=== PATIENT | male | born 1960 | race Caucasian/White ===

== ENCOUNTER 2023-01-12 09:15 | Outpatient (OUT) | payer OTHER, SELFPAY ==
[2023-01-12 10:15] LABS: Alanine Aminotransferase 48 U/L (16-63); Albumin Globulin Ratio 1.1; Albumin Level 3.9 g/dL (3.4-5.0); Alkaline Phosphatase 67 U/L (46-116); Anion Gap 11.9; Aspartate Amino Transferase 25 U/L (15-37); Bilirubin Total 0.3 mg/dL (0.2-1.0); Calcium 9.1 mg/dL (8.5-10.1); Carbon Dioxide 26.7 mmol/L (21.0-32.0); Chloride 106 mmol/L (98-107); Chol HDL Ratio 2.3; Cholesterol 138 mg/dL (<=200); Estimated GFR (African America >60 (>=60); Estimated GFR (Non-African Ame >60 (>=60); Globulin 3.4 g/dL; Glucose 110 mg/dL (74-106); HDL Cholesterol 61 mg/dL (40-60); Potassium 4.6 mmol/L (3.5-5.1); Sodium 140 mmol/L (136-145); Total Protein 7.3 g/dL (6.4-8.2); Triglycerides 45 mg/dL (<=150)
== END 2023-01-12 09:16 | disposition home or self-care (01) ==
LOC: LAB 09:15
PROVIDERS: PCP Family Medicine; Visit Provider Internal Medicine Cardiovascular Disease
DX: E78.01 Familial hypercholesterolemia (principal)
CPT/HCPCS: 36415; 80053; 80061

== ENCOUNTER 2023-06-21 10:37 | Outpatient (OUT) | payer OTHER, SELFPAY ==
[2023-06-21 11:07] LABS: Basophils Absolute Auto 0.1 10^3/uL (0.0-0.1); Basophils Percent Auto 0.7 % (0.2-2.0); Eosinophils Absolute Auto 0.2 10^3/uL (0.0-0.7); Eosinophils Percent Auto 2.5 % (0.9-7.0); Hematocrit 47.6 % (42.0-54.0); Hemoglobin 15.3 g/dL (14.0-18.0); Immature Granulocytes Abs Auto 0.02 10^3/uL (0.00-0.03); Immature Granulocytes Pct Auto 0.3 % (0.0-0.5); Lymphocytes Absolute Auto 1.3 10^3/uL (1.2-3.8); Lymphocytes Percent Auto 17.4 % (20.5-60.0); Mean Corpuscular HGB Conc 32.1 g/dL (29.9-35.2); Mean Corpuscular Hemoglobin 28.9 pg (25.9-34.0); Mean Corpuscular Volume 89.8 fL (80.0-94.0); Mean Platelet Volume 9.9 fL (9.5-13.5); Monocytes Absolute Auto 0.6 10^3/uL (0.3-0.8); Monocytes Percent Auto 7.9 % (1.7-12.0); Neutrophils Absolute Auto 5.4 10^3/uL (1.4-6.5); Neutrophils Percent Auto 71.2 % (43.0-75.0); Platelet Count 323 10^3/uL (150-450); Red Cell Distribution Width 13.6 % (11.0-15.0); White Blood Count 7.6 10^3/uL (4.0-11.0)
[2023-06-21 11:19] LABS: Estimated Average Glucose 120 mg/dL; Glycohemoglobin A1C 5.8 % (4.5-6.2)
[2023-06-21 11:43] LABS: Alanine Aminotransferase 65 U/L (16-63); Albumin Globulin Ratio 1.1; Alkaline Phosphatase 71 U/L (46-116); Anion Gap 15.2; Aspartate Amino Transferase 33 U/L (15-37); BUN Creatinine Ratio 14.6; Bilirubin Total 0.4 mg/dL (0.2-1.0); Calcium 9.1 mg/dL (8.5-10.1); Carbon Dioxide 26.1 mmol/L (21.0-32.0); Chloride 103 mmol/L (98-107); Chol HDL Ratio 2.4; Cholesterol 159 mg/dL (<=200); Estimated GFR (African America >60 (>=60); Estimated GFR (Non-African Ame >60 (>=60); Globulin 3.6 g/dL; Glucose 110 mg/dL (74-106); HDL Cholesterol 66 mg/dL (40-60); Potassium 4.3 mmol/L (3.5-5.1); Sodium 140 mmol/L (136-145); Total Protein 7.6 g/dL (6.4-8.2); Triglycerides 43 mg/dL (<=150); VLDL CHOLESTEROL 8.6 mg/dL
[2023-06-21 11:50] LABS: Prostate Specific Antigen Scrn 1.19 ng/mL (<=4.00)
== END 2023-06-21 10:38 | disposition home or self-care (01) ==
LOC: LAB 10:38
PROVIDERS: PCP Family Medicine; Visit Provider Family Medicine
DX: Z00.00 Encounter for general adult medical examination without abnormal findings (principal); E78.5 Hyperlipidemia, unspecified; R73.9 Hyperglycemia, unspecified; Z12.5 Encounter for screening for malignant neoplasm of prostate
CPT/HCPCS: 36415; 80053; 80061; 83036; 84436; 84443; 84481; 85025; G0103

== ENCOUNTER 2023-09-08 11:28 | Outpatient (OUT) | payer OTHER, SELFPAY | END 2023-09-08 11:29 | disposition home or self-care (01) | LOC: PST 11:28 | PROVIDERS: PCP Family Medicine; Visit Provider Surgery | DX: Z01.818 Encounter for other preprocedural examination (principal); Z12.11 Encounter for screening for malignant neoplasm of colon ==

== ENCOUNTER 2023-09-20 07:36 | Day surgery (SDC) | payer OTHER, SELFPAY ==
--- NOTE | 2023-09-20 | OP_ITS ---
OPERATION DATE: 09/20/2023 PREOPERATIVE DIAGNOSIS: Colorectal screening. POSTOPERATIVE DIAGNOSIS: Normal colonoscopy to cecum. PROCEDURE: Colonoscopy to cecum. SURGEON: Adonay Danielson M.D. ANESTHESIA: Monitored anesthesia care. ESTIMATED BLOOD LOSS: Zero. INDICATIONS AND CONSENT: Patient is a 63-year-old male who presents for colorectal screening. Indications, risks, benefits, alternatives of proceeding with colonoscopy were explained extensively to the patient, including the risks of bleeding, colon perforation or anesthetic complications. All of his questions were answered. Informed consent was obtained. PROCEDURE: Patient brought to the operating room, placed in the left lateral decubitus position. Monitored anesthesia care was provided. Rectal exam was performed which showed no masses or blood. The scope was inserted into the anal canal. Under direct visualization was advanced. It was advanced to the cecum where cecal markings were clearly identified. Upon withdrawal of the scope, mucosal surfaces were carefully examined. There were no mass lesions or polyps. No inflammatory changes or ulcerations. No significant diverticulosis. The scope was retroflexed in the anal canal. There was no significant hemorrhoidal disease. The scope was then withdrawn. Patient tolerated procedure well, was sent to recovery room in good condition. Follow up screening colonoscopy should be in 10 years. CC: Landen Zabala M.D. [email or web address]
--- OUTSIDE RECORDS SUMMARY | 2023-09-20 07:38 | XMS_ITS | CCD ---
Author Organization [facility] Care Team Providers Care Trans Router Name Role Phone ROXI, DR BALLESTEROS Primary Care Unavailable YOY, DR BALLESTEROS Admitting Unavailable HOY, DR BALLESTEROS Attending Unavailable HOY, DR BALLESTEROS Consulting Unavailable HOY, DR BALLESTEROS Consulting Unavailable HOY, DR BALLESTEROS Primary Care Unavailable HOY, DR BALLESTEROS Admitting Unavailable HOY, DR BALLESTEROS Attending Unavailable HOY, DR BALLESTEROS Primary Care Unavailable MISC, DR HUBBARD Admitting Unavailable MISC, DR HUBBARD Attending Unavailable YOY, DR BALLESTEROS Primary Care Unavailable MISC, DR HUBBARD Attending Unavailable MISC, DR HUBBARD Consulting Unavailable MISC, DR HUBBARD Admitting Unavailable ZIEBER, DR BENNIE Ovalle Consulting Unavailable HOY, DR BALLESTEROS Consulting Unavailable HOY, DR BALLESTEROS Primary Care Unavailable HOY, DR BALLESTEROS Admitting Unavailable HOY, DR BALLESTEROS Attending Unavailable HAFSA MCCOY Attending Unavailable JEANMARIE EVANS Attending Unavailable Favian Zabala Primary Care Physician Adonay VALDERRAMA Attending Unavailable Favian Zabala Referring Unavailable Allergies Allergy Classification Reported Allergen(s) Allergy Type Date of Onset Reaction(s) Facility (4 sources) gabapentin; Translations: [GABAPENTIN] Drug Allergy 2 [facility] Repository (1 source) gabapentin; Translations: [gabapentin] Drug Allergy Undifferentiated illness: Vague ill health (finding) [facility] [place] (2 sources) Simvastatin; Translations: [simvastatin] Drug Allergy Muscle pain (finding) [facility] [place] Medications Current Medications Medication Drug Class(es) Dates Sig (Normalized) Sig (Original) acetaminophen 325 mg / HYDROcodone bitartrate 5 mg oral tablet (1 source) Opioid Agonist Start: 06-29-2023 take 1 tablet by mouth every six hours as needed for pain acetaminophen-hydr ocodone 325 mg-5 mg oral tablet 1 tab(s), Oral, q6hr as needed for pain, Refill(s) 0 Start Date: 06/29/23 Status: Ordered aspirin 325 mg delayed release oral tablet (1 source) Platelet Aggregation Inhibitor, Nonsteroidal Anti-inflammatory Drug Start: 01-24-2020 take 1 tablet by mouth once daily aspirin 325 mg Oral EC Tab 325 mg = 1 tab(s), Oral, Daily, Refills(s) 0 Start Date: 01/24/20 Status: Ordered 1 ml evolocumab 140 mg/ml prefilled syringe (1 source) PCSK9 Inhibitor Start: 08-02-2023 inject 140 mg by subcutaneous injection every other week Repatha 140 mg/mL subcutaneous solution 140 mg, SubCutaneous, q2wk, Refills(s) 0 Start Date: 08/02/23 Status: Ordered ibuprofen 800 mg oral tablet (1 source) Nonsteroidal Anti-inflammatory Drug Start: 08-02-2023 take 1 tablet by mouth once daily ibuprofen 800 mg Tab 800 mg = 1 tab(s), Oral, Daily, Refills(s) 0 Start Date: 08/02/23 Status: Ordered Multi Vitamins oral tablet (1 source) Start: 06-29-2023 take 1 tablet by mouth once daily Multi Vitamins oral tablet 1 tab(s), Oral, Daily, Refill(s) 0 Start Date: 06/29/23 Status: Ordered pantoprazole 40 mg delayed release oral tablet (1 source) Proton Pump Inhibitor Start: 01-22-2020 take 1 tablet by mouth once daily Pantoprazole [address] Tab 40 mg = 1 tab(s), Oral, Daily, Refills(s) 0 Start Date: 01/22/20 Status: Ordered Completed/Discontinued Medications Medication Drug Class(es) Dates Sig (Normalized) Sig (Original) docusate sodium 50 mg / sennosides, mcc 8.6 mg oral tablet (1 source) Start: 06-29-2023 take 1 tablet by mouth once daily at bedtime docusate-senna 50 mg-8.6 mg Tab 1-2 tabs, Oral, Once a day (at bedtime), Refill(s) 0 Start Date: 06/29/23 Status: Ordered Problems Active Problems Problem Classification Problem Date Documented Da te Episodic/Chronic Asthma (1 source) Asthma 06-29-2023 Chronic Diabetes mellitus without complication (2 sources) Diabetes mellitus 01-22-2020 Chronic Disorders of lipid metabolism (6 sources) Familial hypercholesterolemia; Translations: [Hyperlipidemia] Onset: 2 Chronic Diverticulosis and diverticulitis (1 source) Diverticular disease 06-29-2023 Chronic Esophageal disorders (1 source) Gastroesophageal reflux disease 01-22-2020 Chronic Essential hypertension (1 source) Benign essential hypertension 01-22-2020 Chronic Hemorrhoids (1 source) Internal hemorrhoids 01-22-2020 Episodic Hyperplasia of prostate (1 source) Benign prostatic hyperplasia 01-22-2020 Chronic Other and unspecified benign neoplasm (1 source) Polyp of sigmoid colon 01-22-2020 Episodic Other gastrointestinal disorders (1 source) History of diverticulitis 01-22-2020 Episodic Other hereditary and degenerative nervous system conditions (1 source) Hereditary essential tremor 01-22-2020 Chronic Other nervous system disorders (1 source) Chronic pain syndrome 01-22-2020 Chronic Other nutritional; endocrine; and metabolic disorders (1 source) Body mass index 30+ - obesity 08-02-2023 Chronic Other nutritional; endocrine; and metabolic disorders (1 source) Obesity 08-02-2023 Chronic Other screening for suspected conditions (not mental disorders or infectious disease) (2 sources) Encounter for screening for malignant neoplasm of prostate; Translations: [Screening for malignant neoplasm of colon done] Onset: 2 Episodic Other upper respiratory disease (1 source) Seasonal allergic rhinitis 06-29-2023 Chronic Residual codes; unclassified (1 source) Family history of cancer of colon 01-24-2020 Episodic Spondylosis; intervertebral disc disorders; other back problems (1 source) 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 Spondylosis; intervertebral disc disorders; other back problems (6 sources) Radiculopathy, cervical region; Translations: [Radiculopathy, lumbar region] Onset: 2 Episodic Unclassified (2 sources) CONTACT W/AND (SUSP) EXPOS COVID-19; Translations: [CONTACT W/AND (SUSP) EXPOS COVID-19] Onset: 2 Unclassified (1 source) Patient encounter status 08-02-2023 Viral infection (1 source) COVID-19; Translations: [COVID-19] Onset: 2 Past or Other Problems Problem Classification Problem Date Documented Da te Episodic/Chronic Nonspecific chest pain (2 sources) Chest pain; Translations: [Chest Pain] Onset: 02-28-2022 Episodic Unclassified (1 source) CONTACT W/AND (SUSP) EXPOS COVID-19; Translations: [CONTACT W/AND (SUSP) EXPOS COVID-19] Onset: 01-05-2022 Results Test Name Value Interpretation Reference Range Facility Insurance Correspondenceon 0 08-31-2023 Insurance Correspondence [id number] 0TIFF [facility] Consent for Procedure/Surger yon 08-03-2023 Consent for Procedure/Surgery [id number] 0TIFF [facility] Facesheeton 08-03-2023 Facesheet [id number]#1. 00TIFF [facility] Ambulatory Visit Summaryon 0 08-02-2023 Ambulatory Visit Summary VERN RAVI :1960 Visit Date:08/02/2023 Ambulatory Visit Instructions Your Diagnosis Screening for malignant neoplasm of colon Your Care Team Attending Physician - JANNIE PASCAL, Adonay Ovalle Primary Care Physician - Favian Zabala MD Referring Physician - Favian Zabala MD This Is Your Medications List Contact prescribing physician if questions or concerns acetaminophen-hydrocod one (acetaminophen-hydroco done 325 mg-5 mg oral tablet) aspirin (aspirin 325 mg Oral EC Tab) docusate-senna (docusate-senna 50 mg-8.6 mg Tab) evolocumab (Repatha 140 mg/mL subcutaneous solution) ibuprofen (ibuprofen 800 mg Tab) multivitamin (Multi Vitamins oral tablet) pantoprazole (Pantoprazole [address] Tab) Procedures Performed Colonoscopy (01/03/2014), Arthropathy of right shoulder, Colonoscopy, Colonoscopy, Left arm, Pectoral muscle, Tonsillectomy. Discharge Vitals Heart Rate (Peripheral) 76 Respiratory Rate 16 Blood Pressure 152/86 Height 177.8 cm Height 70 in Weight 103.4 kg Weight 227.48 lb BMI 32.71 Medications What How Much When Instructions Unchanged acetaminophen-hydrocod one (acetaminophen-hydroco done 325 mg-5 mg oral tablet) 1 Tablets By Mouth Every 6 hours as needed for as needed for pain Contact prescribing physician if questions or concerns Unchanged aspirin (aspirin 325 mg Oral EC Tab) 1 Tablets By Mouth Every day Contact prescribing physician if questions or concerns Unchanged docusate-senna (docusate-senna 50 mg-8.6 mg Tab) 1-2 tabs By Mouth Once a day (at bedtime) Contact prescribing physician if questions or concerns Unchanged evolocumab (Repatha 140 mg/ mL subcutaneous solution) 140 Milligram Subcutaneous Every other week Contact prescribing physician if questions or concerns Unchanged ibuprofen (ibuprofen 800 mg Tab) 1 Tablets By Mouth Every day Contact prescribing physician if questions or concerns Unchanged multivitamin (Multi Vitamins oral tablet) 1 Tablets By Mouth Every day Contact prescribing physician if questions or concerns Unchanged pantoprazole (Pantoprazole [address] Tab) 1 Tablets By Mouth Every day Contact prescribing physician if questions or concerns Allergies gabapentin (Feeling ill) simvastatin (Muscle pain) Problems Ongoing - Any problem that you are currently receiving treatment for. Asthma Benign essential HTN BMI 32.0-32.9,adult BPH (benign prostatic hyperplasia) Cervical radiculopathy Controlled diabetes mellitus Diabetes Diverticulosis Familial hypercholesteremia Familial tremor Family history of colon cancer in father GERD (gastroesophageal reflux disease) History of diverticulitis Hyperlipidemia Internal hemorrhoids Lumbar disc disease Obesity Pain syndrome, chronic Screening for malignant neoplasm of colon Seasonal allergic rhinitis Sigmoid polyp Patient Survey You may receive a survey via text or e-mail asking about your office visit. Please share your experience with us by completing your survey. We appreciate your feedback and thank you for choosing us for your care. Normal [facility] Physician Referralon 024 Physician Referral [id number] 0TIFF [facility] Office Visiton 01-11-2023 Follow-up visit [id number] Vern Ravi 1960 M Date Provider Department Center 01/11/2023 3848-JEANMARIE EVANS [facility] Family History Problem Relation Age of Onset Coronary artery disease Mother Asthma Mother Heart attack Father Colon cancer Father Bone cancer Brother Family Status - Relation Status Age at Mother Father Brother Level of Service:75642 IN OFFICE/OUTPATIENT ESTABLISHED LOW MDM 20-29 MIN Normal [facility] Follow-Upon 02-28-2022 Follow-Up [id number] Vern Ravi 1960 M Date Provider Department Center 02/28/2022 HAFSA WEINSTEIN [facility] Family History Problem Relation Age of Onset Coronary artery disease Mother Asthma Mother Heart attack Father Colon cancer Father Bone cancer Brother Family Status - Relation Status Age at Mother Father Brother Level of Service:13888 IN OFFICE/OUTPATIENT ESTABLISHED LOW MDM 20-29 MIN Reason for Visit and Comments: Hyperlipidemia [182] Chest Pain [535492] Normal [facility] STU - LIPID PROFILEon 2021 CHOL-HDL RATIO NORM SEE BELOW Normal [facility] Comment on above: Result Comment: 3.3 - 4.4 LOW RISK 4.4 - 7.1 AVERAGE RISK 7.1 - 11.0 MODERATE RISK >11.0 HIGH RISK Performed By: #### D ATLIPI #### [facility] [address] [address] [address] Odilon Santos Cholesterol [Mass/Vol] 170 mg/dL Normal <=200 [facility] Comment on above: Performed By: #### D ATLIPI #### [facility] [address] [address] [address] Odilon Santos Cholesterol in HDL [Mass/Vol] 60 mg/dL Normal 40-60 [facility] Comment on above: Performed By: #### D ATLIPI #### [facility] [address] [address] [address] Odilon Santos Cholesterol in LDL [Mass/Vol] 89.2 mg/dL Normal [facility] Comment on above: Performed By: #### D ATLIPI #### [facility] [address] [address] [address] Odilon Santos Cholesterol.total/Ch olesterol in HDL [Mass ratio] 2.8 {ratio} Normal [facility] Comment on above: Performed By: #### D ATLIPI #### [facility] [address] [address] [address] Odilon Santos HDL NORMAL > or = 60 mg/dl - LO W CARDIOVASCULAR RISK <40 mg/dl - HIGH CARDIOVASCULAR RISK Normal [facility] Comment on above: Performed By: #### D ATLIPI #### [facility] [address] [address] [address] Odilon Santos LDL CALC NORMAL SEE BELOW Normal [facility] Comment on above: Result Comment: <100 mg/dl OPTIMAL 100 - 129 mg/dl NEAR OR ABOVE OPTIMAL 130 - 159 mg/dl BORDERLINE HIGH 160 - 189 mg/dl HIGH >190 mg/dl VERY HIGH Performed By: #### D ATLIPI #### [facility] [address] [address] [address] Odilon Santos Triglyceride [Mass/Vol] 104 mg/dL Normal <=150 [facility] Comment on above: Performed By: #### D ATLIPI #### [facility] [address] [place] [address] Dr. Odilon Santos VLDL CALC 20.8 mg/dL Normal [facility] Comment on above: Performed By: #### D ATLIPI #### [facility] [address] [place] [address] Dr. Odilon Santos Covid-19 PCR (CVDTB)on SARS-CoV-2 (COVID-19) RNA DEON+probe Ql (Unsp spec) Detected Critically abnormal NOT DETECTED [facility] Comment on above: Result Comment: This test is not yet approved or cleared by the [place] FDA. When there are no FDA-approved or cleared tests available, and other criteria are met, FDA can make tests available under an emergency access mechanism called an Emergency Use Authorization (EUA). The EUA for this test is supported by the [place] of Health and Human Service's (HHS's) declaration that circumstances exist to justify the emergency use of in vitro diagnostics for the detection and/or diagnosis of the virus that causes COVID-19. This EUA will remain in effect (meaning this test can be used) for the duration of the COVID-19 declaration justifying emergency of IVDs, unless it is terminated or revoked by FDA (after which the test may no longer be used). Performed By: #### C VDTBH #### [facility] [address] [place], [place] [address] Dr. Odilon Santos XR CSPINE OBL FLEX_EXTon XR CSPINE OBL FLEX_EXT EXAMINATION: XR CSPINE OBL FLEX_EXT HISTORY: Cervical radiculopathy radiating into both arms COMPARISON: No relevant comparison available. FINDINGS: BONES: Minimal grade 1 anterior listhesis of C2 on 3 which persists during neutral, flexion, extension. No fracture or bone lesion. Mild degenerative facet arthropathy at C3-4, left greater than right causing moderate bone encroachment on the left neural foramen. Moderate bone encroachment on the right C5-6 and C6-7 neural foramen. DISC SPACES: Slight disc space narrowing C3-4 through C6-7. PARASPINOUS: No paraspinous abnormality is seen. OTHER: Negative. IMPRESSION: Mild-moderate degenerative changes with bone encroachment causing narrowing of the neural foramen bilaterally. Consider MRI for further evaluation. Electronically authenticated by: BENNIE PAYNE Date: 2021-12-30 09:27 Normal [facility] XR LSPINE W_OBLS AND FLEX_EX Ton 12-30-2021 XR LSPINE W_OBLS AND FLEX_EXT EXAMINATION: XR LSPINE W_OBLS AND FLEX_EXT HISTORY: Cervical radiculopathy ; chronic lumbar pain radiating into left leg COMPARISON: XR lumbar spine 08/20/2018 FINDINGS: BONES: Minimal grade 1 retrolisthesis of L2 on 3, L3 on 4 which persists during flexion, neutral, and extension. No fracture or bone lesion. Mild degenerative facet arthropathy L4-5, L5-S1. DISC SPACES: Mild narrowing L3-4. Moderate narrowing L4-5. Marked narrowing L5-S1. PARASPINOUS: No paraspinous abnormality is seen. OTHER: Negative. IMPRESSION: 1. Multilevel degenerative changes with moderate-marked degenerative disc disease of lower lumbar spine; slightly progressed. Electronically authenticated by: BENNIE PAYNE Date: 2021-12-30 09:32 Normal [facility] INSULINon 10-14-2021 Insulin 23.3 uIU/mL Normal 2.6-24.9 [facility] Comment on above: Performed By: #### I NSULIN ####[facility] [address] [address]Dr. Odilon Santos CBC AUTO DIFFon 10-13-2021 BASO # 0.0 103/ul Normal 0.0-0.1 [facility] Comment on above: Performed By: #### C BC #### [facility] [address] [place] [address] Dr. Odilon Santos Basophils/100 WBC (Bld) 0.6 % Normal 0.2-2.0 [facility] Comment on above: Performed By: #### C BC #### [facility] [address] [place] [address] Dr. Odilon Santos EO # 0.3 103/ul Normal 0.0-0.7 [facility] Comment on above: Performed By: #### C BC #### [facility] [address] [place] [address] Dr. Odilon Snatos Eosinophils/100 WBC (Bld) 4.1 % Normal 0.9-7.0 [facility] Comment on above: Performed By: #### C BC #### [facility] [address] [place] [address] Dr. Odilon Santos Erythrocyte distribution width (RBC) [Ratio] 14.1 % Normal 11.0-15.0 [facility] Comment on above: Performed By: #### C BC #### [facility] [address] [place] [address] Dr. Odilon Santos Hematocrit (Bld) [Volume fraction] 44.4 % Normal 42.0-54.0 [facility] Comment on above: Performed By: #### C BC #### [facility] [address] [place] [address] Dr. Odilon Santos Hemoglobin (Bld) [Mass/Vol] 14.5 g/dL Normal 14.0-18.0 [facility] Comment on above: Performed By: #### C BC #### [facility] [address] [place] [address] Dr. Odilon Santos IG # 0.03 10e3/ul Normal 0.00-0.03 [facility] Comment on above: Performed By: #### C BC #### [facility] [address] [place] [address] Dr. Odilon Santos IG % 0.5 % Normal 0.0-0.5 [facility] Comment on above: Performed By: #### C BC #### [facility] [address] [place] [address] Dr. Odilon Santos LYMPH # 1.5 103/ul Normal 1.2-3.8 [facility] Comment on above: Performed By: #### C BC #### [facility] [address] [place] [address] Dr. Odilon Santos Lymphocytes/100 WBC (Bld) 23.5 % Normal 20.5-60.0 [facility] Comment on above: Performed By: #### C BC #### [facility] [address] [place] [address] Dr. Odilon Santos MANUAL DIFF REQ NO Normal [facility] Comment on above: Performed By: #### C BC #### [facility] [address] [place] [address] Dr. Odilon Santos MCH (RBC) [Entitic mass] 29.1 pg Normal 25.9-34.0 [facility] Comment on above: Performed By: #### C BC #### [facility] [address] [place] [address] Dr. Odilon Santos MCHC (RBC) [Mass/Vol] 32.7 g/dL Normal 29.9-35.2 [facility] Comment on above: Performed By: #### C BC #### [facility] [address] [place] [address] Dr. Odilon Santos MCV (RBC) [Entitic vol] 89.0 fL Normal 80.0-94.0 [facility] Comment on above: Performed By: #### C BC #### [facility] [address] [place] [address] Dr. Odilon Santos MONO # 0.6 103/ul Normal 0.3-0.8 [facility] Comment on above: Performed By: #### C BC #### [facility] [address] [place] [address] Dr. Odilon Santos Monocytes/100 WBC (Bld) 9.1 % Normal 1.7-12.0 [facility] Comment on above: Performed By: #### C BC #### [facility] [address] [place] [address] Dr. Odilon Santos NEUT # 4.1 103/ul Normal 1.4-6.5 [facility] Comment on above: Performed By: #### C BC #### [facility] [address] [place] [address] Dr. Odilon Santos Neutrophils/100 WBC (Bld) 62.2 % Normal 43.0-75.0 [facility] Comment on above: Performed By: #### C BC #### [facility] [address] [place] [address] Dr. Odilon Santos Platelet mean volume (Bld) [Entitic vol] 9.8 fL Normal 9.5-13.5 [facility] Comment on above: Performed By: #### C BC #### [facility] [address] [place] [address] Dr. Odilon Santos PLT 288 103/ul Normal 150-450 [facility] Comment on above: Performed By: #### C BC #### [facility] [address] [place] [address] Dr. Odilon Santos RBC 4.99 106/ul Normal 4.70-6.10 [facility] Comment on above: Performed By: #### C BC #### [facility] [address] [place] [address] Dr. Odilon Santos WBC 6.6 103/ul Normal 4.0-11.0 [facility] Comment on above: Performed By: #### C BC #### [facility] [address] [place] [address] Dr. Odilon Santos GLYCOHEMOGLOBIN A1Con 2021 ADA RECOMMENDATION SEE BELOW Normal [facility] Comment on above: Result Comment: ADA RECOMMENDED LIMIT 4.0 - 6.0 ADA THERAPEUTIC TARGET < 7.0 ACTION SUGGESTED > 7.0 Performed By: #### A 1C #### [facility] [address] [place] [address] Dr. Odilon Santos Glucose [Mass/Vol] 123 mg/dL Normal [facility] Comment on above: Performed By: #### A 1C #### [facility] [address] [address] [address] Odilon Santos HbA1c (Bld) [Mass fraction] 5.9 % Normal 4.5-6.2 [facility] Comment on above: Performed By: #### A 1C #### [facility] [address] [address] [address] Odilon Santos LIPID PROFILEon 10-13-2021 CHOL-HDL RATIO NORM SEE BELOW Normal [facility] Comment on above: Result Comment: 3.3 - 4.4 LOW RISK 4.4 - 7.1 AVERAGE RISK 7.1 - 11.0 MODERATE RISK >11.0 HIGH RISK Performed By: #### U LAUREN, LIPID, CMP #### [facility] [address] [address] [address] Odilon Santos Cholesterol [Mass/Vol] 119 mg/dL Normal <=200 [facility] Comment on above: Performed By: #### U LAUREN, LIPID, CMP #### [facility] [address] [address] [address] Odilon Santos Cholesterol in HDL [Mass/Vol] 58 mg/dL Normal 40-60 [facility] Comment on above: Performed By: #### U LAUREN, LIPID, CMP #### [facility] [address] [address] [address] Odilon Santos Cholesterol in LDL [Mass/Vol] 51.8 mg/dL Normal [facility] Comment on above: Performed By: #### U LAUREN, LIPID, CMP #### [facility] [address] [address] [address] Odilon Santos Cholesterol.total/Ch olesterol in HDL [Mass ratio] 2.1 {ratio} Normal [facility] Comment on above: Performed By: #### U LAUREN, LIPID, CMP #### [facility] [address] [address] [address] Odilon Santos HDL NORMAL > or = 60 mg/dl - LO W CARDIOVASCULAR RISK <40 mg/dl - HIGH CARDIOVASCULAR RISK Normal [facility] Comment on above: Performed By: #### U LAUREN, LIPID, CMP #### [facility] [address] [address] [address] Odilon Santos LDL CALC NORMAL SEE BELOW Normal [facility] Comment on above: Result Comment: <100 mg/dl OPTIMAL 100 - 129 mg/dl NEAR OR ABOVE OPTIMAL 130 - 159 mg/dl BORDERLINE HIGH 160 - 189 mg/dl HIGH >190 mg/dl VERY HIGH Performed By: #### U LAUREN, LIPID, CMP #### [facility] [address] [address] [address] Odilon Santos Triglyceride [Mass/Vol] 46 mg/dL Normal <=150 [facility] Comment on above: Performed By: #### U LAUREN, LIPID, CMP #### [facility] [address] [address] [address] Odilon Santos VLDL CALC 9.2 mg/dL Normal [facility] Comment on above: Performed By: #### U LAUREN, LIPID, CMP #### [facility] [address] [address] [address] Odilon Santos PROF 14(COMP METB)on 022 Albumin [Mass/Vol] 3.8 g/dL Normal 3.4-5.0 [facility] Comment on above: Performed By: #### U LAUREN, LIPID, CMP #### [facility] [address] [place] [address] Dr[address] Odilon Santos Albumin/Globulin [Mass ratio] 1.1 {ratio} Normal [facility] Comment on above: Performed By: #### U LAUREN, LIPID, CMP #### [facility] [address] [address] [address] Odilon Santos ALP [Catalytic activity/Vol] 82 U/L Normal 46-116 [facility] Comment on above: Performed By: #### U LAUREN, LIPID, CMP #### [facility] [address] [place] [address] [address] Odilon Santos ALT [Catalytic activity/Vol] 75 U/L Critically high 16-63 [facility] Comment on above: Performed By: #### U LAUREN, LIPID, CMP #### [facility] [address] [place] [address] [address] Odilon Santos Anion gap [Moles/Vol] 12.4 mmol/L Normal [facility] Comment on above: Performed By: #### U LAUREN, LIPID, CMP #### [facility] [address] [place] [address] [address] Odilon Santos AST [Catalytic activity/Vol] 25 U/L Normal 15-37 [facility] Comment on above: Performed By: #### U LAUREN, LIPID, CMP #### [facility] [address] [place] [address] [address] Odilon Santos Bilirubin [Mass/Vol] 0.4 mg/dL Normal 0.2-1.0 [facility] Comment on above: Performed By: #### U LAUREN, LIPID, CMP #### [facility] [address] [place] [address] [address] Odilon Santos Calcium [Mass/Vol] 9.1 mg/dL Normal 8.5-10.1 [facility] Comment on above: Performed By: #### U LAUREN, LIPID, CMP #### [facility] [address] [address] [address] Odilon Santos Chloride [Moles/Vol] 105 mmol/L Normal 98-107 [facility] Comment on above: Performed By: #### U LAUREN, LIPID, CMP #### [facility] [address] [address] [address] Odilon Santos CO2 [Moles/Vol] 26.4 mmol/L Normal 21.0-32.0 [facility] Comment on above: Performed By: #### U LAUREN, LIPID, CMP #### [facility] [address] [address] [address] Odilon Santos Creatinine [Mass/Vol] 1.07 mg/dL Normal 0.70-1.30 [facility] Comment on above: Performed By: #### U LAUREN, LIPID, CMP #### [facility] [address] [address] [address] Odilon Santos EGFR-AF SAO TOMEAN >60 Normal >=60 [facility] Comment on above: Performed By: #### U LAUREN, LIPID, CMP #### [facility] [address] [address] [address] Odilon Santos EGFR-NON AF SAO TOMEAN >60 Normal >=60 [facility] Comment on above: Performed By: #### U LAUREN, LIPID, CMP #### [facility] [address] [place] [address] [address] Odilon Santos Globulin (S) [Mass/Vol] 3.4 g/dL Normal [facility] Comment on above: Performed By: #### U LAUREN, LIPID, CMP #### [facility]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
[2023-09-20 07:40] VITALS: BP 148/86; PULSE 94; TEMP 36.4; O2SAT 97; BMI 30.3
[2023-09-20] MEDS: LACTATED RINGER'S SOLUTION 1,000 ML 50 ML IV (07:57)
[2023-09-20 09:47] VITALS: BP 115/74; PULSE 86; O2SAT 96
[2023-09-20 10:02] VITALS: BP 123/84; PULSE 80; O2SAT 95
== END 2023-09-20 10:19 | disposition home or self-care (01) ==
PROVIDERS: PCP Family Medicine; Visit Provider Surgery
PROC: (CPT 00812; principal; 2023-09-20 08:55)
DX: Z12.11 Encounter for screening for malignant neoplasm of colon (principal)
CPT/HCPCS: 00812; 45378; J2704

== ENCOUNTER 2023-11-13 10:29 | Outpatient (REF) | payer OTHER, SELFPAY ==
[2023-11-13 11:03] LABS: Internal Control Within Normal Limits; SARS-CoV-2 Ag POSITIVE (NEGATIVE)
== END 2023-11-13 10:30 | disposition home or self-care (01) ==
LOC: LAB 10:29
PROVIDERS: PCP Family Medicine; Visit Provider Family Medicine
DX: R50.9 Fever, unspecified (principal)
CPT/HCPCS: 87811

== ENCOUNTER 2024-01-30 09:16 | Outpatient (OUT) | payer OTHER, SELFPAY ==
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
[2024-01-30 09:55] LABS: Chol HDL Ratio 2.4; Cholesterol 150 mg/dL (<=200); HDL Cholesterol 62 mg/dL (40-60); Triglycerides 62 mg/dL (<=150); VLDL CHOLESTEROL 12.4 mg/dL
== END 2024-01-30 09:17 | disposition home or self-care (01) ==
LOC: LAB 09:18
PROVIDERS: PCP Family Medicine; Visit Provider Internal Medicine Cardiovascular Disease
DX: E78.5 Hyperlipidemia, unspecified (principal)
CPT/HCPCS: 36415; 80061

== ENCOUNTER 2024-05-06 14:47 | Outpatient (OUT) | payer OTHER, SELFPAY ==
--- NOTE | 2024-05-06 14:53 | XR_ITS ---
The [address] [address] Patient Name: LUZMARIA MCCLELLAND MRN: [id number] date: 1960 Sex: M Assigned Patient Location: RAD Current Patient Location: RAD Accession/Order Number: [id number] Exam Date: 05/06/2024 15:05 Report Date: 05/06/2024 15:39 At the request of: DENAE AGUILAR Procedure: XR foot LT min 3V EXAM: XR foot LT min 3V HISTORY: Left Foot Pain COMPARISON: None. TECHNIQUE: 3 views of left foot were obtained. FINDINGS: There is no apparent acute fracture or dislocation. There is mild narrowing of the first metatarsophalangeal joint. Remainder the joint spaces are relatively intact. An osteophyte arises from the base of the distal phalanx of the great toe. No other focal osseous abnormality is identified. An osteophyte arises from the insertion site of the Achilles tendon. Soft tissues are intact throughout. XR/XR foot LT min 3V IMPRESSION: No acute fracture or dislocation. Mild degenerative changes are seen at the first metatarsophalangeal joint. Electronically authenticated by: DENAE HENSON Date: 05/06/2024 15:39
== END 2024-05-06 14:48 | disposition home or self-care (01) ==
PROVIDERS: PCP Family Medicine; Visit Provider Podiatrist Foot & Ankle Surgery
DX: M79.672 Pain in left foot (principal)
CPT/HCPCS: 73630

== ENCOUNTER 2024-05-13 16:15 | Outpatient (RCR) | payer OTHER, SELFPAY | END 2024-06-13 14:59 | disposition home or self-care (01) | LOC: PT 16:15 | PROVIDERS: PCP Family Medicine; Visit Provider Podiatrist Foot & Ankle Surgery | DX: M79.672 Pain in left foot (principal) | CPT/HCPCS: 97033; 97162 ==

== ENCOUNTER 2024-06-04 07:34 | Outpatient (OUT) | payer OTHER, SELFPAY ==
--- OUTSIDE RECORDS SUMMARY | 2024-06-04 07:37 | XMS_ITS | CCD ---
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 Name Role Phone SAGRARIO, DR BALLESTEROS Primary Care Unavailable HOY, DR [...] Attending Unavailable Favian Zabala Primary Care Physician [phone] Favian Zabala Referring Unavailable NILL, Adonay Ovalle Attending Unavailable NILL, Adonay Ovalle Attending Unavailable COLEMAN HERRERA Attending Unavailable JEANMARIE ZAYAS Attending Unavailable COLEMAN HERRERA Referring Unavailable Allergies Allergy Classification Reported Allergen(s) Allergy Type Date of Onset Reaction(s) Facility (4 sources) gabapentin; Translations: [gabapentin] Drug Allergy 2 [facility] Repository (1 source) gabapentin; Translations: [gabapentin] Drug Allergy Undifferentiated illness: Vague ill health (finding) [facility] [place] (3 sources) Simvastatin; Translations: [simvastatin] Drug Allergy 4 Muscle pain (finding) [facility] [place] Medications Current Medications Medication Drug Class(es) Dates [...] (Original) docusate sodium 50 mg / sennosides, senior living 8.6 mg oral tablet (1 source) Start: [...] mellitus 01-22-2020 Chronic Disorders of lipid metabolism (2 sources) Familial hypercholesterolemia; Translations: [Hyperlipidemia] 06-29-2023 Chronic Diverticulosis and diverticulitis (1 source) [...] Value Interpretation Reference Range Facility Office Visiton 02-09-2024 Follow-up visit [id number] Vern Ravi 1960 M Date Provider Department Center 02/09/2024 Dyan-JEANMARIE ZAYAS SOBEIDA Carcamo [facility] Family History Problem Relation Age of Onset Coronary artery disease Mother Asthma Mother Liver cancer Mother Heart attack Father Colon cancer Father Bone cancer Brother Family Status - Relation Status Age at Mother Father Brother Level of Service:13831 [place] OFFICE/OUTPATIENT ESTABLISHED LOW MDM 20 MIN Normal [facility] Office Visiton 12-07-2023 Follow-up visit [id number] Vern Ravi 1960 M Date Provider Department Center 12/07/2023 COLEMAN GRIMALDO DCC ONC DCC Family History Problem Relation Age of Onset Coronary artery disease Mother Asthma Mother Liver cancer Mother Heart attack Father Colon cancer Father Bone cancer Brother Family Status - Relation Status Age at Mother Father Brother Level of Service:71585 [place] OFFICE/OUTPATIENT NEW MODERATE MDM 45 MINUTES Normal [facility] Outside Colonoscopyon 2023 Outside Colonoscopy [id number] 0TIFF [facility] Reminderson 09-21-2023 Reminders - From: Shavon Aguilar LPN To: N - Clinical; Sent: 09/21/2023 11:27:17 EDT Show up: 08/20/2033 07:00:00 EDT Subject: colonoscopy recall Due Date/Time: 09/19/2033 07:00:00 EDT Reminder/Recall Patient due for screening colonoscopy 09/19/2033. Normal [facility] Insurance Correspondenceon 0 08-31-2023 Insurance Correspondence [id number] 0TIFF [facility] Consent for Procedure/Surger yon 08-03-2023 Consent for Procedure/Surgery [id number] 0TIFF Normal [facility] Facesheeton 08-03-2023 Facesheet [id number] 00TIFF Normal [facility] Ambulatory Visit Summaryon 0 08-02-2023 Ambulatory Visit Summary VERN RAVI :1960 Visit Date:08/02/2023 Ambulatory Visit Instructions Your Diagnosis Screening for malignant neoplasm of colon Your Care Team Attending Physician - JANNIE PASCAL, Adonay Ovalle Primary Care Physician - Sagrario PASCAL, Favian Referring Physician - Favian Zabala MD This [...] for choosing us for your care. Normal [facility] Physician Referralon 024 Physician Referral [id number] 0TIFF Normal [facility] STU - LIPID PROFILEon 2021 CHOL-HDL RATIO NORM SEE BELOW Normal [facility] Comment on above: Result Comment: 3.3 - 4.4 LOW RISK 4.4 - 7.1 AVERAGE RISK 7.1 - 11.0 MODERATE RISK >11.0 HIGH RISK Performed By: #### D ATLIPI #### [facility] [address] [address] [address] Odilon Santos Cholesterol [Mass/Vol] 170 mg/dL Normal <=200 [facility] Comment on above: Performed By: #### D ATLIPI #### [facility] [address] [address] [address] Odilon Santos Cholesterol in HDL [Mass/Vol] 60 mg/dL Normal 40-60 [facility] Comment on above: Performed By: #### D ATLIPI #### [facility] [address] [address] [address] Odilon Santos Cholesterol in LDL [Mass/Vol] 89.2 mg/dL Normal [facility] Comment on above: Performed By: #### D ATLIPI #### [facility] [address] [address] [address] Odilon Santos Cholesterol.total/Ch olesterol in HDL [Mass ratio] 2.8 {ratio} Normal [facility] Comment on above: Performed By: #### D ATLIPI #### [facility] [address] [address] [address] Odilon Santos HDL NORMAL > or = 60 mg/dl - LO W CARDIOVASCULAR RISK <40 mg/dl - HIGH CARDIOVASCULAR RISK Normal [facility] Comment on above: Performed By: #### D ATLIPI #### [facility] [address] [address] [address] Odilon Santos LDL CALC NORMAL SEE BELOW Normal [facility] Comment on above: Result Comment: <100 mg/dl OPTIMAL 100 - 129 mg/dl NEAR OR ABOVE OPTIMAL 130 - 159 mg/dl BORDERLINE HIGH 160 - 189 mg/dl HIGH >190 mg/dl VERY HIGH Performed By: #### D ATLIPI #### [facility] [address] [address] [address] Oidlon Santos Triglyceride [Mass/Vol] 104 mg/dL Normal <=150 [facility] Comment on above: Performed By: #### D ATLIPI #### [facility] [address] [address] [address] Odilon Santos VLDL CALC 20.8 mg/dL Normal [facility] Comment on above: Performed By: #### D ATLIPI #### [facility] [address] [address] [address] Odilon Santos Covid-19 PCR (CVDTBH)on SARS-CoV-2 (COVID-19) RNA DEON+probe Ql (Unsp spec) Detected Critically abnormal NOT DETECTED [facility] Comment on above: Result Comment: This test is not yet approved or cleared by the [place] FDA. When there are no FDA-approved or cleared tests available, and other criteria are met, FDA can make tests available under an emergency access mechanism called an Emergency Use Authorization (EUA). The EUA for this test is supported by the Take Down Sorter of Health and Human Service's (HHS's) declaration [...] used). Performed By: #### C [facility] #### [facility] [address] [place] [address] Dr. Odilon Santos XR CSPINE OBL FLEX_EXTon [...] BENNIE PAYNE Date: 2021-12-30 09:27 Normal [facility] XR LSPINE W_OBLS AND FLEX_EX Ton 12-30-2021 [...] BENNIE PAYNE Date: 2021-12-30 09:32 Normal [facility] INSULINon 10-14-2021 Insulin 23.3 uIU/mL Normal 2.6-24.9 [facility] Comment on above: Performed By: #### I NSULIN ####[facility] [id number] [id number] Odilon Santos CBC AUTO DIFFon 10-13-2021 BASO # 0.0 103/ul Normal 0.0-0.1 [facility] Comment on above: Performed By: #### C BC #### [facility] [address] [address] [address] Odilon Santos Basophils/100 WBC (Bld) 0.6 % Normal 0.2-2.0 [facility] Comment on above: Performed By: #### C BC #### [facility] [address] [address] [address] Odilon Santos EO # 0.3 103/ul Normal 0.0-0.7 [facility] Comment on above: Performed By: #### C BC #### [facility] [address] [address] [address] Odilon Santos Eosinophils/100 WBC (Bld) 4.1 % Normal 0.9-7.0 [facility] Comment on above: Performed By: #### C BC #### [facility] [address] [address] [address] Odilon Santos Erythrocyte distribution width (RBC) [Ratio] 14.1 % Normal 11.0-15.0 [facility] Comment on above: Performed By: #### C BC #### [facility] [address] [address] [address] Odilon Santos Hematocrit (Bld) [Volume fraction] 44.4 % Normal 42.0-54.0 [facility] Comment on above: Performed By: #### C BC #### [facility] [address] [place] [address] Dr. Odilon Santos Hemoglobin (Bld) [Mass/Vol] 14.5 g/dL Normal 14.0-18.0 [facility] Comment on above: Performed By: #### C BC #### [facility] [address] [place] [address] Dr. Odilon Santos IG # 0.03 10e3/ul Normal 0.00-0.03 [facility] Comment on above: Performed By: #### C BC #### [facility] [address] [place] [address] Dr. Odilon Santos IG % 0.5 % Normal 0.0-0.5 [facility] Comment on above: Performed By: #### C BC #### [facility] [address] [place] [address] Dr. Odilon Santos LYMPH # 1.5 103/ul Normal 1.2-3.8 [facility] Comment on above: Performed By: #### C BC #### [facility] [address] [place] [address] Dr. Odilon Santos Lymphocytes/100 WBC (Bld) 23.5 % Normal 20.5-60.0 [facility] Comment on above: Performed By: #### C BC #### [facility] [address] [place] [address] Dr. Odilon Santos MANUAL DIFF REQ NO Normal [facility] Comment on above: Performed By: #### C BC #### [facility] [address] [place] [address] Dr. Odilon Santos MCH (RBC) [Entitic mass] 29.1 pg Normal 25.9-34.0 [facility] Comment on above: Performed By: #### C BC #### [facility] [address] [place] [address] Dr. Odilon Santos MCHC (RBC) [Mass/Vol] 32.7 g/dL Normal 29.9-35.2 [facility] Comment on above: Performed By: #### C BC #### [facility] [address] [place] [address] Dr. Odilon Santos MCV (RBC) [Entitic vol] 89.0 fL Normal 80.0-94.0 [facility] Comment on above: Performed By: #### C BC #### [facility] [address] [place] [address] Dr. Odilon Santos MONO # 0.6 103/ul Normal 0.3-0.8 [facility] Comment on above: Performed By: #### C BC #### [facility] [address] [address] [address] Odilon Santos Monocytes/100 WBC (Bld) 9.1 % Normal 1.7-12.0 [facility] Comment on above: Performed By: #### C BC #### [facility] [address] [place] [address] Dr. Odilon Santos NEUT # 4.1 103/ul Normal 1.4-6.5 [facility] Comment on above: Performed By: #### C BC #### [facility] [address] [place] [address] Dr. Odilon Santos Neutrophils/100 WBC (Bld) 62.2 % Normal 43.0-75.0 [facility] Comment on above: Performed By: #### C BC #### [facility] [address] [place] [address] Dr. Odilon Santos Platelet mean volume (Bld) [Entitic vol] 9.8 fL Normal 9.5-13.5 [facility] Comment on above: Performed By: #### C BC #### [facility] [address] [place] [address] Dr. Odilon Santos PLT 288 103/ul Normal 150-450 [facility] Comment on above: Performed By: #### C BC #### [facility] [address] [place] [address] Dr. Odilon Santos RBC 4.99 106/ul Normal 4.70-6.10 [facility] Comment on above: Performed By: #### C BC #### [facility] [address] [place] [address] Dr. Odilon Santos WBC 6.6 103/ul Normal 4.0-11.0 [facility] Comment on above: Performed By: #### C BC #### [facility] [address] [address] [address] Odilon Santos GLYCOHEMOGLOBIN A1Con 2021 ADA RECOMMENDATION SEE BELOW Normal [facility] Comment on above: Result Comment: ADA RECOMMENDED LIMIT 4.0 - 6.0 ADA THERAPEUTIC TARGET < 7.0 ACTION SUGGESTED > 7.0 Performed By: #### A 1C #### [facility] [address] [address] [address] Odilon Santos Glucose [Mass/Vol] 123 mg/dL Normal [facility] Comment on above: Performed By: #### A 1C #### [facility] [address] [place] [address] Dr. Odilon Santos HbA1c (Bld) [Mass fraction] 5.9 % Normal 4.5-6.2 [facility] Comment on above: Performed By: #### A 1C #### [facility] [address] [place] [address] Dr. Odilon Santos LIPID PROFILEon 10-13-2021 CHOL-HDL RATIO NORM SEE BELOW Normal [facility] Comment on above: Result Comment: 3.3 - 4.4 LOW RISK 4.4 - 7.1 AVERAGE RISK 7.1 - 11.0 MODERATE RISK >11.0 HIGH RISK Performed By: #### U LAUREN, LIPID, CMP #### [facility] [address] [place] [address] Dr. Odilon Santos Cholesterol [Mass/Vol] 119 mg/dL Normal <=200 [facility] Comment on above: Performed By: #### U LAUREN, LIPID, CMP #### [facility] [address] [address] [address] Odilon Santos Cholesterol in HDL [Mass/Vol] 58 mg/dL Normal 40-60 [facility] Comment on above: Performed By: #### U ALUREN, LIPID, CMP #### [facility] [address] [address] [address] Odilon Santos Cholesterol in LDL [Mass/Vol] 51.8 mg/dL Normal [facility] Comment on above: Performed By: #### U LAUREN, LIPID, CMP #### [facility] [address] [address] [address] Odilon Santos Cholesterol.total/Ch olesterol in HDL [Mass ratio] 2.1 {ratio} Normal [facility] Comment on above: Performed By: #### U LAUREN, LIPID, CMP #### [facility] [address] [address] [address] Odilon Santos HDL NORMAL > or = 60 mg/dl - LO W CARDIOVASCULAR RISK <40 mg/dl - HIGH CARDIOVASCULAR RISK Normal [facility] Comment on above: Performed By: #### U LAUREN, LIPID, CMP #### [facility] [address] [address] [address] Odilon Santos LDL CALC NORMAL SEE BELOW Normal [facility] Comment on above: Result Comment: <100 mg/dl OPTIMAL 100 - 129 mg/dl NEAR OR ABOVE OPTIMAL 130 - 159 mg/dl BORDERLINE HIGH 160 - 189 mg/dl HIGH >190 mg/dl VERY HIGH Performed By: #### U LAUREN, LIPID, CMP #### [facility] [address] [address] [address] Odilon Santos Triglyceride [Mass/Vol] 46 mg/dL Normal <=150 [facility] Comment on above: Performed By: #### U LAUREN, LIPID, CMP #### [facility] [address] [address] [address] Odilon Santos VLDL CALC 9.2 mg/dL Normal [facility] Comment on above: Performed By: #### U LAUREN, LIPID, CMP #### [facility] [address] [address] [address] Odilon Santos PROF 14(COMP METB)on 022 Albumin [Mass/Vol] 3.8 g/dL Normal 3.4-5.0 [facility] Comment on above: Performed By: #### U LAUREN, LIPID, CMP #### [facility] [address] [address] [address] Odilon Santos Albumin/Globulin [Mass ratio] 1.1 {ratio} Normal [facility] Comment on above: Performed By: #### U LAUREN, LIPID, CMP #### [facility] [address] [address] [address] Odilon Santos ALP [Catalytic activity/Vol] 82 U/L Normal 46-116 [facility] Comment on above: Performed By: #### U LAUREN, LIPID, CMP #### [facility] [address] [address] [address] Odilon Santos ALT [Catalytic activity/Vol] 75 U/L Critically high 16-63 [facility] Comment on above: Performed By: #### U LAUREN, LIPID, CMP #### [facility] [address] [address] [address] Odilon Santos Anion gap [Moles/Vol] 12.4 mmol/L Normal [facility] Comment on above: Performed By: #### U LAUREN, LIPID, CMP #### [facility] [address] [address] [address] Odilon Santos AST [Catalytic activity/Vol] 25 U/L Normal 15-37 [facility] Comment on above: Performed By: #### U LAUREN, LIPID, CMP #### [facility] [address] [address] [address] Odilon Santos Bilirubin [Mass/Vol] 0.4 mg/dL Normal 0.2-1.0 [facility] Comment on above: Performed By: #### U LAUREN, LIPID, CMP #### [facility] [address] [address] [address] Odilon Santos Calcium [Mass/Vol] 9.1 mg/dL Normal 8.5-10.1 [facility] Comment on above: Performed By: #### U LAUREN, LIPID, CMP #### [facility] [address] [address] [address] Odilon Santos Chloride [Moles/Vol] 105 mmol/L Normal 98-107 [facility] Comment on above: Performed By: #### U LAUREN, LIPID, CMP #### [facility] [address] [address] [address] Odilon Santos CO2 [Moles/Vol] 26.4 mmol/L Normal 21.0-32.0 [facility] Comment on above: Performed By: #### U LAUREN, LIPID, CMP #### [facility] [address] [address] [address] Odilon Santos Creatinine [Mass/Vol] 1.07 mg/dL Normal 0.70-1.30 [facility] Comment on above: Performed By: #### U LAUREN, LIPID, CMP #### [facility] [address] [address] [address] Odilon Santos EGFR-AF PERUVIAN >60 Normal >=60 [facility] Comment on above: Performed By: #### U LAUREN, LIPID, CMP #### [facility] [address] [place] [address] Dr. Odilon Santos EGFR-NON AF PERUVIAN >60 Normal >=60 [facility] Comment on above: Performed By: #### U LAUREN, LIPID, CMP #### [facility] [address] [place] [address] Dr. Odilon Santos Globulin (S) [Mass/Vol] 3.4 g/dL Normal [facility] Comment on above: Performed By: #### U LAUREN, LIPID, CMP #### [facility] [address] [place] [address] Dr. Odilon Santos Glucose [Mass/Vol] 108 mg/dL Critically high 74-106 [facility] Comment on above: Performed By: #### U LAUREN, LIPID, CMP #### [facility] [address] [address] [address] Odilon Santos Potassium [Moles/Vol] 3.8 mmol/L Normal 3.5-5.1 [facility] Comment on above: Performed By: #### U LAUREN, LIPID, CMP #### [facility] [address] [place] [address] Dr. Odilon Santos Protein [Mass/Vol] 7.2 g/dL Normal 6.4-8.2 [facility] Comment on above: Performed By: #### U LAUREN, LIPID, CMP #### [facility] [address] [place] [address] Dr. Odilon Santos Sodium [Moles/Vol] 140 mmol/L Normal 136-145 [facility] Comment on above: Performed By: #### U LAUREN, LIPID, CMP #### [facility] [address] [address] [address] Odilon Santos Urea nitrogen [Mass/Vol] 21.0 mg/dL Critically high 7.0-18.0 [facility] Comment on above: Performed By: #### U LAUREN, LIPID, CMP #### [facility] [address] [address] [address] Odilon Santos Urea nitrogen/Creatinine [Mass ratio] 19.6 mg/mg Normal [facility] Comment on above: Performed By: #### U LAUREN, LIPID, CMP #### [facility] [address] [address] [address] Odilon Santos URIC ACID SERUMon 10-13-2021 Urate [Mass/Vol] 6.0 mg/dL Normal 3.5-7.2 [facility] Comment on above: Performed By: #### U LAUREN, LIPID, CMP #### [facility] [address] [address] [address] Odilon Santos Vital Signs Date Time Vital Sign Value Performing Clinician Jonathan madrigal 08-02-2023 15:54-0400 Blood Pressure Location Adonay VALDERRAMA [facility] 08-02-2023 15:54-0400 Diastolic blood pressure 86 mm[Hg] Adonay VALDERRAMA [facility] [place] 08-02-2023 15:54-0400 Heart rate 76 /min Adonay VALDERRAMA [facility] 08-02-2023 15:54-0400 Respiratory rate 16 /min Adonay VALDERRAMA [facility] [place] 08-02-2023 15:54-0400 Systolic blood pressure 152 mm[Hg] Adonay VALDERRAMA [facility] Encounters Encounter Date Encounter Type Care Provider Facility Start: 02-09-2024 End: 02-09-2024 [facility] Start: 12-19-2023 End: 12-19-2023 ambulatory COLEMAN HERRERA [facility] Start: 12-07-2023 ambulatory COLEMAN HERRERA [facility] Start: 09-20-2023 End: 09-20-2023 ambulatory Adonay VALDERRAMA Facility:[id number] Start: 08-02-2023 End: 08-02-2023 ambulatory Favian Zabala Facility: [facility] Start: 08-02-2023 End: 08-02-2023 Patient encounter procedure Adonay VALDERRAMA [facility] Start: 02-01-2022 End: 02-02-[address] FAVIAN ZABALA Facility:[facility] Start: 01-20-[address] FAVIAN ZABALA Facility : Start: 01-05-2022 End: 01-05-[address] FAVIAN ZABALA Facility:[facility] Start: 12-30-2021 End: 12-31-[address] FAVIAN ZABALA Facility:[facility] Start: 10-14-2021 Encounter for genera l adult medical examination without abnormal findings DR FAVIAN ZABALA [facility] Start: 10-13-2021 End: 10-14-[address] FAVIAN ZABALA Facility:[facility] Start: 10-13-2021 End: 10-14-2021 Encounter for general adult medical examination without abnormal findings DR FAVIAN ZABALA Facility:[facility] Procedures Date Procedure Procedure Detail Performing Clinician Start: 10-13-[address] JUDD ZABALA Comment on above: Performed By: #### P [facility] #### [facility] [address] [place] [address] Dr. Odilon Santos Start: 01-03-2014 Colonoscopy Adonay RAMOS LL Arthropathy of right shoulder (disorder) Adonay NILL Colonoscopy Adonay NILL Left upper arm struc ture (body structure) Adonay NILL Comment on above: reconstruction of le ft forearm due to injury Pectoral muscle stru cture (body structure) Adonay BURKETTL Tonsillectomy Adonay BURKETTL Immunizations Immunization Date Immunization Notes Care Provider Dana shaikh 04-11-2023 influenza virus vaccine, unspecified formulation Adonay VALDERRAMA [facility] 08-13-2020 SARS-CoV-2 (COVID-19 ) mRNA BNT-162b2 vax Adonay VALDERRAMA [facility] Comment on above: Result Comment: 2023: TPV50 07-23-2020 SARS-CoV-2 (COVID-19 ) mRNA BNT-162b2 vax Adonay BURKETTInfoReach [facility] Comment on above: Result Comment: 2023: TPV50 Payers Date Payer Category Payer Unknown [id number] 2021 Unknown [id number] 1960 Unknown [id number] 2.16.84 [id number] 1960 Unknown [id number] 2.16.84 [id number] 1960 Unknown [id number] 2.16.84 [id number] 1960 Unknown [id number] 2.16.84 [id number] 1960 Unknown [id number] 2.16.8 [id number] 1960 Unknown [id number] 2.16.8 [id number] 1957 Self-pay 1957 Self-pay [id number] Unknown [id number] 2.16.84 [id number] Unknown [id number] Social History Date Type Detail Facility Start: 08-02-2023 Tobacco smoking status Never s moked tobacco (finding) [facility] [place] Tobacco smoking status Never [facility] [place] Sex Assigned At Male [facility] Functional Status Date Assessment Result Facility 08-02-2023 Functional Status N/A [facility]gyas[facility] Progress note 02-09-2024 Note Date & Type Note Facility 02-09-2024 Note [facility] - [facility] SUBJECTIVE Routine Follow up Vern Ravi is a 63 y.o. male here for follow-up. HPI HPI: Mr. Ravi is a 59 y/o M. PMHx of hyperlipidemia and asthma. He was referred to Cardiology for HLD management given his hx of statin intolerance. Patient is here for follow up. No complaints. Patient denies any chest pain or shortness of breath. Patient denies any lower extremity edema, orthopnea, or proximal nocturnal dyspnea. No near-syncope or syncope. No dizziness or lightheadedness. He is taking his Repatha. Lipid panel is reviewed and is satisfactory. Patient Active Problem List Diagnosis Familial hypercholesterolemia [...] Use Smoking status: Never Smokeless tobacco: Never Vaping Use Vaping Use: Never used Substance Use Topics Alcohol use: Never Drug use: Never Allergies Allergen Reactions Gabapentin Other Simvastatin Other ROS OBJECTIVE Visit Vitals BP 133/83 Pulse 89 Ht 1.778 m (5' 10 ) Wt 94.8 kg (209 lb) SpO2 95% BMI 29.99 kg/m??? Smoking Status Never BSA 2.16 m??? Medications: Current Outpatient Medications: aspirin 325 mg tablet, Take 1 tablet every day by oral route., Disp: , Rfl: evolocumab (Repatha SureClick) 140 mg/mL pen injector, Inject 140 mg under the skin every 14 (fourteen) days., Disp: 6 mL, Rfl: 3 HYDROcodone-acetaminophen (Coalgood) 5-325 mg tablet, TAKE 1 TABLET BY MOUTH NEEDED FOR PAIN TWICE DAILY*MUST LAST 30 DAYS*, Disp: , Rfl: ibuprofen 800 mg tablet, Take 150 mg by mouth twice a day., Disp: , Rfl: pantoprazole (ProtoNix) 40 mg [...] zetia -Repatha is controlling his cholesterol levels well. He is currently taking every 3 weeks. He wishes to space out to 4 weeks and is going to do that. -Continue current medication regimen -Will order lipid panel for 3 months from now, CMP 2. Atypical chest pain -Resolved, prior ischemic evaluations unremarkable. Has not had any recurrence -Continue to monitor 3. Family history of [...] in 1 year, or sooner as needed Jeanmarie Zayas MD [facility] Progress note 12-07-2023 Note Date & Type Note Facility 12-07-2023 Note In person visit Chief complaint: Neck pain ROSEBUD: Vern Ravi is a 63 y.o. M [...] 14 (fourteen) days. 6 mL 3 HYDROcodone-acetaminophen (Coalgood) 5-325 mg tablet TAKE 1 TABLET BY [...] know. FU with me TAN Herrera MD [facility] Progress note 12-07-2023 Note Date & Type Note Facility 12-07-2023 Note In person visit Chief complaint: Neck pain ROSEBUD: Vern Ravi is a 63 y.o. M [...] 14 (fourteen) days. 6 mL 3 HYDROcodone-acetaminophen (Coalgood) 5-325 mg tablet TAKE 1 TABLET BY [...] See my additional documentation Coleman Herrera MD [facility] Clinical Note 08-02-2023 Note Date & [...] Use:., 08/02/2023 Family (more content not included)... [facility] Comment on above: Result Comment: Elec tronically Signed By: JANNIE PASCAL, Adonay Horn\Date and Time Signed: 08/02/23 16:15 EDT Evaluation + Plan note Note Date & Type Note Facility Evaluation + Plan note No data available for this section [facility] Discharge instructions Note Date & Type Note Facility Hospital Discharge instructions No data available for this section [facility] [place] Progress note Note Date & Type Note Facility Progress note No data available for this section [facility] [place] Summary Purpose Family History No Family History [...] content) DATE CREATED AUTHOR 02/02/2022 [facility] DATE CREATED AUTHOR AUTHOR'S ORGANIZ ATION 12/05/2023 [facility] DATE CREATED AUTHOR AUTHOR'S ORGANIZ ATION 02/11/2024 [facility] Patient Care team informatio n (unrecognized section and content) Personnel Name: Favian Zabala MD Address: Address: [address] [place] [address] FOR RECORDS PERTAINING TO PATIENTS WHO ARE [...] BE BASED ON THE PRIMARY CLINICAL RECORDS. [employer] provides no warranty or guarantee of the accuracy or completeness of information in this document.
[2024-06-04 08:14] LABS: Chol HDL Ratio 2.5; Cholesterol 170 mg/dL (<=200); HDL Cholesterol 68 mg/dL (40-60); Triglycerides 59 mg/dL (<=150); VLDL CHOLESTEROL 11.8 mg/dL
== END 2024-06-04 07:35 | disposition home or self-care (01) ==
LOC: LAB 07:35
PROVIDERS: PCP Family Medicine; Visit Provider Internal Medicine Cardiovascular Disease
DX: E78.5 Hyperlipidemia, unspecified (principal)
CPT/HCPCS: 36415; 80061

== ENCOUNTER 2024-07-08 12:57 | Outpatient (OUT) | payer OTHER, SELFPAY ==
--- NOTE | 2024-07-08 13:03 | XR_ITS ---
[facility] [place] [id number] Patient Name: LUZMARIA MCCLELLAND MRN: [id number] date: 1960 Sex: M Assigned Patient Location: LAB Current Patient Location: LAB Accession/Order Number: [id number] Exam Date: 07/08/2024 17:24 Report Date: 07/08/2024 17:25 At the request of: FAVIAN DIANE MD Procedure: XR shoulder LT min 2V 3 views left shoulder plain film HISTORY: Chronic left shoulder pain COMPARISON: None ACUTE FINDINGS: None DEGENERATIVE CHANGE: Unremarkable SOFT TISSUE FINDINGS: Unremarkable JOINT EFFUSION: None POSTOP CHANGES: [place] screws for a biceps tenodesis BONY MINERALIZATION: Adequate XR/XR shoulder LT min 2V IMPRESSION: No acute findings. Impression dictated by: Dragan Crowder M.D.07/08/2024 5:25 PM Dictation Location: [place] [address] Electronically authenticated by: [id number] Y Date: 07/08/2024 17:25
--- OUTSIDE RECORDS SUMMARY | 2024-07-08 13:09 | XMS_ITS | CCD ---
Author Organization [facility] Inform ion Partnership [facility] Care Team Providers Care Manager Of Broadcast Content Name Role Phone SAGRARIO, DR BALLESTEROS Primary [...] gabapentin; Translations: [gabapentin] Drug Allergy 2 [facility] Rep[facility] (1 source) gabapentin; Translations: [gabapentin] Drug Allergy Undifferentiated illness: Vague ill health (finding) [facility] [place] (3 sources) Simvastatin; Translations: [simvastatin] Drug Allergy 4 Muscle pain (finding) General [facility] [place] Medications Current Medications Medication Drug Class(es) Dates [...] (Original) docusate sodium 50 mg / sennosides, skilled nursing 8.6 mg oral tablet (1 source) Start: [...] Range Facility Office Visiton 02-09-2024 Follow-up visit [id number] Vern Ravi 1960 M Date Provider Department Center 02/09/2024 Dyan-JEANMARIE ZAYAS SOBEIDA [facility] Family History Problem Relation Age of Onset Coronary artery disease Mother Asthma Mother Liver cancer Mother Heart attack Father Colon cancer Father Bone cancer Brother Family Status - Relation Status Age at Mother Father Brother Level of Service:40584 [place] OFFICE/OUTPATIENT ESTABLISHED LOW MDM 20 MIN Normal [facility] Office Visiton 12-07-2023 Follow-up visit [id number] Vern Ravi 1960 M Date Provider Department Center 12/07/2023 COLEMAN GRIMALDO DCC ONC DCC Family History Problem Relation Age of Onset Coronary artery disease Mother Asthma Mother Liver cancer Mother Heart attack Father Colon cancer Father Bone cancer Brother Family Status - Relation Status Age at Mother Father Brother Level of Service:78297 [place] OFFICE/OUTPATIENT NEW MODERATE MDM 45 MINUTES Normal [facility] Outside Colonoscopyon 2023 Outside Colonoscopy [id number]#[id number] [facility] Reminderson 09-21-2023 Reminders - From: Shavon Aguilar LPN To: N - Clinical; Sent: 09/21/2023 11:27:17 EDT Show up: 08/20/2033 07:00:00 EDT Subject: colonoscopy recall Due Date/Time: 09/19/2033 07:00:00 EDT Reminder/Recall Patient due for screening colonoscopy 09/19/2033. Normal [facility] Insurance Correspondenceon 0 08-31-2023 Insurance Correspondence [id number]#[id number] [facility] Consent for Procedure/Surger yon 08-03-2023 Consent for Procedure/Surgery [id number]#[id number] 0TIFF Normal [facility] Facesheeton 08-03-2023 Facesheet [id number]#1. 00TIFF Normal [facility] Ambulatory Visit Summaryon 0 08-02-2023 Ambulatory [...] for choosing us for your care. Normal [facility] Physician Referralon 024 Physician Referral [id number] 0TIFF Normal [facility] STU - LIPID PROFILEon 2021 CHOL-HDL RATIO NORM SEE BELOW Normal [facility] Comment on above: Result Comment: 3.3 - 4.4 LOW RISK 4.4 - 7.1 AVERAGE RISK 7.1 - 11.0 MODERATE RISK >11.0 HIGH RISK Performed By: #### D ATLIPI #### [facility] [address] [address] [address] Odilon Santos Cholesterol [Mass/Vol] 170 mg/dL Normal <=200 [facility] Comment on above: Performed By: #### D ATLIPI #### [facility] [address] [address] [address] Odilon Santos Cholesterol in HDL [Mass/Vol] 60 mg/dL Normal 40-60 [facility] Comment on above: Performed By: #### D ATLIPI #### [facility] [address] [address] [address] Odilon Santos Cholesterol in LDL [Mass/Vol] 89.2 mg/dL Normal [facility] Comment on above: Performed By: #### D ATLIPI #### [facility] [address] [address] [address] Odilon Santos Cholesterol.total/Ch olesterol in HDL [Mass ratio] 2.8 {ratio} Normal [facility] Comment on above: Performed By: #### D ATLIPI #### [facility] [address] [address] [address] Odilon Santos HDL NORMAL > or = 60 mg/dl - LO W CARDIOVASCULAR RISK <40 mg/dl - HIGH CARDIOVASCULAR RISK Normal [facility] Comment on above: Performed By: #### D ATLIPI #### [facility] [address] [address] [address] Odilon Santos LDL CALC NORMAL SEE BELOW Normal [facility] Comment on above: Result Comment: <100 mg/dl OPTIMAL 100 - 129 mg/dl NEAR OR ABOVE OPTIMAL 130 - 159 mg/dl BORDERLINE HIGH 160 - 189 mg/dl HIGH >190 mg/dl VERY HIGH Performed By: #### D ATLIPI #### [facility] [address] [address] [address] Odilon Santos Triglyceride [Mass/Vol] 104 mg/dL Normal <=150 [facility] Comment on above: Performed By: #### D ATLIPI #### [facility] [address] [address] [address] Odilon Santos VLDL CALC 20.8 mg/dL Normal [facility] Comment on above: Performed By: #### D ATLIPI #### [facility] [address] [address] [address] Odilon Santos Covid-19 PCR (CVDTBH)on SARS-CoV-2 (COVID-19) RNA DEON+probe Ql (Unsp spec) Detected Critically abnormal NOT DETECTED [facility] Comment on above: Result Comment: This test is not yet approved or cleared by the [place] FDA. When there are no FDA-approved or cleared tests available, and other criteria are met, FDA can make tests available under an emergency access mechanism called an Emergency Use Authorization (EUA). The EUA for this test is supported by the [place] Test Checker of Health and Human Service's (HHS's) declaration [...] longer be used). Performed By: #### C [facility] #### [facility] [address] [place] [address] Dr. Odilon Santos XR CSPINE OBL FLEX_EXTon [...] BENNIE PAYNE Date: 2021-12-30 09:27 Normal [facility] XR LSPINE W_OBLS AND FLEX_EX Ton 12-30-2021 [...] BENNIE PAYNE Date: 2021-12-30 09:32 Normal [facility] INSULINon 10-14-2021 Insulin 23.3 uIU/mL Normal 2.6-24.9 [facility] Comment on above: Performed By: #### I NSULIN ####[facility] [address] [address]Dr. Odilon Santos CBC AUTO DIFFon 10-13-2021 BASO # 0.0 103/ul Normal 0.0-0.1 [facility] Comment on above: Performed By: #### C BC #### [facility] [address] [address] [address] Odilon Santos Basophils/100 WBC (Bld) 0.6 % Normal 0.2-2.0 [facility] Comment on above: Performed By: #### C BC #### [facility] [address] [address] [address] Odilon Santos EO # 0.3 103/ul Normal 0.0-0.7 [facility] Comment on above: Performed By: #### C BC #### [facility] [address] [address] [address] Odilon Santos Eosinophils/100 WBC (Bld) 4.1 % Normal 0.9-7.0 [facility] Comment on above: Performed By: #### C BC #### [facility] [address] [address] [address] Odilon Santos Erythrocyte distribution width (RBC) [Ratio] 14.1 % Normal 11.0-15.0 [facility] Comment on above: Performed By: #### C BC #### [facility] [address] [address] [address] Odilon Santos Hematocrit (Bld) [Volume fraction] 44.4 % Normal 42.0-54.0 [facility] Comment on above: Performed By: #### C BC #### [facility] [address] [place] [address] Dr. Odilon Santos Hemoglobin (Bld) [Mass/Vol] 14.5 g/dL Normal 14.0-18.0 [facility] Comment on above: Performed By: #### C BC #### [facility] [address] [place] [address] Dr. Odilon Santos IG # 0.03 10e3/ul Normal 0.00-0.03 [facility] Comment on above: Performed By: #### C BC #### [facility] [address] [place] [address] Dr. Odilon Santos IG % 0.5 % Normal 0.0-0.5 [facility] Comment on above: Performed By: #### C BC #### [facility] [address] [place] [address] Dr. Odilon Santos LYMPH # 1.5 103/ul Normal 1.2-3.8 [facility] Comment on above: Performed By: #### C BC #### [facility] [address] [place] [address] Dr. Odilon Santos Lymphocytes/100 WBC (Bld) 23.5 % Normal 20.5-60.0 [facility] Comment on above: Performed By: #### C BC #### [facility] [address] [place] [address] Dr. Odilon Santos MANUAL DIFF REQ NO Normal [facility] Comment on above: Performed By: #### C BC #### [facility] [address] [place] [address] Dr. Odilon Santos MCH (RBC) [Entitic mass] 29.1 pg Normal 25.9-34.0 [facility] Comment on above: Performed By: #### C BC #### [facility] [address] [place] [address] Dr. Odilon Santos MCHC (RBC) [Mass/Vol] 32.7 g/dL Normal 29.9-35.2 [facility] Comment on above: Performed By: #### C BC #### [facility] [address] [place] [address] Dr. Odilon Santos MCV (RBC) [Entitic vol] 89.0 fL Normal 80.0-94.0 [facility] Comment on above: Performed By: #### C BC #### [facility] [address] [place] [address] Dr. Odilon Santos MONO # 0.6 103/ul Normal 0.3-0.8 [facility] Comment on above: Performed By: #### C BC #### [facility] [address] [address] [address] Odilon Santos Monocytes/100 WBC (Bld) 9.1 % Normal 1.7-12.0 [facility] Comment on above: Performed By: #### C BC #### [facility] [address] [place] [address] Dr. Odilon Santos NEUT # 4.1 103/ul Normal 1.4-6.5 [facility] Comment on above: Performed By: #### C BC #### [facility] [address] [place] [address] Dr. Odilon Santos Neutrophils/100 WBC (Bld) 62.2 % Normal 43.0-75.0 [facility] Comment on above: Performed By: #### C BC #### [facility] [address] [place] [address] Dr. Odilon Santos Platelet mean volume (Bld) [Entitic vol] 9.8 fL Normal 9.5-13.5 [facility] Comment on above: Performed By: #### C BC #### [facility] [address] [place] [address] Dr. Odilon Santos PLT 288 103/ul Normal 150-450 [facility] Comment on above: Performed By: #### C BC #### [facility] [address] [place] [address] Dr. Odilon Santos RBC 4.99 106/ul Normal 4.70-6.10 [facility] Comment on above: Performed By: #### C BC #### [facility] [address] [place] [address] Dr. Odilon Santos WBC 6.6 103/ul Normal 4.0-11.0 [facility] Comment on above: Performed By: #### C BC #### [facility] [address] [address] [address] Odilon Santos GLYCOHEMOGLOBIN A1Con 2021 ADA RECOMMENDATION SEE BELOW Normal [facility] Comment on above: Result Comment: ADA RECOMMENDED LIMIT 4.0 - 6.0 ADA THERAPEUTIC TARGET < 7.0 ACTION SUGGESTED > 7.0 Performed By: #### A 1C #### [facility] [address] [address] [address] Odilon Santos Glucose [Mass/Vol] 123 mg/dL Normal [facility] Comment on above: Performed By: #### A 1C #### [facility] [address] [place] [address] Dr. Odilon Santos HbA1c (Bld) [Mass fraction] 5.9 % Normal 4.5-6.2 [facility] Comment on above: Performed By: #### A 1C #### [facility] [address] [place] [address] Dr. Odilon Santos LIPID PROFILEon 10-13-2021 CHOL-HDL RATIO NORM SEE BELOW Normal [facility] Comment on above: Result Comment: 3.3 - 4.4 LOW RISK 4.4 - 7.1 AVERAGE RISK 7.1 - 11.0 MODERATE RISK >11.0 HIGH RISK Performed By: #### U LAUREN, LIPID, CMP #### [facility] [address] [place] [address] Dr. Odilon Santos Cholesterol [Mass/Vol] 119 mg/dL Normal <=200 [facility] Comment on above: Performed By: #### U LAUREN, LIPID, CMP #### [facility] [address] [address] [address] Odilon Santos Cholesterol in HDL [Mass/Vol] 58 mg/dL Normal 40-60 [facility] Comment on above: Performed By: #### U LAUREN, LIPID, CMP #### [facility] [address] [address] [address] Odilon Santos Cholesterol in LDL [Mass/Vol] 51.8 mg/dL Normal [facility] Comment on above: Performed By: #### U LAUREN, LIPID, CMP #### [facility] [address] [address] [address] Odilon Santos Cholesterol.total/Ch olesterol in HDL [Mass ratio] 2.1 {ratio} Normal [facility] Comment on above: Performed By: #### U LAUREN, LIPID, CMP #### [facility] [address] [address] [address] Odilon Santos HDL NORMAL > or = 60 mg/dl - LO W CARDIOVASCULAR RISK <40 mg/dl - HIGH CARDIOVASCULAR RISK Normal [facility] Comment on above: Performed By: #### U LAUREN, LIPID, CMP #### [facility] [address] [address] [address] Odilon Santos LDL CALC NORMAL SEE BELOW Normal [facility] Comment on above: Result Comment: <100 mg/dl OPTIMAL 100 - 129 mg/dl NEAR OR ABOVE OPTIMAL 130 - 159 mg/dl BORDERLINE HIGH 160 - 189 mg/dl HIGH >190 mg/dl VERY HIGH Performed By: #### U LAUREN, LIPID, CMP #### [facility] [address] [address] [address] Odilon Santos Triglyceride [Mass/Vol] 46 mg/dL Normal <=150 [facility] Comment on above: Performed By: #### U LAUREN, LIPID, CMP #### [facility] [address] [address] [address] Odilon Santos VLDL CALC 9.2 mg/dL Normal [facility] Comment on above: Performed By: #### U LAUREN, LIPID, CMP #### [facility] [address] [address] [address] Odilon Santos PROF 14(COMP METB)on 022 Albumin [Mass/Vol] 3.8 g/dL Normal 3.4-5.0 [facility] Comment on above: Performed By: #### U LAUREN, LIPID, CMP #### [facility] [address] [address] [address] Odilon Santos Albumin/Globulin [Mass ratio] 1.1 {ratio} Normal [facility] Comment on above: Performed By: #### U LAUREN, LIPID, CMP #### [facility] [address] [address] [address] Odilon Santos ALP [Catalytic activity/Vol] 82 U/L Normal 46-116 [facility] Comment on above: Performed By: #### U LAUREN, LIPID, CMP #### [facility] [address] [address] [address] Odilon Santos ALT [Catalytic activity/Vol] 75 U/L Critically high 16-63 [facility] Comment on above: Performed By: #### U LAUREN, LIPID, CMP #### [facility] [address] [address] [address] Odilon Santos Anion gap [Moles/Vol] 12.4 mmol/L Normal [facility] Comment on above: Performed By: #### U LAUREN, LIPID, CMP #### [facility] [address] [address] [address] Odilon Santos AST [Catalytic activity/Vol] 25 U/L Normal 15-37 [facility] Comment on above: Performed By: #### U LAUREN, LIPID, CMP #### [facility] [address] [address] [address] Odilon Santos Bilirubin [Mass/Vol] 0.4 mg/dL Normal 0.2-1.0 [facility] Comment on above: Performed By: #### U LAUREN, LIPID, CMP #### [facility] [address] [address] [address] Odilon Santos Calcium [Mass/Vol] 9.1 mg/dL Normal 8.5-10.1 [facility] Comment on above: Performed By: #### U LAUREN, LIPID, CMP #### [facility] [address] [address] [address] Odilon Santos Chloride [Moles/Vol] 105 mmol/L Normal 98-107 [facility] Comment on above: Performed By: #### U LAUREN, LIPID, CMP #### [facility] [address] [address] [address] Odilon Santos CO2 [Moles/Vol] 26.4 mmol/L Normal 21.0-32.0 [facility] Comment on above: Performed By: #### U LAUREN, LIPID, CMP #### [facility] [address] [address] [address] Odilon Santos Creatinine [Mass/Vol] 1.07 mg/dL Normal 0.70-1.30 [facility] Comment on above: Performed By: #### U LAUREN, LIPID, CMP #### [facility] [address] [address] [address] Odilon Santos EGFR-AF DOMINICAN >60 Normal >=60 [facility] Comment on above: Performed By: #### U LAUREN, LIPID, CMP #### [facility] [address] [place] [address] Dr. Odilon Santos EGFR-NON AF DOMINICAN >60 Normal >=60 [facility] Comment on above: Performed By: #### U LAUREN, LIPID, CMP #### [facility] [address] [place] [address] Dr. Odilon Santos Globulin (S) [Mass/Vol] 3.4 g/dL Normal [facility] Comment on above: Performed By: #### U LAUREN, LIPID, CMP #### [facility] [address] [place] [address] Dr. Odilon Santos Glucose [Mass/Vol] 108 mg/dL Critically high 74-106 [facility] Comment on above: Performed By: #### U LAUREN, LIPID, CMP #### [facility] [address] [address] [address] Odilon Santos Potassium [Moles/Vol] 3.8 mmol/L Normal 3.5-5.1 [facility] Comment on above: Performed By: #### U LAUREN, LIPID, CMP #### [facility] [address] [place] [address] Dr. Odilon Santos Protein [Mass/Vol] 7.2 g/dL Normal 6.4-8.2 [facility] Comment on above: Performed By: #### U LAUREN, LIPID, CMP #### [facility] [address] [place] [address] Dr. Odilon Santos Sodium [Moles/Vol] 140 mmol/L Normal 136-145 [facility] Comment on above: Performed By: #### U LAUREN, LIPID, CMP #### [facility] [address] [address] [address] Odilon Santos Urea nitrogen [Mass/Vol] 21.0 mg/dL Critically high 7.0-18.0 [facility] Comment on above: Performed By: #### U LAUREN, LIPID, CMP #### [facility] [address] [address] [address] Odilon Santos Urea nitrogen/Creatinine [Mass ratio] 19.6 mg/mg Normal [facility] Comment on above: Performed By: #### U LAUREN, LIPID, CMP #### [facility] [address] [address] [address] Odilon Santos URIC ACID SERUMon 10-13-2021 Urate [Mass/Vol] 6.0 mg/dL Normal 3.5-7.2 [facility] Comment on above: Performed By: #### U LAUREN, LIPID, CMP #### [facility] [address] [address] [address] Odilon Santos Vital Signs Date Time Vital Sign Value Performing Clinician Jonathan madrigal 08-02-2023 15:54-0400 Blood Pressure Location Adonay VALDERRAMA [facility] 08-02-2023 15:54-0400 Diastolic blood pressure 86 mm[Hg] Adonay VALDERRAMA [facility] [place] 08-02-2023 15:54-0400 Heart rate 76 /min Adonay VALDERRAMA [facility] 08-02-2023 15:54-0400 Respiratory rate 16 /min Adonay VALDERRAMA [facility] [place] 08-02-2023 15:54-0400 Systolic blood pressure 152 mm[Hg] Adonay VALDERRAMA [facility] Encounters Encounter Date Encounter Type Care Provider Facility Start: 02-09-2024 End: 02-09-2024 [facility] Start: 12-19-2023 End: 12-19-2023 ambulatory COLEMAN HERRERA [facility] Start: 12-07-2023 ambulatory COLEMAN HERRERA [facility] Start: 09-20-2023 End: 09-20-2023 ambulatory Adonay VALDERRAMA Facility:CD:[id number] Start: 08-02-2023 End: 08-02-2023 ambulatory Favian [...] without abnormal findings DR FAVIAN ZABALA [facility] Start: 10-13-2021 End: 10-14-[address] FAVIAN ZABALA Facility:[facility]1 Start: 10-13-2021 End: 10-14-2021 Encounter for general adult medical examination without abnormal findings DR FAVIAN ZABALA Facility:[facility] Procedures Date Procedure Procedure Detail Performing Clinician Start: 10-13-[address] JUDD ZABALA Comment on above: Performed By: #### P [facility] #### [facility] [address] [place] [address] Dr. Odilon Santos Start: 01-03-2014 Colonoscopy Adonay [...] influenza virus vaccine, unspecified formulation Adonay VALDERRAMA [facility] 08-13-2020 SARS-CoV-2 (COVID-19 ) mRNA BNT-162b2 vax Adonay VALDERRAMA [facility] Comment on above: Result Comment: 2023: [id number] 07-23-2020 SARS-CoV-2 (COVID-19 ) mRNA BNT-162b2 vax Adonay [employer] [facility] Comment on above: Result Comment: 2023: [id number] Payers Date Payer Category Payer Unknown [id number] 2021 Unknown [id number] 1960 Unknown [id number] 2.16.84 [id number] 1960 Unknown [id number] 2.16.84 [id number] 1960 Unknown [id number] 2.16.84 [id number] 1960 Unknown [id number] 2.16.84 [id number] 1960 Unknown [id number] 2.16.8 [id number] 1960 Unknown [id number] 2.16.8 [id number] 1957 Self-pay 1957 Self-pay [id number] Unknown [id number] 2.16.84 [id number] Unknown [id number] Social History Date Type Detail Facility Start: 08-02-2023 Tobacco smoking status Never s moked tobacco (finding) [facility] Tobacco smoking status Never Gener al [facility] [place] Sex Assigned At Male [facility] Functional Status Date Assessment Result Facility 08-02-2023 Functional Status N/A General Almendarez rgyasmin [facility]cam[facility] Progress note 02-09-2024 Note Date & Type Note Facility 02-09-2024 Note [facility] - [facility] SUBJECTIVE Routine [...] days., Disp: 6 mL, Rfl: 3 HYDROcodone-acetaminophen ([place]) 5-325 mg tablet, TAKE 1 TABLET BY [...] or sooner as needed Jeanmarie Zayas MD [facility] Progress note 12-07-2023 Note Date & Type Note Facility 12-07-2023 Note In person visit Chief complaint: Neck pain [place]: Vern Ravi is a 63 y.o. M [...] 14 (fourteen) days. 6 mL 3 HYDROcodone-acetaminophen ([place]) 5-325 mg tablet TAKE 1 TABLET BY [...] know. FU with me TAN Herrera MD [facility] Progress note 12-07-2023 Note Date & Type Note Facility 12-07-2023 Note In person visit Chief complaint: Neck pain [place]: Vern Ravi is a 63 y.o. M [...] 14 (fourteen) days. 6 mL 3 HYDROcodone-acetaminophen ([place]) 5-325 mg tablet TAKE 1 TABLET BY [...] See my additional documentation Coleman Herrera MD [facility] Clinical Note 08-02-2023 Note Date & Type [...] Use:., 08/02/2023 Family (more content not included)... [facility] Comment on above: Result Comment: Elec tronically Signed By: JANNIE PASCAL, Adonay Horn\Date and Time Signed: 08/02/23 16:15 EDT Evaluation + Plan note Note Date & Type Note Facility Evaluation + Plan note No data available for this section [facility] [place] [facility] Discharge instructions Note Date & Type Note Facility Hospital Discharge instructions No data available for this section General Surgery [place] Progress note Note Date & Type Note Facility Progress note No data available for this section General Surgery [place] Summary Purpose Family History No Family History [...] content) DATE CREATED AUTHOR 02/02/2022 [facility] DATE CREATED AUTHOR AUTHOR'S ORGANIZ ATION 12/05/2023 [facility] DATE CREATED AUTHOR AUTHOR'S ORGANIZ ATION 02/11/2024 [facility] Patient Care team informatio n (unrecognized section and content) Personnel Name: Favian Zabala MD Address: Address: [address] [place] [address] FOR RECORDS PERTAINING TO PATIENTS WHO ARE [...] BE BASED ON THE PRIMARY CLINICAL RECORDS. [employer] provides no warranty or guarantee of the accuracy or completeness of information in this document.
== END 2024-07-08 12:58 | disposition home or self-care (01) ==
LOC: LAB 12:58
PROVIDERS: PCP Family Medicine; Visit Provider Family Medicine
DX: M75.40 Impingement syndrome of unspecified shoulder (principal); Z98.890 Other specified postprocedural states
CPT/HCPCS: 73030

== ENCOUNTER 2024-08-23 11:47 | Emergency (ER) | payer OTHER, SELFPAY ==
[2024-08-23 11:53] VITALS: BP 175/97; PULSE 116; TEMP 36.9; O2SAT 97; BMI 30.8
--- NOTE | 2024-08-23 12:03 | PC.NURSE ---
assisted Dr Matson with rectal exam, spec obtained
[2024-08-23 12:04] VITALS: O2SAT 97
--- NOTE | 2024-08-23 12:06 | ED_ITS ---
HPI HPI - General Adult General Chief complaint: GI Bleed Stated complaint: BLOOD IN STOOL Time Seen by Provider: 08/23/24 11:50 Source: patient Mode of arrival: walk-in Limitations: no limitations History of Present Illness HPI narrative: 64-year-old male presents to the emergency department for blood in his stool. He states that his stool has been black and he was going to see his doctor today at 2:00 but he seems to be passing more blood so he came in here. No abdominal pain or dizziness. He has been on meloxicam for a month because of the shoulder issue. He does not take any blood thinners other than aspirin and he had a colonoscopy 11 months ago that he states was normal Related Data Home Medications ?Medication ?Instructions ?Recorded ?Confirmed aspirin 325 mg tablet 325 mg PO DAILY 09/07/23 08/23/24 evolocumab 140 mg/mL subcutaneous 140 mg subcut .q2wk 09/07/23 08/23/24 syringe (Repatha Syringe) hydrocodone 5 mg-acetaminophen 325 1 tab PO Q6H PRN pain 09/07/23 08/23/24 mg tablet ibuprofen 800 mg tablet 800 mg PO DAILY 09/07/23 08/23/24 multivitamin (Daily Multi-Vitamin 1 tab PO DAILY 09/07/23 08/23/24 tablet) pantoprazole 40 mg tablet,delayed 40 mg PO DAILY 09/07/23 08/23/24 release sennosides 8.6 mg-docusate sodium 1 tab-cap PO DAILY 09/07/23 08/23/24 50 mg tablet (Senna with Docusate Sodium) meloxicam 15 mg tablet 15 mg PO DAILY 08/23/24 08/23/24 Allergies Allergy/AdvReac Type Severity Reaction Status Date / Time gabapentin Allergy Unknown feeling Verified 08/23/24 11:55 ill simvastatin Allergy Unknown Muscle Pain Verified 08/23/24 11:55 Opioid HPI Opioid Management Most Recent Opioid Data: Last Pain Scale 0 08/23/24 12:04 08/23/24 Last ED Pain Assessment 08/23/24 12:04 Review of Systems ROS Narrative A ten point review of systems is negative except as noted above. PFSH PFS Medical History (Updated 08/23/24 @ 14:53 by David Matson MD) History of lipoma ?Z86.018 - Personal history of other benign neoplasm (ICD-10) Arthropathy of right shoulder ?M19.011 - Primary osteoarthritis, right shoulder (ICD-10) Sigmoid polyp ?K63.5 - Polyp of colon (ICD-10) Seasonal allergic rhinitis ?J30.2 - Other seasonal allergic rhinitis (ICD-10) Pain syndrome, chronic ?G89.4 - Chronic pain syndrome (ICD-10) Obesity ?E66.9 - Obesity, unspecified (ICD-10) Lumbar disc disease ?M51.9 - Unspecified thoracic, thoracolumbar and lumbosacral intervertebral disc disorder (ICD-10) Internal hemorrhoid ?K64.8 - Other hemorrhoids (ICD-10) Hyperlipidemia ?E78.5 - Hyperlipidemia, unspecified (ICD-10) Diverticulitis ?K57.92 - Diverticulitis of intestine, part unspecified, without perforation or abscess without bleeding (ICD-10) GERD (gastroesophageal reflux disease) ?K21.9 - Gastro-esophageal reflux disease without esophagitis (ICD-10) Diverticulosis ?K57.90 - Diverticulosis of intestine, part unspecified, without perforation or abscess without bleeding (ICD-10) Cervical radiculopathy ?M54.12 - Radiculopathy, cervical region (ICD-10) Asthma ?J45.909 - Unspecified asthma, uncomplicated (ICD-10) Surgical History (Updated 09/08/23 @ 11:20 by Esther Alan) History of esophagogastroduodenoscopy ?Z98.890 - Other specified postprocedural states (ICD-10) History of surgery on arm ?Z98.890 - Other specified postprocedural states (ICD-10) History of arthroscopy of right shoulder ?Z98.890 - Other specified postprocedural states (ICD-10) Hx of tonsillectomy ?Z90.89 - Acquired absence of other organs (ICD-10) H/O colonoscopy ?Z98.890 - Other specified postprocedural states (ICD-10) Family History (Updated 09/07/23 @ 14:26 by Danielle Mcmillan) Mother Heart disease Family history of hypertension Family history of cancer Father Heart disease Social History (Updated 09/08/23 @ 11:15 by Esther Alan) Within the past year, how often did you have a drink containing alcohol: never Score interpretation: A score less than 4 is consistent with normal alcohol consumption. 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 General: The patient appears well and in no apparent distress. Patient is resting comfortably on cart. Skin: Warm, dry, no pallor noted. There is no rash noted. Head: Normocephalic, atraumatic Eye: Normal conjunctiva, no drainage Ears, Nose, Mouth, and Throat: oral mucosa is moist. Nares patent. Cardiovascular: Regular Rate and Rhythm Respiratory: Patient is in no distress, no accessory muscle use, lungs are clear to auscultation, no wheezing, rales or rhonchi Back: non-tender GI: no tenderness to palpation, no masses appreciated. No rebound, guarding, or rigidity noted. Rectal exam shows no masses, black stool present as well as maroon blood. Musculoskeletal: The patient has no evidence of calf tenderness, no pitting edema, symmetrical pulses noted bilaterally Neurological: A&O, normal speech Psychiatric: Cooperative Constitutional Vital Signs, click to edit/add: Last Vital Signs Temp 98.4 F 08/23/24 11:53 Pulse 96 H 08/23/24 12:32 Resp 16 08/23/24 12:32 BP 121/80 08/23/24 12:32 Pulse Ox 97 08/23/24 12:32 O2 Del Method Room Air 08/23/24 12:32 Course Vital Signs Vital signs: Vital Signs Temperature 98.4 F 08/23/24 11:53 Pulse Rate 116 H 08/23/24 11:53 Respiratory Rate 20 08/23/24 11:53 Blood Pressure 175/97 H 08/23/24 11:53 Pulse Oximetry 97 08/23/24 11:53 Oxygen Delivery Method Room Air 08/23/24 11:53 Temperature 98.4 F 08/23/24 11:53 Pulse Rate 96 H 08/23/24 12:32 Respiratory Rate 16 08/23/24 12:32 Blood Pressure 121/80 08/23/24 12:32 Pulse Oximetry 97 08/23/24 12:32 Oxygen Delivery Method Room Air 08/23/24 12:32 Medical Decision Making MDM Narrative Medical decision making narrative: His vital signs are normal and his hemoglobin is 13.3. CT is negative. Case discussed with Dr. Zabala and the patient does not require admission to the [facility] at this point. He will discontinue the meloxicam and will not take any ibuprofen or aspirin. He will double his Protonix and will see Dr. Zabala in 3 days, on Monday, August 26. Treatment diagnosis and follow-up were discussed with the patient. Differential Diagnosis Differential Diagnosis: Upper GI bleed, lower GI bleed Lab Data Lab results reviewed: Yes I reviewed the patient's lab results Labs: Lab Results 08/23/24 Range/Units 12:00 WBC 10.1 (4.0-11.0) 10^3/uL RBC 4.56 L (4.70-6.10) 10^6/uL Hgb 13.3 L (14.0-18.0) g/dL Hct 40.0 L (42.0-54.0) % MCV 87.7 (80.0-94.0) fL MCH 29.2 (25.9-34.0) pg MCHC 33.3 (29.9-35.2) g/dL RDW 13.3 (11.0-15.0) % Plt Count 274 (150-450) 10^3/uL MPV 10.0 (9.5-13.5) fL Neut % (Auto) 78.6 H (43.0-75.0) % Lymph % (Auto) 12.8 L (20.5-60.0) % [place] % (Auto) 7.1 (1.7-12.0) % Eos % (Auto) 0.5 L (0.9-7.0) % Baso % (Auto) 0.4 (0.2-2.0) % Neut # (Auto) 7.9 H (1.4-6.5) 10^3/uL Lymph # (Auto) 1.3 (1.2-3.8) 10^3/uL [place] # (Auto) 0.7 (0.3-0.8) 10^3/uL Eos # (Auto) 0.1 (0.0-0.7) 10^3/uL Baso # (Auto) 0.0 (0.0-0.1) 10^3/uL Abs Immat Gran (auto) 0.06 H (0.00-0.03) 10^3/uL Imm/Tot Granulo (auto) 0.6 H (0.0-0.5) % Sodium 137 (136-145) mmol/L Potassium 3.9 (3.5-5.1) mmol/L Chloride 103 (98-107) mmol/L Carbon Dioxide 23.8 (21.0-32.0) mmol/L Anion Gap 14.1 BUN 16.0 (7.0-18.0) mg/dL Creatinine 1.01 (0.70-1.30) mg/dL Est GFR ( Amer) >60 (>=60 mL/min/1.73m^2) Est GFR (Non-Af Amer) >60 (>=60 mL/min/1.73m^2) BUN/Creatinine Ratio 15.8 Glucose 102 (74-106) mg/dL Calcium 8.9 (8.5-10.1) mg/dL Total Bilirubin 0.5 (0.2-1.0) mg/dL Direct Bilirubin 0.1 (0.0-0.2) mg/dL AST 28 (15-37) U/L ALT 51 (16-63) U/L Alkaline Phosphatase 64 (46-116) U/L Total Protein 6.7 (6.4-8.2) g/dL Albumin 3.9 (3.4-5.0) g/dL Globulin 2.8 g/dL Albumin/Globulin Ratio 1.4 Stool Occult Blood Positive A Imaging Data CT scan - abdomen: Radiologist's impression: No features to suggest active GI bleed, no features of colitis or enteritis Discharge Plan Discharge Chief Complaint: GI Bleed Clinical Impression: Upper gastrointestinal hemorrhage Patient Disposition: Home, Self-Care Time of Disposition Decision: 14:52 Condition: Good Mode of Transportation: Private Vehicle Prescriptions / Home Meds: No Action hydrocodone-acetaminophen 5-325 mg tablet 1 tab PO Q6H PRN (Reason: pain) aspirin 325 mg tablet 325 mg PO DAILY sennosides-docusate sodium [Senna with Docusate Sodium] 8.6-50 mg tablet 1 tab-cap PO DAILY ibuprofen 800 mg tablet 800 mg PO DAILY multivitamin [Daily Multi-Vitamin] Tablet 1 tab PO DAILY pantoprazole 40 mg tablet,delayed release (DR/EC) 40 mg PO DAILY Repatha Syringe 140 mg/mL syringe 140 mg subcut .q2wk meloxicam 15 mg tablet 15 mg PO DAILY Print Language: Australian Instructions: Gastrointestinal Bleeding (ED) Additional Instructions: Discontinue the meloxicam Do not take ibuprofen Do not take aspirin Take 2 of your Protonix daily See Dr. Zabala on Monday Return to emergency department if symptoms worsen or you develop abdominal pain or you get lightheaded or increased bleeding Referrals: Landen Zabala MD [Primary Care Provider] - 1 week
[2024-08-23 12:12] LABS: Basophils Percent Auto 0.4 % (0.2-2.0); Eosinophils Absolute Auto 0.1 10^3/uL (0.0-0.7); Eosinophils Percent Auto 0.5 % (0.9-7.0); Hemoglobin 13.3 g/dL (14.0-18.0); Immature Granulocytes Abs Auto 0.06 10^3/uL (0.00-0.03); Immature Granulocytes Pct Auto 0.6 % (0.0-0.5); Internal Control Within Normal Limits; Lymphocytes Absolute Auto 1.3 10^3/uL (1.2-3.8); Lymphocytes Percent Auto 12.8 % (20.5-60.0); Mean Corpuscular HGB Conc 33.3 g/dL (29.9-35.2); Mean Corpuscular Hemoglobin 29.2 pg (25.9-34.0); Mean Corpuscular Volume 87.7 fL (80.0-94.0); Monocytes Absolute Auto 0.7 10^3/uL (0.3-0.8); Monocytes Percent Auto 7.1 % (1.7-12.0); Neutrophils Absolute Auto 7.9 10^3/uL (1.4-6.5); Neutrophils Percent Auto 78.6 % (43.0-75.0); Occult Blood Positive; Platelet Count 274 10^3/uL (150-450); Red Blood Count 4.56 10^6/uL (4.70-6.10); Red Cell Distribution Width 13.3 % (11.0-15.0); White Blood Count 10.1 10^3/uL (4.0-11.0)
[2024-08-23 12:28] LABS: Bilirubin Direct 0.1 mg/dL (0.0-0.2)
[2024-08-23 12:29] LABS: Alanine Aminotransferase 51 U/L (16-63); Albumin Globulin Ratio 1.4; Albumin Level 3.9 g/dL (3.4-5.0); Alkaline Phosphatase 64 U/L (46-116); Anion Gap 14.1; Aspartate Amino Transferase 28 U/L (15-37); BUN Creatinine Ratio 15.8; Bilirubin Total 0.5 mg/dL (0.2-1.0); Calcium 8.9 mg/dL (8.5-10.1); Carbon Dioxide 23.8 mmol/L (21.0-32.0); Chloride 103 mmol/L (98-107); Estimated GFR (African America >60 (>=60 mL/min/1.73m^2); Estimated GFR (Non-African Ame >60 (>=60 mL/min/1.73m^2); Globulin 2.8 g/dL; Glucose 102 mg/dL (74-106); Potassium 3.9 mmol/L (3.5-5.1); Sodium 137 mmol/L (136-145); Total Protein 6.7 g/dL (6.4-8.2)
[2024-08-23] MEDS: PANTOPRAZOLE SODIUM 40 MG VIAL IV (12:30)
[2024-08-23 12:32] VITALS: BP 121/80; PULSE 96; O2SAT 97
== END 2024-08-23 15:09 | disposition home or self-care (01) ==
PROVIDERS: Emergency Provider Emergency Medicine; PCP Family Medicine
DX: K92.2 Gastrointestinal hemorrhage, unspecified (principal)
CPT/HCPCS: 36415; 74177; 80048; 80076; 85025; 96374; 99285; G0328; Q9967

== ENCOUNTER 2024-08-24 00:10 | Emergency (ER) | payer OTHER, SELFPAY ==
[2024-08-24] VITALS (31 sets, daily range): BP systolic 118–149; BP diastolic 64–90; PULSE 73–107; TEMP 36.5; O2SAT 99; BMI 30.8
--- NOTE | 2024-08-24 00:24 | PC.NURSE ---
PT STATES WAS SEEN IN ER EARLIER TODAY AND DIAGNOSED WITH BLEEDING ULCER. PT STATES HAD MULTIPLE BLOODY STOOLS AT HOME AND STATES LAST BM BEFORE COMING BACK TO ER PT PASSED OUT AFTER STANDING FROM TOILET. PT STATES FEELS FINE NOW .
--- NOTE | 2024-08-24 00:25 | ECG_ITS ---
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 Measurements Intervals [place] Rate: 76 P: 55 ME: 152 QRS: 34 QRSD: 102 T: 57 QT: 388 QTc: 418 Interpretive Statements 1100 Sinus rhythm 2420 RSR (QR) in lead V1/V2, consistent with right ventricular conduction delay 9130 borderline ECG No previous ECG available for comparison Electronically Signed On 08-24-2024 6:22:42 EDT by AIMEE BARTH M.D.
[2024-08-24 00:42] LABS: Basophils Absolute Auto 0.1 10^3/uL (0.0-0.1); Basophils Percent Auto 0.5 % (0.2-2.0); Eosinophils Absolute Auto 0.3 10^3/uL (0.0-0.7); Eosinophils Percent Auto 2.4 % (0.9-7.0); Hematocrit 36.3 % (42.0-54.0); Hemoglobin 11.8 g/dL (14.0-18.0); Immature Granulocytes Abs Auto 0.05 10^3/uL (0.00-0.03); Immature Granulocytes Pct Auto 0.5 % (0.0-0.5); Lymphocytes Absolute Auto 3.1 10^3/uL (1.2-3.8); Mean Corpuscular HGB Conc 32.5 g/dL (29.9-35.2); Mean Corpuscular Hemoglobin 29.2 pg (25.9-34.0); Mean Corpuscular Volume 89.9 fL (80.0-94.0); Mean Platelet Volume 10.5 fL (9.5-13.5); Monocytes Absolute Auto 1.1 10^3/uL (0.3-0.8); Monocytes Percent Auto 10.8 % (1.7-12.0); Neutrophils Absolute Auto 5.7 10^3/uL (1.4-6.5); Neutrophils Percent Auto 55.8 % (43.0-75.0); Platelet Count 309 10^3/uL (150-450); Red Blood Count 4.04 10^6/uL (4.70-6.10); Red Cell Distribution Width 13.5 % (11.0-15.0); White Blood Count 10.2 10^3/uL (4.0-11.0)
--- NOTE | 2024-08-24 00:43 | ED_ITS ---
HPI - Syncope General Chief Complaint: Syncope Stated Complaint: bleeding Time Seen by Provider: 08/24/24 00:22 Source: patient Mode of arrival: Wheelchair Limitations: no limitations History of Present Illness HPI narrative: cc - gi bleeding; passed out Pt was developed a mix of black tarry stool and stool with brighter red blood and was evaluated earlier today in the ED by Dr Matson. His workup, which included blood testing and CT abd/pelvis, was negative. Case was discussed with the patient's PCP, Dr Zabala, and it was decided that the pt likely had a GI ulcer secondary to meloxicam and other NSAID use - he was instructed to stop all NSAID use, double his PPI, be discharged home and see Dr Zabala in the office in 3 days. Pt reported to me that he continued to pass bloody stool throughout the evening with increasing dizziness each time he got up to use the bathroom. The last time he used the bathroom - about 20 minutes [employer] - he passed out just after using the toilet. Family was apparently present and the patient did not injure himself. He does not complain of any pain in the head, neck, chest, back, hips or extremities. He denied any abdominal pain or flank pain associated with the passage of bloody stool. He has no complaints at this time. Related Data Home Medications ?Medication ?Instructions ?Recorded ?Confirmed aspirin 325 mg tablet 325 mg PO DAILY 09/07/23 08/24/24 evolocumab 140 mg/mL subcutaneous 140 mg subcut .q2wk 09/07/23 08/24/24 syringe (Repatha Syringe) hydrocodone 5 mg-acetaminophen 325 1 tab PO Q6H PRN pain 09/07/23 08/24/24 mg tablet multivitamin (Daily Multi-Vitamin 1 tab PO DAILY 09/07/23 08/24/24 tablet) pantoprazole 40 mg tablet,delayed 40 mg PO DAILY 09/07/23 08/24/24 release sennosides 8.6 mg-docusate sodium 1 tab-cap PO DAILY 09/07/23 08/24/24 50 mg tablet (Senna with Docusate Sodium) Allergies Allergy/AdvReac Type Severity Reaction Status Date / Time gabapentin Allergy Unknown feeling Verified 08/23/24 11:55 ill simvastatin Allergy Unknown Muscle Pain Verified 08/23/24 11:55 PFSH PFS Medical History (Updated 08/24/24 @ 01:33 by Ry Gaitan) History of lipoma ?Z86.018 - Personal history of other benign neoplasm (ICD-10) Arthropathy of right shoulder ?M19.011 - Primary osteoarthritis, right shoulder (ICD-10) Sigmoid polyp ?K63.5 - Polyp of colon (ICD-10) Seasonal allergic rhinitis ?J30.2 - Other seasonal allergic rhinitis (ICD-10) Pain syndrome, chronic ?G89.4 - Chronic pain syndrome (ICD-10) Obesity ?E66.9 - Obesity, unspecified (ICD-10) Lumbar disc disease ?M51.9 - Unspecified thoracic, thoracolumbar and lumbosacral intervertebral disc disorder (ICD-10) Internal hemorrhoid ?K64.8 - Other hemorrhoids (ICD-10) Hyperlipidemia ?E78.5 - Hyperlipidemia, unspecified (ICD-10) Diverticulitis ?K57.92 - Diverticulitis of intestine, part unspecified, without perforation or abscess without bleeding (ICD-10) GERD (gastroesophageal reflux disease) ?K21.9 - Gastro-esophageal reflux disease without esophagitis (ICD-10) Diverticulosis ?K57.90 - Diverticulosis of intestine, part unspecified, without perforation or abscess without bleeding (ICD-10) Cervical radiculopathy ?M54.12 - Radiculopathy, cervical region (ICD-10) Asthma ?J45.909 - Unspecified asthma, uncomplicated (ICD-10) Surgical History (Updated 09/08/23 @ 11:20 by Esther Alan) History of esophagogastroduodenoscopy ?Z98.890 - Other specified postprocedural states (ICD-10) History of surgery on arm ?Z98.890 - Other specified postprocedural states (ICD-10) History of arthroscopy of right shoulder ?Z98.890 - Other specified postprocedural states (ICD-10) Hx of tonsillectomy ?Z90.89 - Acquired absence of other organs (ICD-10) H/O colonoscopy ?Z98.890 - Other specified postprocedural states (ICD-10) Family History (Updated 09/07/23 @ 14:26 by Danielle Mcmillan) Mother Heart disease Family history of hypertension Family history of cancer Father Heart disease Social History (Updated 09/08/23 @ 11:15 by Esther Alan) Within the past year, how often did you have a drink containing alcohol: never Score interpretation: A score less than 4 is consistent with normal alcohol consumption. 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 afebrile General: Well-appearing and in no apparent distress. Skin: Warm, dry, no pallor noted. No rash. Head: Normocephalic, atraumatic. Eye: Pupils are equal, round and EOMI. No scleral icterus. Ears, Nose, Mouth, and Throat: Oral mucosa is moist Cardiovascular: Regular Rate and Rhythm without murmur, gallop or rub. Respiratory: No accessory muscle use or respiratory distress. Lungs are clear to auscultation, no wheezing, rales or rhonchi Back: No midline thoracic or lumbar vertebral tenderness. No CVA tenderness Musculoskeletal: normal ROM, no sign of long bone fracture, no lower extremity edema/swelling GI: Abdomen is soft, non-distended. Normal bowel sounds. No masses appreciated. No tenderness to palpation. No rebound, guarding, or rigidity noted. Neurological: A&O x4. No cranial nerve dysfunction observed. No truncal ataxia. Moves all extremities. Sensation intact. Psychiatric: Cooperative and interactive. Normal mood and affect. Constitutional Vital Signs, click to edit/add: Last Vital Signs Temp 97.7 F 08/24/24 05:28 Pulse 89 08/24/24 05:28 Resp 17 08/24/24 05:28 BP 132/90 08/24/24 05:28 Pulse Ox 99 08/24/24 05:28 O2 Del Method Room Air 08/24/24 05:28 Course Vital Signs Vital signs: Vital Signs Blood Pressure 128/69 08/24/24 00:09 Temperature 97.7 F 08/24/24 05:28 Pulse Rate 89 08/24/24 05:28 Respiratory Rate 17 08/24/24 05:28 Blood Pressure 132/90 08/24/24 05:28 Pulse Oximetry 99 08/24/24 05:28 Oxygen Delivery Method Room Air 08/24/24 05:28 MDM - Syncope MDM Narrative Medical decision making narrative: Patient was placed on compliance monitor and EKG obtained. Blood drawn and sent for evaluation. EKG without ST elevation or ischemic changes. Hb decreased from 13.3 to 11.8. Remainder of the workup was unremarkable - coags normal, LFTs normal, BUN slightly elevated at 20. Call placed to the tele-hospitalist director of corporate communications to discuss Observation admission for serial monitoring of Hb. Tele-hospitalist would not admit the pt to [facility] due to lack of GI and lack of surgical coverage. Call to [facility] at pt request - spoke to Dr Giraldo (GI) and he recommended transfer to tertiary center Pt agreed to transfer to [facility] - I called and spoke with Dr Rodríguez - hospitalist - who accepted the patient's transfer to their facility - admitted to step down unit, obs, for GI bleed and syncope. Medical Records Attestation: I reviewed the patient's medical records. Medical records narrative: I reviewed the patient's blood testing and CT report from his earlier ED visit Lab Data Attestation: I reviewed the patient's lab results. Labs: Lab Results 08/24/24 Range/Units 00:18 WBC 10.2 (4.0-11.0) 10^3/uL RBC 4.04 L (4.70-6.10) 10^6/uL Hgb 11.8 L (14.0-18.0) g/dL Hct 36.3 L (42.0-54.0) % MCV 89.9 (80.0-94.0) fL MCH 29.2 (25.9-34.0) pg MCHC 32.5 (29.9-35.2) g/dL RDW 13.5 (11.0-15.0) % Plt Count 309 (150-450) 10^3/uL MPV 10.5 (9.5-13.5) fL Neut % (Auto) 55.8 (43.0-75.0) % Lymph % (Auto) 30.0 (20.5-60.0) % [place] % (Auto) 10.8 (1.7-12.0) % Eos % (Auto) 2.4 (0.9-7.0) % Baso % (Auto) 0.5 (0.2-2.0) % Neut # (Auto) 5.7 (1.4-6.5) 10^3/uL Lymph # (Auto) 3.1 (1.2-3.8) 10^3/uL [place] # (Auto) 1.1 H (0.3-0.8) 10^3/uL Eos # (Auto) 0.3 (0.0-0.7) 10^3/uL Baso # (Auto) 0.1 (0.0-0.1) 10^3/uL Abs Immat Gran (auto) 0.05 H (0.00-0.03) 10^3/uL Imm/Tot Granulo (auto) 0.5 (0.0-0.5) % PT 10.9 (9.0-11.6) sec INR 1.03 APTT 23.3 (22.3-36.2) sec Sodium 143 (136-145) mmol/L Potassium 3.6 (3.5-5.1) mmol/L Chloride 104 (98-107) mmol/L Carbon Dioxide 27.4 (21.0-32.0) mmol/L Anion Gap 15.2 BUN 20.0 H (7.0-18.0) mg/dL Creatinine 1.27 (0.70-1.30) mg/dL Est GFR ( Amer) >60 (>=60 mL/min/1.73m^2) Est GFR (Non-Af Amer) 57 L (>=60 mL/min/1.73m^2) BUN/Creatinine Ratio 15.7 Glucose 119 H (74-106) mg/dL Calcium 8.3 L (8.5-10.1) mg/dL Total Bilirubin 0.4 (0.2-1.0) mg/dL AST 21 (15-37) U/L ALT 45 (16-63) U/L Alkaline Phosphatase 55 (46-116) U/L Total Protein 5.8 L (6.4-8.2) g/dL Albumin 3.1 L (3.4-5.0) g/dL Globulin 2.7 g/dL Albumin/Globulin Ratio 1.1 ECG Data Attestation: I personally reviewed and interpreted this ECG as follows: Interpretation: EKG interpretation: Emergency Department physician interpretation. Normal sinus rhythm at 76bpm. Normal axis, normal intervals and no ST segment elevation or depression. Subtle change consistent with right ventricular conduction delay -RSR pattern in V1 Discharge Plan Discharge Chief Complaint: Syncope Clinical Impression: Syncope, GI (gastrointestinal bleed) Patient Disposition: [facility] Time of Disposition Decision: 01:33 Discharge Location: [facility] Mode of Transportation: EMS Discharge Date/Time: 08/24/24 05:28
[2024-08-24 00:53] LABS: Alanine Aminotransferase 45 U/L (16-63); Albumin Globulin Ratio 1.1; Albumin Level 3.1 g/dL (3.4-5.0); Alkaline Phosphatase 55 U/L (46-116); Anion Gap 15.2; Aspartate Amino Transferase 21 U/L (15-37); BUN Creatinine Ratio 15.7; Bilirubin Total 0.4 mg/dL (0.2-1.0); Calcium 8.3 mg/dL (8.5-10.1); Carbon Dioxide 27.4 mmol/L (21.0-32.0); Chloride 104 mmol/L (98-107); Estimated GFR (African America >60 (>=60 mL/min/1.73m^2); Estimated GFR (Non-African Ame 57 (>=60 mL/min/1.73m^2); Globulin 2.7 g/dL; Glucose 119 mg/dL (74-106); INR 1.03; Potassium 3.6 mmol/L (3.5-5.1); Prothrombin Time 10.9 sec (9.0-11.6); Sodium 143 mmol/L (136-145); Total Protein 5.8 g/dL (6.4-8.2)
[2024-08-24 00:55] LABS: Partial Thromboplastin Time 23.3 sec (22.3-36.2)
== END 2024-08-24 05:28 | disposition short-term general hospital (02) ==
PROVIDERS: Emergency Provider Emergency Medicine; PCP Family Medicine
DX: K92.2 Gastrointestinal hemorrhage, unspecified (principal); R55 Syncope and collapse; R42 Dizziness and giddiness
CPT/HCPCS: 36415; 80053; 85025; 85610; 85730; 93005; 99285

== ENCOUNTER 2024-09-02 08:02 | Outpatient (OUT) | payer OTHER, SELFPAY ==
[2024-09-02 08:16] LABS: Basophils Percent Auto 0.4 % (0.2-2.0); Eosinophils Absolute Auto 0.3 10^3/uL (0.0-0.7); Eosinophils Percent Auto 3.7 % (0.9-7.0); Hemoglobin 12.2 g/dL (14.0-18.0); Immature Granulocytes Abs Auto 0.03 10^3/uL (0.00-0.03); Immature Granulocytes Pct Auto 0.4 % (0.0-0.5); Lymphocytes Absolute Auto 1.8 10^3/uL (1.2-3.8); Lymphocytes Percent Auto 22.2 % (20.5-60.0); Mean Corpuscular Hemoglobin 29.7 pg (25.9-34.0); Mean Platelet Volume 9.9 fL (9.5-13.5); Monocytes Absolute Auto 0.6 10^3/uL (0.3-0.8); Monocytes Percent Auto 7.9 % (1.7-12.0); Neutrophils Absolute Auto 5.3 10^3/uL (1.4-6.5); Neutrophils Percent Auto 65.4 % (43.0-75.0); Platelet Count 367 10^3/uL (150-450); Red Blood Count 4.11 10^6/uL (4.70-6.10); Red Cell Distribution Width 14.1 % (11.0-15.0); White Blood Count 8.2 10^3/uL (4.0-11.0)
== END 2024-09-02 08:03 | disposition home or self-care (01) ==
LOC: LAB 08:04
PROVIDERS: PCP Family Medicine
DX: K92.2 Gastrointestinal hemorrhage, unspecified (principal)
CPT/HCPCS: 36415; 85025

== ENCOUNTER 2025-01-16 08:00 | Outpatient (OUT) | payer OTHER, SELFPAY ==
--- OUTSIDE RECORDS SUMMARY | 2025-01-16 08:07 | XMS_ITS | CCD ---
Author Organization [facility] Care Team Providers Care Circular Tank Cooper Name Role Phone DR FAVIAN ZABALA Primary Care Unavailable YOY, DR BALLESTEROS Admitting [...] Attending Unavailable Favian Zabala Primary Care Physician [phone] Favian Zabala Referring Unavailable NILLSea Attending Unavailable MADELAINELSea Attending Unavailable HOY, FAVIAN Referring Unavailable SHERRY PRIEST Attending Unavailable ENIX CAMI Referring Unavailable DILAN ROSALES Attending Unavailable GERMANIA BARRON Referring Unavailable EDDI, ABDUL Attending Unavailable HAYRADHA Referring Unavailable SALAHALDEEN, AYA Admitting Unavailable KEN GOLDBERG Attending Unavailable COLEMAN HERRERA Attending Unavailable FAVIAN ZABALA Referring Unavailable ITZEL ZAYAS Attending Unavailable HOY FAVIAN Referring Unavailable HOY FAVIAN Referring Unavailable Allergies Allergy Classification Reported Allergen(s) Allergy Type Date of Onset Reaction(s) Facility (4 sources) gabapentin; Translations: [gabapentin] Drug Allergy 2 [facility] Repository (1 source) gabapentin; Translations: [gabapentin] Drug Allergy Undifferentiated illness: Vague ill health (finding) General Surgery Cammal (3 sources) Simvastatin; Translations: [simvastatin] Drug Allergy Muscle pain (finding) General Surgery Cammal Medications Current Medications Medication Drug Class(es) Dates [...] source) Diverticular disease 06-29-2023 Chronic Esophageal disorders (3 sources) Gastroesophageal reflux disease; Translations: [Gastro-esophageal reflux disease without esophagitis] Onset: 5 01-22-2020 Chronic Essential hypertension (1 source) Benign [...] history of cancer of colon 01-24-2020 Episodic Residual codes; unclassified (2 sources) Pain; Translations: [Pain] Onset: 5 Episodic Spondylosis; intervertebral disc disorders; other back problems (1 source) 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 Unclassified (2 sources) CONTACT W/AND (SUSP) EXPOS COVID-19; Translations: [CONTACT W/AND (SUSP) EXPOS COVID-19] Onset: 2 Unclassified (1 source) Patient encounter status 08-02-2023 Viral infection (1 source) COVID-19; Translations: [COVID-19] Onset: 2 Past or Other Problems Problem Classification Problem Date Documented Da te Episodic/Chronic Gastrointestinal hemorrhage (4 sources) Gastrointestinal hemorrhage, unspecified; Translations: [Melena] Onset: 5 Episodic Other non-traumatic joint disorders (2 sources) Pain in left shoulder; Translations: [Pain in left shoulder] Onset: 5 Episodic Spondylosis; intervertebral disc disorders; other back problems (8 sources) Radiculopathy, cervical region; Translations: [Radiculopathy, lumbar region] Onset: 2 Episodic Unclassified (1 source) CONTACT W/AND (SUSP) EXPOS COVID-19; Translations: [CONTACT W/AND (SUSP) EXPOS COVID-19] Onset: 2 Results Test Name Value Interpretation Reference Range Facility Follow-Upon 12-18-2024 Follow-Up [id number] Vern Ravi 1960 Date Provider Department Center 12/18/2024 COLEMAN GRIMALDO DCC ONC DCC Family History Problem Relation Age of Onset Coronary artery disease Mother Asthma Mother Liver cancer Mother Heart attack Father Colon cancer Father Bone cancer Brother Family Status - Relation Status Age at Mother Father Brother Level of Service:61294 [place] OFFICE/OUTPATIENT ESTABLISHED MOD MDM 30 MIN Normal [facility] Prep for Procedureon 025 Prep for Procedure [id number] Vern Ravi 1960 M Date Provider Department Center 12/18/2024 COLEMAN GRIMALDO NEURO SURG None Family History Problem Relation Age of Onset Coronary artery disease Mother Asthma Mother Liver cancer Mother Heart attack Father Colon cancer Father Bone cancer Brother Family Status - Relation Status Age at Mother Father Brother [facility] Orders Onlyon 12-17-2024 Orders Only [id number] Vern Ravi 1960 M Date Provider Department Center 12/17/2024 895-MELISA GLEZ CARD [facility] Family History Problem Relation Age of Onset Coronary artery disease Mother Asthma Mother Liver cancer Mother Heart attack Father Colon cancer Father Bone cancer Brother Family Status - Relation Status Age at Mother Father Brother Normal [facility] Office Visiton 11-21-2024 Follow-up visit [id number] Vern Ravi 1960 M Date Provider Department Center 11/21/2024 373-NINO [place] ORTHO MPORTHO Family History Problem Relation Age of Onset Coronary artery disease Mother Asthma Mother Liver cancer Mother Heart attack Father Colon cancer Father Bone cancer Brother Family Status - Relation Status Age at Mother Father Brother Level of Service:78188 [place] OFFICE/OUTPATIENT [facility] 30 MINUTES Reason for Visit and Comments: Pain [136] Normal [facility] Letter (Out)on 08-30-2024 Letter (Out) [id number] Vern Ravi 1960 M Date Provider Department Center 08/30/2024 JUAREZ QUI[place]Z [facility] [place] History Problem Relation Age of Onset Coronary artery disease Mother Asthma Mother Liver cancer Mother Heart attack Father Colon cancer Father Bone cancer Brother Family Status - Relation Status Age at Mother Father Brother Normal [facility] HEMOGLOBINon 08-28-2024 Hemoglobin (Bld) [Mass/Vol] 11.4 g/dL Low 13.0-17.0 [facility] Comment on above: Performed By: #### L [id number] #### [facility] ([facility]) [address] [place] [address] HISTOLOGY - TISSUE EXAMon LAB AP CASE REPORT Normal [facility] Comment on above: Result Comment: Surg ical Pathology Case: [id number] Authorizing Provider: Juarez Cummings MD Collected: 08/28/2024 0855 Ordering Location: [facility] Main Operating Room Received: 08/28/2024 1147 Pathologist: Bobbi Nava MD Specimen: Large Intestine, Right/Ascending Colon, ASCENDING POLYP R/O ADENOMA Performed By: #### L [id number] ####[facility] ([facility])[address] [place] [address] LAB AP CLINICAL INFORMATION Order Diagnoses [facility] Comment on above: Result Comment: K92. 2 - GI bleeding [ICD-10-CM] K92.1 - Gastrointestinal hemorrhage with melena [ICD-10-CM] K21.9 - Gastroesophageal reflux disease, unspecified whether esophagitis present [ICD-10-CM] Performed By: #### L [id number] ####[facility] ([facility])[address] [place] [address] LAB AP GROSS DESCRIPTION [facility] Comment on above: Result Comment: Silvina. L arge Intestine, Right/Ascending Colon. The specimen is received in formalin labeled Vern [place] and ascending polyp r/o adenoma. It consists of 7 bits and strips of wylie-pink, focally erythematous mucosal tissue ranging from 0.3 cm to 0.7 cm in greatest dimension. The specimen is submitted in toto in 1 cassette. Samanta Mckeon, [employer] student Jeimy Martin, [employer] Performed By: #### L [id number] ####[facility] ([facility])[address] [place] [address] LAB AP MICROSCOPIC DESCRIPTION Microscopic examination performed. [facility] Comment on above: Performed By: #### L [id number] ####[facility] ([facility])[address] [place] [address] LAB AP REPORT FINAL DIAGNOSIS NARRATIVE [facility] Comment on above: Result Comment: Canelo Lewis olon, ascending colon polyp, polypectomy: - Fragments of tubular adenoma(s). - No high grade dysplasia. Performed By: #### L [id number] ####[facility] ([facility])[address] [place] [address] HPon 08-28-2024 HP H&P reviewed. The patient was examined and there are no changes to the H&P. EGD normal, passing more stool which is more consistent with hematochezia. Colonoscopy today Normal [facility] POCT GLUCOSE METER UNSOLICIT ED RESULTSon 08-28-2024 Glucose [Mass/Vol] 100 mg/dL Normal 70-105 [facility] Comment on above: Order Comment: Waive d Testing in the ED is performed under the ED CLIA certificate #[id number]. Result Comment: ltol les Performed By: #### L [id number] ####[facility] ([facility])[address] [place] [address] ANESon 08-27-2024 ANES -- Attestation signed by Dilan Rosales MD at 08/28/2024 5:47 PM I reviewed and agree with the above note. I spoke to and evaluated the patient myself and they are willing to proceed as planned. Dilan Rosales MD Patient: Vern Ravi Procedure Information Date/Time: 08/28/24 1330 Scheduled providers: Dilan Rosales MD; Camila Blake CRNA; Juarez Cummings MD Procedure: DIAGNOSTIC COLONOSCOPY Location: [facility] Relevant Problems Anesthesia (within normal limits) Cardio METS >4 without CP or SOB (+) White coat syndrome without diagnosis of hypertension GI (+) GERD (gastroesophageal reflux disease) (PPI) Pulmonary (+) Asthma Hematologic (+) Acute blood loss anemia (EGD 08/26/24 without source of bleeding) Other (+) Degenerative joint disease of hand Results from last 7 days Lab Units 08/27/24 0726 08/25/24200108/25/24 0456 WBC AUTO 10*3/uL -- -- 6.82 HEMOGLOBIN g/dL 11.4* < > 10.8* HEMATOCRIT % -- -- 33.3* PLATELETS AUTO 10*3/uL -- -- 241 < > = values in this interval not displayed. Results from last 7 days Lab Units 08/25/24 0456 SODIUM mmol/L 140 POTASSIUM mmol/L 3.8 CHLORIDE mmol/L 108* CO2 mmol/L 26 BUN mg/dL 15 CREATININE mg/dL 0.91 CALCIUM mg/dL 8.2* GLUCOSE mg/dL 100 No EKG or echocardiogram to review. Clinical information reviewed: Physical Exam Airway Mallampati: II TM distance: >3 FB Neck ROM: full Cardiovascular Rhythm: regular Rate: normal Dental - normal exam Pulmonary Breath sounds clear to auscultation Abdominal - normal exam Anesthesia Plan ASA 2 MAC The patient is not a current smoker. Patient was previously instructed to abstain from smoking on day of procedure. Patient did not smoke on day of procedure. Education provided regarding risk of obstructive sleep apnea. intravenous induction Postoperative administration of opioids is intended. Anesthetic plan and risks discussed with patient. Use of blood products discussed with patient who consented to blood products. Additional Equipment Requests Normal [facility] CONSULTon 08-27-2024 CONSULT Daily Case Managemen t Update Multidisciplinary rounds have been completed. Barriers to Discharge: Pending clinical course and improvement in clinical condition. EGD completed yesterday which was normal without identified source of bleeding. Hgb 11.4. GI is tentatively plan for colonoscopy tomorrow, 08/28/2024 for further evaluation of bloody stools Discharge plan is to return home when medically ready Diet: Dietary Orders (From admission, onward) Start Ordered 08/28/24 0001 Diet NPO Diet effective midnight Comments: Sips with medications Question: Reason for NPO: Answer: Operation/Procedure 08/27/24 1027 08/26/24 1710 Clear Liquid Diet Diet effective now Question: Room Service? Answer: No 08/26/24 1709 Physician Expected Discharge Date: 08/29/2024 Discharge Delays: PT Six Click Score: 23 OT Six Click Score: PT Recommendations: OT Recommendations: New Consults: Normal [facility] HEMOGLOBINon 08-27-2024 Hemoglobin (Bld) [Mass/Vol] 11.5 g/dL Low 13.0-17.0 [facility] Comment on above: Performed By: #### L [id number] #### [facility] ([facility]) [address] [place] [address] Hemoglobin (Bld) [Mass/Vol] 11.4 g/dL Low 13.0-17.0 [facility] Comment on above: Performed By: #### L [id number] #### [facility] ([facility]) [address] [place] [address] 30on 08-26-2024 30 Daily Case Managemen t Update Multidisciplinary rounds have been completed. Barriers to Discharge: Pending clinical course and improvement in clinical condition. Transfer from [facility] w/ GI bleed. GI consult: Pt states has been taking meloxicam for shoulder pain for 1 month. EGD today was normal w/o identifiable source of GIB. Req'd CLN report for [facility] from 08/2023. From home. Diet: Dietary Orders (From admission, onward) Start Ordered 08/26/24 1710 Clear Liquid Diet Diet effective now Question: Room Service? Answer: No 08/26/24 1709 Physician Expected Discharge Date: 08/26/2024 Discharge Delays: PT Six Click Score: 23 OT Six Click Score: PT Recommendations: OT Recommendations: Does patient understand post acute plan of care? Yes Is expected discharge disposition appropriate for patient?: Yes New Consults: Normal [facility] 30 The patient is Moderately Stable - Low risk of patient condition declining or worsening The patient's goals for the shift include comfort The clinical goals for the shift include comfort,vss Over the shift, the patient did not make progress toward the following goals. Barriers to progression include assess falls and pain. Recommendations to address these barriers include assess falls and pain status Normal [facility] HEMOGLOBINon 08-26-2024 Hemoglobin (Bld) [Mass/Vol] 11.7 g/dL Low 13.0-17.0 [facility] Comment on above: Performed By: #### L [id number] #### [facility] ([facility]) [address] [place] [address] Hemoglobin (Bld) [Mass/Vol] 11.1 g/dL Low 13.0-17.0 [facility] Comment on above: Performed By: #### L [id number] #### [facility] ([facility]) [address] [place] [address] HPon 08-26-2024 HP H&P reviewed. The patient was examined and there are no changes to the H&P. [facility] NURSNOTEon 08-26-2024 NURSNOTE Signed off to Eva keller RN [facility] NURSNOTE Pt sits up a side of bed, family cont. At bedside Request for colonoscopy, from [facility], given to Charge Nurse, Yuli SANDOVAL, she will be faxing the request soon, pt. Did sign the request. IV INT d, intact, no redness noted Telemetry cont. On pt Pt. Has no c/o of a SOB or pain at this time Call light within reach [facility] NURSNOTE Pt able to swallow water, without any difficulty, and eat pop sicles, Pt. Up walking in hallway with family , no c/o of pain, or SOB at this time [facility] NURSNOTE Pt returns from OR, Pt. Is alert and O x4 No c/o of pain or SOB at this time Pt's family visits at bedside Telemetry cont., room air pulse ox is --97% [facility] NURSNOTE Pt has no complaints at this time, HOB up @ 40 degrees Telemetry cont. On pt Pt. Cont. To be NPO at this time, for EGD later today [facility] POCT GLUCOSE METER UNSOLICIT ED RESULTSon 08-26-2024 Glucose [Mass/Vol] 91 mg/dL Normal 70-105 [facility] Comment on above: Order Comment: Waive d Testing in the ED is performed under the ED CLIA certificate #[id number]. Result Comment: acas til5 Performed By: #### L [id number] #### [facility] ([facility]) [address] [place] [address] 30on 08-25-2024 30 The patient is Moderately Stable - Low risk of patient condition declining or worsening The patient's goals for the shift include comfort The clinical goals for the shift include comfort, safety Over the shift, the patient did not make progress toward the following goals. Barriers to progression include assess falls and pain. Recommendations to address these barriers include assess falls and pain status Normal [facility] BASIC METABOLIC PANELon 04-2 Anion gap [Moles/Vol] 10 mmol/L Normal - [facility] Comment on above: Performed By: #### L [id number] #### [facility] ([facility]) [address] [place] [address] Calcium [Mass/Vol] 8.2 mg/dL Low 8.6-10.3 [facility] Comment on above: Performed By: #### L [id number] #### [facility] ([facility]) [address] [place] [address] Chloride [Moles/Vol] 108 mmol/L High 98-107 [facility] Comment on above: Performed By: #### L [id number] #### [facility] ([facility]) [address] [place] [address] CO2 [Moles/Vol] 26 mmol/L Normal - [facility] Comment on above: Performed By: #### L [id number] #### [facility] ([facility]) [address] [place] [address] Creatinine [Mass/Vol] 0.91 mg/dL Normal 0.70-1.30 [facility] Comment on above: Performed By: #### L [id number] #### [facility] ([facility]) [address] [place] [address] GLOMERULAR FILTRATION RATE ML/MIN/1.73 SQ M.PREDICTED 95.3 mL/min/1.73m*2 Normal >60.0 [facility] Comment on above: Result Comment: The [facility]???s estimated glomerular filtration rate (eGFR) will no longer include consideration of race in its calculation. The National Kidney Foundation???s eGFR Task Force developed new recommendations for the estimation of the glomerular filtration rate in the [place] They recommend immediate implementation of the new equation refit without the race variable in all laboratories because the calculation does not include race. In addition to not including race in the calculation and reporting, it included diversity in its development, and has acceptable performance characteristics and potential consequences that do not disproportionately affect any one group of individuals. Performed By: #### L [id number] #### [facility] ([facility]) [address] [place] [address] Glucose [Mass/Vol] 100 mg/dL Normal 70-100 [facility] Comment on above: Performed By: #### L [id number] #### [facility] ([facility]) [address] [place] [address] Potassium [Moles/Vol] 3.8 mmol/L Normal 3.5-5.1 [facility] Comment on above: Performed By: #### L [id number] #### [facility] ([facility]) [address] [place] [address] Sodium [Moles/Vol] 140 mmol/L Normal 136-145 [facility] Comment on above: Performed By: #### L [id number] #### [facility] ([facility]) [address] [place] [address] Urea nitrogen [Mass/Vol] 15 mg/dL Normal 7-25 [facility] Comment on above: Performed By: #### L [id number] #### [facility] ([facility]) [address] [place] [address] UREA NITROGEN/CREATININE (MASS RATIO) IN SER/PLAS 16.5 Normal [facility] Comment on above: Performed By: #### L [id number] #### [facility] ([facility]) [address] [place] [address] CBCon 08-25-2024 Erythrocyte distribution width (RBC) [Ratio] 13.8 % Normal 11.5-15.0 [facility] Comment on above: Performed By: #### L [id number] #### [facility] ([facility]) [address] [place] [address] ERYTHROCYTE MEAN CORPUSCULAR HEMOGLOBIN CONCENTRATION (G/DL) BY AUTOMATED 32.4 g/dL Normal 32.0-35.0 [facility] Comment on above: Performed By: #### L [id number] #### [facility] ([facility]) [address] [place] [address] Hematocrit (Bld) [Volume fraction] 33.3 % Low 39.0-50.0 [facility] Comment on above: Performed By: #### L [id number] #### [facility] ([facility]) [address] [place] [address] Hemoglobin (Bld) [Mass/Vol] 10.8 g/dL Low 13.0-17.0 [facility] Comment on above: Performed By: #### L [id number] #### [facility] ([facility]) [address] [place] [address] MCH (RBC) [Entitic mass] 29.0 pg Normal 27.0-33.0 [facility] Comment on above: Performed By: #### L [id number] #### [facility] ([facility]) [address] [place] [address] MCV (RBC) [Entitic vol] 89.3 fL Normal 82.0-98.0 [facility] Comment on above: Performed By: #### L [id number] #### [facility] ([facility]) [address] [place] [address] PLATELETS (10*3/UL) IN BLOOD AUTOMATED COUNT 241 10*3/uL Normal 150-400 [facility] Comment on above: Performed By: #### L [id number] #### [facility] ([facility]) [address] [place] [address] RBC (Bld) [#/Vol] 3.73 10*6/uL Low 4.20-5.70 [facility] Comment on above: Performed By: #### L [id number] #### [facility] ([facility]) [address] [place] [address] WBC (Bld) [#/Vol] 6.82 10*3/uL Normal 4.00-10.60 [facility] Comment on above: Performed By: #### L [id number] #### [facility] ([facility]) [address] [place] [address] HEMOGLOBINon 08-25-2024 Hemoglobin (Bld) [Mass/Vol] 10.7 g/dL Low 13.0-17.0 [facility] Comment on above: Performed By: #### L [id number] #### [facility] ([facility]) [address] [place] [address] NURSNOTEon 08-25-2024 NURSNOTE Report sheet given t o Charge nurse, Eula RN Call light within reach Normal [facility] NURSNOTE Family visits at bedside, no c/o of pain, or SOB at this time IV INT d, no redness noted Telemetry cont. On pt Room air pulse ox--98% Call light within reach Normal [facility] NURSNOTE Pt sits up at side o f bed, resp. Easy @ 18/min No c/o of pain, or SOB at this time Normal [facility] BASIC METABOLIC PANELon 07-31 Anion gap [Moles/Vol] 10 mmol/L Normal 7-20 [facility] Comment on above: Performed By: #### L [id number] #### [facility] ([facility]) [address] [place] [address] Calcium [Mass/Vol] 8.5 mg/dL Low 8.6-10.3 [facility] Comment on above: Performed By: #### L [id number] #### [facility] ([facility]) [address] [place] [address] Chloride [Moles/Vol] 107 mmol/L Normal 98-107 [facility] Comment on above: Performed By: #### L [id number] #### [facility] ([facility]) [address] [place] [address] CO2 [Moles/Vol] 23 mmol/L Normal 21-31 [facility] Comment on above: Performed By: #### L [id number] #### [facility] ([facility]) [address] [place] [address] Creatinine [Mass/Vol] 0.86 mg/dL Normal 0.70-1.30 [facility] Comment on above: Performed By: #### L [id number] #### [facility] ([facility]) [address] [place] [address] GLOMERULAR FILTRATION RATE ML/MIN/1.73 SQ M.PREDICTED 97.9 mL/min/1.73m*2 Normal >60.0 [facility] Comment on above: Result Comment: The [facility]???s estimated glomerular filtration rate (eGFR) will no longer include consideration of race in its calculation. The National Kidney Foundation???s eGFR Task Force developed new recommendations for the estimation of the glomerular filtration rate in the [place] They recommend immediate implementation of the new equation refit without the race variable in all laboratories because the calculation does not include race. In addition to not including race in the calculation and reporting, it included diversity in its development, and has acceptable performance characteristics and potential consequences that do not disproportionately affect any one group of individuals. Performed By: #### L [id number] #### [facility] ([facility]) [address] [place] [address] Glucose [Mass/Vol] 118 mg/dL High 70-100 [facility] Comment on above: Performed By: #### L [id number] #### [facility] ([facility]) [address] [place] [address] Potassium [Moles/Vol] 4.0 mmol/L Normal 3.5-5.1 [facility] Comment on above: Performed By: #### L [id number] #### [facility] ([facility]) [address] [place] [address] Sodium [Moles/Vol] 136 mmol/L Normal 136-145 [facility] Comment on above: Performed By: #### L AB15 #### [facility] ([facility]) [address] [place] [address] Urea nitrogen [Mass/Vol] 16 mg/dL Normal 7-25 [facility] Comment on above: Performed By: #### L AB15 #### [facility] ([facility]) [address] [place] [address] UREA NITROGEN/CREATININE (MASS RATIO) IN SER/PLAS 18.6 Normal [facility] Comment on above: Performed By: #### L AB15 #### [facility] ([facility]) [address] [place] [address] CBCon 08-24-2024 Erythrocyte distribution width (RBC) [Ratio] 13.6 % Normal 11.5-15.0 [facility] Comment on above: Performed By: #### L AB15 #### [facility] ([facility]) [address] [place] [address] ERYTHROCYTE MEAN CORPUSCULAR HEMOGLOBIN CONCENTRATION (G/DL) BY AUTOMATED 32.8 g/dL Normal 32.0-35.0 [facility] Comment on above: Performed By: #### L AB15 #### [facility] ([facility]) [address] [place] [address] Hematocrit (Bld) [Volume fraction] 35.1 % Low 39.0-50.0 [facility] Comment on above: Performed By: #### L AB15 #### [facility] ([facility]) [address] [place] [address] Hemoglobin (Bld) [Mass/Vol] 11.5 g/dL Low 13.0-17.0 [facility] Comment on above: Performed By: #### L AB15 #### [facility] ([facility]) [address] [place] [address] MCH (RBC) [Entitic mass] 29.0 pg Normal 27.0-33.0 [facility] Comment on above: Performed By: #### L AB15 #### [facility] ([facility]) [address] [place] [address] MCV (RBC) [Entitic vol] 88.6 fL Normal 82.0-98.0 [facility] Comment on above: Performed By: #### L AB15 #### [facility] ([facility]) [address] [place] [address] PLATELETS (10*3/UL) IN BLOOD AUTOMATED COUNT 268 10*3/uL Normal 150-400 [facility] Comment on above: Performed By: #### L AB15 #### [facility] ([facility]) [address] [place] [address] RBC (Bld) [#/Vol] 3.96 10*6/uL Low 4.20-5.70 [facility] Comment on above: Performed By: #### L AB15 #### [facility] ([facility]) [address] [place] [address] WBC (Bld) [#/Vol] 9.30 10*3/uL Normal 4.00-10.60 [facility] Comment on above: Performed By: #### L AB15 #### [facility] ([facility]) [address] [place] [address] HEMOGLOBINon 08-24-2024 Hemoglobin (Bld) [Mass/Vol] 10.4 g/dL Low 13.0-17.0 [facility] Comment on above: Performed By: #### L AB291 #### [facility] ([facility]) [address] [place] [address] Hemoglobin (Bld) [Mass/Vol] 11.3 g/dL Low 13.0-17.0 [facility] Comment on above: Performed By: #### L AB15 #### [facility] ([facility]) [address] [place] [address] TYPE AND SCREENon 08-24-2024 AB SCREEN Negative Normal [facility] Comment on above: Performed By: #### L AB15 #### [facility] ([facility]) [address] [place] [address] ABO group Nom (Bld) A Normal [facility] Comment on above: Performed By: #### L AB15 #### [facility] ([facility]) [address] [place] [address] RH TYPE IN BLOOD Positive Normal [facility] Comment on above: Performed By: #### L AB15 #### [facility] ([facility]) [address] [place] [address] FL ARTHROGRAM INJECTIONon FL ARTHROGRAM INJECTION INDICATION: Left shoulder pain COMPARISON: None TECHNIQUE: The procedure was explained to the patient including the risks, benefits, and alternatives. The risks explained to the patient included the risk of infection and the risk of bleeding. The patient understood these risks and agreed to proceed with the procedure. Time out procedure performed. The patient was placed on the fluoroscopy table in the supine position. The left shoulder was prepped and draped in the usual sterile fashion. Using fluoroscopic guidance and lidocaine as a local anesthetic agent, access was gained into the left shoulder. Interarticular location was confirmed by injection of contrast material. Subsequently, a solution containing dilute gadolinium was injected into the joint space. Dose area product: 6.4 mGy Number of images: 3 Findings: Fluoroscopic images demonstrate expected spread of intra-articular contrast within the joint space. IMPRESSION: Successful left shoulder pre-MRI arthrogram. Electronically signed: SEA NEWMAN. Normal [facility] Comment on above: Order Comment: Order in [facility] MR SHOULDER ARTHROGRAM LEFTo n 08-19-2024 MR SHOULDER ARTHROGRAM LEFT History: Pain. MRI Left Shoulder post arthrogram Technique: Multiplanar/multiseque nce imaging of the shoulder was obtained following prior injection of contrast material into the joint space, arthrogram. Findings: Contrast is appreciated in the glenohumeral joint as well as subacromial bursa. Slitlike but full-thickness tear of the supraspinatus is appreciated. Larger in size articular sided partial-thickness tear of the supraspinatus is noted. Underlying tendinopathy is observed. There is an no tendon retraction at this time. Much smaller in size articular sided partial-thickness tear of the infraspinatus tendon is appreciated. Contrast tracks along the tendon and into the myotendinous unit. The teres minor and subscapularis tendons are intact Superior labrum is torn but not detached. Postsurgical change to the AC joint and distal clavicle is noted. Marrow signal of the humeral head is normal. No evidence of AVN, healing fracture or bone contusion. No advanced glenohumeral joint osteoarthropathy or chondromalacia is noted. The biceps tendon is intact. Bicipital anchor is intact. IMPRESSION: Impression: * Superior labrum is torn. Additionally the rotator cuff is torn as detailed above. Continued follow-up with orthopedics is advised. Electronically signed: Kemi De Guzman. [facility] Comment on above: Order Comment: Order in EPIC Abstracton 08-07-2024 Abstract [id number] Vern Ravi 1960 [facility] Provider Department Center 08/07/2024 9418-FAVIAN ZABALA [facility] Medical Family History Problem Relation Age of Onset Coronary artery disease Mother Asthma Mother Liver cancer Mother Heart attack Father Colon cancer Father Bone cancer Brother Family Status - Relation Status Age at Mother Father Brother [facility] Office Visiton 02-09-2024 Follow-up visit [id number] Vern Ravi 1960 [facility] Provider Department Center 02/09/2024 3848-ITZEL ZAYAS [facility] Family History Problem Relation Age of Onset Coronary artery disease Mother Asthma Mother Liver cancer Mother Heart attack Father Colon cancer Father Bone cancer Brother Family Status - Relation Status Age at Mother Father Brother Level of Service:[address] [place] OFFICE/OUTPATIENT ESTABLISHED LOW MDM 20 MIN Normal [facility] Outside Colonoscopyon 2023 Outside Colonoscopy [id number]#[id number] 0TIFF [facility] Reminderson 09-21-2023 Reminders - From: Shavon Aguilar LPN To: GSN - Clinical; Sent: 09/21/2023 11:27:17 EDT Show up: 08/20/2033 07:00:00 EDT Subject: colonoscopy recall Due Date/Time: 09/19/2033 07:00:00 EDT Reminder/Recall Patient due for screening colonoscopy 09/19/2033. [facility] Insurance Correspondenceon 0 08-31-2023 Insurance Correspondence [id number]#[id number] 0TIFF [facility] Consent for Procedure/Surger yon 08-03-2023 Consent for Procedure/Surgery [id number] 0TIFF [facility] Facesheeton 08-03-2023 Facesheet [id number]. 00TIFF [facility] Ambulatory Visit Summaryon 0 08-02-2023 Ambulatory Visit Summary VERN RAVI :1960 Visit Date:08/02/2023 Ambulatory Visit Instructions Your Diagnosis Screening for malignant neoplasm of colon Your Care Team Attending Physician - JANNIE PASCAL, Sea Ovalle Primary Care Physician - Sagrario PASCAL, Favian Referring Physician - Sagrario PASCAL, Favian This Is Your Medications List Contact prescribing [...] for choosing us for your care. [facility] Physician Referralon 024 Physician Referral [id number]#[id number] 0TIFF [facility] STU - LIPID PROFILEon 2021 CHOL-HDL RATIO NORM SEE BELOW Normal [facility] Comment on above: Result Comment: 3.3 - 4.4 LOW RISK 4.4 - 7.1 AVERAGE RISK 7.1 - 11.0 MODERATE RISK >11.0 HIGH RISK Performed By: #### D ATLIPI #### [facility] [address] [address] [address] Odilon Santos Cholesterol [Mass/Vol] 170 mg/dL Normal <=200 [facility] Comment on above: Performed By: #### D ATLIPI #### [facility] [address] [address] [address] Odilon Santos Cholesterol in HDL [Mass/Vol] 60 mg/dL Normal 40-60 [facility] Comment on above: Performed By: #### D ATLIPI #### [facility] [address] [address] [address] Odilon Santos Cholesterol in LDL [Mass/Vol] 89.2 mg/dL Normal [facility] Comment on above: Performed By: #### D ATLIPI #### [facility] [address] [address] [address] Odilon Santos Cholesterol.total/Ch olesterol in HDL [Mass ratio] 2.8 {ratio} Normal [facility] Comment on above: Performed By: #### D ATLIPI #### [facility] [address] [address] [address] Odilon Santos HDL NORMAL > or = 60 mg/dl - LO W CARDIOVASCULAR RISK <40 mg/dl - HIGH CARDIOVASCULAR RISK Normal [facility] Comment on above: Performed By: #### D ATLIPI #### [facility] [address] [place] [address] Dr. Odilon Santos LDL CALC NORMAL SEE BELOW Normal [facility] Comment on above: Result Comment: <100 mg/dl OPTIMAL 100 - 129 mg/dl NEAR OR ABOVE OPTIMAL 130 - 159 mg/dl BORDERLINE HIGH 160 - 189 mg/dl HIGH >190 mg/dl VERY HIGH Performed By: #### D ATLIPI #### [facility] [address] [address] [address] Odilon Santos Triglyceride [Mass/Vol] 104 mg/dL Normal <=150 [facility] Comment on above: Performed By: #### D ATLIPI #### [facility] [address] [address] [address] Odilon Santos VLDL CALC 20.8 mg/dL Normal [facility] Comment on above: Performed By: #### D ATLIPI #### [facility] [address] [address] [address] Odilon Santos Covid-19 PCR (CVDTBH)on SARS-CoV-2 (COVID-19) RNA DEON+probe Ql (Unsp spec) Detected Critically abnormal NOT DETECTED [facility] Comment on above: Result Comment: This test is not yet approved or cleared by the [place] FDA. When there are no FDA-approved or cleared tests available, and other criteria are met, FDA can make tests available under an emergency access mechanism called an Emergency Use Authorization (EUA). The EUA for this test is supported by the Petrophysicist of Health and Human Service's (HHS's) declaration [...] longer be used). Performed By: #### [facility] #### [facility] [address] [place] [address] Dr. Odilon Santos XR CSPINE OBL FLEX_EXTon [...] BENNIE PAYNE Date: 2021-12-30 09:27 Normal [facility] XR LSPINE W_OBLS AND FLEX_EX Ton [...] BENNIE PAYNE Date: 2021-12-30 09:32 Normal [facility] INSULINon 10-14-2021 Insulin 23.3 uIU/mL Normal 2.6-24.9 [facility] Comment on above: Performed By: #### I NSULIN ####[facility] [address] [address]Dr[address] Odilon Santos CBC AUTO DIFFon 10-13-2021 BASO # 0.0 103/ul Normal 0.0-0.1 [facility] Comment on above: Performed By: #### C BC #### [facility] [address] [address] [address] Odilon Santos Basophils/100 WBC (Bld) 0.6 % Normal 0.2-2.0 [facility] Comment on above: Performed By: #### C BC #### [facility] [address] [address] [address] Odilon Santos EO # 0.3 103/ul Normal 0.0-0.7 [facility] Comment on above: Performed By: #### C BC #### [facility] [address] [address] [address] Oidlon Santos Eosinophils/100 WBC (Bld) 4.1 % Normal 0.9-7.0 [facility] Comment on above: Performed By: #### C BC #### [facility] [address] [address] [address] Odilon Santos Erythrocyte distribution width (RBC) [Ratio] 14.1 % Normal 11.0-15.0 [facility] Comment on above: Performed By: #### C BC #### [facility] [address] [address] [address] Odilon Santos Hematocrit (Bld) [Volume fraction] 44.4 % Normal 42.0-54.0 [facility] Comment on above: Performed By: #### C BC #### [facility] [address] [address] [address] Odilon Santos Hemoglobin (Bld) [Mass/Vol] 14.5 g/dL Normal 14.0-18.0 [facility] Comment on above: Performed By: #### C BC #### [facility] [address] [address] [address] Odilon Santos IG # 0.03 10e3/ul Normal 0.00-0.03 [facility] Comment on above: Performed By: #### C BC #### [facility] [address] [place] [address] Dr. Odilon Santos IG % 0.5 % Normal 0.0-0.5 [facility] Comment on above: Performed By: #### C BC #### [facility] [address] [place] [address] Dr. Odilon Santos LYMPH # 1.5 103/ul Normal 1.2-3.8 [facility] Comment on above: Performed By: #### C BC #### [facility] [address] [place] [address] Dr. Odilon Santos Lymphocytes/100 WBC (Bld) 23.5 % Normal 20.5-60.0 [facility] Comment on above: Performed By: #### C BC #### [facility] [address] [place] [address] Dr. Odilon Santos MANUAL DIFF REQ NO Normal [facility] Comment on above: Performed By: #### C BC #### [facility] [address] [place] [address] Dr. Odilon Santos MCH (RBC) [Entitic mass] 29.1 pg Normal 25.9-34.0 [facility] Comment on above: Performed By: #### C BC #### [facility] [address] [place] [address] Dr. Odilon Santos MCHC (RBC) [Mass/Vol] 32.7 g/dL Normal 29.9-35.2 [facility] Comment on above: Performed By: #### C BC #### [facility] [address] [address] [address] Odilon Santos MCV (RBC) [Entitic vol] 89.0 fL Normal 80.0-94.0 [facility] Comment on above: Performed By: #### C BC #### [facility] [address] [address] [address] Odilon Santos MONO # 0.6 103/ul Normal 0.3-0.8 [facility] Comment on above: Performed By: #### C BC #### [facility] [address] [address] [address] Odilon Santos Monocytes/100 WBC (Bld) 9.1 % Normal 1.7-12.0 [facility] Comment on above: Performed By: #### C BC #### [facility] [address] [place] [address] Dr. Odilon Santos NEUT # 4.1 103/ul Normal 1.4-6.5 [facility] Comment on above: Performed By: #### C BC #### [facility] [address] [place] [address] Dr. Odilon Santos Neutrophils/100 WBC (Bld) 62.2 % Normal 43.0-75.0 [facility] Comment on above: Performed By: #### C BC #### [facility] [address] [place] [address] Dr. Odilon Santos Platelet mean volume (Bld) [Entitic vol] 9.8 fL Normal 9.5-13.5 [facility] Comment on above: Performed By: #### C BC #### [facility] [address] [place] [address] Dr. Odilon Santos PLT 288 103/ul Normal 150-450 [facility] Comment on above: Performed By: #### C BC #### [facility] [address] [place] [address] Dr. Odilon Santos RBC 4.99 106/ul Normal 4.70-6.10 [facility] Comment on above: Performed By: #### C BC #### [facility] [address] [address] [address] Odilon Santos WBC 6.6 103/ul Normal 4.0-11.0 [facility] Comment on above: Performed By: #### C BC #### [facility] [address] [place] [address] Dr. Odilon Santos GLYCOHEMOGLOBIN A1Con 2021 ADA RECOMMENDATION SEE BELOW Normal [facility] Comment on above: Result Comment: ADA RECOMMENDED LIMIT 4.0 - 6.0 ADA THERAPEUTIC TARGET < 7.0 ACTION SUGGESTED > 7.0 Performed By: #### A 1C #### [facility] [address] [place] [address] Dr. Odilon Santos Glucose [Mass/Vol] 123 mg/dL Normal [facility] Comment on above: Performed By: #### A 1C #### [facility] [address] [place] [address] Dr. Odilon Santos HbA1c (Bld) [Mass fraction] 5.9 % Normal 4.5-6.2 [facility] Comment on above: Performed By: #### A 1C #### [facility] [address] [place] [address] Dr. Odilon Santos LIPID PROFILEon 10-13-2021 CHOL-HDL RATIO NORM SEE BELOW Normal [facility] Comment on above: Result Comment: 3.3 - 4.4 LOW RISK 4.4 - 7.1 AVERAGE RISK 7.1 - 11.0 MODERATE RISK >11.0 HIGH RISK Performed By: #### U LAUREN, LIPID, CMP #### [facility] [address] [place] [address] Dr. Odilon Santos Cholesterol [Mass/Vol] 119 mg/dL Normal <=200 [facility] Comment on above: Performed By: #### U LAUREN, LIPID, CMP #### [facility] [address] [place] [address] Dr. Odilon Santos Cholesterol in HDL [Mass/Vol] 58 mg/dL Normal 40-60 [facility] Comment on above: Performed By: #### U LAUREN, LIPID, CMP #### [facility] [address] [place] [address] Dr. Odilon Santos Cholesterol in LDL [Mass/Vol] 51.8 mg/dL Normal [facility] Comment on above: Performed By: #### U LAUREN, LIPID, CMP #### [facility] [address] [address] [address] Odilon Santos Cholesterol.total/Ch olesterol in HDL [Mass ratio] 2.1 {ratio} Normal [facility] Comment on above: Performed By: #### U LAUREN, LIPID, CMP #### [facility] [address] [address] [address] Odilon Santos HDL NORMAL > or = 60 mg/dl - LO W CARDIOVASCULAR RISK <40 mg/dl - HIGH CARDIOVASCULAR RISK Normal [facility] Comment on above: Performed By: #### U LAUREN, LIPID, CMP #### [facility] [address] [address] [address] Odilon Santos LDL CALC NORMAL SEE BELOW Normal [facility] Comment on above: Result Comment: <100 mg/dl OPTIMAL 100 - 129 mg/dl NEAR OR ABOVE OPTIMAL 130 - 159 mg/dl BORDERLINE HIGH 160 - 189 mg/dl HIGH >190 mg/dl VERY HIGH Performed By: #### U LAUREN, LIPID, CMP #### [facility] [address] [place] [address] Dr. Odilon Santos Triglyceride [Mass/Vol] 46 mg/dL Normal <=150 [facility] Comment on above: Performed By: #### U LAUREN, LIPID, CMP #### [facility] [address] [address] [address] Odilon Santos VLDL CALC 9.2 mg/dL Normal [facility] Comment on above: Performed By: #### U LAUREN, LIPID, CMP #### [facility] [address] [address] [address] Odilon Santos PROF 14(COMP METB)on 022 Albumin [Mass/Vol] 3.8 g/dL Normal 3.4-5.0 [facility] Comment on above: Performed By: #### U LAUREN, LIPID, CMP #### [facility] [address] [place] [address] Dr. Odilon Santos Albumin/Globulin [Mass ratio] 1.1 {ratio} Normal [facility] Comment on above: Performed By: #### U LAUREN, LIPID, CMP #### [facility] [address] [address] [address] Odilon Santos ALP [Catalytic activity/Vol] 82 U/L Normal 46-116 [facility] Comment on above: Performed By: #### U LAUREN, LIPID, CMP #### [facility] [address] [address] [address] Odilon Santos ALT [Catalytic activity/Vol] 75 U/L Critically high 16-63 [facility] Comment on above: Performed By: #### U LAUREN, LIPID, CMP #### [facility] [address] [address] [address] Odilon Santos Anion gap [Moles/Vol] 12.4 mmol/L Normal [facility] Comment on above: Performed By: #### U LAUREN, LIPID, CMP #### [facility] [address] [address] [address] Odilon Santos AST [Catalytic activity/Vol] 25 U/L Normal 15-37 [facility] Comment on above: Performed By: #### U LAUREN, LIPID, CMP #### [facility] [address] [address] [address] Odilon Santos Bilirubin [Mass/Vol] 0.4 mg/dL Normal 0.2-1.0 [facility] Comment on above: Performed By: #### U LAUREN, LIPID, CMP #### [facility] [address] [address] [address] Odilon Santos Calcium [Mass/Vol] 9.1 mg/dL Normal 8.5-10.1 [facility] Comment on above: Performed By: #### U LAUREN, LIPID, CMP #### [facility] [address] [address] [address] Odilon Santos Chloride [Moles/Vol] 105 mmol/L Normal 98-107 [facility] Comment on above: Performed By: #### U LAURNE, LIPID, CMP #### [facility] [address] [address] [address] Odilon Santos CO2 [Moles/Vol] 26.4 mmol/L Normal 21.0-32.0 [facility] Comment on above: Performed By: #### U LAUREN, LIPID, CMP #### [facility] [address] [address] [address] Odilon Santos Creatinine [Mass/Vol] 1.07 mg/dL Normal 0.70-1.30 [facility] Comment on above: Performed By: #### U LAUREN, LIPID, CMP #### [facility] [address] [address] [address] Odilon Santos EGFR-AF PAKISTANI >60 Normal >=60 [facility] Comment on above: Performed By: #### U LAUREN, LIPID, CMP #### [facility] [address] [address] [address] Odilon Santos EGFR-NON AF PAKISTANI >60 Normal >=60 [facility] Comment on above: Performed By: #### U LAUREN, LIPID, CMP #### [facility] [address] [address] [address] Odilon Santos Globulin (S) [Mass/Vol] 3.4 g/dL Normal [facility] Comment on above: Performed By: #### U LAUREN, LIPID, CMP #### [facility] [address] [address] [address] Odilon Santos Glucose [Mass/Vol] 108 mg/dL Critically high 74-106 T [facility] Comment on above: Performed By: #### U LAUREN, LIPID, CMP #### [facility] [address] [address] [address] Odilon Santos Potassium [Moles/Vol] 3.8 mmol/L Normal 3.5-5.1 [facility] Comment on above: Performed By: #### U LAUREN, LIPID, CMP #### [facility] [address] [address] [address] Odilon Santos Protein [Mass/Vol] 7.2 g/dL Normal 6.4-8.2 [facility] Comment on above: Performed By: #### U LAUREN, LIPID, CMP #### [facility] [address] [address] [address] Odilon Santos Sodium [Moles/Vol] 140 mmol/L Normal 136-145 [facility] Comment on above: Performed By: #### U LAUREN, LIPID, CMP #### [facility] [address] [address] [address] Odilon Santos Urea nitrogen [Mass/Vol] 21.0 mg/dL Critically high 7.0-18.0 [facility] Comment on above: Performed By: #### U LAUREN, LIPID, CMP #### [facility] [address] [id number] Dr[address] Odilon Santos Urea nitrogen/Creatinine [Mass ratio] 19.6 mg/mg Normal [facility] Comment on above: Performed By: #### U LAUREN, LIPID, CMP #### [facility] [address] [address] [address] Odilon Santos URIC ACID SERUMon 10-13-2021 Urate [Mass/Vol] 6.0 mg/dL Normal 3.5-7.2 [facility] Comment on above: Performed By: #### U LAUREN, LIPID, CMP #### [facility] [address] [address] [address] Odilon Santos Vital Signs Date Time Vital Sign Value Performing Clinician Jonathan madrigal 08-02-2023 15:54-0400 Blood Pressure Location Sea VALDERRAMA [facility] 08-02-2023 15:54-0400 Diastolic blood pressure 86 mm[Hg] Sea VALDERRAMA [facility] 08-02-2023 15:54-0400 Heart rate 76 /min Sea VALDERRAMA [facility] 08-02-2023 15:54-0400 Respiratory rate 16 /min Sea VALDERRAMA [facility] 08-02-2023 15:54-0400 Systolic blood pressure 152 mm[Hg] Sea VALDERRAMA [facility] Encounters Encounter Date Encounter Type Care Provider Facility Start: 12-18-2024 ambulatory COLEMANMATT Vasquez [facility] Start: 11-21-2024 End: 11-21-2024 ambulatory CHARI MONTAGUE [facility] Start: 09-27-2024 End: 09-27-2024 Encounter for other specified special examinations FAVIAN ZABALA [facility] Start: 09-27-2024 End: 09-27-2024 ambulatory FAVIAN ZABALA [facility] Start: 08-28-2024 Evaluation and management of inpatient DILAN MorenaThompson ROSALES [facility] Start: 08-26-2024 Evaluation and management of inpatient SHERRY Avinash PRIEST [facility] Start: 08-24-2024 End: 08-28-2024 Evaluation and management of inpatient RADHA PETE [facility] Start: 08-19-2024 ambulatory FAVIAN Carlos [facility] Start: 02-09-2024 End: 02-09-2024 ambulatory ITZEL ZAYAS [facility] Start: 09-20-2023 End: 09-20-2023 ambulatory Sea VALDERRAMA Facility:CD:[id number] Start: 08-02-2023 End: 08-02-2023 ambulatory Favian Zabala Facility: Dona Start: 08-02-2023 End: 08-02-2023 Patient encounter procedure Sea VALDERRAMA General Surgery [facility]ill[facility]runo [facility]cam[facility] Start: 02-01-2022 End: 02-02-[address] FAVIAN ZABALA Facility:[facility]1 Start: 01-20-[address] FAVIAN ZABALA Facility :[facility] Start: 01-05-2022 End: 01-05-[address] FAVIAN ZABALA Facility:[facility] Start: 12-30-2021 End: 12-31-[address] FAVIAN ZABALA Facility:[facility]1 Start: 10-14-2021 Encounter for genera l adult medical examination without abnormal findings DR FAVIAN ZABALA [facility] Start: 10-13-2021 End: 10-14-[address] FAVIAN ZABALA Facility:[facility]1 Start: 10-13-2021 End: 10-14-2021 Encounter for general adult medical examination without abnormal findings DR FVAIAN ZABALA Facility:H1 Procedures Date Procedure Procedure Detail Performing Clinician Start: 10-13-[address] JUDD ZABALA Comment on above: Performed By: #### P [facility] #### [facility] [address] [address] [address] Odilon Santos Start: 01-03-2014 Colonoscopy Sea NI LL Arthropathy of right shoulder (disorder) Sea NILL Colonoscopy Sea NILL Left upper arm struc ture (body structure) Sea NILL Comment on above: reconstruction of le ft forearm due to injury Pectoral muscle stru cture (body structure) Sea NILL Tonsillectomy Sea NILL Immunizations Immunization Date Immunization Notes Care Provider [facility] 04-11-2023 influenza virus vaccine, unspecified formulation Sea NILL [facility] 08-13-2020 SARS-CoV-2 (COVID-19 ) mRNA BNT-162b2 vax Sea NILL [facility] Comment on above: Result Comment: 2023: [id number] 07-23-2020 SARS-CoV-2 (COVID-19 ) mRNA BNT-162b2 vax Sea NILL [facility] Comment on above: Result Comment: 2023: [id number] Payers Date Payer Category Payer Unknown [id number] 2023 Unknown [id number] 2021 Unknown [id number] 1960 Unknown [id number] 2.16.84 [id number] 1960 Unknown [id number] 2.16.84 [id number] 1962 Unknown [id number] 2.16.84 [id number] 1962 Unknown [id number] 2.16.84 [id number] 1962 Unknown [id number] 2.16.8 [id number] 1962 Unknown [id number] 2.16.8 [id number] 1959 Self-pay 1957 Self-pay [id number] Unknown [id number] 2.16.84 [id number] Unknown [id number] Social History Date Type Detail Facility Start: 08-02-2023 Tobacco smoking status Never s moked tobacco (finding) General Surgery [facility] Tobacco smoking status Never Gener al Surgery [facility] Sex Assigned At Male [facility] Functional Status Date Assessment Result Facility 08-02-2023 Functional Status N/A General Almendarez don [facility] Clinical Notes 08-02-2023 to 12-18-2024 Note Date & Type Note Facility 12-18-2024 Note In person visit Chief complaint: Chronic neck pain MARSHALL: Vern Ravi is a 64 yr old male who presents for chronic neck pain and discussion of surgery. Patient saw Dr. Herrera about a year ago, where patient had discussed anterior cervical fusion. In the interim, patient and family had some health issues and could not follow up with surgery planning. Patient would like to revisit. Patient has had neck, shoulder and upper arm pain bilaterally for 12 years plus, been getting worse in the last year. Normally, patient says he feels it in both arms, but today patient says L shoulder and L neck hurt more than R. Patient is also experiencing numbness in mainly first three fingers after hand is elevated for a few minutes, with some loss of feeling in last 2 fingers as well. Patient reports not dropping things, but having to hold things with both hands because he feels he might drop them. Patient also reports some lower back pain that radiates down the left leg. Patient has tried various things, including PT, injections, and oral pain medications with no relief. Medical History[1] Surgical History[2] Medications Ordered Prior to Encounter[3] Allergies[4] Exam; BP (!) 160/101 (BP Location: Left arm, Patient Position: Sitting, BP Cuff Size: Adult) Pulse 77 Wt 97.5 kg (215 lb) BMI 30.85 kg/m??? Age appropriate NC/AT Well developed, well nourished Mood/affect normal Awake, alert, oriented Speech intact Cognition intact Motor: 4/5 strength bilaterally in all extremities. Sensory: Intact to light touch in all extremities bilaterally. Some reported diminished sensation on L forearm (baseline). Reflexes: Biceps 2+ bilaterally. Brachioradialis 2+ bilaterally. Patellar 2+ bilaterally. Assessment Vern Ravi is a 64 yr old male who presents for chronic neck pain and discussion of surgery. Dr. Herrera discussed that anterior cervical discectomy and fusion at C6-7 could be an option to decompress nerve and stabilize. Plan Obtain pre-procedure labs and tests. Schedule anterior cervical discectomy and fusion at C6-7. Rashmi Lua MS3 Attending addendum; I personally saw and evaluate [facility] patient in clinic with the medical student Rashmi Lua MS3 See my additional note as well Coleman Herrera MD [1] Past Medical History: Diagnosis Date Asthma Hyperlipidemia [2] Past Surgical History: Procedure Laterality Date ARM DEBRIDEMENT Left regloved left arm-multiple surgeries FOREARM SURGERY LIPOMA RESECTION LIPOMA REMOVAL PECTORALIS MAJOR REPAIR PECTORALIS MAJOR REPAIR Left SHOULDER ARTHROSCOPY Right RT SHOULDER SCOPE TONSILLECTOMY TONSILLECTOMY [3] Current Outpatient Medications on File Prior to Visit Medication Sig Dispense Refill evolocumab (Repatha SureClick) 140 mg/mL pen injector Inject 140mg subcutaneously once every 14 days 6 mL 3 fexofenadine (Herlinda) 180 mg tablet Take 180 mg by mouth in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 showing no active bleeding. Continue to clear liquid diet as per GI recommendations. Discussed with RN to obtain records from [facility] regarding his colonoscopy in August 2023 - patient with history of aspirin and NSAID use. -Further recommendations as per GI [facility] 08-26-2024 Note - Holding home meds. [facility] 08-26-2024 Note - As above [facility] 08-26-2024 Note - as needed Xanax [facility] 08-26-2024 Note - Previously on 40 m g Protonix daily. [facility] 08-26-2024 Note Hospital Medicine Daily Progress Note - 08/26/2024 5:58 PM; Room: [address] [place] [address] Admission: 08/24/2024 6:44 AM; Length of stay: 2 days THE HOSPITALIST TEAM PREFERS TO USE [employer] CHAT FOR NON-URGENT COMMUNICATION 7AM-7PM. IF I DO NOT RESPOND WITHIN 20 MINUTES OR URGENT MATTERS, PLEASE CALL THROUGH THE GUEST SERVICES AGENT. FROM 7PM-7AM, PLEASE PAGE [phone](COVR). Code Status: Full Code Barriers to Discharge: Pending further recommendation from GI Expected Discharge Date: 1 to 2 days Discharge Destination: home Overview Patient is seen for evaluation and management of melena. Subjective seen and evaluated bedside. Family at the bedside, he is status post EGD with no source of bleeding identified. Patient reports that he got colonoscopy in August 2023 and it was reportedly normal. Currently reporting no discomfort, no nausea or vomiting. Physical Exam Visit Vitals BP 141/82 Pulse 87 Temp 36.8 ???C (98.3 ???F) (Temporal) Resp 18 Intake/Output Summary (Last 24 hours) at 08/26/2024 1758 Last data filed at 08/26/2024 1533 Gross per 24 hour Intake 200 ml Output 750 ml Net -550 ml Physical Exam Eyes: Pupils: Pupils are equal, round, and reactive to light. Cardiovascular: Rate and Rhythm: Normal rate and regular rhythm. Pulmonary: Effort: Pulmonary effort is normal. Breath sounds: Normal breath sounds. Abdominal: General: Bowel sounds are normal. Palpations: Abdomen is soft. Neurological: General: No focal deficit present. Mental Status: He is alert and oriented to person, place, and time. Psychiatric: Mood and Affect: Mood normal. Estimated body mass index is 31.79 kg/m??? as calculated from the following: Height as of this encounter: 1.778 m (5' 10 ). Weight as of this encounter: 101 kg (221 lb 9 oz). Assessment and Plan Assessment & Plan GI bleeding - Hemoglobin continues to be stable. Status post EGD showing no active bleeding. Continue to clear liquid diet as per GI recommendations. Discussed with RN to obtain records from [facility] regarding his colonoscopy in August 2023 - patient with history of aspirin and NSAID use. -Further recommendations as per GI Acute blood loss anemia - As above GERD (gastroesophageal reflux disease) - Previously on 40 mg Protonix daily. Mixed hyperlipidemia - Holding home meds. Anxiety - as needed Xanax VTE Prophylaxis: Contraindicated due to GI bleed Scheduled Meds pantoprazole, 40 mg, intravenous, q12h MIGDALIA Pertinent Investigations Hematology: Results from last 7 days Lab Units 08/26/24 0553 08/25/24200108/25/24 0456 08/24/24 1357 08/24/24 0742 WBC AUTO 10*3/uL -- -- 6.82 -- 9.30 HEMOGLOBIN g/dL 11.1* 10.7* 10.8* < > 11.5* HEMATOCRIT % -- -- 33.3* -- 35.1* MCV fL -- -- 89.3 -- 88.6 PLATELETS AUTO 10*3/uL -- -- 241 -- 268 < > = values in this interval not displayed. Chemistry: Results from last 7 days Lab Units 08/25/24 0456 08/24/24 0742 SODIUM mmol/L 140 136 POTASSIUM mmol/L 3.8 4.0 CHLORIDE mmol/L 108* 107 CO2 mmol/L 26 23 BUN mg/dL 15 16 CREATININE mg/dL 0.91 0.86 GLUCOSE mg/dL 100 118* CALCIUM mg/dL 8.2* 8.5* No lab exists for component: AFIO2 , APHT , APCOT , APOT , ATCO2 , CK , ALB , IBILI Results from last 7 days Lab Units 08/26/24 1443 POCT GLUCOSE mg/dL 91 Historical Values: (Includes values prior to this admission) No results found for: PREALBUMIN , TSH , T3FREE , FREET4 , CORTISOL , FEV1 , AZD3VJM , DLCO , RVSP , HDL , LDL No results found for: [id number] , IRON , TIBC , C3 , C4 , MEHUL , CANCA , ASO , PSA , CEA , CA125 , CA199 , AFP , CA153 Imaging EGD Table formatting from the original result was not included. Esophagogastroduodenoscopy (EGD) Procedure Note Procedure: EGD Indications: 64 y.o. male GI bleeding, Gastroesophageal reflux disease, unspecified whether esophagitis present Sedation: MAC Medications: No administrations occurring from 1518 to 1533 on 08/26/24 Attending Physician: Juarez Cummings MD Forgesmith: none Procedure Details: Informed consent was obtained for the procedure, including sedation. Risks of infection, perforation, hemorrhage, adverse drug reaction, and aspiration were discussed. The patient was placed in the left lateral decubitus position. The patient was monitored continuously with ECG tracing, pulse oximetry, blood pressure monitoring, and direct observation. The gastroscope was inserted into the mouth and advanced under direct vision to third portion of the duodenum. A careful inspection was made as the gastroscope was withdrawn, including a retroflexed view of the proximal stomach; findings and interventions are described below. Appropriate photodocumentation was obtained. Findings: Normal appearing esophagus with regular Z line at 41cm Normal appearing stomach Normal duodenal bulb, second and 3rd portions. No source of bleeding identified Speci (more content not included)... [facility] 08-26-2024 Note Patient: Vern diamond Procedure Summary Date: 08/26/24 Room / Location: [facility] Anesthesia Start: 1521 Anesthesia Stop: 1538 Procedure: EGD Diagnosis: GI bleeding Gastroesophageal reflux disease, unspecified whether esophagitis present Scheduled Providers: Sherry Priest MD; Greson Deluca CRNA; Juarez Cummings MD Responsible Provider: Sherry Priest MD Anesthesia Type: MAC ASA Status: 2 Anesthesia Type: MAC Vitals Value Taken Time BP 112/68 08/26/24 1537 Temp 37 ???C (98.6 ???F) 08/26/24 1537 Pulse 102 08/26/24 1537 Resp 14 08/26/24 1537 SpO2 95 % 08/26/24 1537 Anesthesia Post Evaluation Patient location during evaluation: PACU Patient participation: complete - patient participated Level of consciousness: awake Pain score: 1 Pain management: adequate Airway patency: patent Cardiovascular status: acceptable Respiratory status: acceptable Patient is hemodynamically stable and is able to be discharged from PACU per anesthesia protocol. No notable events documented. [facility] 08-26-2024 Note Patient: Vern diamond Procedure Summary Date: 08/26/24 Room / Location: [facility] Anesthesia Start: 1521 Anesthesia Stop: 1538 Procedure: EGD Diagnosis: GI bleeding Gastroesophageal reflux disease, unspecified whether esophagitis present Scheduled Providers: Sherry Priest MD; Gerson Deluca CRNA; Juarez Cummings MD Responsible Provider: Sherry Priest MD Anesthesia Type: MAC ASA Status: 2 Anesthesia Post [facility] Oxygen Flow (L/min): 8 Patient Monitor: direct observation Transport: uneventful Patient condition is: stable [facility] 08-26-2024 Note Patient: Vern diamond Procedure Information Date/Time: 08/26/24 1730 Scheduled providers: Sherry Priest MD; Gerson Deluca CRNA; Juarez Cummings MD Procedure: EGD Location: [facility] Relevant Problems Anesthesia (within normal limits) Cardio > 4 METS denies chest pain/SOB (+) White coat syndrome without diagnosis of hypertension Endo BMI 32, No DM, FBS 100 mg/dl GI (+) GERD (gastroesophageal reflux disease) Pulmonary (+) Asthma Other (+) Degenerative joint disease of hand Clinical information reviewed: Past Medical History: Diagnosis Date Asthma Hyperlipidemia Physical Exam Airway Mallampati: II TM distance: >3 FB Neck ROM: full Cardiovascular - normal exam Dental - normal exam Pulmonary - normal exam Abdominal Anesthesia Plan ASA 2 MAC The patient is not a current smoker. Patient was not previously instructed to abstain from smoking on day of procedure. Patient did not smoke on day of procedure. intravenous induction Anesthetic plan and risks discussed with patient. Plan discussed with CAA. Additional Equipment Requests [facility] 08-25-2024 Note - Continue with IV P rotonix. Continue monitoring hemoglobin. Continue monitoring on telemetry. - Hemoglobin trending down, currently at 10.4. Transfuse if hemoglobin drops below 7. - Pending EGD in AM. - patient with history of aspirin and NSAID use. [facility] 08-25-2024 Note - As above [facility] 08-25-2024 Note - Holding home meds. [facility] 08-25-2024 Note - as needed Xanax [facility] 08-25-2024 Note - Previously on 40 m g Protonix daily. [facility] 08-25-2024 Note Hospital Medicine Daily Progress Note - 08/25/2024 1:28 PM; Room: [address] [place] [address] Admission: 08/24/2024 6:44 AM; Length of stay: 1 days THE HOSPITALIST TEAM PREFERS TO USE [employer] CHAT FOR NON-URGENT COMMUNICATION 7AM-7PM. IF I DO NOT RESPOND WITHIN 20 MINUTES OR URGENT MATTERS, PLEASE CALL THROUGH THE GUEST SERVICES AGENT. FROM 7PM-7AM, PLEASE PAGE [phone](COVR). Code Status: Full Code Barriers to Discharge: Pending EGD on Monday Expected Discharge Date: 1 to 2 days Discharge Destination: home Overview Patient is seen for evaluation and management of melena. Subjective seen and evaluated bedside. Patient is feeling anxious today, no more episodes of melena, no abdominal pain, no nausea or vomiting. Physical Exam Visit Vitals BP 126/78 Pulse 83 Temp 36.8 ???C (98.2 ???F) (Temporal) Resp 18 Intake/Output Summary (Last 24 hours) at 08/25/2024 1328 Last data filed at 08/25/2024 1233 Gross per 24 hour Intake 2458.75 ml Output 650 ml Net 1808.75 ml Physical Exam Eyes: Pupils: Pupils are equal, round, and reactive to light. Cardiovascular: Rate and Rhythm: Normal rate and regular rhythm. Pulmonary: Effort: Pulmonary effort is normal. Breath sounds: Normal breath sounds. Abdominal: General: Bowel sounds are normal. Palpations: Abdomen is soft. Neurological: General: No focal deficit present. Mental Status: He is alert and oriented to person, place, and time. Psychiatric: Mood and Affect: Mood normal. Estimated body mass index is 31.41 kg/m??? as calculated from the following: Height as of this encounter: 1.778 m (5' 10 ). Weight as of this encounter: 99.3 kg (218 lb 14.7 oz). Assessment and Plan Assessment & Plan GI bleeding - Continue with IV Protonix. Continue monitoring hemoglobin. Continue monitoring on telemetry. - Hemoglobin trending down, currently at 10.4. Transfuse if hemoglobin drops below 7. - Pending EGD in AM. - patient with history of aspirin and NSAID use. Acute blood loss anemia - As above GERD (gastroesophageal reflux disease) - Previously on 40 mg Protonix daily. Mixed hyperlipidemia - Holding home meds. Anxiety - as needed Xanax VTE Prophylaxis: Contraindicated due to GI bleed Scheduled Meds pantoprazole, 40 mg, intravenous, q12h MIGDALIA Pertinent Investigations Hematology: Results from last 7 days Lab Units 08/25/24 0456 08/24/24 2120 08/24/24 1357 08/24/24 0742 WBC AUTO 10*3/uL 6.82 -- -- 9.30 HEMOGLOBIN g/dL 10.8* 10.4* < > 11.5* HEMATOCRIT % 33.3* -- -- 35.1* MCV fL 89.3 -- -- 88.6 PLATELETS AUTO 10*3/uL 241 -- -- 268 < > = values in this interval not displayed. Chemistry: Results from last 7 days Lab Units 08/25/24 0456 08/24/24 0742 SODIUM mmol/L 140 136 POTASSIUM mmol/L 3.8 4.0 CHLORIDE mmol/L 108* 107 CO2 mmol/L 26 23 BUN mg/dL 15 16 CREATININE mg/dL 0.91 0.86 GLUCOSE mg/dL 100 118* CALCIUM mg/dL 8.2* 8.5* No lab exists for component: AFIO2 , APHT , APCOT , APOT , ATCO2 , CK , ALB , IBILI Historical Values: (Includes values prior to this admission) No results found for: PREALBUMIN , TSH , T3FREE , FREET4 , CORTISOL , FEV1 , CPX0WSJ , DLCO , RVSP , HDL , LDL No results found for: [id number] , IRON , TIBC , C3 , C4 , MEHUL , CANCA , ASO , PSA , CEA , CA125 , CA199 , AFP , CA153 Imaging MR transfer of outside films This order has been auto-finalized and does not contain a result. Discharge Planning Signed Les Pozo MD [facility] Medicine 08/25/2024 1:28 PM [facility] 08-25-2024 Note [facility] Teaching GI Ser vice Consult Gastroenterology/Hepatology Progress Note IDENTIFYING DATA PATIENT: Vern Ravi ADMIT DATE: 08/24/2024 TIME OF EVALUATION: 08/25/2024 6:37 AM HOSPITAL STAY: LOS: 1 day REASON FOR HOSPITALIZATION: Anemia SUBJECTIVE/INTERVAL HISTORY Vern Ravi's overnight events were reviewed. Patient is resting comfortably in bed. He denies having any bowel movements since admission and reports no abdominal pain or nausea. Current hemoglobin is 10.8. OBJECTIVE MEDICATIONS SCHEDULED: @MEDSCURRENTMD@ PRNs: acetaminophen, 650 mg, q6h PRN [Held by provider] HYDROcodone-acetaminophen, 1 tablet, q12h PRN melatonin, 5 mg, Nightly PRN ondansetron ODT, 4 mg, q8h PRN Or ondansetron, 4 mg, q6h PRN Physical VITALS: BP 118/61 (BP Location: Left arm, Patient Position: Lying) Pulse 69 Temp 36.8 ???C (98.3 ???F) (Oral) Resp 13 Ht 1.778 m (5' 10 ) Wt 99.3 kg (218 lb 14.7 oz) SpO2 97% BMI 31.41 kg/m??? GEN: Alert and oriented x3, NAD HEENT: Atraumatic, normocephalic CV: No edema visualized PULM: Respirations even and unlabored ABD: Soft, non-tender, non-distended NEURO: Moves all 4 extremities spontaneously, answers questions appropriately LABS AND IMAGING CBC: Lab Results Component Value Date WBC 6.82 08/25/2024 RBC 3.73 (L) 08/25/2024 HGB 10.8 (L) 08/25/2024 HCT 33.3 (L) 08/25/2024 MCV 89.3 08/25/2024 RDW 13.8 08/25/2024 PLT 241 08/25/2024 CMP: Lab Results Component Value Date NA 140 08/25/2024 K 3.8 08/25/2024 CL 108 (H) 08/25/2024 CO2 26 08/25/2024 BUN 15 08/25/2024 IMAGING: ASSESSMENT AND PLAN Vern Ravi is a 64 y.o. 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 Initially, he went to the [facility] 08/23/2024 after experiencing melena for about 1 week. His hemoglobin was found to be approximately 13 g/dL, and he was hemodynamically stable therefore it was recommended that he increase Protonix to twice daily and he was discharged with plans for outpatient follow-up. At home, he continued to have melanotic stools and then developed bright red blood per rectum. His last episode led to a brief loss of consciousness. Upon returning to the ED, his hemoglobin was 11.5 g/dL, and he was subsequently transferred to [facility] for GI evaluation. He reports that he has been taking meloxicam for left shoulder and neck pain for about 1 month. He also reports intermittent use of ibuprofen. He denies any significant epigastric pain but notes a vague burning sensation. He reports an EGD in the distant past, which was reportedly negative. His last colonoscopy was performed in August of 2023 and was reportedly unremarkable. Gastroenterology was consulted for further investigation of the melena. Hemoglobin was 11.5 this morning. His last episode of melena occurred on 08/22/2024 at about 11 PM. Currently, he is hemodynamically stable with a heart rate of 98 bpm and blood pressure of 126/79 mmHg. Assessment: Concern for GI Bleeding Patient reports melena for about 1 week followed by bright red blood per rectum. Hemoglobin decreased from 13 g/dL to 11.5 g/dL. Patient lost consciousness briefly following multiple melenic stools. Taking daily meloxicam for the past month and occasional ibuprofen. No recent EGD; colonoscopy in 2023 was reportedly unremarkable. Plan: Tentatively plan for EGD for further assessment of melena, considering recent NSAID use. OK for a clear liquid diet from a GI standpoint. Monitor for overt bleeding. Trend hemoglobin and hematocrit and transfuse as needed. Protonix 40 mg IV twice daily. Hold anticoagulation/DVT prophylaxis if OK with the prescriber. Continue medical management per primary care. The case will be discussed with the attending physician For Questions please contact us at: [facility] GI Service 6 am to 4 pm weekdays in house Phone extension: [phone] pm to 6 am or weekends please contact the agricultural plow operator to page the fellow apron cleaner [facility] 08-24-2024 Note Case was discussed w ith the TENA on 08/24/2024. I physically saw and evaluated the patient on the day of the encounter, performed the albright portion(s) of the service and participated in the management. Physical Exam: Visit Vitals BP 136/79 Pulse 89 Temp 36.6 ???C (97.8 ???F) (Temporal) Resp 16 Cardiology: Normal rate, regular rhythm. Lungs: Clear to auscultation, no wheezes, rales or rhonchi, symmetric air entry. Abdomen: Soft, non tender, non distended. Assessment/Plan: #Cassidy: c/w protonix IV , continue with tele monitoring. Monitory Hgb. Transfuse if hgb<7. GI on board, plan for EGD on Monday. D/w patient and his family at the bedside. Les Pozo MD [facility] 08-24-2024 Note [facility] Teaching GI Ser vice Initial Gastroenterology/Hepatology Consultation Note IDENTIFYING DATA PATIENT: Vern Ravi ADMIT DATE: 08/24/2024 TIME OF EVALUATION: 08/24/2024 1:16 PM Reason for Consult: UGI bleeding HISTORY OF PRESENT ILLNESS Vern Ravi is a 64 y.o. 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 Initially, he went to the [facility] 08/23/2024 after experiencing melena for about 1 week. His hemoglobin was found to be approximately 13 g/dL, and he was hemodynamically stable therefore it was recommended that he increase Protonix to twice daily and he was discharged with plans for outpatient follow-up. At home, he continued to have melanotic stools and then developed bright red blood per rectum. His last episode led to a brief loss of consciousness. Upon returning to the ED, his hemoglobin was 11.5 g/dL, and he was subsequently transferred to [facility] for GI evaluation. He reports that he has been taking meloxicam for left shoulder and neck pain for about 1 month. He also reports intermittent use of ibuprofen. He denies any significant epigastric pain but notes a vague burning sensation. He reports an EGD in the distant past, which was reportedly negative. His last colonoscopy was performed in August of 2023 and was reportedly unremarkable. Gastroenterology was consulted for further investigation of the melena and BRBPR. Hemoglobin was 11.5 this morning. His last episode of melena occurred on 08/22/2024 at about 11 PM. Currently, he is hemodynamically stable with a heart rate of 98 bpm and blood pressure of 126/79 mmHg. PAST MEDICAL, SURGICAL, FAMILY, and SOCIAL HISTORY Past Medical History: Diagnosis Date Asthma Hyperlipidemia Past Surgical History: Procedure Laterality Date ARM DEBRIDEMENT Left regloved left arm-multiple surgeries FOREARM SURGERY LIPOMA RESECTION LIPOMA REMOVAL PECTORALIS MAJOR REPAIR PECTORALIS MAJOR REPAIR Left SHOULDER ARTHROSCOPY Right RT SHOULDER SCOPE TONSILLECTOMY TONSILLECTOMY Family History Problem Relation Name Age of Onset Coronary artery disease Mother Asthma Mother Liver cancer Mother Heart attack Father Colon cancer Father Bone cancer Brother Social History: Social History Tobacco Use Smoking status: Never Smokeless tobacco: Never Vaping Use Vaping status: Never Used Substance Use Topics Alcohol use: Never Drug use: Never MEDICATIONS Allergies: Allergies Allergen Reactions Gabapentin Other Simvastatin Swelling BLE edema, generalized malaise Home Medications: Prior to Admission medications Medication Sig Start Date End Date Taking? Authorizing Provider aspirin 325 mg tablet Take 1 tablet every day by oral route. Historical Provider, evolocumab (athsilvina Alas) 140 mg/mL pen injector INJECT 140MG SUBCUTANEOUSLY ONCE EVERY 14 DAYS 05/20/24 Cata Mccoy CNP HYDROcodone-acetaminophen (Lodi) 5-325 mg tablet TAKE 1 TABLET BY MOUTH NEEDED FOR PAIN TWICE DAILY*MUST LAST 30 DAYS* Historical Provider, ibuprofen 800 mg tablet Take 150 mg by mouth twice a day. 07/24/23 Historical Provider, pantoprazole (ProtoNix) 40 mg EC tablet Take 1 tablet by mouth in the morning. Historical Provider, Current Medications: pantoprazole, 40 mg, intravenous, q12h MIGDALIA PRNs: acetaminophen, 650 mg, q6h PRN [Held by provider] HYDROcodone-acetaminophen, 1 tablet, q12h PRN melatonin, 5 mg, Nightly PRN ondansetron ODT, 4 mg, q8h PRN Or ondansetron, 4 mg, q6h PRN REVIEW OF SYSTEMS See HPI, otherwise ROS negative as below CONSTITUTIONAL: negative HEENT: negative RESPIRATORY: negative CARDIOVASCULAR: negative GASTROINTESTINAL: as in HPI GENITOURINARY: negative INTEGUMENT/BREAST: negative HEMATOLOGIC/LYMPHATIC: negative ALLERGIC/IMMUNOLOGIC: negative ENDOCRINE: negative MUSCULOSKELETAL: negative NEUROLOGICAL: negative BEHAVIOR/PSYCH: negative OBJECTIVE DATA Vitals: BP 136/79 Pulse 89 Temp 36.6 ???C (97.8 ???F) (Temporal) Resp 16 Ht 1.778 m (5' 10 ) Wt 96.1 kg (211 lb 12.8 oz) SpO2 97% BMI 30.39 kg/m??? GEN: alert and oriented x3, NAD HEENT: EOMI, PERRL, oropharynx non-erythematous without exudate, no oral lesions LYMPH: no lad CV: RRR, no murmur, rub, gallop, no edema PULM: CTAB, symmetric chest rise, no accessory muscle use ABD: soft, non-tender, non-distended, +BS NEURO: no focal deficits, moves all 4 extremities spontaneously SKIN: no rashes PSYCH: normal affect LABS AND IMAGING CBC: Lab Results Component Value Date WBC 9.30 08/24/2024 RBC 3.96 (L) 08/24/2024 HGB 11.5 (L) 08/24/2024 HCT 35.1 (L) 08/24/2024 MCV 88.6 08/24/2024 RDW 13.6 08/24/2024 PLT 268 08/24/2024 CMP: Lab Results Component Value Date NA 136 08/24/2024 K 4.0 08/24/2024 CL 107 08/24/2024 CO2 23 08/24/2024 BUN 16 08/25/19 (more content not included)... [facility] 08-24-2024 Note [facility] Teaching GI Ser vice Initial Gastroenterology/Hepatology Consultation Note IDENTIFYING DATA PATIENT: Vern Ravi ADMIT DATE: 08/24/2024 TIME OF EVALUATION: 08/24/2024 1:16 PM Reason for Consult: UGI bleeding HISTORY OF PRESENT ILLNESS Vern Ravi is a 64 y.o. 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 Initially, he went to the [facility] 08/23/2024 after experiencing melena for about 1 week. His hemoglobin was found to be approximately 13 g/dL, and he was hemodynamically stable therefore it was recommended that he increase Protonix to twice daily and he was discharged with plans for outpatient follow-up. At home, he continued to have melanotic stools and then developed bright red blood per rectum. His last episode led to a brief loss of consciousness. Upon returning to the ED, his hemoglobin was 11.5 g/dL, and he was subsequently transferred to [facility] for GI evaluation. He reports that he has been taking meloxicam for left shoulder and neck pain for about 1 month. He also reports intermittent use of ibuprofen. He denies any significant epigastric pain but notes a vague burning sensation. He reports an EGD in the distant past, which was reportedly negative. His last colonoscopy was performed in August of 2023 and was reportedly unremarkable. Gastroenterology was consulted for further investigation of the melena and BRBPR. Hemoglobin was 11.5 this morning. His last episode of melena occurred on 08/22/2024 at about 11 PM. Currently, he is hemodynamically stable with a heart rate of 98 bpm and blood pressure of 126/79 mmHg. PAST MEDICAL, SURGICAL, FAMILY, and SOCIAL HISTORY Past Medical History: Diagnosis Date Asthma Hyperlipidemia Past Surgical History: Procedure Laterality Date ARM DEBRIDEMENT Left regloved left arm-multiple surgeries FOREARM SURGERY LIPOMA RESECTION LIPOMA REMOVAL PECTORALIS MAJOR REPAIR PECTORALIS MAJOR REPAIR Left SHOULDER ARTHROSCOPY Right RT SHOULDER SCOPE TONSILLECTOMY TONSILLECTOMY Family History Problem Relation Name Age of Onset Coronary artery disease Mother Asthma Mother Liver cancer Mother Heart attack Father Colon cancer Father Bone cancer Brother Social History: Social History Tobacco Use Smoking status: Never Smokeless tobacco: Never Vaping Use Vaping status: Never Used Substance Use Topics Alcohol use: Never Drug use: Never MEDICATIONS Allergies: Allergies Allergen Reactions Gabapentin Other Simvastatin Swelling BLE edema, generalized malaise Home Medications: Prior to Admission medications Medication Sig Start Date End Date Taking? Authorizing Provider aspirin 325 mg tablet Take 1 tablet every day by oral route. Historical Provider, evolocumab (Repatha SureClick) 140 mg/mL pen injector INJECT 140MG SUBCUTANEOUSLY ONCE EVERY 14 DAYS 05/20/24 Cata Mccoy CNP HYDROcodone-acetaminophen ([place]) 5-325 mg tablet TAKE 1 TABLET BY MOUTH NEEDED FOR PAIN TWICE DAILY*MUST LAST 30 DAYS* Historical Provider, ibuprofen 800 mg tablet Take 150 mg by mouth twice a day. 07/24/23 Historical Provider, pantoprazole (ProtoNix) 40 mg EC tablet Take 1 tablet by mouth in the morning. Historical Provider, Current Medications: pantoprazole, 40 mg, intravenous, q12h MIGDALIA PRNs: acetaminophen, 650 mg, q6h PRN [Held by provider] HYDROcodone-acetaminophen, 1 tablet, q12h PRN melatonin, 5 mg, Nightly PRN ondansetron ODT, 4 mg, q8h PRN Or ondansetron, 4 mg, q6h PRN REVIEW OF SYSTEMS See HPI, otherwise ROS negative as below CONSTITUTIONAL: negative HEENT: negative RESPIRATORY: negative CARDIOVASCULAR: negative GASTROINTESTINAL: as in HPI GENITOURINARY: negative INTEGUMENT/BREAST: negative HEMATOLOGIC/LYMPHATIC: negative ALLERGIC/IMMUNOLOGIC: negative ENDOCRINE: negative MUSCULOSKELETAL: negative NEUROLOGICAL: negative BEHAVIOR/PSYCH: negative OBJECTIVE DATA Vitals: BP 136/79 Pulse 89 Temp 36.6 ???C (97.8 ???F) (Temporal) Resp 16 Ht 1.778 m (5' 10 ) Wt 96.1 kg (211 lb 12.8 oz) SpO2 97% BMI 30.39 kg/m??? GEN: alert and oriented x3, NAD HEENT: EOMI, PERRL, oropharynx non-erythematous without exudate, no oral lesions LYMPH: no lad CV: RRR, no murmur, rub, gallop, no edema PULM: CTAB, symmetric chest rise, no accessory muscle use ABD: soft, non-tender, non-distended, +BS NEURO: no focal deficits, moves all 4 extremities spontaneously SKIN: no rashes PSYCH: normal affect LABS AND IMAGING CBC: Lab Results Component Value Date WBC 9.30 08/24/2024 RBC 3.96 (L) 08/24/2024 HGB 11.5 (L) 08/24/2024 HCT 35.1 (L) 08/24/2024 MCV 88.6 08/24/2024 RDW 13.6 08/24/2024 PLT 268 08/24/2024 CMP: Lab Results Component Value Date NA 136 08/24/2024 K 4.0 08/24/2024 CL 107 08/24/2024 CO2 23 08/24/2024 BUN 16 08/25/19 (more content not included)... [facility] 08-24-2024 Note -Type and screen -IV Protonix 40 mg twice daily -Place 2 large-bore Ivs -Trend hemoglobin every 8 hours -Hold aspirin and meloxicam. -GI consult for EGD -N.p.o. for now -IV lactated Ringer's at 75 cc an hour [facility] 08-24-2024 Note - Previously on 40 m g Protonix daily. [facility] 08-24-2024 Note Hospital Medicine History and Physical 08/24/2024 7:40 AM THE HOSPITALIST TEAM PREFERS TO USE [employer] CHAT FOR NON-URGENT COMMUNICATION 7AM-7PM. IF I DO NOT RESPOND WITHIN 20 MINUTES OR URGENT MATTERS, PLEASE CALL THROUGH THE GUEST SERVICES AGENT. FROM 7PM-7AM, PLEASE PAGE [phone](COVR). Chief Complaint No chief complaint on file. History of Present Illness Vern Ravi is an 64 y.o. male w a PMH of chronic pain 2/2 previous crushing injury, GERD, and HLD who came from [facility] with acute GI bleeding. Patient presented to [facility] ED yesterday after having melena with some bright red blood. Hemoglobin was found to be around 13 and patient was hemodynamically stable so his Protonix was doubled and he was sent home for outpatient follow-up. At home he continued to have melanotic stool and began having bright red stool with his last episode causing him to pass out. Family was present and patient did not hit his head and he was unconscious for around 3 seconds. He was brought back to the ED and hemoglobin had dropped to 11.5 and he was transferred here for GI follow-up. Patient has been taking aspirin 325mg daily and had recently been started on meloxicam for left shoulder and neck pain. He also reports he was taking ibuprofen intermittently. He denies any epigastric pain but does have some vague burning sensation. He reports remote EGD which was negative. Colonoscopy was last performed last August and was unremarkable reportedly. Currently hemodynamically stable, heart rate 98. Blood pressure 126/79. Last episode of melena was last night at 11 PM. Review of System and Physical Exam Temp: [36.8 ???C (98.2 ???F)] 36.8 ???C (98.2 ???F) Heart Rate: [91] 91 Resp: [18] 18 BP: (126)/(79) 126/79 Physical Exam Vitals and nursing note reviewed. Constitutional: Appearance: Normal appearance. He is obese. HENT: Head: Normocephalic. Nose: Nose normal. Mouth/Throat: Mouth: Mucous membranes are moist. Eyes: Pupils: Pupils are equal, round, and reactive to light. Cardiovascular: Rate and Rhythm: Normal rate and regular rhythm. Pulses: Normal pulses. Heart sounds: Normal heart sounds. No murmur heard. No friction rub. No gallop. Pulmonary: Effort: Pulmonary effort is normal. Breath sounds: Normal breath sounds. Abdominal: General: Abdomen is flat. Bowel sounds are normal. Palpations: Abdomen is soft. Tenderness: There is no abdominal tenderness. Musculoskeletal: General: Normal range of motion. Cervical back: Normal range of motion. Skin: General: Skin is warm. Capillary Refill: Capillary refill takes less than 2 seconds. Neurological: General: No focal deficit present. Mental Status: He is alert and oriented to person, place, and time. Psychiatric: Mood and Affect: Mood normal. Behavior: Behavior normal. Judgment: Judgment normal. Review of Systems Constitutional: Negative for chills and fever. Respiratory: Negative for cough and shortness of breath. Cardiovascular: Negative for chest pain. Gastrointestinal: Positive for blood in stool. Negative for abdominal pain, constipation, diarrhea, nausea and vomiting. Musculoskeletal: Negative for back pain. Skin: Negative for color change. Neurological: Negative for syncope, weakness, numbness and headaches. Psychiatric/Behavioral: Negative for confusion, decreased concentration, dysphoric mood and suicidal ideas. All other systems reviewed and are negative. Assessment and Plan Assessment & Plan GI bleeding Acute blood loss anemia -Type and screen -IV Protonix 40 mg twice daily -Place 2 large-bore Ivs -Trend hemoglobin every 8 hours -Hold aspirin and meloxicam. -GI consult for EGD -N.p.o. for now -IV lactated Ringer's at 75 cc an hour GERD (gastroesophageal reflux disease) - Previously on 40 mg Protonix daily. Mixed hyperlipidemia VTE Prophylaxis: Contraindicated due to GI bleed ----- Focus of this inpatient stay will remain on problems that need acute care setting for care. We will review available studies and will order additional labs, imaging and other studies as appropriate. As needed medicines are ordered as appropriate. VTE Prophylaxis will be ordered as appropriate. Please see above for management plan for individual hospital problems. Home medications are reviewed and will be continued as appropriate. Patient will be continued to be followed during this hospital stay by a member of [facility]. Past Medical History Past Medical History: Diagnosis Date Asthma Hyperlipidemia Past Surgical History Past Surgical History: Procedure Laterality Date ARM DEBRIDEMENT Left regloved left arm-multiple surgeries FOREARM SURGERY LIPOMA RESECTION LIPOMA REMOVAL PECTORALIS MAJOR REPAIR PECTORALIS MAJOR REPAIR Left SHOULDER ARTHROSCOPY Right RT SHOULDER SCOPE TONSILLECTOMY TONSILLECTOMY Social History Social History Socioeconomic H (more content not included)... [facility] 02-09-2024 Note [place] [facility] - [facility] SUBJECTIVE Routine Follow up Vern Ravi is [...] days., Disp: 6 mL, Rfl: 3 HYDROcodone-acetaminophen (Lodi) 5-325 mg tablet, TAKE 1 TABLET BY [...] in 1 year, or sooner as needed Itzel Zayas MD [facility] 08-02-2023 Note Chief Complaint consultation for colonoscopy [...] Use:., 08/02/2023 Family (more content not included)... [facility] Comment on above: Result Comment: Elec tronically Signed By: JANNIE PASCAL, [email or web address]\Date and Time Signed: 08/02/23 16:15 EDT Evaluation + Plan note No data available for this section General Surgery [facility] Discharge instructions No data available for this section General Surgery [facility] Progress note No data available for this section General Surgery [facility] Summary Purpose Family History No Family History [...] and content) DATE CREATED AUTHOR 02/02/2022 [facility] DATE CREATED AUTHOR AUTHOR'S ORGANIZ ATION 12/05/2023 [facility] DATE CREATED AUTHOR AUTHOR'S ORGANIZ ATION 01/06/2025 [facility] Patient Care team valeriano anderson (unrecognized section and content) Personnel Name: Favian Zabala MD Address: Address: [address] [place] [address] FOR RECORDS PERTAINING TO PATIENTS WHO ARE [...] BE BASED ON THE PRIMARY CLINICAL RECORDS. [facility] [employer] [facility]. provides no warranty or guarantee of the accuracy or completeness of information in this document.
[2025-01-16 10:08] LABS: Cholesterol 174 mg/dL (<=200); HDL Cholesterol 58 mg/dL (40-60); Triglycerides 117 mg/dL (<=150); VLDL CHOLESTEROL 23.4 mg/dL
== END 2025-01-16 08:01 | disposition home or self-care (01) ==
PROVIDERS: PCP Family Medicine; Visit Provider Nurse Practitioner Family
DX: E78.5 Hyperlipidemia, unspecified (principal)
CPT/HCPCS: 36415; 80061

== ENCOUNTER 2025-02-19 07:46 | Outpatient (RCR) | payer OTHER, SELFPAY | END 2025-04-16 08:08 | disposition home or self-care (01) | LOC: PT 07:46 | PROVIDERS: PCP Family Medicine; Visit Provider Nurse Practitioner Family | DX: M48.02 Spinal stenosis, cervical region (principal); M47.812 Spondylosis without myelopathy or radiculopathy, cervical region | CPT/HCPCS: 97110; 97140; 97162 ==

== ENCOUNTER 2025-03-03 08:29 | Emergency (ER) | payer OTHER, SELFPAY ==
--- OUTSIDE RECORDS SUMMARY | 2024-07-02 04:00 | XMS_ITS ---
Author Organization [facility] in [place] Address [address] [place] [address] Care Team Providers Care [employer] Technician Name Role Phone Israel Zabala Primary Care Provider [phone] Gilberto Galvan [phone] REASON FOR VISIT 8 week f/u Encounters Encounter Location Date Provider Diagnosis [facility] (PODIAT[facility]) [address] [place] [address] [place] [address] 07/02/2024 Gilberto Galvan Plan Of Treatment No Information Progress Notes * Vern RAVI ADOB: [birth year] (64 yo M)Acc No.[id number]:07/02/2024 UNLOCKED PROGRESS NOTE Follow Up Patient: Vern COOL :?Gilberto Galvan DPM, MSDOB:1960???Age: 63 Y???Sex:MaleDate:07/02/2024Phone:[phone]:[id number], [id number]:Israel Zabala Subjective: * Chief Complaints: * 1 . 8 week f/u. * Medical History: Objective: * Vitals: Assessment: Plan: * Treatment: * * Electronic signature of Gilberto Galvan DPM on 03/03/2025 at 08:36 AM ESTSign off status: PendingVisit Status:?CANC (Cancelled) * Provider: Michelle Galvan DPM, MS Date: 0 07/02/2024 Generated for Printing/Faxing/eTransmitting on:?03/03/2025 08:36 AM EST
--- OUTSIDE RECORDS SUMMARY | 2024-08-23 09:00 | XMS_ITS ---
Author Organization [facility] in [place] Address [address] [place] [address] Care Team Providers Care Car Rental Deliverer Name Role Phone Israel Zabala Primary Care Provider REASON FOR VISIT blood in stool Encounters Encounter Location Date Provider Diagnosis [facility] [address] [facility] [address] [place] [address] 08/23/2024 Israel Zabala Plan Of Treatment No Information Progress Notes * Vern RAVI ADOB: [birth year] (64 yo M)Acc No.[id number]:08/23/2024 UNLOCKED PROGRESS NOTE Progress Note Patient: Vern COOL :?Landen CARRERO), MDDOB:1960???Age: 64 Y???Sex:MaleDate:08/23/2024Phone:[phone]:[id number] [id number] Subjective: * Chief Complaints: * 1 . Blood in stool. * Medical History: Objective: * Vitals: Assessment: Plan: * Treatment: * * Electronic signature of Israel Zabala MD, [id number] on 03/03/2025 at 08:37 AM EST Sign off status: PendingVisit Status:?CANC (Cancelled) * Provider: Kody Zabala MD (TTC) Date: 0 08/23/2024 Generated for Printing/Faxing/eTransmitting on:?03/03/2025 08:37 AM EST
--- OUTSIDE RECORDS SUMMARY | 2024-08-26 04:15 | XMS_ITS ---
Author Organization [facility] in [place] Address [address] [place] [address] Care Team Providers Care Panelboard Operator Name Role Phone Israel Zabala Primary Care Provider REASON FOR VISIT [facility] er f/u Encounters Encounter Location Date Provider Diagnosis [facility] [address] [facility] [facility] [place] [address] 08/26/2024 Israel Zabala Plan Of Treatment No Information Progress Notes * Vern RAVI ADOB: [birth year] (64 yo M)Acc No.[id number]:08/26/2024 UNLOCKED PROGRESS NOTE Progress Note Patient: Vern COOL :?Landen CARRERO), MDDOB:1960???Age: 64 Y???Sex:MaleDate:08/26/2024Phone:[phone]:[id number] [id number] Subjective: * Chief Complaints: * 1 . [facility] er f/u. * Medical History: Objective: * Vitals: Assessment: Plan: * Treatment: * * Electronic signature of Israel Zabala MD, [phone] on 03/03/2025 at 08:36 AM EST Sign off status: PendingVisit Status:?CANC (Cancelled) * Provider: Kody Zabala MD (TTC) Date: 0 08/26/2024 Generated for Printing/Faxing/eTransmitting on:?03/03/2025 08:36 AM EST
[2025-03-03 08:35] VITALS: BP 137/85; PULSE 87; TEMP 36.8; O2SAT 99; BMI 30.8
--- OUTSIDE RECORDS SUMMARY | 2025-03-03 08:37 | XMS_ITS | Clinical Summary ---
Author Organization [facility] Address [address], [address] [place] [address] Care Team Providers Care Federal Appellate Clerk Name Role Phone Unavailable Primary Care Provider Unavailabl e Social History Tobacco UseTypesPacks/DayYears UsedDateSmoking Tobacco: Never AssessedSex and Gender InformationValueDate RecordedSex Assigned at BirthNot on fileLegal Sex Male06/10/2012 6:49 PM ESTGender IdentityNot on fileSexual OrientationNot on file Plan of Treatment Not on file
--- OUTSIDE RECORDS SUMMARY | 2025-03-03 08:37 | XMS_ITS | Patient Health Record ---
Author Organization [facility] in [place] Address [address] [place] [address] Care Team Providers Care Box Car Loader Name Role Phone Israel Diane Primary Care Provider Denae Galvan [phone] Allergies Allergen (clinical drug ingredient) Drug/Non Drug Allergy documented on EMR Reaction Allergy Type Onset Date Status gabapentin gabapentin (uncoded) Unknown Allergy ActivesimvastatinSimvastatinmyaliasDrug AllergyActive Results Component Value Reference Range Notes Occult Blood* Reviewed date:08/23/2024 12:26:43 PM Interpretation: Performing Lab: Notes/Report: [facility] , Occult Blood Positive Performing Lab:see noteML - [facility] LBCBC AUTO DIFF Reviewed date:09/02/2024 07:55:14 PM Interpretation: Performing Lab: Notes/Report: [facility] ,White Blood Count8.24.0-11.0 10 3/uLRed Blood Count4.114.70-6.10 10 6/uL Fkimmelxvt16.214.0-18.0 g/vLFybouzmlou99.042.0-54.0 %Mean Corpuscular Kjnuue62.0 80.0-94.0 fLMean Corpuscular Slnwjgpzhk06.725.9-34.0 pgMean Corpuscular HGB Conc 33.029.9-35.2 g/dLRed Cell Distribution Width14.111.0-15.0 %Platelet Oeihb675 150-450 10 3/uLMean Platelet Volume9.99.5-13.5 fLNeutrophils Percent Auto65.4 43.0-75.0 %Lymphocytes Percent Auto22.220.5-60.0 %Monocytes Percent Auto7.91.7- 12.0 %Eosinophils Percent Auto3.70.9-7.0 %Basophils Percent Auto0.40.2-2.0 % Immature Granulocytes Pct Auto0.40.0-0.5 %Neutrophils Absolute Auto5.31.4-6.5 10 3/uLLymphocytes Absolute Auto1.81.2-3.8 10 3/uLMonocytes Absolute Auto0.60.3-0.8 10 3/uLEosinophils Absolute Auto0.30.0-0.7 10 3/uLBasophils Absolute Auto0.00.0- 0.1 10 3/uLImmature Granulocytes Abs Auto0.030.00-0.03 10 3/uLPerforming Lab:see noteML - [facility] LBLIPID PROFILE Reviewed date:01/16/2025 06:39:34 PM Interpretation: Performing Lab: Notes/Report: [facility] ,Ntaaemgeehgcz265<=150 mg/uMFiqdcowyxad666<=200 mg/dLHDL Xbpxbgdkxxv8848-10 mg/dL > or =60 mg/dl - LOW CARDIOVASCULAR RISK <40 mg/dl - HIGH CARDIOVASCULAR RISK LDL Cholesterol Dntxzxyjor69.6 <100 mg/dl OPTIMAL 100-129 mg/dl NEAR OR ABOVE OPTIMAL 130-159 mg/dl BORDERLINE HIGH 160-189 mg/dl HIGH >190 mg/dl VERY HIGH VLDL VVZNFDFXIUQ48.4Chol HDL Ratio3.0 3.3 - 4.4 LOW RISK 4.4 - 7.1 AVERAGE RISK 7.1 - 11.0 MODERATE RISK >11.0 HIGH RISK Performing Lab:see noteML - [facility] LBECG 12 lead Reviewed date:08/25/2024 01:09:33 PM Interpretation: Performing Lab: Notes/Report: Source Facility: [facility]-[address] [place] [address] [place] [address] Electrocardiograph Report Signed Patient: VERN RAVI MR#: [id number] : 1960 Acct:[id number] Age/Sex: 64 / M ADM Date: 08/24/24 Loc: ER Attending Dr: Ordering Physician: Ry Gaitan D.O. Date of Service: 08/24/24 Procedure(s): ECG 12 lead Accession Number(s): [id number] cc: [facility] Test Date: 2024-08-24 Pat Name: VERN RAVI Department: Room: - Gender: Male Collaborative Teacher: : 1960 Requested By: Ry Gaitan Order Number: [id number] Reading MD: AIMEE BARTH M.D. Measurements Intervals [place] Rate: 76 P: 55 GA: 152 QRS: 34 QRSD: 102 T: 57 QT: 388 QTc: 418 Interpretive Statements 1100 Sinus rhythm 2420 RSR (QR) in lead V1/V2, consistent with right ventricular conduction delay 9130 borderline ECG No previous ECG available for comparison Electronically Signed On 08-24-2024 6:22:42 EDT by AIMEE BARTH M.D. Dictated By: AIMEE BARTH Signed By: 08/24/24 0623 DD/ 0019 TD/TT: Director Industrial Nursing:Prothrombin Time INR Reviewed date:08/25/2024 01:09:33 PM Interpretation: Performing Lab: Notes/Report: [facility] ,Prothrombin Time10.99.0-11.6 secINR1.03 DESIRED INR: 2.0-3.0 CONDITIONS NOT LISTED BELOW 2.5-3.5 FOR PROSTHETIC HEART VALVE REPLACEMENT 2.5-3.5 RECURRENT THROMBOSIS Performing Lab:see noteML - [facility] LBPTT Reviewed date:08/25/2024 01:09:33 PM Interpretation: Performing Lab: Notes/Report: [facility] ,Partial Thromboplastin Time23.322.3-36.2 secPerforming Lab:see noteML - [facility] LBPROF 14(COMP METB) Reviewed date:08/25/2024 01:09:33 PM Interpretation: Performing Lab: Notes/Report: [facility] ,Apphqf902566-140 mmol/LPotassium3.63.5-5.1 mmol/BIfngdola35273-189 mmol/LCarbon Pqmpzzq78.421.0-32.0 mmol/LAnion Gap15.4Zltflnt20573-332 mg/dLBlood Urea Lpvvjnwi50.07.0-18.0 mg/dLCreatinine1.270.70-1.30 mg/dLEstimated GFR ( Martha>60>=60 mL/min/1.73m 2Estimated GFR (Non- Ame57>=60 mL/min/1.73m 2 BUN Creatinine Ratio15.1Ukebrpy5.38.5-10.1 mg/dLBilirubin Total0.40.2-1.0 mg/dL Aspartate Amino Fvmwjlkvuah7695-66 U/LAlanine Lyqifvvtbvnqicuw0447-00 U/L Alkaline Fsgknvulzac9399-740 U/LTotal Protein5.86.4-8.2 g/dLAlbumin Level3.13.4- 5.0 g/dLGlobulin2.7Albumin Globulin Ratio1.1Performing Lab:see noteML - [facility] LBCBC AUTO DIFF Reviewed date:08/25/2024 01:09:33 PM Interpretation: Performing Lab: Notes/Report: [facility] ,White Blood Count10.24.0-11.0 10 3/uLRed Blood Count4.044.70-6.10 10 6/uL Yjimuaihps30.814.0-18.0 g/pEMguahmlfjc17.342.0-54.0 %Mean Corpuscular Bmvsma24.9 80.0-94.0 fLMean Corpuscular Hssoayfnlw57.225.9-34.0 pgMean Corpuscular HGB Conc 32.529.9-35.2 g/dLRed Cell Distribution Width13.511.0-15.0 %Platelet Xlhgv745 150-450 10 3/uLMean Platelet Ggnoml95.59.5-13.5 fLNeutrophils Percent Auto55.8 43.0-75.0 %Lymphocytes Percent Auto30.020.5-60.0 %Monocytes Percent Auto10.81.7- 12.0 %Eosinophils Percent Auto2.40.9-7.0 %Basophils Percent Auto0.50.2-2.0 % Immature Granulocytes Pct Auto0.50.0-0.5 %Neutrophils Absolute Auto5.71.4-6.5 10 3/uLLymphocytes Absolute Auto3.11.2-3.8 10 3/uLMonocytes Absolute Auto1.10.3-0.8 10 3/uLEosinophils Absolute Auto0.30.0-0.7 10 3/uLBasophils Absolute Auto0.10.0- 0.1 10 3/uLImmature Granulocytes Abs Auto0.050.00-0.03 10 3/uLPerforming Lab:see noteML - [facility] LBLIVER PROFILE Reviewed date:08/23/2024 12:43:34 PM Interpretation: Performing Lab: Notes/Report: [facility] ,Bilirubin Total0.50.2-1.0 mg/dLBilirubin Direct0.10.0-0.2 mg/dLAspartate Amino Fypebsybful5835-65 U/LAlanine Yggrwoygotvbmomo3506-15 U/LAlkaline Lrvxklvybsr75 46-116 U/LTotal Protein6.76.4-8.2 g/dLAlbumin Level3.93.4-5.0 g/dLGlobulin2.8 Albumin Globulin Ratio1.4Performing Lab:see noteML - [facility] LBCBC AUTO DIFF Reviewed date:08/23/2024 12:26:43 PM Interpretation: Performing Lab: Notes/Report: [facility] ,White Blood Count10.14.0-11.0 10 3/uLRed Blood Count4.564.70-6.10 10 6/uL Ttnijeaaau53.314.0-18.0 g/oPDbwrtcdwuq10.042.0-54.0 %Mean Corpuscular Hxhiem60.7 80.0-94.0 fLMean Corpuscular Laueydlgwi45.225.9-34.0 pgMean Corpuscular HGB Conc 33.329.9-35.2 g/dLRed Cell Distribution Width13.311.0-15.0 %Platelet Zonbo095 150-450 10 3/uLMean Platelet Xigudc01.09.5-13.5 fLNeutrophils Percent Auto78.6 43.0-75.0 %Lymphocytes Percent Auto12.820.5-60.0 %Monocytes Percent Auto7.11.7- 12.0 %Eosinophils Percent Auto0.50.9-7.0 %Basophils Percent Auto0.40.2-2.0 % Immature Granulocytes Pct Auto0.60.0-0.5 %Neutrophils Absolute Auto7.91.4-6.5 10 3/uLLymphocytes Absolute Auto1.31.2-3.8 10 3/uLMonocytes Absolute Auto0.70.3-0.8 10 3/uLEosinophils Absolute Auto0.10.0-0.7 10 3/uLBasophils Absolute Auto0.00.0- 0.1 10 3/uLImmature Granulocytes Abs Auto0.060.00-0.03 10 3/uLPerforming Lab:see noteML - [facility] LBXR shoulder LT min 2V Reviewed date:07/08/2024 07:21:44 PM Interpretation: Performing Lab: Notes/Report: Source Facility: [facility]-[address] [place] [address] [place] [address] XRay Report Signed Patient: VERN RAVI MR#: [id number] : 1960 Acct:[id number] Age/Sex: 63 / M ADM Date: 07/08/24 Loc: LAB Attending Dr: Favian Diane M.D. Ordering Physician: Favian Diane M.D. Date of Service: 07/08/24 Procedure(s): XR shoulder LT min 2V Accession Number(s): [id number] cc: Favian Diane M.D. [place] [address] Patient Name: VERN RAVI MRN: [id number] date: 1960 Sex: M Assigned Patient Location: LAB Current Patient Location: LAB Accession/Order Number: [id number] Exam Date: 07/08/2024 17:24 Report Date: 07/08/2024 17:25 At the request of: FAVIAN DIANE MD Procedure: XR shoulder LT min 2V 3 views left shoulder plain film HISTORY: Chronic left shoulder pain COMPARISON: None ACUTE FINDINGS: None DEGENERATIVE CHANGE: Unremarkable SOFT TISSUE FINDINGS: Unremarkable JOINT EFFUSION: None POSTOP CHANGES: [place] screws for a biceps tenodesis BONY MINERALIZATION: Adequate XR/XR shoulder LT min 2V IMPRESSION: No acute findings. Impression dictated by: Dragan Crowder M.D.07/08/2024 5:25 PM Dictation Location: [place] [address] Electronically authenticated by: [id number] Y Date: 07/08/2024 17:25 Dictated By: Dragan Crowder D.O. Signed By: 07/08/241726 DD/ 24 TD/TT: Director Industrial Nursing:LIPID PROFILE Reviewed date:06/04/2024 02:19:14 PM Interpretation: Performing Lab: Notes/Report: [facility] ,Edmxkgbgipxwa30<=150 mg/bNMnaezvbhpyl408<=200 mg/dLHDL Fjgebbcsabp7789-25 mg/dL > or =60 mg/dl - LOW CARDIOVASCULAR RISK <40 mg/dl - HIGH CARDIOVASCULAR RISK LDL Cholesterol Qervpsvsgr66.0 <100 mg/dl OPTIMAL 100-129 mg/dl NEAR OR ABOVE OPTIMAL 130-159 mg/dl BORDERLINE HIGH 160-189 mg/dl HIGH >190 mg/dl VERY HIGH VLDL YJFHLSEHOJR14.8Chol HDL Ratio2.5 3.3 - 4.4 LOW RISK 4.4 - 7.1 AVERAGE RISK 7.1 - 11.0 MODERATE RISK >11.0 HIGH RISK Performing Lab:see noteML - [facility] LBXR foot LT min 3V Reviewed date:08/23/2024 12:26:43 PM Interpretation: Performing Lab: Notes/Report: Source Facility: [facility]-[address] [place] [address] [place] [address] XRay Report Signed Patient: VERN RAVI MR#: [id number] : 1960 Acct:[id number] Age/Sex: 63 / M ADM Date: 05/06/24 Loc: RAD Attending Dr: Denae Galvan D.P.M. Ordering Physician: Denae Galvan D.P.M. Date of Service: 05/06/24 Procedure(s): XR foot LT min 3V Accession Number(s): [id number] cc: Denae Galvan D.P.M.; Favian Diane M.D. [place] [id number] Patient Name: VERN RAVI MRN: [id number] date: 1960 Sex: M Assigned Patient Location: [facility] Current Patient Location: RAD Accession/Order Number: [id number] Exam Date: 05/06/2024 15:05 Report Date: 05/06/2024 15:39 At the request of: DENAE GALVAN Procedure: XR foot LT min 3V EXAM: XR foot LT min 3V HISTORY: Left Foot Pain COMPARISON: None. TECHNIQUE: 3 views of left foot were obtained. FINDINGS: There is no apparent acute fracture or dislocation. There is mild narrowing of the first metatarsophalangeal joint. Remainder the joint spaces are relatively intact. An osteophyte arises from the base of the distal phalanx of the great toe. No other focal osseous abnormality is identified. An osteophyte arises from the insertion site of the Achilles tendon. Soft tissues are intact throughout. XR/XR foot LT min 3V IMPRESSION: No acute fracture or dislocation. Mild degenerative changes are seen at the first metatarsophalangeal joint. Electronically authenticated by: DENAE VÁSQUEZ Date: 05/06/2024 15:39 Dictated By: Denae Vásquez M.D. Signed By: 05/06/24 1542 DD/ 1539 TD/TT: Director Industrial Nursing:PROF [facility] Reviewed date:08/23/2024 12:43:34 PM Interpretation: Performing Lab: Notes/Report: [facility] ,Jhuduw309941-832 mmol/LPotassium3.93.5-5.1 mmol/JLqsgytrp90998-923 mmol/LCarbon Jgcbkkj48.821.0-32.0 mmol/LAnion Gap14.8Ydwhhkg52892-974 mg/dLBlood Urea Kgzpzgur94.07.0-18.0 mg/dLCreatinine1.010.70-1.30 mg/dLEstimated GFR ( Martha>60>=60 mL/min/1.73m 2Estimated GFR (Non- Olivia>60>=60 mL/min/1.73m 2BUN Creatinine Ratio15.9Zbitllu0.98.5-10.1 mg/dLPerforming Lab:see noteML - [facility] LB Reason For Referral Diagnosis 1 Labral tear of shoul candace, left, initial encounter (S44.034O) Diagnosis 2 Supraspinatus tendon tear, left, initial encounter (S46.721P) Referral Organization [facility] Medicine Referring Provider First Name Israel Referring Provider Last Name Sagrario Referring Provider Speciality Family Med kaushal Referred Provider Jason Pollard Referred Provider Specialty Orthopedic S urgery Referral Priority Routine Medications Medication SIG (Take, Route, Frequency, Duration) Notes Start Date End Date Status Senna S 8.6-50 MG 1-2 tablet in the ev ening as needed Orally at bedtime; Duration: 30 day(s) PRN 10/25/2018 ActiveRepathaActiveKetoconazole 2 %APPLY TO THE AFFECTED AREAS OF THE FEET/IN BETWEEN THE TOES TWICE A DAY NEEDED FOR FLARES External; Duration: 30 Days ActivePantoprazole Sodium 40 MGTAKE 1 TABLET BY MOUTH EVERY DAY; Duration: 90 ActiveMultivitamin Adult -as directed OrallyActiveoxyCODONE HCl 5 MGOral; Duration: 7 DaysActiveHYDROcodone-Acetaminophen 5-325 MG1 tablet as needed Orally every 6 hrsActivetiZANidine HCl 2 MG1 tablet Orally every 8 hours 5Active Immunizations Vaccine Route Administration Date Status Comme nts Flu, Flucelvax (86737) 6 mos and older, single-dose syringe (9899-8426) IM Intramuscular 03/21/2024 Administered RSV QgjhhxrFvccime41/15/7890ZuwcsysenffkEPFY-SZM-5 (COVID 19 Pfizer 30mcg/0.3mL) Fixvieg61/25/1269JddvgcqxchxjUIMJ-GNB-7 (COVID 19 Pfizer 30mcg/0.3mL)Unknown 1Administered Social History Tobacco Use: Social History Observation Description Date Details (start date - stop date) Never Smoker NA - NA Tobacco Use/Smoking Question Answer Notes Patient is a nonsmoker Alcohol Screen (Audit-C) Question Answer Notes Did you have a drink containing alcohol in the p ast year? No Nvrqjf3BgxwrlymfsvbixWjtczgjiDADOW-K (Standard) Question Answer Notes Did you have a drink containing alcohol in the p ast year? No Yreuci9YrueefzjvvkhyyFsecdezdOhabkqc Notes: : : : : : : : : : : Problems Problem Type SNOMED Code ICD Code Onset Dates Problem Status W/U Status Risk Notes Problem Chronic pain syndrome (277542488) Chronic pain syndrome (G89.4) ActiveconfirmedProblemPain in limb (68369069)Pain in right upper arm (M79.621) ActiveconfirmedProblemPain in limb (00770634)Pain in left upper arm (M79.622) ActiveconfirmedProblemAnesthesia of skin (911742382)Anesthesia of skin (R20.0) ActiveconfirmedProblemParesthesia (finding) (40748457)Paresthesia of skin (R20.2)ActiveconfirmedProblemGastroesophageal reflux disease (130042502)GERD (gastroesophageal reflux disease) (K21.9)ActiveconfirmedProblemCervical radiculopathy (22160512)Cervical radiculopathy (M54.12)ActiveconfirmedProblem Neck pain (80526076)Neck pain (M54.2)ActiveconfirmedProblemCervical spondylosis without myelopathy (281051079)Spondylosis of cervical region without myelopathy or radiculopathy (M47.812)ActiveconfirmedProblemImpingement syndrome of shoulder region (783253580)Shoulder impingement (M75.40)ActiveconfirmedProblem Gastrointestinal hemorrhage (68843947)GI bleed (K92.2)ActiveconfirmedProblemPain in left foot (732781045259122)Left foot pain (M79.672)ActiveconfirmedProblem Displacement of cervical intervertebral disc (disorder) (107915915)Cervical disc displacement (M50.20)ActiveconfirmedProblemDisorder of musculoskeletal system (040138)Weakness of both upper extremities (R29.898)ActiveconfirmedProblemCOVID- 19 (945567671)COVID-19 (U07.1)Activeconfirmed Vital Signs Heart Rate 95 /min 05/07/2024 Kbqarvxuinr83.4 degrees Tfwoeuffiq34/07/1062Ddnfhroy08 %05/07/2024lood pressure qilnulzfr62 mm Hg02/04/20258205Hkuuak68 in02/04/2025lood pressure ivutvsih909 mm Hg 02/04/20252568Iuyyfi883.2 lbs1MI29.58 kg/m202/04/2025 Encounters Encounter Location Date Provider Diagnosis [facility] [place] (POD[facility]) [address] [place] [address] 05/07/2024 Denae Galvan Left foot pain M79.672 and Other specified joint disorders, left ankle and foot M25.872 [facility] [address] [place] [address] 07/08/2024 Israel Hoy Shoulder impingement M75.40 [facility] [address] [place] [facility] [place] [address] 03/21/2024 Israel Hoy Encounter for immunization Z23 and Shoulder pain, acute M25.519 [facility] [address] [facility] [place] [address] 02/04/2025 Israel Hoy Cervical disc displacement M50.20 [facility] [address] [place] [facility] [place] [address] 09/04/2024 Israel Hoy GI bleed K92.2 [facility] [address] [facility] [place] [address] 04/10/2024 Israel Hoy [facility] (PODIAT[facility])[address] [place] [address]/11/2024[facility] [place] (POD[facility])[address] [place] [address]/11/2024[facility] [facility] [place] [address]/10/2025 [facility] [facility] [address] 07/18/2024[facility] [facility] [place] [address]/21/2025Doug HoyPain in left shoulder M25.512[facility] [facility] [place] [address]/10/2024Doug [facility] [facility] [place] [address] 08/20/2024Doug [facility] [facility] [place] [address]/10/2024Doug [facility] [facility] [place] [address]/10/2024Doug [facility] [facility] [place] [address]/09/2024Doug HoyLabral tear of shoulder, left, initial encounter S43.432A and Supraspinatus tendon tear, left, initial encounter S46.812A Assessments Encounter Date Diagnosis (ICD Code) Assessment Notes Treatment Notes Treatment Clinical Notes Section Notes 03/21/2024 Encounter for immunization (ICD- 10 - Z23) 03/21/2024Shoulder pain, acute (ICD-10 - M25.519)05/07/2024Left foot pain (ICD- 10 - M79.672)05/07/2024Other specified joint disorders, left ankle and foot (ICD-10 - M25.872)Fifth metatarsal headProvidedPatient seen and evaluated. Patient education all questions answered to satisfaction. I recommended physical therapy with modalities including iontophoresis. I recommended stiff soled shoes and avoid going barefoot. No impact exercise until pain has alleviated. I also prescribed patient a Medrol Dosepak. Patient will follow-up in 6 to 8 weeks no new x-rays are lrhqiy2007/08/2024Shoulder impingement (ICD-10 - M75.40)09/04/2024 GI bleed (ICD-10 - K92.2)02/04/2025ervical disc displacement (ICD-10 - M50.20) 07/19/2024Pain in left shoulder (ICD-10 - M25.512)10/04/2024Labral tear of shoulder, left, initial encounter (ICD-10 - S43.432A)06/06/2025Supraspinatus tendon tear, left, initial encounter (ICD-10 - S46.812A)05/07/2024OtherPatient presents upon referral from his PCP Dr. Diane Plan Of Treatment Pending Test Test Name Order Date CMP (COMPLETE METABOLIC PANEL) 4 PAIN CLINICAL DRUG SURVEY 12 , PAINS (Inculdes Alcohol, Heroin, Fentanyl and Tramadol w confirm) 08/29/2017 HEMOGLOBIN A1C (GLYCO) 06/21/2023 LIPID PANEL (CHOL/TRIG/HDL/LDL) 06/21/19 24 CBC WITH DIFF 06/21/2023 PSA, PROSTATE-SPECIFIC ANTIGEN 4 XR Foot LT (3 views) * 05/07/2024 MRI Cervical Spine w/o contrast * 2018 XR Lumbar Spine Flex/Ext 07/30/2018 MRI Lumbar Spine w/o contrast 01/03/2019 MRI Shoulder Arthrogram w/ Contrast Left 07/19/2024 SYMPTOMATIC COVID-19 ANTIGEN 11/13/2023 XR SHOULDER LT 2V or > 07/08/2024 THYROID PANEL (T4/TSH/FREE T3) 4 MRI SHOULDER LEFT W CONTRAST 07/08/2024 Medications Administered Medication Instructions Date of Administration Dosage Notes Bupivacaine mLlumbar paraspinalDepo-Medrol, 40 mg/mL mLlumbar paraspinalDepo-Medrol, 80 mg/mL08/29/2017Depo-Medrol, 80 mg/mL mL Ketorolac Valebnbpzdtk73/21/756342 mgTriamcinolone 40 mg/ml4120 mg Medical (General) History Medical History History ICD Code hyperlipidemia seasonal allergiesasthmaConstipationDiverticulitisArthritisBPH (benign prostatic hyperplasia)N40.0Cervical yuguwbbbdemZ59.812Degenerative joint djsmhbzC91.90 Diabetes xhrtxvzrS62.1HqqkotdowqpfzsK80.92Essential (primary) ozgvseneexgnS33 Familial gxigxuvycebuvffauxutK41.01GERD (gastroesophageal reflux disease)K21.9 Lumbar disc kumkahmY07.9Sigmoid qqtqyL82.5Surgical History Surgery Date(Month/Year) Cervical plate and screws 12/2024 Infection cut out of left hand left pectorial muscle repairleft arm surgery(multiple)shoulder arthroscopy tonsillectomyHospitalization History Reason Date(Month/Year) GI BLeed 08/23/2024
--- OUTSIDE RECORDS SUMMARY | 2025-03-03 08:37 | XMS_ITS | Clinical Summary ---
Author Organization [facility] Address [address] [place] [address] Care Team Providers Care Blender Helper Name Role Phone Unavailable Primary Care Provider Unavailabl e Social History Tobacco UseTypesPacks/DayYears UsedDateSmoking Tobacco: Never AssessedSex and Gender InformationValueDate RecordedSex Assigned at BirthNot on fileLegal Sex Male07/13/2022 6:48 PM EDTGender IdentityNot on fileSexual OrientationNot on file Last Filed Vital Signs Vital SignReadingTime TakenCommentsBlood Acfbaict689/9808 12:00 PM EDT Pulse--Temperature--Respiratory Rate--Oxygen Saturation--Inhaled Oxygen Concentration--Lzvyzl65.5 kg (217 lb 3.2 oz)12/06/2019 12:00 PM EFHWxybnx104.7 cm (5' 8 )12/06/2019 12:00 PM EDTBody Mass Index33.03012/06/2019 12:00 PM EDT Plan of Treatment Not on file
--- OUTSIDE RECORDS SUMMARY | 2025-03-03 08:37 | XMS_ITS | Clinical Summary ---
Author Organization [facility] Address [address] [place] [address] Care Team Providers Care Advertising Job Titles Name Role Phone Landen Zabala MD Primary Care Provider [phone] Allergies Active AllergyReactionsCriticalityNoted DateCommentsGabapentinOtherHigh 01/12/2022 Blisters on tongue Nsaids (Non-Steroidal Anti-Inflammatory Drug)GI birsbppt66/16/2025Simvastatin AkpxuzotGugdxa71/08/2024 BLE edema, generalized malaise Medications MedicationSigDispense QuantityRefillsLast FilledStart DateEnd DateStatus pantoprazole (ProtoNix) 40 mg EC tablet Take 1 tablet by mouth in the morning.Active fexofenadine (Herlinda) 180 mg tablet Take 180 mg by mouth in the morning.Active multivitamin tablet Take 1 tablet by mouth in the morning.Active acetaminophen (Tylenol 8 Hour) 650 mg ER tablet Take 650 mg by mouth in the morning. Do not crush, chew, or split.Active evolocumab (Repatha SureClick) 140 mg/mL pen injector Indications:Mixed hyperlipidemiaInject 140mg subcutaneously once every 14 days 6 mL 5Active tiZANidine (Zanaflex) 2 mg tablet Indications:Muscle spasms of neckTake 1 tablet (2 mg) by mouth every 8 (eight) hours if needed for muscle spasms for up to 15 days. 45 tablet 5Active sennosides-docusate sodium (Jasmin-Colace) 8.6-50 mg tablet Indications:Drug-induced constipationTake 2 tablets by mouth in the morning for 15 days. For constipation. Do not take if diarrhea. 30 tablet Expired oxyCODONE (Roxicodone) 5 mg immediate release tablet Indications:Acute postoperative painTake 1 tablet (5 mg) by mouth every 6 (six) hours if needed for severe pain (8-10 pain score) for up to 7 days. 28 tablet Discontinued(Therapy completed) Active Problems ProblemNoted DateDiagnosed DateCervical spondylosis with aarxkwjuueeoz89/30/2025 Anesthesia of skin01/22/2025enign essential HTN01/22/2025PH (benign prostatic hyperplasia)01/22/2025ervical spondylosis without dfvbrjwidq92/24/2025hronic pain gudhwwxf43/24/2025OVID-19001/22/20259593Vhdlayju95/24/2025Disorder of musculoskeletal ggytcn9801/22/20252978Baazjnjiwidgyy63/24/2025Familial tremor 01/22/2025Family history of colon cancer in asgvaz5401/22/2025History of kadehnevldsupj23/24/2025Internal fgxhblsomjr55/24/2025Lumbar disc disease 01/22/2025MI 32.0-32.9,adult01/22/20250223Grsrrma84/24/2025Other cervical disc displacement, unspecified cervical chraru1701/22/2025Pain in left foot01/22/2025 Pain of cervical spine01/22/20255473Aovgfgijtgc86/24/2025Screening for malignant neoplasm of colon01/22/2025Seasonal allergic swkgiyjy10/24/2025Sigmoid polyp 01/22/2025Spinal stenosis in cervical ljgeyk4101/22/20255315Lsnhjnm80/27/2025 Assessment & Plan (08/27/2024 8:41 AM EDT): - as needed Xanax Assessment & Plan (08/26/2024 6:00 PM EDT): - as needed Xanax Assessment & Plan (08/25/2024 1:31 PM EDT): - as needed Xanax GI jzflahhp05/26/2025 Assessment & Plan (08/27/2024 12:24 PM EDT): - Hemoglobin continues to be stable. Status post EGD showing no active bleeding - patient with history of aspirin and NSAID use -Spoke with GI, did have CLN one year ago but due to recurrent GIB will proceed with colonoscopy tomorrow Assessment & Plan (08/26/2024 6:00 PM EDT): - Hemoglobin continues to be stable. Status post EGD showing no active bleeding. Continue to clear liquid diet as per GI recommendations. Discussed with RN to obtain records from [facility] regarding his colonoscopy in August 2023 - patient with history of aspirin and NSAID use. -Further recommendations as per GI Assessment & Plan (08/25/2024 1:31 PM EDT): - Continue with IV Protonix. Continue monitoring hemoglobin. Continue monitoring on telemetry. - Hemoglobin trending down, currently at 10.4. Transfuse if hemoglobin drops below 7. - Pending EGD in AM. - patient with history of aspirin and NSAID use. Acute blood loss ehmnhx7808/24/2024 Assessment & Plan (08/27/2024 8:41 AM EDT): - As above Assessment & Plan (08/26/2024 6:00 PM EDT): - As above Assessment & Plan (08/25/2024 1:31 PM EDT): - As above Assessment & Plan (08/24/2024 8:20 AM EDT): -Type and screen -IV Protonix 40 mg twice daily -Place 2 large-bore Ivs -Trend hemoglobin every 8 hours -Hold aspirin and meloxicam. -GI consult for EGD -N.p.o. for now -IV lactated Ringer's at 75 cc an hour GERD (gastroesophageal reflux disease)08/24/2024 Assessment & Plan (08/27/2024 12:45 PM EDT): -Will decrease PPI back to home dose of qd Assessment & Plan (08/26/2024 6:00 PM EDT): - Previously on 40 mg Protonix daily. Assessment & Plan (08/25/2024 1:31 PM EDT): - Previously on 40 mg Protonix daily. Assessment & Plan (08/24/2024 8:20 AM EDT): - Previously on 40 mg Protonix daily. Mixed lromjgmikocrjg79/26/2025 Assessment & Plan (08/27/2024 8:41 AM EDT): - Holding home meds. Assessment & Plan (08/26/2024 6:00 PM EDT): - Holding home meds. Assessment & Plan (08/25/2024 1:31 PM EDT): - Holding home meds. Cervical irehjwehykvqq16egenerative joint disease of hand Familial qubqxjhofcqfetrwlqoz68/31/2022typical chest pain 02/28/2022Family history of ischemic heart fcfbbar0802/28/2022 Overview (02/28/2022): Father with hx of CO at age 35, mother hx CAD White coat syndrome without diagnosis of tqkmmpfmucyp04/31/2022enign neoplasm of soft kifdnl87Lipoma of skin and subcutaneous tissue (excluding face)anic disorder without xhcndlrunel73/21/2014 01/11/2023Shoulder joint painsthma1Neck painNeck ikapfu4902/26/2013icipital vfighltnttpvc12/12/2012 01/11/2023losed fracture of one rib Overview (01/11/2023): 12-501009 DOI 09/01/11 Closed fracture of six ribs Overview (01/11/2023): 12-897101 DOI 09/01/11 Open wound of forearm with clmvzqsfukkt52 Overview (01/11/2023): 12-055617 DOI 09/01/11 Encounters DateTypeDepartmentCare XaxwIwfkiaqgwuz68/15/2025 11:15 AM EDTOffice Visit [facility] [address] [place] [address] Nida Patterson CNP Degenerative cervical spinal stenosis (Primary Dx); Cervical uvsodiznsmh22/08/2025Refill [address] Ortho Surgery [address] [place] [address] Nida Patterson CNP Muscle spasms of neck01/28/2025 7:45 AM EDTAnesthesia Event [facility] Main Operating Room [address] [place] [address] James Mercer MD Eisenman-Patel, Taylor, MD 01/28/2025 7:30 AM EDT - 01/28/2025 10:00 AM EDTSurgery [facility] Main Operating Room [address] [place] [address] Coleman Vernon MD C6-C7 ACF [85025 (CPT??)]01/28/2025 5:51 AM EDT - 01/28/2025 11:59 PM EDT Hospital Encounter [facility] X-Ray Imaging [address] [place] [address] Pain Discharge Disposition: Home or Self Care ()01/28/2025 5:50 AM EDT - 01/29/2025 1:33 PM EDTHospital Encounter [facility] 6A Ortho Surgery [address] [place] [address] Coleman Vernon MD Drug-induced constipation (Primary Dx); Muscle spasms of neck; Acute postoperative pain Discharge Disposition: Home or Self Care ()01/28/20253230Ugyaau22/24/2025 2:20 PM EDTOffice Visit [facility] [address] [place] [address] Akash Jones MD Mixed hyperlipidemia (Primary Dx); Pre-operative cardiovascular hzbofujfapn31/17/2025 11:30 AM EDTLab [facility] Outpatient Draw Station [address] [place] [address] Cervical spondylosis without /17/2025 10:35 AM EDT - 01/15/2025 11:59 PM EDTHospital Encounter [facility] [address] [place] [address] Cervical spondylosis without myelopathy Discharge Disposition: Home or Self Care ()01/15/2025 10:34 AM EDTHospital Encounter [facility] X-Ray Imaging [address] [place] [phone] Cervical spondylosis without myelopathy Discharge Disposition: Home or Self Care ()01/15/2025 10:00 AM EDTConsult [facility] [address] [place] [address] Nida Patterson CNP Degenerative cervical spinal stenosis (Primary Dx); Cervical wylfozmdvni15/16/9239Rtfipc62/03/2025Orders Only [facility] [address] [place] [address] Renetta Servin MA Cervical spondylosis without myelopathy (Primary Dx)12/18/2024 2:20 PM EDT Follow-Up [facility] [address] [place] [phone] Coleman Vernon MD Cervical spondylosis without myelopathy (Primary Dx); Cervical radiculopathy; Cervical spinal xthrkvif02/19/2025Refill [facility] [address] [place] [phone] Ana Michelle MA Mixed rhndvahrjhhgkx92/19/2025Orders Only [facility] [address] [place] [address] Ana Michelle MA Hyperlipidemia, unspecified hyperlipidemia type (Primary Dx)from Last 3 Months Family History Medical HistoryRelationNameCommentsBone cancerBrotherColon cancerFatherHeart attackFatherAsthmaMotherCoronary artery diseaseMotherLiver cancerMotherRelation NameStatusCommentsBrotherFatherDeceasedMotherDeceased Social History Tobacco UseTypesPacks/DayYears UsedDateSmoking Tobacco: NeverSmokeless Tobacco: Never Tobacco Cessation:Counseling Given: Not Answered Alcohol UseStandard Drinks/WeekCommentsNot Currently0 (1 standard drink = 0.6 oz pure alcohol)[facility] UtilitiesAnswerDate RecordedIn the past 12 months has the [employer], gas, oil, or water [employer] threatened to shut off services in your home?No01/28/2025Humiliation, Afraid, Rape, and Kick questionnaireAnswerDate RecordedWithin the last year, have you been afraid of your partner or ex-partner?No01/28/2025Emotionally AbusedNot on file01/28/2025Physically Abused Not on file01/28/2025Sexually AbusedNot on file01/28/2025Overall Financial Resource Strain (CARDIA)AnswerDate RecordedHow hard is it for you to pay for the very basics like food, housing, medical care, and heating?Not very hard 01/28/2025PHQ-2AnswerDate RecordedPatient Health Questionnaire-2 Score0 01/15/2025TransportationAnswerDate RecordedIn the past 12 months, has lack of transportation kept you from medical appointments or from getting medications?No 01/28/2025Lack of Transportation (Non-Medical)Not on file01/28/2025Housing Stability Vital SignAnswerDate RecordedIn the last 12 months, was there a time when you were not able to pay the mortgage or rent on time?No01/28/2025Number of Times Moved in the Last YearNot on file01/28/2025t any time in the past 12 months, were you homeless or living in a longterm (including now)?No01/28/2025 Hunger Vital SignAnswerDate RecordedWithin the past 12 months, you worried that your food would run out before you got the money to buymore.Never true01/28/2025 Ran Out of Food in the Last YearNot on file01/28/2025Sex and Gender Information ValueDate RecordedSex Assigned at KerjtIued85/08/2024 2:29 PM EDTLegal SexMale 10/27/2021 9:54 PM EDTGender QznhsasrGfsq96/08/2024 2:29 PM EDTSexual OrientationChoose not to fibbrvvj66/08/2024 2:29 PM EDT Last Filed Vital Signs Vital SignReadingTime TakenCommentsBlood Wrqpgytn750/8010 11:19 AM EDT Mafws732902/12/2025 11:19 AM NMZDwikuxfwurz90.7 ??C (98.1 ??F)01/29/2025 11:16 AM EDTRespiratory Fumu5097 11:16 AM EDTOxygen Iwfggnyvjh89%02/12/2025 11:19 AM EDTInhaled Oxygen Concentration--Zwcymg09.1 kg (214 lb)02/12/2025 11:19 AM VTMTbcewv478.8 cm (5' 10 )02/12/2025 11:19 AM EDTBody Mass Index30.7102/12/2025 11:19 AM EDT Plan of Treatment DateTypeDepartmentCare Team (Latest Contact Info)Yncrkvpoquw10/13/2025 11:00 AM ESTOffice Visit [facility] [address] [place] [address] Nida Patterson, PAULETTE [address] [facility] [place] [address] Health MaintenanceDue DateLast DoneCommentsCT Oyyozcnbdumk04/24/1963Diabetes: Hemoglobin A1C1962FIT-DNA1962FIT1962FOBT1962 Zroulsxjauwik51/24/1963Diabetes: Retinopathy Uxnbmcwhi19/24/1973Diabetes: Urine Protein Rxbebcctm12/24/1982Pneumococcal Vaccine: Pediatrics (0 to 5 Years) and At-Risk Patients (6 to 64 Years) (1 of 2 - PCV)1981Adult Kfijkiv8707/22/1984 Zoster Vaccines (1 of 2)2012COVID-19 Vaccine (3 - 2024- season) 504/, 07/23/2020Influenza Vaccine (#1)/, 04/11/2023, 01/28/2022, Additional history existsDepression Gjqxygqsb76/17/2026 01/15/20253597Sukexeqewyx24/30/04942108/28/2024, 01/03/2014Colorectal Cancer Screening 08/28/2034HIB VaccinesAged OutNo longer eligible based on patient's age to complete this topicHPV VaccinesAged OutNo longer eligible based on patient's age to complete this topicIPV VaccinesAged OutNo longer eligible based on patient's age to complete this topicMeningococcal B VaccineAged OutNo longer eligible based on patient's age to complete this topicMeningococcal VaccineAged OutNo longer eligible based on patient's age to complete this topicRotavirus Vaccines Aged OutNo longer eligible based on patient's age to complete this topic Medical Devices ImplantedTypeAreaManufacturerDevice IdentifierShelf Expiration DateModel / Serial / LotPutty,[facility] [id number] - [id number] Implanted:Qty: 1 on 01/28/2025 [facility]BoneN/A: Spine CervicalPRECESION [id number] 11/28/[id number] / [id number] / Spacer 7mm X 16mm X 14mm Implanted:Qty: 1 on 01/28/2025 by Coleman [facility] CenterDeviceN/A: Spine [id number] / / [id number] Mm Plate Implanted:Qty: 1 on 01/28/2025 by [facility] CenterPlateN/A: Spine CervicalMEDTRONIC [id number] / / Screw,Self,Drill,Fix4.0x16 - [id number] Implanted:Qty: 4 on 01/28/2025 [facility]wN/A: Spine CervicalMEDTRONIC [id number] / / Procedures Procedure NamePriorityDate/TimeAssociated DiagnosisCommentsXR CERVICAL SPINE 2-3 VNJQTIcqqqcu48/01/2025 9:07 AM EDT FL LESS THAN 1 HOUR FNUHKQCHJBSFNHLcjoofp49/30/2025 10:00 AM EDT Pain IN AN ELECTIVE ENDOTRACHEAL YWUBFHRzmtilx12/30/2025 8:07 AM EDT IN ARTHRD ANT INTERBODY MIN DSC CRV BELOW C2001/28/2025 7:48 AM EDT Cervical spondylosis Cervical radiculopathy at C7 POCT GLUCOSE METER UNSOLICITED FNHEHWYVvegrqa45/30/2025 6:17 AM EDT ECG 12-JNEEEasivdv83/17/2025 11:21 AM EDT Cervical spondylosis without myelopathy XR CHEST 2 LWBBIYzaesby11/17/2025 10:54 AM EDT Cervical spondylosis without myelopathy CBC WITH AUTO KNRZIQIKFNRPOvtnzxz74/17/2025 10:38 AM EDT Cervical spondylosis without myelopathy CBC AND XXQPWLFZUEBLEpktwoj22/17/2025 10:38 AM EDT Cervical spondylosis without myelopathy BASIC METABOLIC YBUWJKunysfj11/17/2025 10:38 AM EDT Cervical spondylosis without myelopathy TYPE AND SYBJULPbowfdl92/17/2025 10:38 AM EDT Cervical spondylosis without myelopathy MRSA/MSSA DNA TLANHWkofeaj13/17/2025 10:38 AM EDT Cervical spondylosis without myelopathy DIAGNOSTIC WMNDHPAOLUFIixavyz73/30/2025 9:12 AM EDT GI bleeding from Last 3 Months or Most Recently Relevant to Health Maintenance Results * XR cervical spine 2 or 3 views (01/29/2025 9:07 AM EDT)Anatomical Region LateralityModalitySpine, C-spineComputed RadiographySpecimen (Source) Anatomical Location / LateralityCollection Method / VolumeCollection Time Received Time01/29/2025 9:23 AM EDT Impressions 01/29/2025 9:25 AM EDT Impression: 1. Status post anterior discectomy and fusion C6-7. Intact hardware without evidence for loosening. Mild prevertebral soft tissue swelling and soft tissue gas, within normal limits status post recent surgery. 2. Diffuse facet arthropathy and multilevel uncovertebral spurring. Multilevel disc space narrowing with endplate spurring. Prominent anterior osteophytes/ossification of anterior longitudinal ligament at C4-5. Electronically signed: Diogo Mazariegos. Narrative 01/29/2025 9:25 AM EDT XR CERVICAL SPINE 2-3 VIEWS 01/29/2025 8:54 AM CLINICAL INDICATIONS: Status post anterior cervical discectomy and fusion, evaluate hardware and alignment. COMPARISON: 02/26/2013 cervical spine radiographs, MRI cervical spine 09/06/2023 Procedure Note Diogo Mazariegos MD - 01/29/2025 XR CERVICAL SPINE 2-3 VIEWS 01/29/2025 8:54 AM CLINICAL INDICATIONS: Status post anterior cervical discectomy andfusion, evaluate hardware and alignment. COMPARISON: 02/26/2013 cervical spine radiographs, MRI cervical spine09/06/2023 IMPRESSION: Impression: 1. Status post anterior discectomy and fusion C6-7. Intact hardwarewithout evidence for loosening. Mild prevertebral soft tissue swelling and softtissue gas, within normal limits status post recent surgery. 2. Diffuse facet arthropathy and multilevel uncovertebral spurring.Multilevel disc space narrowing with endplate spurring. Prominent anterior osteophytes/ossification of anterior longitudinal ligament at C4-5. Electronically signed: Diogo Mazariegos. Authorizing ProviderResult TypeResult StatusNida Patterson [facility] XR PROCEDURES Final Result * FL LESS THAN 1 HOUR INTRAOPERATIVE (01/28/2025 10:00 AM EDT)Anatomical Region LateralityModalityX-Ray AngiographySpecimen (Source)Anatomical Location / LateralityCollection Method / VolumeCollection TimeReceived Time01/28/2025 10:03 AM EDT Impressions 01/28/2025 10:03 AM EDT Intraoperative fluoroscopy provided as above. ??See operative report for additional details. Electronically signed: Tony Jimenez MD. Narrative 01/28/2025 10:03 AM EDT FL IN OR INDICATION: Neck pain FINDINGS: Intraoperative fluoroscopy provided. No radiologist present during the examination. Reference Air Kerma: 1.2 mGy Procedure Note Tony Jimenez MD - 01/28/2025 [place] IN OR INDICATION: Neck pain FINDINGS: Intraoperative fluoroscopy provided. No radiologist present during the examination. Reference Air Kerma: 1.2 mGy IMPRESSION: Intraoperative fluoroscopy provided as above. See operative report for additional details. Electronically signed: Tony Jimenez MD. Authorizing ProviderResult TypeResult StatusColeman Vernon [facility] FLUOROSCOPY PROCEDURESFinal Result * IN AN ELECTIVE ENDOTRACHEAL AIRWAY (01/28/2025 8:07 AM EDT) Narrative James Mercer MD - 01/28/2025 8:07 AM EDT James Mercer MD 01/28/2025 9:03 AM Airway Date/Time: 01/28/2025 8:07 AM Reason: elective Airway not difficult General Information and Staff Patient location during procedure: OR Anesthesiologist: James Mercer MD Resident/LAWN SERVICE MANAGER/CAA: Roberta Lucas MD Performed: resident/LAWN SERVICE MANAGER/CAA Patient Condition Indications for airway management: anesthesia Patient position: sniffing Planned trial extubation Sedation level: deep Final Airway Details Preoxygenated: yes Final airway type: endotracheal airway Successful airway: ETT Cuffed: yes Successful intubation technique: video laryngoscopy Adjuncts used in placement: intubating stylet Endotracheal tube insertion site: oral Blade: Lambert Blade size: #4 ETT size (mm): 7.5 Cormack-Lehane Classification: grade IIa - partial view of glottis Placement verified by: chest auscultation and capnometry Measured from: lips ETT to lips (cm): 22 Number of attempts at approach: 1 Number of other approaches attempted: 0 Authorizing ProviderResult TypeResult StatusRavindera Uberoi MDANESTHESIA ORDERABLESFinal Result * (ABNORMAL) POCT glucose meter (01/28/2025 6:17 AM EDT)ComponentValueRef Range Test MethodAnalysis TimePerformed AtPathologist SignatureGlucose XDW898(H)70 - 105 mg/dL01/28/2025 6:32 AM EDTGERAL[facility] ([facility])Comment:miward Specimen (Source)Anatomical Location / LateralityCollection Method / Volume Collection TimeReceived TimeBloodCapillary blood specimen / Ntxkoni0101/28/2025 6:17 AM EDT01/28/2025 6:32 AM EDT Narrative [facility] ([facility]) - 01/28/2025 6:32 AM EDT Waived Testing in the ED is performed under the ED CLIA certificate #[id number]. Authorizing ProviderResult TypeResult StatusColeman OWENS BLOOD ORDERABLESFinal ResultPerforming OrganizationAddressCity/State/ZIP CodePhone Number [facility] ([facility]) [address] [place] [address] * ECG 12 lead (01/15/2025 11:21 AM EDT)ComponentValueRef RangeTest Method Analysis TimePerformed AtPathologist SignatureVentricular Jxhx12LUBON MUSE Atrial Cksz73WONOU MUSEPR Epirdkli851kpTV MUSEQRS CSWHSYJH215wjRK MUSEQT Blbcngnf578ocJM MUSEQTC CALCULATION(BAZETT)432msGE MUSEP Hccr59dhrirlkEN MUSE R-Bfmu72neumpxoMU MUSET Wave Yqlc75twqbpkeKU MUSESpecimen (Source)Anatomical Location / LateralityCollection Method / VolumeCollection TimeReceived Time 01/15/2025 11:00 AM EDT01/15/2025 11:30 PM EDT Impressions GE MUSE - 01/15/2025 11:30 PM EDT Normal sinus rhythm Normal ECG When compared with ECG of 23-SEP-2011 08:05, No significant change was found Confirmed by Olive Andres ([id number]) on 01/15/2025 11:30:16 PM Narrative Procedure Note Lyndon Torres MD - 01/15/2025 IMPRESSION: Normal sinus rhythm Normal ECG When compared with ECG of 23-SEP-2011 08:05, No significant change was found Confirmed by Olive Andres ([id number]) on 01/15/2025 11:30:16 PM Authorizing ProviderResult TypeResult StatusColeman Vernon MDECG ORDERABLES Final ResultPerforming OrganizationAddressCity/State/ZIP CodePhone Number GE MUSE * XR chest 2 views (01/15/2025 10:54 AM EDT)Anatomical RegionLateralityModality ChestComputed RadiographySpecimen (Source)Anatomical Location / Laterality Collection Method / VolumeCollection TimeReceived Time01/16/2025 10:18 AM EDT Impressions 01/16/2025 10:18 AM EDT No evidence of pulmonary infiltrate or acute pulmonary pathology. Electronically signed: José Miguel Tompkins. Narrative 01/16/2025 10:18 AM EDT HISTORY: A 64-year-old male with the history of the preoperative examination. Cervical spondylosis without myelopathy. EXAM/TECHNIQUE: ??CHEST (PA and Lateral Views) COMPARISON: 09/03/2011. FINDINGS: Both lungs and costophrenic angles are clear. There is no evidence of pulmonary infiltrate or acute pulmonary pathology. The cardiac silhouette is within normal limits. The trachea is in midline. The mediastinum is otherwise unremarkable.The hemidiaphragms are normal in position. The bony rib cage is intact. Procedure Note José Miguel Tompkins MD - 01/16/2025 HISTORY: A 64-year-old male with the history of the preoperativeexamination. Cervical spondylosis without myelopathy. EXAM/TECHNIQUE: CHEST (PA and Lateral Views) COMPARISON: 09/03/2011. FINDINGS: Both lungs and costophrenic angles are clear. There is noevidence of pulmonary infiltrate or acute pulmonary pathology. The cardiac silhouette is within normal limits. The trachea is in midline.The mediastinum is otherwise unremarkable.The hemidiaphragms are normal inposition. The bony rib cage is intact. IMPRESSION: No evidence of pulmonary infiltrate or acute pulmonary pathology. Electronically signed: José Miguel Tompkins. Authorizing ProviderResult TypeResult StatusColeman Vernon MDIMG XR PROCEDURES Final Result * (ABNORMAL) CBC auto differential (01/15/2025 10:38 AM EDT)ComponentValueRef RangeTest MethodAnalysis TimePerformed AtPathologist SignatureAuto WBC7.614.00 - 10.60 10*3/uL01/15/2025 12:20 PM [facility] ([facility])RBC5.454.20 - 5.70 10*6/uL01/15/2025 12:20 PM [facility] ([facility])Cmmfhdzdml64.9 13.0 - 17.0 g/dL01/15/2025 12:20 PM [facility] ([facility])Hematocrit 45.039.0 - 50.0 %01/15/2025 12:20 PM [facility] ([facility])MCV82.682.0 - 98.0 fL01/15/2025 12:20 PM [facility] ([facility])MCH27.327.0 - 33.0 pg01/15/2025 12:20 PM [facility] ([facility])MCHC33.132.0 - 35.0 g/dL 01/15/2025 12:20 PM [facility] ([facility])RDW16.7(H)11.5 - 15.0 % 01/15/2025 12:20 PM [facility] ([facility])Neutrophils %65.640.0 - 72.0 %01/15/2025 12:20 PM [facility] ([facility])Lymphocytes %20.920.0 - 45.0 %01/15/2025 12:20 PM [facility] ([facility])Monocytes %9.75.0 - 12.0 % 01/15/2025 12:20 PM [facility] ([facility])Eosinophils %3.00.0 - 6.0 % 01/15/2025 12:20 PM [facility] ([facility])Basophils %0.50.0 - 1.0 % 01/15/2025 12:20 PM [facility] ([facility])Neutrophils Absolute4.991.60 - 7.60 10*3/01/15/2025 12:20 PM [facility] ([facility])Lymphocytes Absolute1.591.20 - 4.00 10*3/01/15/2025 12:20 PM [facility] ([facility])Monocytes Absolute0.740.10 - 1.00 10*3/01/15/2025 12:20 PM [facility] ([facility])Eosinophils Absolute0.230.00 - 0.50 10*3/01/15/2025 12:20 PM [facility] ([facility])Basophils Absolute0.040.00 - 0.20 10*3/01/15/2025 12:20 PM [facility] ([facility])Xolozvfaw437223 - 400 10*3/01/15/2025 12:20 PM [facility] ([facility])nRBC %0.00 %01/15/2025 12:20 PM [facility] ([facility])Immature Granulocytes %0.30.0 - 1.0 % 01/15/2025 12:20 PM [facility] ([facility])Immature Granulocytes Absolute0.020.00 - 0.20 10*3/01/15/2025 12:20 PM [facility] ([facility])Specimen (Source)Anatomical Location / LateralityCollection Method / VolumeCollection TimeReceived TimeBloodVenous blood specimen / Unknown Venipuncture / Jusnnyq4901/15/2025 10:38 AM EDT01/15/2025 11:14 AM EDT Narrative Authorizing ProviderResult TypeResult StatusColeman Vernon MDLAB BLOOD ORDERABLESFinal ResultPerforming OrganizationAddressCity/State/ZIP CodePhone Number [facility] ([facility]) [address] [place] [address] * MRSA/MSSA DNA Nasal (01/15/2025 10:38 AM EDT)ComponentValueRef RangeTest MethodAnalysis TimePerformed AtPathologist SignatureMSSA DNANegativeNegative 01/16/2025 6:09 AM [facility] ([facility])MRSA DNANegativeNegative 01/16/2025 6:09 AM [facility] ([facility])Specimen (Source)Anatomical Location / LateralityCollection Method / VolumeCollection TimeReceived Time SwabNasal structure / UnknownNon-blood Collection / Ezdpiin0201/15/2025 10:38 AM EDT01/15/2025 11:06 AM EDT Narrative [facility] ([facility]) - 01/16/2025 6:09 AM EDT Testing methodology is an automated qualitative in vitro diagnostic test for the direct detection and differentiation of Staphylococcus aureus (SA) DNA and methicillin- resistant Staphylococcus aureus (MRSA) DNA from nasal swabs in patients at risk for nasal colonization. The test utilizes real-time polymerase chain reaction (PCR) for the amplification of MRSA/SA DNA and fluorogenic target-specific hybridization probes for the detection of the amplified DNA. A negative result does not preclude nasal colonization. Authorizing ProviderResult TypeResult StatusColeman OWENS MICROBIOLOGY - GENERAL ORDERABLESFinal ResultPerforming OrganizationAddressCity/State/ZIP Code Phone Number [facility] ([facility]) [address] [place] [phone] * Type and screen (01/15/2025 10:38 AM EDT)ComponentValueRef RangeTest Method Analysis TimePerformed AtPathologist SignatureABO PvhwltugN27/17/2025 12:14 PM [facility]Rh MrnaTBF8501/15/2025 12:14 PM [facility]LOOD [facility]Ab ScrnNEG 01/15/2025 12:14 PM [facility] BLOOD BANKSpecimen (Source)Anatomical Location / LateralityCollection Method / VolumeCollection TimeReceived TimeBloodVenous blood specimen / UnknownVenipuncture / Kipnrcn0001/15/2025 10:38 AM EDT 01/15/2025 11:06 AM EDT Narrative Authorizing ProviderResult TypeResult StatusColeman Vernon [facility] BLOOD B[facility] TEST ORDERABLESFinal ResultPerforming OrganizationAddressCity/State/ZIP Code Phone Number [facility] * Basic metabolic panel (01/15/2025 10:38 AM EDT)ComponentValueRef RangeTest MethodAnalysis TimePerformed AtPathologist [id number] - 145 mmol/L 01/15/2025 11:47 AM [facility] ([facility])Potassium4.03.5 - 5.1 mmol/L 01/15/2025 11:47 AM [facility] ([facility])Spdsvyuk41161 - 107 mmol/L 01/15/2025 11:47 AM [facility] ([facility])MI83497 - 31 mmol/L01/15/2025 11:47 AM [facility] ([facility])EKA027 - 25 mg/dL01/15/2025 11:47 AM T [facility] ([facility])Creatinine1.030.70 - 1.30 mg/dL01/15/2025 11:47 AM [facility] ([facility])Rvypqup2742 - 100 mg/dL01/15/2025 11:47 AM T [facility] ([facility])Calcium9.58.6 - 10.3 mg/dL01/15/2025 11:47 AM T [facility] ([facility])Anion Xkp874 - 20 mmol/L01/15/2025 11:47 AM [facility] ([facility])eGFR82.1>60.0 mL/min/1.73m* 11:47 AM [facility] ([facility])Comment:The [facility]???s estimated glomerular filtration rate (eGFR) will no [...] not disproportionately affect any one group of ind ividuals.BUN/Creatinine Ratio10.709 11:47 AM [facility] ([facility])Specimen (Source)Anatomical Location / LateralityCollection Method / VolumeCollection TimeReceived TimeBloodVenous blood specimen / Unknown Venipuncture / Krcenic7001/15/2025 10:38 AM EDT01/15/2025 11:13 AM EDT Narrative Authorizing ProviderResult TypeResult StatusColeman Vernon MDLAB BLOOD ORDERABLESFinal ResultPerforming OrganizationAddressCity/State/ZIP CodePhone Number [facility] ([facility]) [address] [place] [address] * Diagnostic Colonoscopy (08/28/2024 9:12 AM EDT)Anatomical RegionLaterality ModalityOtherSpecimen (Source)Anatomical Location / LateralityCollection Method / VolumeCollection TimeReceived Time Narrative 08/28/2024 9:38 AM EDT Table formatting from the original result was not included. Colonoscopy Procedure Note Procedure: ??Colonoscopy with polypectomy Indications: ??Melena Sedation: ??MAC Attending Physician: ??Juarez Cummings MD Table Operator: ??Jai Arriaga MD Procedure Details: Informed consent was obtained for the procedure, including sedation. ?? Risks of perforation, hemorrhage, adverse drug reaction and aspiration were discussed. The patient was placed in the left lateral decubitus position. ??The patient was monitored continuously with ECG tracing, pulse oximetry, blood pressure monitoring, and direct observations. ?? A rectal examination was performed. ??The colonoscope was inserted into the rectum and advanced under direct vision to the terminal ileum. ??A careful inspection was made as the colonoscope was withdrawn, including a retroflexed view of the rectum; findings and interventions are described below. ??Appropriate photodocumentation was obtained. Events: Procedure Events Event Event Time CLN SCOPE IN 08/28/2024 ??8:47 AM CLN CECUM REACHED 08/28/2024 ??8:52 AM CLN SCOPE OUT 08/28/2024 ??9:04 AM Withdrawal time: ??12 mins Quality of colonic prep: ??[place] Bowel Preparation Scale (BBPS) = 5 (RC=1, TC=2, LC=2) Specimens: ID Type Source Tests Collected by Time A : ASCENDING POLYP R/O ADENOMA Polyp Large Intestine, Right/Ascending Colon HISTOLOGY - TISSUE EXAM Jai Arriaga MD 08/28/2024 0855 ? Complications: ??None ? Estimated blood loss: ??Minimal ? Disposition: ??Inpatient [place] ? Condition: ??Stable Endoscopic findings: ?? Normal perianal and digital rectal exam Brown stool was seen in the entire colon and terminal ileum. ??No evidence of active bleeding Normal terminal ileum Three semi sessile polyps in the ascending colon, measuring 3-8 mm. ?? Removed with cold snare. ??Removal and retrieval was complete Normal colon mucosa otherwise within the limitation of fair prep External hemorrhoids seen in the rectum on retroflexion Recommendations: Resume regular diet Await pathology results Okay to restart aspirin Continue to avoid NSAIDs Repeat colonoscopy in 1 year due to fair prep If bleeding recurs consider repeat endoscopy vs outpatient VCE Attending Attestation: I was present for the entire procedure. Authorizing ProviderResult TypeResult StatusLuis Olivares CNPENDOSCOPY PROCEDURE ORDERABLESFinal Result from Last 3 Months or Most Recently Relevant to Health Maintenance Insurance Advance Directives * Full Code (Latest Code Status on File) Date ActivatedDate InactivatedComments01/28/2025 10:16 AM01/29/2025 3:34 PM * Full Code Date ActivatedDate InactivatedComments08/24/2024 7:39 AM08/28/2024 6:15 PM Care Teams Team MemberRelationshipSpecialtyStart DateEnd Date Landen Zabala MD [address] [facility] [address] [place], [place] [phone] [facility] - Gqtgkpn01/12/22
--- NOTE | 2025-03-03 08:43 | XR_ITS ---
The [address] [address] Patient Name: LUZMARIA MCCLELLAND MRN: [id number] date: 1960 Sex: M Assigned Patient Location: ER Current Patient Location: ER Accession/Order Number: [id number] Exam Date: 03/03/2025 08:47 Report Date: 03/03/2025 09:14 At the request of: RICHMOND DUMONT MD Procedure: XR wrist RT min 3V RIGHT WRIST - 3 views CLINICAL DATA: Right wrist pain following fall COMPARISON: None AP, lateral and oblique views were obtained. No acute fracture or dislocation is identified. Minor degenerative changes are seen. There is no focal soft tissue swelling. XR/XR wrist RT min 3V IMPRESSION: NO ACUTE BONY INJURY. Impression dictated by: Lia Mchugh M.D. 03/03/2025 9:14 AM Dictation Location: [place] [address] Electronically authenticated by: [id number] Y Date: 03/03/2025 09:14
--- OUTSIDE RECORDS SUMMARY | 2025-03-03 08:44 | XMS_ITS | CCD ---
Author Organization [facility] Care Team Providers Care Email Engineer Name Role Phone DR LANDEN DIANE Primary Care Unavailable ROXI, DR BALLESTEROS Admitting Unavailable HOY, DR BALLESTEROS [...] Admitting Unavailable HOY, DR BALLESTEROS Attending Unavailable Landen Diane Primary Care Physician [phone] Landen Diane Referring Unavailable Sea VALDERRAMA Attending Unavailable Sea VALDERRAMA Attending Unavailable COLEMAN HERRERA Referring Unavailable HERRERAJONATHANCOLEMAN Referring Unavailable OVITTNIDA Referring Unavailable SHERRY PRIEST Attending Unavailable ENIX, CAMI Referring Unavailable OVITTNIDA Attending Unavailable PEPPER US Attending Unavailable HAYRADHA Referring Unavailable SALAHALDEEN, AYA Admitting Unavailable KEN BELL T Attending Unavailable COLEMAN HERRERA Attending Unavailable HERRERAJONATHANCOLEMAN Admitting Unavailable COLEMAN HERRERA Attending Unavailable EDDICHARI Attending Unavailable OVITT NIDA Attending Unavailable HOY, LANDEN Referring Unavailable HERRERA, COLEMAN Referring Unavailable HOY, LANDEN Referring Unavailable HOYLANDEN Referring Unavailable HOY, LANDEN Referring Unavailable DILAN CHANEY Attending Unavailable GERMANIA BARRON Referring Unavailable Allergies Allergy ClassificationReported Allergen(s)Allergy TypeDate of OnsetReaction(s) Facility (4 sources)gabapentin; Translations: [gabapentin]Drug Ichvbnc33-46-3237[facility] Repository (1 source)gabapentin; Translations: [gabapentin]Drug AllergyUndifferentiated illness: Vague ill health (finding)[facility] [place] (3 sources)Simvastatin; Translations: [simvastatin]Drug Eiqnrsd68-52-4019Mvqgvg pain (finding)[facility] [place] (1 source)NSAIDs; Translations: [NSAIDS (NON-STEROIDAL ANTI-INFLAMMATORY DRUG)] Propensity to adverse reactions to drug (disorder)06-91-8762NufbxdiojzUniversity Hospitals [facility] Repository Medications Current Medications MedicationDrug Class(es)DatesSig (Normalized)Sig (Original)acetaminophen 325 mg / HYDROcodone bitartrate 5 mg oral tablet (1 source)Opioid AgonistStart: 24-50-6912pwcl 1 tablet by mouth every six hours as needed for painacetaminophen-hydrocodone 325 mg-5 mg oral tablet 1 tab(s), Oral, q6hr as needed for pain, Refill(s) 0 Start Date: 06/29/23 Status: Ordered aspirin 325 mg delayed release oral tablet (1 source)Platelet Aggregation Inhibitor, Nonsteroidal Anti-inflammatory Drug Start: 30-43-8479ruje 1 tablet by mouth once dailyaspirin 325 mg Oral EC Tab 325 mg = 1 tab(s), Oral, Daily, Refills(s) 0 Start Date: 01/24/20 Status:Ordered1 ml evolocumab 140 mg/ml prefilled syringe (1 source)PCSK9 InhibitorStart: 89-30-6929anvtso 140 mg by subcutaneous injection every other weekRepatha 140 mg/mL subcutaneous solution 140 mg, SubCutaneous, q2wk, Refills(s) 0 Start Date: 08/02/23Status: Orderedibuprofen 800 mg oral tablet (1 source)Nonsteroidal Anti-inflammatory DrugStart: 10-71-6069rlgq 1 tablet by mouth once dailyibuprofen 800 mg Tab 800 mg = 1 tab(s), Oral, Daily, Refills(s) 0 Start Date: 08/02/23 Status: OrderedMulti Vitamins oral tablet (1 source)Start: 38-88-1936bpqh 1 tablet by mouth once dailyMulti Vitamins oral tablet 1 tab(s), Oral, Daily, Refill(s) 0 Start Date: 06/29/23 Status: Ordered pantoprazole 40 mg delayed release oral tablet (1 source)Proton Pump InhibitorStart: 26-58-1867lzcr 1 tablet by mouth once dailyPantoprazole [address] Tab 40 mg = 1 tab(s), Oral, Daily, Refills(s) 0 Start Date: 01/22/20 Status: Ordered Completed/Discontinued Medications MedicationDrug Class(es)DatesSig (Normalized)Sig (Original)docusate sodium 50 mg / sennosides, custodial 8.6 mg oral tablet (1 source)Start: 07-39-8011cwot 1 tablet by mouth once daily at bedtimedocusate- senna 50 mg-8.6 mg Tab 1-2 tabs, Oral, Once a day (at bedtime), Refill(s) 0 Start Date: 06/29/23 Status: Ordered Problems Active Problems Problem ClassificationProblemDateDocumented DateEpisodic/ChronicAsthma (1 source)Dartrv71-94-0137EhvnzaaUwstnlmg mellitus without complication (2 sources)Diabetes phtcudae85-59-4461KevpdjdMbkqobifo of lipid metabolism (4 sources)Familial hypercholesterolemia; Translations: [Hyperlipidemia]Onset: 522125-77-7639ZxeqnitHlwvyhhcunenqm and diverticulitis (1 source)Diverticular nchhvja99-09-1722DrsykqrEtdrmdenxk disorders (3 sources)Gastroesophageal reflux disease; Translations: [Gastro-esophageal reflux disease without esophagitis]Onset: 669303-79-6524QdqzvjdAdbowmuub hypertension (1 source)Benign essential mpstodlrmret94-22-6937UhahyxpUdfianureqz (1 source)Internal cxdmevxjcoy91-50-6566UvlqpdveCjkbeaddenk of prostate (1 source)Benign prostatic bsawuicseos62-43-5322KsjwwowWinty and unspecified benign neoplasm (1 source)Polyp of sigmoid gjiaa51-09-0796NabhljecMfutm connective tissue disease (2 sources)Other muscle spasm; Translations: [Other muscle spasm]Onset: 00-90-4032RmthkcowPfpzd gastrointestinal disorders (1 source)History of skemmpjcvedkqz44-83-0603KizrixpnUnvth gastrointestinal disorders (2 sources)Drug induced constipation; Translations: [Drug induced constipation] Onset: 47-35-3088TldqydpjGkblh hereditary and degenerative nervous system conditions (1 source)Hereditary essential gvaonl37-49-5149OagbzolDmogm nervous system disorders (1 source)Chronic pain anhcxicd03-13-9927KclixuoXcdxe nervous system disorders (2 sources)Other acute postprocedural pain; Translations: [Other acute postprocedural pain]Onset: 38-98-9761VkhobonoQylip nutritional; endocrine; and metabolic disorders (1 source)Body mass index 30+ - icaqhjl96-52-4581HudaqjrXscde nutritional; endocrine; and metabolic disorders (1 source)Ynpuupd60-87-0055CrdzgomMumwf screening for suspected conditions (not mental disorders or infectious disease) (2 sources)Encounter for screening for malignant neoplasm of prostate; Translations: [Screening for malignant neoplasm of colon done]Onset: 10-14-2021 EpisodicOther upper respiratory disease (1 source)Seasonal allergic jrpwonoi63-86-5272HdjodmfFnpapbmx codes; unclassified (1 source)Family history of cancer of ovoaq43-80-5122RwqftdmhKzbcacml codes; unclassified (2 sources)Pain, unspecified; Translations: [Pain, unspecified]Onset: 01-28-2025 EpisodicResidual codes; unclassified (2 sources)Pain; Translations: [Pain]Onset: 75-10-0393YdiavxsnWqlwyxtvedn; intervertebral disc disorders; other back problems (3 sources)Disorder of lumbar disc; Translations: [Spondylosis without myelopathy or radiculopathy, cervical region]Onset: 453633-30-2670Npmhscz Spondylosis; intervertebral disc disorders; other back problems (10 sources)Radiculopathy, cervical region; Translations: [Radiculopathy, lumbar region]Onset: 25-53-0511SlyougcnHoapxzmdmrjn (2 sources)CONTACT W/AND (SUSP) EXPOS COVID-19; Translations: [CONTACT W/AND (SUSP) EXPOS COVID-19]Onset: 37-34-6581Dejshwgzhesz (1 source)Patient encounter abfcfx73-59-5716Itxdrrusrabl (2 sources)Pre-op Exam; Translations: [Pre-op Exam]Onset: 17-79-8185Cggcl infection (1 source)COVID-19; Translations: [COVID-19]Onset: 01-09-2022 Past or Other Problems Problem ClassificationProblemDateDocumented DateEpisodic/ChronicGastrointestinal hemorrhage (4 sources)Gastrointestinal hemorrhage, unspecified; Translations: [Melena] Onset: 88-86-0571KfnenrpuYtehr non-traumatic joint disorders (2 sources)Pain in left shoulder; Translations: [Pain in left shoulder]Onset: 15-40-5809CgyjrnsaEejdyqnwrdbw (1 source)CONTACT W/AND (SUSP) EXPOS COVID-19; Translations: [CONTACT W/AND (SUSP) EXPOS COVID-19]Onset: 01-05-2022 Results Test NameValueInterpretationReference RangeFacilityOffice Visiton 02-12-2025 Follow-up [id number] VenetieVern valenzuela Silvina 1960 M Date Provider Department Center 02/12/[address] [facility] SURG [place] Family History Problem Relation Age of Onset Coronary artery disease Mother Asthma Mother Liver cancer Mother Heart attack Father Colon cancer Father Bone cancer Brother Family Status - Relation Status Age at Mother Father Brother Level of Service:05103 [place] POSTOP FOLLOW UP VISIT RELATED TO ORIGINAL PX Reason for Visit and Comments: Post-op [483] - s/p 01/28/25 C6-C7 ACFNormalUniversity CentervilleDS on 44-80-1731UJQlmctylyx Admitted 01/28/2025 for Cervical spondylosis with radiculopathy. Discharge Diagnosis Cervical spondylosis with radiculopathy Discharge Disposition Home or Self Care () Discharge Medications Your medication list START taking these medications Instructions Last Dose Given Next Dose Due oxyCODONE 5 mg immediate release tablet Commonly known as: Roxicodone Take 1 tablet (5 mg) by mouth every 6 (six) hours if needed for severe pain (8-10 pain score) for up to 7 days. tiZANidine 2 mg tablet Commonly known as: Zanaflex Take 1 tablet (2 mg) by mouth every 8 (eight) hours if needed for muscle spasms for up to 15 days. CHANGE how you take these medications Instructions Last Dose Given Next Dose Due sennosides-docusate sodium 8.6-50 mg tablet Commonly known as: Jasmin-Colace What changed: See the new instructions. Take 2 tablets by mouth in the morning for 15 days. For constipation. Do not take if diarrhea. CONTINUE taking these medications Instructions Last Dose Given Next Dose Due acetaminophen 650 mg ER tablet Commonly known as: Tylenol 8 Hour fexofenadine 180 mg tablet Commonly known as: Herlinda multivitamin tablet pantoprazole 40 mg EC tablet Commonly known as: ProtoNix Repatha SureClick 140 mg/mL pen injector Generic drug: evolocumab Inject 140mg subcutaneously once every 14 days STOP taking these medications HYDROcodone-acetaminophen 5-325 mg tablet Commonly known as: [place] Where to Get Your Medications These medications were sent to [facility]/pharmacy #[id number] [place] [address] oxyCODONE 5 mg immediate release tablet sennosides-docusate sodium 8.6-50 mg tablet tiZANidine 2 mg tablet Activity Wear neck collar at all times except for hygiene. No driving until released by neurosurgery. No working until released by neurosurgery. Showering instructions: starting 01/30/25, may shower and allow water to run over the incision but do not scrub, itch, soak or immerse incision in water. Diet Continue on the same type of diet and foods as you were eating before your admission. Drink plenty of water. Allergies Gabapentin, Simvastatin, and Nsaids (non-steroidal anti-inflammatory drug) Hospital Course Electively admitted by Dr. Herrera on 01/28/2025 for planned anterior cervical discectomy and fusion with cage C6-C7. He tolerated procedure well. Vital signs were stable postoperatively. Having some mild neck pain and pain between his scapula as well as mild shoulder pain, controlled with oral pain medications. Denies new weakness or paresthesia. Voiding. Independently ambulatory. Mild dysphagia, though able to tolerate oral diet. X-ray cervical spine completed on POD 1 show hardware to be intact in appropriate alignment. Mild prevertebral soft tissue edema, expected. Pertinent Physical Exam At Time of Discharge Constitutional: In no apparent distress. Cardiovascular: Heart sounds regular rate and rhythm without appreciable murmur. Chest: Lung sounds clear to auscultation bilaterally. Respirations regular and nonlabored. Extremities without edema. Skin warm and dry without pallor. Anterior neck dressing clean, dry, intact. Nazlini J collar intact. Neuro: GCS 15/15. Attention and memory intact. No dysarthria or aphasia. Sensation: Intact to light touch C5-T1 and L2-S1 dermatomes bilaterally. Musculoskeletal: Right handed. Deltoid 5/5 bilaterally. Triceps 5/5 bilaterally. Biceps 5/5 bilaterally. Finger flexors 5/5 bilaterally. Finger abductors 5/5 bilaterally. Hip flexors 5/5 bilaterally. Knee flexors and extensors 5/5 bilaterally. Ankle dorsal flexors 5/5 bilaterally. Ankle plantar flexors 5/5 bilaterally. Muscle tone without hyper or hypotonicity. Muscle bulk appropriate for age. Independently ambulatory with steady gait. Lab Results Labs Reviewed POCT GLUCOSE METER UNSOLICITED RESULTS - Abnormal Result Value Glucose POC 106 (*) Narrative: Waived Testing in the ED is performed under the ED CLIA certificate #[id number]. Nutrition Screen Issues Requiring Follow-Up OARRS reviewed. Needs more than the recommended number of morphine milliequivalents per day due to pain from recent major spinal surgery. Outpatient Follow-Up Future Appointments Date Time Provider Department Center 02/12/2025 11:15 AM Nida Ma CNP [facility] SURG [place] Test Results Pending At DischargeNormalUniOhioHealth Berger Hospital 78-64-7564ZCB&P reviewed. The patient was examined and there are no changes to the H&P. Plan for anterior cervical discectomy and fusion with cage, donor bone and plate. Consent already completed. Questions answered. Coleman Herrera MDNomarinaalUniTogus VA Medical CenterNZIMountain Vista Medical Center 40-97-0023BNIFSIPOXq arrived to pre-op bay _3____. Pt instructed to remove all clothing and place any personal belongings in the designated patient belongings bag. Pt displays understanding of instructions at this time. Pt informed they will speak with their anesthesiologist and procedural physician prior to their scheduled procedure time. All questions answered at this time.NormalUnUniversity Hospitals Portage Medical CenterOPNOTMountain Vista Medical Center [id number]: 01/28/2025 Location: [facility] OR Name: Vern Cool Trav, : 1960, Diagnosis Pre-op Diagnosis * Cervical spondylosis [M47.812] * Cervical radiculopathy at C7 [M54.12] Post-op Diagnosis * Cervical spondylosis [M47.812] * Cervical radiculopathy at C7 [M54.12] Procedures C6-C7 ACF 84093 - TX ARTHRD ANT INTERBODY MIN DSC CRV BELOW C2 TX ANTERIOR INSTRUMENTATION 2-3 VERTEBRAL SEGMENTS [64015] TX INSJ BIOMCHN DEV INTERVERTEBRAL DSC SPC W/ARTHRD [] TX ALLOGRAFT FOR SPINE SURGERY ONLY MORSELIZED [] Anterior cervical discectomy and fusion - in the Arndt Chapman style at c6-7 - with central and foraminal decompression via removal of thickened posterior longitudinal ligament and removal of the uncovertebral joint bilaterally Interbody fusion with a PEEK cage 7 mm x 14 x 16 mm packed with allograft bone (ho bone putty) Anterior cervical plating with a [employer] [place] Elite plate - 23 mm in length - with 16 mm fixed angle screws bilaterally at c6 and c7 Resection of anterior cervical osteophytes at c5-6 and c6-7 Surgeons Primary: Coleman Herrera MD Procedure Summary Anesthesia: General ASA: II Estimated Blood Loss: 40 mL Total IV Fluids: 1000 mL Drains: * None in log * Implants Type Name Action Serial No. Pin PIN,DISTRACTION,ST,14MM - [id number] Used, Not Implanted Device SPACER 7MM X 16MM X 14MM Implanted Bone PUTTY,DBM HO,1CC - [id number] - [id number] Implanted [id number] Screw SCREW,SELF,DRILL,FIX4.0X16 - [id number] Implanted Plate 23 MM PLATE Implanted Staff: Chemistry Technologist: David Granger RN Light Rail Train Operator: RT Barrett Relief Chemistry Technologist: Shama Blankenship RN Relief Scrub: Rocio Valadez CSA Scrub Person: Camilo Luis CST Line Supply: Alyssa Rivera RN Indications: Vern Ravi is an 64 y.o. male who is having surgery for cervical spondylosis/HNP and radiuclopathy at c6-7. Findings: large anterior cervical osteophytes, severe cervical and foraminal stenosis at c6-7 Complications: None; patient tolerated the procedure well. Disposition: PACU - hemodynamically stable. Condition: stable Specimens Collected: No specimens collected during this procedure. Attending Attestation: I was present and scrubbed for the entire procedure. Coleman Herrera Coleman Herrera MDNormalUniTogus VA Medical CenterOPNOTEC6-C7 ACF Operative Note Date: 01/28/2025 Location: [facility] OR Name: Vern Ravi, : 1960, Diagnosis Pre-op Diagnosis * Cervical spondylosis [M47.812] * Cervical radiculopathy at C7 [M54.12] Post-op Diagnosis * Cervical spondylosis [M47.812] * Cervical radiculopathy at C7 [M54.12] Procedures C6-C7 ACF - TX ARTHRD ANT INTERBODY MIN DSC CRV BELOW C2 TX ANTERIOR INSTRUMENTATION 2-3 VERTEBRAL SEGMENTS [] TX INSJ BIOMCHN DEV INTERVERTEBRAL DSC SPC W/ARTHRD [] TX ALLOGRAFT FOR SPINE SURGERY ONLY MORSELIZED [] Anterior cervical discectomy and fusion - in the Arndt Chapman style at c6-7 - with central and foraminal decompression via removal of thickened posterior longitudinal ligament and removal of the uncovertebral joint bilaterally Interbody fusion with a PEEK cage 7 mm x 14 x 16 mm packed with allograft bone (ho bone putty) Anterior cervical plating with a [employer] [place] Elite plate - 23 mm in length - with 16 mm fixed angle screws bilaterally at c6 and c7 Resection of anterior cervical osteophytes at c5-6 and c6-7 Surgeons Primary: Coleman Herrera MD Procedure Summary Anesthesia: General ASA: II Estimated Blood Loss: 40 mL Total IV Fluids: 1000 mL Drains: * None in log * Implants Type Name Action Serial No. Pin PIN,DISTRACTION,ST,14MM - [id number] Used, Not Implanted Device SPACER 7MM X 16MM X 14MM Implanted Bone PUTTY,DBM HO,1CC - [id number] - [id number] Implanted [id number] Screw SCREW,SELF,DRILL,FIX4.0X16 - [id number] Implanted Plate 23 MM PLATE Implanted Staff: Chemistry Technologist: David Granger RN Light Rail Train Operator: Balta Easley RT Relief Chemistry Technologist: Shama Blankenship RN Relief Scrub: Rocio Valadez CSA Scrub Person: Camilo Luis CST Line Supply: Alyssa Rivera RN Indications: Vern Ravi is an 64 y.o. male who is having surgery for cervical spondylosis/HNP and radiuclopathy at c6-7. Procedure Details: The patient was seen in the preoperative area. The risks, benefits, complications, treatment options, non-operative alternatives, expected recovery and outcomes were discussed with the patient. The possibilities of reaction to medication, pulmonary aspiration, injury to surrounding structures, bleeding, recurrent infection, the need for additional procedures, failure to diagnose a condition, and creating a complication requiring transfusion or operation were discussed with the patient. The patient concurred with the proposed plan, giving informed consent. The site of surgery was properly noted/marked if necessary per policy. The patient has been actively warmed in preoperative area. Preoperative antibiotics have been ordered and given within 1 hours of incision. Venous thrombosis prophylaxis are not indicated. Findings: cervical spondylosis - severe central and foraminal stenosis at c6-7 Complications: None; patient tolerated the procedure well. Disposition: PACU - hemodynamically stable. Condition: stable Coleman Herrera Service: Neurosurgery Attending: Coleman Herrera Date: 01/28/2025 Preoperative diagnosis: Cervical spondylosis with central and foraminal stenosis and cervical radiculopathy + chronic neck pain Postoperative diagnosis: Same Procedure: Anterior cervical discectomy and fusion - in the Arndt Chapman style at c6-7 - with central and foraminal decompression via removal of thickened posterior longitudinal ligament and removal of the uncovertebral joint bilaterally Interbody fusion with a PEEK cage 7 mm x 14 x 16 mm packed with allograft bone (ho bone putty) Anterior cervical plating with a [employer]onic [place] Elite plate - 23 mm in length - with 16 mm fixed angle screws bilaterally at c6 and c7 Resection of anterior cervical osteophytes at c5-6 and c6-7 Anesthesia: General tracheal Estimated blood loss: 20 ml Complications: none Drains: none Postoperative disposition: Recovery room Condition: Stable Indication procedure: 64 y/o male - he has chronic neck pain and has spondylosis with foraminal > central stenosis at c6-7. I counseled him about the risks and benefits of anterior cervical discectomy and fusion at c6-7 with cage, donor bone and plate - and he wished to proceed. Operative report in detail: After obtaining written informed consent for the procedure the patient was brought to the operating room placed on the operating table supine position. The patient was induced with anesthesia and intubated without difficulty. The patient's arms were padded and tucked to the sides. SCDs were placed on the patient's legs for DVT prophylaxis. The patient's head was placed in the gel donut a small shoulder roll was placed. The neck was marked and then prepped and draped in usual sterile fashion. The preoperative time-out completed. Perioperative IV direct prophylactic therapy was given. Local anesthesia was instil (more content not included)...NormalUnUniversity Hospitals Portage Medical Center POCT GLUCOSE METER UNSOLICITED RESULTSon 09-35-8360Ffcglcl [Mass/Vol]106 mg/dL Elym34-328MbxgkflttaUniversity Hospitals Portage Medical CenterComment on above:Order Comment: Waived Testing in the ED is performed under the ED CLIA certificate #[id number]. Result Comment: miwardPerformed By: #### [id number] #### [facility] ([facility]) [address] [place], [place] [address]Hbuasr Visiton 12-77-5158Zzawnl-up [id number] TarvGaryVern A 1960 M Date Provider Department Center 01/22/2025 Amanda-PEPPER US SOBEIDA Carcamo [facility] Family History Problem Relation Age of Onset Coronary artery disease Mother Asthma Mother Liver cancer Mother Heart attack Father Colon cancer Father Bone cancer Brother Family Status - Relation Status Age at Mother Father Brother Level of Service:07768 [place] OFFICE/OUTPATIENT NEW MODERATE MDM 45 MINUTES Reason for Visit and Comments: Hyperlipidemia [182] Hypertension [654031] Follow-up [431553] - 1 year follow up. With recent labs, Chest X-ray,EKG done last week for pre surgery testing. Patient is having [facility] surgery at [place] on MondayJan 28NormalUniversMarietta Osteopathic ClinicPrep for Procedureon 11-54-5393Fztt for [id number] Vern Ravi Silvina 1960 M Date Provider Department Center 01/17/2025 148-NIDA [facility] SURG None Family History Problem Relation Age of Onset Coronary artery disease Mother Asthma Mother Liver cancer Mother Heart attack Father Colon cancer Father Bone cancer Brother Family Status - Relation Status Age at Mother Father BrotherNormalUniversMarietta Osteopathic ClinicBASIC METABOLIC PANELon 46-68-0674Lmdfi gap [Moles/Vol]10 mmol/LNormal7-20UnUniversity Hospitals Portage Medical CenterComment on above:Performed By: #### [id number] #### [facility] ([facility]) [address] [place] [address]Enxrdxz [Mass/Vol]9.5 mg/dLNormal8.6-10.3UnUniversity Hospitals Portage Medical CenterComment on above:Performed By: #### [id number] #### [facility] ([facility]) [address] [place], [place] [address]Gzdlooiv [Moles/Vol]104 mmol/NCgfpmq41-754QnvqfozayzUniversity Hospitals Portage Medical CenterComment on above:Performed By: #### [id number] #### [facility] ([facility]) [address] [place], [place] [address]FC0 [Moles/Vol]30 mmol/BLxesly34-40TbjxweewtaUniversity Hospitals Portage Medical CenterComment on above:Performed By: #### [id number] #### [facility] ([facility]) [address] [place], [place] [address]Lipkowfsxu [Mass/Vol]1.03 mg/dLNormal0.70-1.30UnUniversity Hospitals Portage Medical CenterComment on above:Performed By: #### [id number] #### [facility] ([facility]) [address] [place], [place] [id number] FILTRATION RATE ML/MIN/1.73 SQ M.XBTIIFXKR69.1 mL/min/1.73m*2Normal>60.0UnUniversity Hospitals Portage Medical CenterComment on above: Result Comment: [facility]???s estimated glomerular filtration rate (eGFR) [...] potential consequences that do not disproportionately affect anyone group of individuals.Performed By: #### [id number] #### [facility] ([facility]) [address] [place], [place] [address]Vrlokni [Mass/Vol]94 mg/hNZlxhrg10-651QkixafagukUniversity Hospitals Portage Medical CenterComment on above:Performed By: #### [id number] #### [facility] ([facility]) [address] [place], [place] [address]Vxwihyhcu [Moles/Vol]4.0 mmol/LNormal3.5-5.1UnUniversity Hospitals Portage Medical CenterComment on above:Performed By: #### [id number] #### [facility] ([facility]) [address] [place], [place] [address]Tlmzio [Moles/Vol]140 mmol/DUvbpqr542-664EaksseeivwUniversity Hospitals Portage Medical CenterComment on above:Performed By: #### [id number] #### [facility] ([facility]) [address] [place], [place] [address]Mali nitrogen [Mass/Vol]11 mg/dLNormal7-25UnUniversity Hospitals Portage Medical CenterComment on above:Performed By: #### [id number] #### [facility] ([facility]) [address] [place], [place] [address]TCXX NITROGEN/CREATININE (MASS RATIO) IN SER/PLAS10.7Normal [facility]rium Medical CenterComment on above:Performed By: #### [id number] #### [facility] ([facility]) [address] [place], [place] [address]ZIF WITH AUTO DIFFERENTIALon 81-04-1632Ahjwmbawl (Bld) [#/Vol] 0.04 10*3/uLNormal0.00-0.20UnUniversity Hospitals Portage Medical CenterComment on above: Performed By: #### [id number] ####[facility] ([facility])[address] [place], [place] [address]Mnteqzkcu/100 WBC (Bld)0.5 %Normal0.0-1.0UnUniversity Hospitals Portage Medical CenterComment on above:Performed By: #### [id number] ####[facility] ([facility] [place], [place] [address]Pjxsoqowfia (Bld) [#/Vol]0.23 10*3/uL Normal0.00-0.50UnUniversity Hospitals Portage Medical CenterComment on above:Performed By: #### [id number] ####[facility] ([facility])[address] [place] [address] Eosinophils/100 WBC (Bld)3.0 %Normal0.0-6.0UnUniversity Hospitals Portage Medical Center Comment on above:Performed By: #### [id number] ####[facility] ([facility])[address] [place], [place] [address]Lpjjsyqpxpf distribution width (RBC) [Ratio]16.7 % High11.5-15.0UnUniversity Hospitals Portage Medical CenterComment on above:Performed By: #### [id number] ####[facility] ([facility])[address] [place] [address] ERYTHROCYTE MEAN CORPUSCULAR HEMOGLOBIN CONCENTRATION (G/DL) BY MOKQOLPRG04.1 g/dOLnfvuy78.0-35.0UnUniversity Hospitals Portage Medical CenterComment on above:Performed By: #### [id number] ####[facility] ([facility])[address] [place], [place] [address]Udyoyufosn (Bld) [Volume fraction]45.0 %Pakwnb05.0-50.0UnUniversity Hospitals Portage Medical CenterComment on above:Performed By: #### [id number] ####[facility] ([facility] [place], [place] [address]Xcrczscoaf (Bld) [Mass/Vol]14.9 g/dL Dknnbp11.0-17.0UnUniversity Hospitals Portage Medical CenterComment on above:Performed By: #### [id number] ####[facility] ([facility] [place] [address] Immature granulocytes (Bld) [#/Vol]0.02 10*3/uLNormal0.00-0.20UnUniversity Hospitals Portage Medical CenterComment on above:Performed By: #### [id number] ####[facility] ([facility])[address] [place] [address]Twamwidu granulocytes/100 WBC (Bld)0.3 %Normal0.0-1.0UnUniversity Hospitals Portage Medical CenterComment on above: Performed By: #### [id number] ####[facility] ([facility])[address] [place], [place] [address]Xdwicnijjic (Bld) [#/Vol]1.59 10*3/uLNormal1.20-4.00 [facility] Medical CenterComment on above:Performed By: #### [id number] ####[facility] ([facility])[address] [place], [place] [address]Zrjaxquppnv/100 WBC (Bld)20.9 %Dlbbbw92.0-45.0UnUniversity Hospitals Portage Medical CenterComment on above:Performed By: #### [id number] ####[facility] ([facility])[address] [place], [place] [address]LGK (RBC) [Entitic mass]27.3 wqZegemi24.0-33.0UnUniversity Hospitals Portage Medical CenterComment on above:Performed By: #### [id number] ####[facility] ([facility])[address] [place], [place] [address]TBO (RBC) [Entitic vol] 82.6 pYMzehsk93.0-98.0UnUniversity Hospitals Portage Medical CenterComment on above: Performed By: #### [id number] ####[facility] ([facility])[address] [place], [place] [address]Xjpkpoksm (Bld) [#/Vol]0.74 10*3/uLNormal0.10-1.00UnUniversity Hospitals Portage Medical CenterComment on above:Performed By: #### [id number] ####[facility] ([facility])[address] [place] [address]Ffdciasks/100 WBC (Bld) 9.7 %Normal5.0-12.0Prem[facility] Medical CenterComment on above:Performed By: #### [id number] ####[facility] ([facility])[address] [place] [address]Fdmkrpydwgu (Bld) [#/Vol]4.99 10*3/uLNormal1.60-7.60UnUniversity Hospitals Portage Medical CenterComment on above:Performed By: #### [id number] ####[facility] ([facility])[address] [address]Uacmwbqrodr/100 WBC (Bld)65.6 %Normal 40.0-72.0Prem[facility] Medical CenterComment on above:Performed By: #### [id number] ####[facility] ([facility])[address] [place] [address]YVLE (PER 100 WBCS) BY AUTOMATED COUNT0.0 %Mwubol8PzvceasqphUniversity Hospitals Portage Medical Center Comment on above:Performed By: #### [id number] ####[facility] ([facility])[address] [place] [address]ZFHZNSLDF (10*3/UL) IN BLOOD AUTOMATED YFLWA970 10*3/zIVrebca229-004DkfqdtfdwvUniversity Hospitals Portage Medical CenterComment on above: Performed By: #### [id number] ####[facility] ([facility])[address] [place] [address]KLB (Bld) [#/Vol]5.45 10*6/uLNormal4.20-5.70UnUniversity Hospitals Portage Medical CenterComment on above:Performed By: #### [id number] ####[facility] ([facility])[address] [place] [address]ZGV (Bld) [#/Vol]7.61 10*3/uLNormal4.00-10.60UnUniversity Hospitals Portage Medical CenterComment on above: Performed By: #### [id number] ####[facility] ([facility])[address] [place], [place] [address]Alkxvusxs [id number] Vern Ravi 1960 M Date Provider Department Center 01/15/[address] [facility] SURG [place] Family History Problem Relation Age of Onset Coronary artery disease Mother Asthma Mother Liver cancer Mother Heart attack Father Colon cancer Father Bone cancer Brother Family Status - Relation Status Age at Mother Father Brother Level of Service:42902 [place] OFFICE/OUTPATIENT ESTABLISHED MOD MDM 30 MIN Reason for Visit and Comments: Pre-op Exam [[id number]] - Patient is here today for a pre op examNormalUniversity of MidCoast Medical Center – Centralon [id number] NOTE SUBJECTIVE: Chief complaint: Preoperative visit for anterior cervical discectomy and fusion C6-C7 scheduled for 01/28/[address] Herrera. History of present illness: He has been having neck pain as well as shoulder and upper arm pain bilaterally for many years that has been progressively worsening, particularly over the past 1 year. He also endorses numbness of his 1st through 3rd fingers mainly, though most of the other fingers are involved to a lesser extent. Denies falls or imbalance, bowel or bladder changes. Has previously tried physical therapy, injections, medications without lasting or substantial relief. Review of systems: As in HPI. Denies coughing, shortness of breath, chest pain. Denies rashes, wounds, open sores. Medical History[1] Surgical History[2] Social History[3] Family History[4] OBJECTIVE: Medications: acetaminophen fexofenadine HYDROcodone-acetaminophen multivitamin pantoprazole Repatha SureClick pen injector sennosides-docusate sodium Current Medications[5] Allergies: Allergies[6] Exam: Exam performed and reviewed, changes as below. Vitals reviewed: No intake/output data recorded. No intake/output data recorded. Accompanied by today. Constitutional: In no apparent distress. Cardiovascular: Heart sounds regular rate and rhythm without appreciable murmur. Chest: Lung sounds clear to auscultation bilaterally. Respirations regular and nonlabored. Extremities without edema. Skin warm and dry without pallor. Neuro: GCS 15/15. Attention and memory intact. No dysarthria or aphasia. Sensation: Intact to light touch C5-T1 and L2-S1 dermatomes bilaterally with exception of diminished sensation left medial forearm, which is chronic for him. Musculoskeletal: Right handed. Deltoid 5/5 bilaterally. Triceps 5/5 bilaterally. Biceps 5/5 bilaterally. Finger flexors 5/5 bilaterally. Finger abductors 5/5 bilaterally. Hip flexors 5/5 bilaterally. Knee flexors and extensors 5/5 bilaterally. Ankle dorsal flexors 5/5 bilaterally. Ankle plantar flexors 5/5 bilaterally. Muscle tone without hyper or hypotonicity. Muscle bulk appropriate for age. Independently ambulatory. Labs: Hospital Outpatient Visit on 01/15/2025 Component Date Value Ref Range Status Ventricular Rate 01/15/2025 82 BPM Final Atrial Rate 01/15/2025 82 BPM Final TX Interval 01/15/2025 142 ms Final QRS DURATION 01/15/2025 100 ms Final QT Interval 01/15/2025 370 ms Final QTC CALCULATION(BAZETT) 01/15/2025 432 ms Final P Garland 01/15/2025 56 degrees Final R-Garland 01/15/2025 31 degrees Final T Wave Garland 01/15/2025 57 degrees Final Lab on 01/15/2025 Component Date Value Ref Range Status ABO Grouping 01/15/2025 A Final Rh Type 01/15/2025 POS Final Ab Scrn 01/15/2025 NEG Final MSSA DNA 01/15/2025 Negative Negative Final MRSA DNA 01/15/2025 Negative Negative Final Sodium 01/15/2025 140 136 - 145 mmol/L Final Potassium 01/15/2025 4.0 3.5 - 5.1 mmol/L Final Chloride 01/15/2025 104 98 - 107 mmol/L Final CO2 01/15/2025 30 21 - 31 mmol/L Final BUN 01/15/2025 11 7 - 25 mg/dL Final Creatinine 01/15/2025 1.03 0.70 - 1.30 mg/dL Final Glucose 01/15/2025 94 70 - 100 mg/dL Final Calcium 01/15/2025 9.5 8.6 - 10.3 mg/dL Final Anion Gap 01/15/2025 10 7 - 20 mmol/L Final eGFR 01/15/2025 82.1 >60.0 mL/min/1.73m*2 Final BUN/Creatinine Ratio 01/15/2025 10.7 Final Auto WBC 01/15/2025 7.61 4.00 - 10.60 10*3/uL Final RBC 01/15/2025 5.45 4.20 - 5.70 10*6/uL Final Hemoglobin 01/15/2025 14.9 13.0 - 17.0 g/dL Final Hematocrit 01/15/2025 45.0 39.0 - 50.0 % Final MCV 01/15/2025 82.6 82.0 - 98.0 fL Final MCH 01/15/2025 27.3 27.0 - 33.0 pg Final MCHC 01/15/2025 33.1 32.0 - 35.0 g/dL Final RDW 01/15/2025 16.7 (H) 11.5 - 15.0 % Final Neutrophils % 01/15/2025 65.6 40.0 - 72.0 % Final Lymphocytes % 01/15/2025 20.9 20.0 - 45.0 % Final Monocytes % 01/15/2025 9.7 5.0 - 12.0 % Final Eosinophils % 01/15/2025 3.0 0.0 - 6.0 % Final Basophils % 01/15/2025 0.5 0.0 - 1.0 % Final Neutrophils Absolute 01/15/2025 4.99 1.60 - 7.60 10*3/uL Final Lymphocytes Absolute 01/15/2025 1.59 1.20 - 4.00 10*3/uL Final Monocytes Absolute 01/15/2025 0.74 0.10 - 1.00 10*3/uL Final Eosinophils Absolute 01/15/2025 0.23 0.00 - 0.50 10*3/uL Final Basophils Absolute 01/15/2025 0.04 0.00 - 0.20 10*3/uL Final Platelets 01/15/2025 285 150 - 400 10*3/uL Final nRBC % 01/15/2025 0.0 0 % Final Immature Granulocytes % 01/15/2025 0.3 0.0 - 1.0 % Final Immature Granulocytes Absolute 01/15/2025 0.02 0.00 - 0.20 10*3/uL Final Imaging: No results found for this or any previous visit from the past 360 days. Impression: Degenerative cervical spinal stenosis. Cervical spondylosis. Plan: Per Dr. Herrera, plan for anterior cervical discectomy and fusion C5-C6. 2. Independently reviewed and interpreted MRI cervical spine completed 09/06/2023. Multilevel disc degeneration and disc bulging o (more content not included)...NormalUnUniversity Hospitals Portage Medical CenterLabon [id number] Vern Ravi 1960 M Date Provider Department Center 01/15/2025 2245-[facility] OPD LAB RESOURCE [facility] OPD [facility] Family History Problem Relation Age of Onset Coronary artery disease Mother Asthma Mother Liver cancer Mother Heart attack Father Colon cancer Father Bone cancer Brother Family Status - Relation Status Age at Mother Father BrotherNormalUniTogus VA Medical CenterMRSA/MSSA DNA NASALon 01-15-2025 MRSA DNANegativeNormalNegativeUnUniversity Hospitals Portage Medical CenterComment on above:Order Comment: Testing methodology is an automated qualitative in vitro diagnostic test for the directdetection and differentiation of Staphylococcus aureus (SA) DNA and methicillin-resistant Staphylococcus aureus (MRSA) DNA from nasal swabs in patients at risk for nasal colonization. The test utilizes real- time polymerase chain reaction (PCR) for the amplification of MRSA/SA DNA and fluorogenic target-specific hybridization probes for the detection of the amplified DNA. A negative result does not preclude nasal colonization.Performed By: #### [id number] ####[facility] ([facility])[address] [place], [place] [address]MVND DNANegativeNormalNegativePremier Health Atrium Medical CenterComment on above:Order Comment: Testing methodology is an automated qualitative in vitro diagnostic test for the directdetection and differentiation of Staphylococcus aureus (SA) DNA and methicillin-resistant Staphylococcus aureus (MRSA) DNA from nasal swabs in patients at risk for nasal colonization. The test utilizes real- time polymerase chain reaction (PCR) for the amplification of MRSA/SA DNA and fluorogenic target-specific hybridization probes for the detection of the amplified DNA. A negative result does not preclude nasal colonization.Performed By: #### [id number] ####[facility] ([facility])[address] [place], [place] [address]HWBN AND SCREENon [id number] SCREENNegativeNormalUniversMarietta Osteopathic ClinicComment on above:Performed By: #### [id number] #### [facility] ([facility]) [address] [place] [address]NQW group Nom (Bld)ANormalUniversMarietta Osteopathic Clinic Comment on above:Performed By: #### [id number] #### [facility] ([facility]) [address] [place] [address]VT TYPE IN BLOODPositiveNormalUniversMarietta Osteopathic ClinicComment on above:Performed By: #### [id number] #### [facility] ([facility]) [address] [place] [address]Nochdm-Wypu [id number] Vern Ravi 1960 M Date Provider Department Center 12/18/2024 COLEMAN GRIMALDO DCC ONC DCC Family History Problem Relation Age of Onset Coronary artery disease Mother Asthma Mother Liver cancer Mother Heart attack Father Colon cancer Father Bone cancer Brother Family Status - Relation Status Age at Mother Father Brother Level of Service:34978 [place] OFFICE/OUTPATIENT ESTABLISHED MOD MDM [facility] HospitalPrep for Procedureon [id number] for [id number] Vern Ravi 1960 M Date Provider Department Center 12/18/2024 COLEMAN GRIMALDO NEURO SURG None Family History Problem Relation Age of Onset Coronary artery disease Mother Asthma Mother Liver cancer Mother Heart attack Father Colon cancer Father Bone cancer Brother Family Status - Relation Status Age at Mother Father BrotherNormalUniversMarietta Osteopathic ClinicOrders Onlyon [id number] [id number] Vern Ravi 1960 M Date Provider Department Center 12/17/2024 MELISA PETIT Family History Problem Relation Age of Onset Coronary artery disease Mother Asthma Mother Liver cancer Mother Heart attack Father Colon cancer Father Bone cancer Brother Family Status - Relation Status Age at Mother Father BrotherNormalUniversMarietta Osteopathic ClinicOffice Visiton [id number]- up [id number] Vern Ravi 1960 M Date Provider Department Center 11/21/2024 NINO BOWMAN ORTHO MPORTHO Family History Problem Relation Age of Onset Coronary artery disease Mother Asthma Mother Liver cancer Mother Heart attack Father Colon cancer Father Bone cancer Brother Family Status - Relation Status Age at Mother Father Brother Level of Service:64703 [place] OFFICE/OUTPATIENT NEW [facility] 30 MINUTES Reason for Visit and Comments: Pain [136]NormalUnUniversity Hospitals Portage Medical CenterLetter (Out)on 08-30-2024 Letter (Out)[id number] Vern Ravi 1960 M Date Provider Department Center 08/30/2024 JUAREZ QUIÑONEZ [facility] Family History Problem Relation Age of Onset Coronary artery disease Mother Asthma Mother Liver cancer Mother Heart attack Father Colon cancer Father Bone cancer Brother Family Status - Relation Status Age at Mother Father BrotherNormalUniversMarietta Osteopathic ClinicHEMOGLOBINon 08-28-2024 Hemoglobin (Bld) [Mass/Vol]11.4 g/dLLow13.0-17.0UnUniversity Hospitals Portage Medical CenterComment on above:Performed By: #### [id number] ####[facility] ([facility])[address] [place], [place] [address]PQDBRRCGT - TISSUE EXAMon 08-28-2024 LAB AP CASE REPORTNormalUniTogus VA Medical CenterComment on above: Result Comment: Surgical Pathology Case: [id number] Authorizing Provider: Juarez Cummings MD Collected: 08/28/2024 0855 Ordering Location: [facility] Main Operating Room Received: 08/28/2024 1147 Pathologist: Bobbi Nava MD Specimen: Large Intestine, Right/Ascending Colon, ASCENDING POLYP R/O ADENOMA Performed By: #### [id number] ####[facility] ([facility])[address] [place], [place] [address]XIR AP CLINICAL INFORMATIONOrder DiagnosesNormalUniTogus VA Medical CenterComment on above:Result Comment: K92.2 - GI bleeding [ICD-10-CM] K92.1 - Gastrointestinal hemorrhage with melena [ICD-10-CM] K21.9 - Gastroesophageal reflux disease, unspecified whether esophagitis present [ICD-10-CM]Performed By: #### [id number] ####[facility] ([facility])[address] [place], [place] [address]MOG AP GROSS DESCRIPTIONNormalUniversMarietta Osteopathic ClinicComthree rivers health hospital on above:Result Comment: A. Large Intestine, Right/Ascending Colon. The specimen is received in formalin labeled Vern Trav and ascending polyp r/o adenoma. It consists of 7 bits and strips of wylie-pink, focally erythematous mucosal tissue ranging from 0.3 cm to0.7 cm in greatest dimension. The specimen is submitted in toto in 1 cassette. Samanta Mckeon, Pathologists' Health Professor student Jeimy Martin, Pathologists' AssistantPerformed By: #### [id number] ####[facility] ([facility])[address] [facility] [place], [place] [address]NVA AP MICROSCOPIC DESCRIPTIONMicroscopic examination performed.NormalPremier Health Atrium Medical CenterComment on above:Performed By: #### [id number] ####[facility] ([facility])[address] [facility] [place], [place] [address]FXR AP REPORT FINAL DIAGNOSIS NARRATIVENormalUniTogus VA Medical CenterComthree rivers health hospital on above:Result Comment: A. Colon, ascending colon polyp, polypectomy: - Fragments of tubular adenoma(s). - No high grade dysplasia. Performed By: #### [id number] ####[facility] ([facility])[address] [place], [place] [address]KGid [id number]&P reviewed. The patient was examined and there are no changes to the H&P. EGD normal, passing more stool which is more consistent with hematochezia. Colonoscopy todayNormalUniversMarietta Osteopathic ClinicPOCT GLUCOSE METER UNSOLICITED RESULTSon 78-49-4841Iyrtzzo [Mass/Vol]100 mg/oTKmveuu51-627 [facility]rium Medical CenterComment on above:Order Comment: Waived Testing in the ED is performed under the ED CLIA certificate #[id number].Result Comment: ltollesPerformed By: #### [id number] #### [facility] [address]) [place] [address]SDOTgf [id number] Attestation signed by Dilan Chaney MD at 08/28/2024 5:47 PM I reviewed and agree with the above note. I spoke to and evaluated the patient myself and they are willing to proceed as planned. Dilan Chaney MD Patient: Vern Ravi Procedure Information Date/Time: 08/28/24 1330 Scheduled providers: Dilan Chaney MD; Camila Blake CRNA; Juarez Cummings MD Procedure: DIAGNOSTIC COLONOSCOPY Location: [facility] Invasive Surgery [place] Relevant Problems Anesthesia (within normal limits) Cardio METS >4 without CP or SOB (+) White coat syndrome without diagnosis of hypertension GI (+) GERD (gastroesophageal reflux disease) (PPI) Pulmonary (+) Asthma Hematologic (+) Acute blood loss anemia (EGD 08/26/24 without source of bleeding) Other (+) Degenerative joint disease of hand Results from last 7 days Lab Units 08/27/24 0708/25/24200108/25/24 0456 WBC AUTO 10*3/uL -- -- 6.82 [...] who consented to blood products. Additional Equipment RequestsNormalUniversMarietta Osteopathic ClinicCONSULTon [id number] Case Management Update Multidisciplinary rounds have been completed. Barriers [...] Click Score: PT Recommendations: OT Recommendations: New Consults:NormalUnUniversity Hospitals Portage Medical CenterHEMOGLOBINon 08-27-2024 Hemoglobin (Bld) [Mass/Vol]11.5 g/dLLow13.0-17.0UnUniversity Hospitals Portage Medical CenterComment on above:Performed By: #### [id number] ####[facility] ([facility])[address] [place], [place] [address]Hfiuqkdqpj (Bld) [Mass/Vol]11.4 g/dL Low13.0-17.0UnUniversity Hospitals Portage Medical CenterComment on above:Performed By: #### [id number] #### [facility] ([facility]) [address] [place], [place] [address]pg [id number] Case Management Update Multidisciplinary rounds have been completed. Barriers to Discharge: Pending clinical course and improvement in clinical condition. Transfer from [facility] w/ GI bleed. GI consult: Pt states has been taking meloxicam for shoulder pain for 1 month. EGD today was normal w/o identifiable source of GIB. Req'd CLN report for [facility] from 08/2023. From home. Diet: Dietary Orders (From admission, onward) Start Ordered 08/26/24 1710 Clear Liquid Diet Diet effective now Question: Room Service? Answer: No 08/26/24 170 Physician Expected Discharge Date: 08/26/2024 Discharge Delays: PT Six Click Score: 23 OT Six Click Score: PT Recommendations: OT Recommendations: Does patient understand post acute plan of care? Yes Is expected discharge disposition appropriate for patient?: Yes New Consults:NormalUnUniversity Hospitals Portage Medical Center30The patient is Moderately Stable - Low risk of patient condition declining or worsening The patient's goals for the shift include comfort The clinical goals for the shift include comfort,vss Over the shift, the patient did not make progress toward the following goals. Barriers to progression include assess falls and pain. Recommendations to address these barriers include assess falls and pain statusNormalUniversMarietta Osteopathic ClinicHEMOGLOBINon 45-13-0952Zpeuyndwpx (Bld) [Mass/Vol]11.7 g/dL Low13.0-17.0UnUniversity Hospitals Portage Medical CenterComment on above:Performed By: #### [id number] ####[facility] ([facility])[address] [place] [address] Hemoglobin (Bld) [Mass/Vol]11.1 g/dLLow13.0-17.0UnUniversity Hospitals Portage Medical CenterComment on above:Performed By: #### [id number] #### [facility] ([facility]) [address] [place], [place] [address]AUab 08-81-1383ABT&P reviewed. The patient was examined and there are no changes to the H&P.NormalUnUniversity Hospitals Portage Medical Center NURSNOTEon 61-04-0833PJHDBSCEUzsglc off to Eva keller RNNoGlenbeigh HospitalNURSNOTEPt sits up a side of bed, family cont. At bedside Request for colonoscopy, from [facility], given to Charge Nurse, Yuli SANDOVAL, she will be faxing the request soon, pt. Did sign the request. IV INT d, intact, no redness noted Telemetry cont. On pt Pt. Has no c/o of a SOB or pain at this time Call light within reachNormalUniversity of Methodist Mansfield Medical CenterNPRESBYTERIAN ESPAÑOLA HOSPITALNOTEPt able to swallow water, without any difficulty, and eat pop sicles, Pt. Up walking in hallway with family , no c/o of pain, or SOB at this timeNoGlenbeigh HospitalNPRESBYTERIAN ESPAÑOLA HOSPITALNOTEPt returns from OR, Pt. Is alert and O x4 No c/o of pain or SOB at this time Pt's family visits at bedside Telemetry cont., room air pulse ox is --97%NormalUnUniversity Hospitals Portage Medical CenterNPRESBYTERIAN ESPAÑOLA HOSPITALNOTEPt has no complaints at this time, HOB up @ 40 degrees Telemetry cont. On pt Pt. Cont. To be NPO at this time, for EGD later todayNormalUniversity of Methodist Mansfield Medical CenterPOCT GLUCOSE METER UNSOLICITED RESULTSon 07-27-7389Pupkwul [Mass/Vol]91 mg/xRMxdfgh62-044QrubybyahoUniversity Hospitals Portage Medical CenterComment on above:Order Comment: Waived Testing in the ED is performed under the ED CLIA certificate #[id number].Result Comment: tecgkxy8Hlilqjabx By: #### [id number] #### [facility] (BE[facility]ER) [address] [place], [place] [address] [id number] patient is Moderately Stable - Low risk of patient condition declining or worsening The patient's goals for the shift include comfort The clinical goals for the shift include comfort, safety Over the shift, the patient did not make progress toward the following goals. Barriers to progression include assess falls and pain. Recommendations to address these barriers include assess falls and pain statusNormalUniversMarietta Osteopathic ClinicBASIC METABOLIC PANELon 09-02-3868Nhgvk gap [Moles/Vol]10 mmol/LNormal7-20UnUniversity Hospitals Portage Medical CenterComment on above:Performed By: #### [id number] ####[facility] ([facility])[address] [place] [address] Calcium [Mass/Vol]8.2 mg/dLLow8.6-10.3UnUniversity Hospitals Portage Medical CenterComment on above:Performed By: #### [id number] ####[facility] ([facility])[address] [place], [place] [address]Irfsnkaf [Moles/Vol]108 mmol/ZAfkc39-736EpcxsmghtnUniversity Hospitals Portage Medical CenterComment on above:Performed By: #### [id number] ####[facility] ([facility])[address] [place], [place] [address]IK6 [Moles/Vol]26 mmol/DZdksfw86-49 [facility] CenterComment on above:Performed By: #### [id number] ####[facility] ([facility])[address] [place], [place] [address]Ihybyxgalx [Mass/Vol]0.91 mg/dLNormal0.70-1.30UnUniversity Hospitals Portage Medical CenterComment on above:Performed By: #### [id number] ####[facility] ([facility])[address] [facility], [place] [address]OOONGRLFJQ FILTRATION RATE ML/MIN/1.73 SQ M.AWQMVOSAA54.3 mL/min/1.73m*2Normal>60.0UnUniversity Hospitals Portage Medical CenterComment on above: Result Comment: The [facility]???s estimated glomerular filtration rate (eGFR) [...] potential consequences that do not disproportionately affect anyone group of individuals.Performed By: #### [id number] ####[facility] ([facility])[address] [place], [place] [address]Gijbihw [Mass/Vol]100 mg/bIMuchdv03-707FlwplcerluUniversity Hospitals Portage Medical CenterComment on above:Performed By: #### [id number] ####[facility] ([facility])[address] [facility] [place] [place] [address]Aaecaczgh [Moles/Vol]3.8 mmol/LNormal3.5-5.1UnUniversity Hospitals Portage Medical CenterComment on above:Performed By: #### [id number] ####[facility] ([facility])[address] [place] [address] Sodium [Moles/Vol]140 mmol/LMqicjr513-855RemhpclfedUniversity Hospitals Portage Medical Center Comment on above:Performed By: #### [id number] ####[facility] ([facility])[address] [facility] [place] [address]Foob nitrogen [Mass/Vol]15 mg/dLNormal7-25 [facility] Medical CenterComment on above:Performed By: #### [id number] ####[facility] ([facility])[address] [place], [place] [address]VJMD NITROGEN/CREATININE (MASS RATIO) IN SER/PLAS16.5NormalUniversMarietta Osteopathic ClinicComment on above:Performed By: #### [id number] ####[facility] ([facility])[address] [facility] [place] [address]CUEbk 52-12-6771Apvpwahtudg distribution width (RBC) [Ratio]13.8 %Nqlbzj30.5-15.0[facility] Medical CenterComment on above:Performed By: #### [id number] #### [facility] ([facility]) [address] [place], [place] [address]YSSFCWFSAZD MEAN CORPUSCULAR HEMOGLOBIN CONCENTRATION (G/DL) BY XDXAEHWPA95.4 g/zGVobyxd64.0-35.0UnUniversity Hospitals Portage Medical CenterComment on above:Performed By: #### [id number] #### [facility] ([facility]) [address] [place] [address]Iqmvjuqtsk (Bld) [Volume fraction]33.3 %Low39.0-50.0UnUniversity Hospitals Portage Medical CenterComment on above:Performed By: #### [id number] #### [facility] ([facility]) [address] [place] [address]Pyeavvftox (Bld) [Mass/Vol]10.8 g/dLLow13.0-17.0UnUniversity Hospitals Portage Medical CenterComment on above:Performed By: #### [id number] #### [facility] ([facility]) [address] [place] [address]ZDT (RBC) [Entitic mass]29.0 xfJesghz51.0-33.0UnUniversity Hospitals Portage Medical CenterComment on above:Performed By: #### [id number] #### [facility] ([facility]) [address] [place] [address]SYE (RBC) [Entitic vol]89.3 aDAwrvzw88.0-98.0UnUniversity Hospitals Portage Medical CenterComment on above:Performed By: #### [id number] #### [facility] ([facility]) [address] [place] [address]SJPJXEXZC (10*3/UL) IN BLOOD AUTOMATED [id number] 10*3/uLNormal 150-400UnUniversity Hospitals Portage Medical CenterComment on above:Performed By: #### [id number] #### [facility] ([facility]) [address] [place] [address]AQN (Bld) [#/Vol]3.73 10*6/uLLow4.20-5.70UnUniversity Hospitals Portage Medical CenterComment on above:Performed By: #### [id number] #### [facility] ([facility]) [address] [place] [address]WVG (Bld) [#/Vol]6.82 10*3/uLNormal4.00-10.60UnUniversity Hospitals Portage Medical CenterComment on above:Performed By: #### [id number] #### [facility] ([facility]) [address] [address]VQGGQHVMIWtq 37-83-4615Sluqpuydso (Bld) [Mass/Vol]10.7 g/dLLow 13.0-17.0UnUniversity Hospitals Portage Medical CenterComment on above:Performed By: #### [id number] #### [facility] ([facility]) [address] [address]VMOWCTYMqc 95-61-5747ZHXUNNGDDuveez sheet given to Charge nurseEula RN Call light within [facility] HospitalrmalUniversMarietta Osteopathic ClinicNURSNOTEFamily visits at bedside, no c/o of pain, or SOB at this time IV INT d, no redness noted Telemetry cont. On pt Room air pulse ox--98% Call light within reachNormalUniTogus VA Medical CenterNURSNOTEPt sits up at side of bed, resp. Easy @ 18/min No c/o of pain, or SOB at this timermalUniTogus VA Medical Center BASIC METABOLIC PANELon 21-53-5254Twaan gap [Moles/Vol]10 mmol/LNormal7-20 [facility] CenterComment on above:Performed By: #### [id number] #### [facility] ([facility]) [address] [address]Pvfgyzi [Mass/Vol]8.5 mg/dLLow8.6-10.3UnUniversity Hospitals Portage Medical CenterComment on above:Performed By: #### [id number] #### [facility] ([facility]) [address] [address]Rbvkrtmg [Moles/Vol]107 mmol/KWdkfxi79-916SsfcivftiuUniversity Hospitals Portage Medical CenterComment on above:Performed By: #### [id number] #### [facility] ([facility]) [address] [place] [address]QG4 [Moles/Vol]23 mmol/GZaaajn06-36DbbefnhghtUniversity Hospitals Portage Medical CenterComment on above:Performed By: #### [id number] #### [facility] ([facility]) [address] [place] [address]Dmuemwuqok [Mass/Vol]0.86 mg/dLNormal0.70-1.30UnUniversity Hospitals Portage Medical CenterComment on above:Performed By: #### [id number] #### [facility] ([facility]) [address] [place] [address]XUKNRNFSYV FILTRATION RATE ML/MIN/1.73 SQ M.HJZCCHLAP16.9 mL/min/1.73m*2Normal>60.0UnUniversity Hospitals Portage Medical CenterComment on above: Result Comment: The [facility]???s estimated glomerular filtration rate (eGFR) [...] potential consequences that do not disproportionately affect anyone group of individuals.Performed By: #### [id number] #### [facility] ([facility]) [address] [place] [address]Twqnzau [Mass/Vol]118 mg/wOIjnh58-992RbriyqwweiUniversity Hospitals Portage Medical CenterComment on above:Performed By: #### [id number] #### [facility] ([facility]) [address] [place] [address]Qxxhteugp [Moles/Vol]4.0 mmol/LNormal3.5-5.1UnUniversity Hospitals Portage Medical CenterComment on above:Performed By: #### [id number] #### [facility] ([facility]) [address] [place] [address]Llfxfq [Moles/Vol]136 mmol/ZQniask255-926OldizfdsgfUniversity Hospitals Portage Medical CenterComment on above:Performed By: #### [id number] #### [facility] ([facility]) [address] [place], [place] [address]Lewe nitrogen [Mass/Vol]16 mg/dLNormal7-25UnUniversity Hospitals Portage Medical CenterComment on above:Performed By: #### [id number] #### [facility] ([facility]) [address] [place], [place] [address]XKTJ NITROGEN/CREATININE (MASS RATIO) IN SER/PLAS18.6Normal [facility] Medical CenterComment on above:Performed By: #### [id number] #### [facility] ([facility]) [address] [place], [place] [address]MQLku 50-46-0830Wkbpeomxvtx distribution width (RBC) [Ratio]13.6 %Erfqlf87.5-15.0UnUniversity Hospitals Portage Medical CenterComment on above:Performed By: #### [id number] #### [facility] ([facility]) [address] [place], [place] [address]RDYSJALTDRT MEAN CORPUSCULAR HEMOGLOBIN CONCENTRATION (G/DL) BY TNHSPMTHR77.8 g/sFBmjfdh72.0-35.0UnUniversity Hospitals Portage Medical CenterComment on above:Performed By: #### [id number] #### [facility] ([facility]) [address] [place], [place] [address]Prbhyixlcu (Bld) [Volume fraction]35.1 %Low39.0-50.0UnUniversity Hospitals Portage Medical CenterComment on above:Performed By: #### [id number] #### [facility] ([facility]) [address] [place], [place] [address]Wdnldxtxgj (Bld) [Mass/Vol]11.5 g/dLLow13.0-17.0UnUniversity Hospitals Portage Medical CenterComment on above:Performed By: #### [id number] #### [facility] ([facility]) [address] [facility] [place], [place] [address]WTA (RBC) [Entitic mass]29.0 wbFuloyt90.0-33.0UnUniversity Hospitals Portage Medical CenterComment on above:Performed By: #### [id number] #### [facility] ([facility]) [address] [place] [address]EIU (RBC) [Entitic vol]88.6 dCZimswn83.0-98.0UnUniversity Hospitals Portage Medical CenterComment on above:Performed By: #### [id number] #### [facility] ([facility]) [address] [place] [address]ODOXGYDOI (10*3/UL) IN BLOOD AUTOMATED PFPXU468 10*3/uLNormal 150-400UnUniversity Hospitals Portage Medical CenterComment on above:Performed By: #### [id number] #### [facility] ([facility]) [address] [place] [address]ESB (Bld) [#/Vol]3.96 10*6/uLLow4.20-5.70UnUniversity Hospitals Portage Medical CenterComment on above:Performed By: #### [id number] #### [facility] ([facility]) [address] [place] [address]KFA (Bld) [#/Vol]9.30 10*3/uLNormal4.00-10.60UnUniversity Hospitals Portage Medical CenterComment on above:Performed By: #### [id number] #### [facility] ([facility]) [address] [place] [address]NXGNLHJBGMqn 21-84-7546Oxgocgpscx (Bld) [Mass/Vol]10.4 g/dLLow 13.0-17.0UnUniversity Hospitals Portage Medical CenterComment on above:Performed By: #### [id number] #### [facility] ([facility]) [address] [place] [address]Shvdlragkg (Bld) [Mass/Vol]11.3 g/dLLow13.0-17.0UnUniversity Hospitals Portage Medical CenterComment on above:Performed By: #### [id number] #### [facility] ([facility]) [address] [place] [address]WUYD AND SCREENon 89-72-0528XI SCREENNegativeNoEast Liverpool City HospitalComment on above:Performed By: #### [id number] #### [facility] (BEAKER) [address] [place] [address]SOR group Nom (Bld)ANoEast Liverpool City Hospital Comment on above:Performed By: #### [id number] #### [facility] (BEAKER) [address] [place] [address]BJ TYPE IN BLOODPositiveNormalUCorey HospitalComment on above:Performed By: #### [id number] #### [facility] (BEAKER) [address] [place] [address]JX ARTHROGRAM INJECTIONon 76-61-5943QP ARTHROGRAM INJECTION INDICATION: Left shoulder pain COMPARISON: [...] left shoulder pre-MRI arthrogram. Electronically signed: SEA NEWMAN.[facility] Comment on above:Order Comment: Order in epicMR SHOULDER ARTHROGRAM LEFTon 84-93-4646PB SHOULDER ARTHROGRAM LEFTHistory: Pain. MRI Left Shoulder post arthrogram Technique: Multiplanar/multisequence imaging of the shoulder was obtained following [...] orthopedics is advised. Electronically signed: Kemi De Guzman.[facility] Comment on above:Order Comment: Order in EPICAbstracton 73-56-3074Lmaqzjdp [id number] Vern Ravi 1960 Date Provider Department [place] 08/07/2024 9418-LANDEN DIANE [facility] Medical C Family History Problem Relation Age of Onset Coronary artery disease Mother Asthma Mother Liver cancer Mother Heart attack Father Colon cancer Father Bone cancer Brother Family Status - Relation Status Age at Mother Father BrotherNormalUniTogus VA Medical CenterOutside Colonoscopyon 09-29-2023 Outside [id number]#1.00TIFFNoCenterville 45-21-1920Pfrlsvjeq From: Shavon Aguilar LPN To: [facility] - Clinical; Sent: 09/21/2023 11:27:17 EDT Show up: 08/20/2033 07:00:00 EDT Subject: colonoscopy recall Due Date/Time: 09/19/2033 07:00:00 EDT Reminder/Recall Patient due for screening colonoscopy 09/19/2033.[facility] ShawInsurance Correspondenceon 35-04-9606Btxikebjh Correspondence [id number]#1.00[facility] CampusConsent for Procedure/Surgeryon 44-65-6122Zgvmfoq for Procedure/Surgery [id number]#1.00TIFOhioHealth Pickerington Methodist HospitalFacesheeton 69-18-0467Vwukoogfp [id number]#1.00[facility] CampusAmbulatory Visit Summaryon 24-38-8608Putogsdemw Visit Summary VERN RAVI :1960 Visit Date:08/02/2023 Ambulatory Visit Instructions Your Diagnosis Screening for malignant neoplasm of colon Your Care Team Attending Physician - JANNIE PASCAL, [place] Primary Care Physician - Landen Diane MD Referring Physician - Landen Diane MD This Is Your Medications List Contact prescribing physician if questions or concerns acetaminophen-hydrocodone (acetaminophen-hydrocodone 325 mg-5 mg oral tablet) aspirin (aspirin [...] Medications What How Much When Instructions Unchanged acetaminophen-hydrocodone (acetaminophen-hydrocodone 325 mg-5 mg oral tablet) 1 Tablets By Mouth Every 6 hours as needed for as needed for pain Contact prescribing physician if questions orconcerns Unchanged aspirin (aspirin 325 mg Oral EC [...] 1 Tablets By Mouth Every day Contact prescribingphysician if questions or concerns Allergies gabapentin (Feeling [...] you for choosing us for your care. [facility] ShawPhysician Referralon 06-22-2023 Physician [id number]#1.00TIFFNormJ.W. Ruby Memorial HospitalDAT - LIPID PROFILEon 36-52-7181OELJ-HDL RATIO NORMSEE BELOW NormalThe [facility] HospitalComment on above:Result Comment: 3.3 - 4.4 LOW RISK 4.4 - 7.1 AVERAGE RISK 7.1 - 11.0 MODERATE RISK >11.0 HIGH RISKPerformed By: #### DATLIPI #### [facility] [address] [address] [address] Odilon SantosCholesterol [Mass/Vol]170 mg/dLNormal<=200The [facility] Comment on above:Performed By: #### DATLIPI #### [facility] [address] [place], [place] [address] Dr. Odilon SantosCholesterol in HDL [Mass/Vol]60 mg/jVVneucd26-81JrmZanesville City HospitalComment on above:Performed By: #### DATLIPI #### [facility] [address] [place] [address] Dr. Odilon Grantesterol in LDL [Mass/Vol]89.2 mg/dLPike Community HospitalComment on above:Performed By: #### DATLIPI #### [facility] [address] [place] [address] Dr. Odilon Harris.total/Cholesterol in HDL [Mass ratio]2.8 {ratio} NormalZanesville City HospitalComment on above:Performed By: #### DATLIPI #### [facility] [address] [place] [address] Dr. Odilon Gan NORMAL> or = 60 mg/dl - LOW CARDIOVASCULAR RISK <40 mg/dl - HIGH CARDIOVASCULAR RISKPike Community HospitalComment on above:Performed By: #### DATLIPI #### [facility] [address] [place] [address] Dr. Odilon SantosLDL CALC NORMALSEE BELOWPike Community HospitalComment on above:Result Comment: <100 mg/dl OPTIMAL 100 - 129 mg/dl NEAR OR ABOVE OPTIMAL 130 - 159 mg/dl BORDERLINE HIGH 160 - 189 mg/dl HIGH >190 mg/dl VERY HIGH Performed By: #### DATLIPI #### [facility] [address] [place] [address] Dr. Odilon SantosTriglyceride [Mass/Vol]104 mg/dLNormal<=150The [facility] Comment on above:Performed By: #### DATLIPI #### [facility] [address] [place] [address] Dr. Odilon CastelanLDL CALC20.8 mg/dLPike Community HospitalComment on above: Performed By: #### DATLIPI #### [facility] [address] [place] [address] Dr. Odilon SantosCovid-19 PCR (CVDTBH)on 42-02-5656LIEF-CoV-2 (COVID-19) RNA DEON+probe Ql (Unsp spec)DetectedCritically abnormalNOT DETECTEDThe [facility] Memorial HospitalComment on above:Result Comment: This test is not yet approved or cleared by the [place] FDA. When there are no FDA-approved or cleared tests available, and other criteria are met, FDA can make tests available under an emergency access mechanism called an Emergency Use Authorization (EUA). The EUA for this test is supported by the [employer] of Health and Human Service's (HHS's) declaration [...] no longer be used). Performed By: #### CVDTBH #### [facility] [address] [place] [address] Dr. Odilon SantosXR CSPINE OBL FLEX_EXTon 34-05-7311GY CSPINE OBL FLEX_EXT EXAMINATION: XR CSPINE OBL [...] Electronically authenticated by: BENNIE PAYNE Date: 2021-12-30 09:27Pike Community HospitalXR LSPINE W_OBLS AND FLEX_EXTon 42-69-9566OW LSPINE W_OBLS AND FLEX_EXTEXAMINATION: XR LSPINE W_OBLS AND FLEX_EXT HISTORY: Cervical [...] Electronically authenticated by: BENNIE PAYNE Date: 2021-12-30 09:32[facility] Community HospitalINSULINon 40-45-2785Bsxgome64.3 uIU/mLNormal2.6-24.9The [facility] HospitalComment on above:Performed By: #### INSULIN ####[facility] [address] [address]Dr. Odilon Dubois AUTO DIFFon 01-23-9912TGFW #0.0 103/ulNormal0.0-0.1The [facility] Memorial HospitalComment on above:Performed By: #### CBC #### [facility] [address] [address] [address] Odilon SantosBasophils/100 WBC (Bld)0.6 %Normal0.2-2.0[facility] Comment on above:Performed By: #### CBC #### [facility] [address] [address] [address] Odilon Lovelace #0.3 103/ulNormal0.0-0.7The [facility] Memorial HospitalComment on above: Performed By: #### CBC #### [facility] [address] [address] [address] Odilon Torresosinophils/100 WBC (Bld)4.1 %Normal0.9-7.0[facility] Comment on above:Performed By: #### CBC #### [facility] [address] [address] [address] Odilon Torresrythrocyte distribution width (RBC) [Ratio]14.1 %Diycqo92.0-15.0 The [facility] Memorial HospitalComment on above:Performed By: #### CBC #### [facility] [address] [address] [address] Odilon Garzaatocrit (Bld) [Volume fraction]44.4 %Sbhidg34.0-54.0The [facility] HospitalComthree rivers health hospital on above:Performed By: #### CBC #### [facility] [address] [place] [address] Dr. Odilon SantosHemoglobin (Bld) [Mass/Vol]14.5 g/yESixlek89.0-18.0The [facility] HospitalComthree rivers health hospital on above:Performed By: #### CBC #### [facility] [address] [place] [address] Dr. Odilon Marshall #0.03 10e3/ulNormal0.00-0.03[facility] on above:Performed By: #### CBC #### [facility] [address] [place] [address] Dr. Odilon Marshall %0.5 %Normal0.0-0.5The [facility] Memorial HospitalComthree rivers health hospital on above: Performed By: #### CBC #### [facility] [address] [place] [address] Dr. Odilon Mckeon #1.5 103/ulNormal1.2-3.8[facility] on above:Performed By: #### CBC #### [facility] [address] [place] [address] Dr. Odilon Trianamphocytes/100 WBC (Bld)23.5 %Gvgzny51.5-60.0The [facility] HospitalComthree rivers health hospital on above:Performed By: #### CBC #### [facility] [address] [place] [address] Dr. Odilon TinocoUAL DIFF REQNONormalThe [facility] Memorial HospitalComthree rivers health hospital on above: Performed By: #### CBC #### [facility] [address] [place] [address] Dr. Odilon Guajardo (RBC) [Entitic mass]29.1 qbJfplfz92.9-34.0The Dona HospitalComment on above:Performed By: #### CBC #### [facility] [address] [address] [address] Odilon FigueroaHC (RBC) [Mass/Vol]32.7 g/wWYcpedc95.9-35.2The [facility] HospitalComment on above:Performed By: #### CBC #### [facility] [address] [place] [address] Dr. Odilon FigueroaV (RBC) [Entitic vol]89.0 wEXgpdyt59.0-94.0The [facility] Memorial HospitalComment on above:Performed By: #### CBC #### [facility] [address] [place] [address] Dr. Odilon Fam #0.6 103/ulNormal0.3-0.8The [facility] Memorial HospitalComment on above:Performed By: #### CBC #### [facility] Laboratory [address] [place] [address] Dr. Odilon Thompsonocytes/100 WBC (Bld)9.1 %Normal1.7-12.0[facility] Comment on above:Performed By: #### CBC #### [facility] [address] [place] [address] Dr. Odilon Yuen #4.1 103/ulNormal1.4-6.5The [facility] HospitalComment on above:Performed By: #### CBC #### [facility] [address] [place] [address] Dr. Odilon Avendanoutrophils/100 WBC (Bld)62.2 %Epxyhb19.0-75.0[facility] HospitalComment on above:Performed By: #### CBC #### [facility] [address] [place] [address] Dr. Odilon Stewartlet mean volume (Bld) [Entitic vol]9.8 fLNormal9.5-13.5The [facility] HospitalComment on above:Performed By: #### CBC #### [facility] [address] [place] [address] Dr. Odilon SantosPLT288 103/siTqsmjp155-072XqtOhioHealth Hardin Memorial Hospital on above: Performed By: #### CBC #### [facility] [address] [address] [address] Odilon SantosRBC4.99 106/ulNormal4.70-6.10The [facility] HospitalComthree rivers health hospital on above:Performed By: #### CBC #### [facility] [address] [address] [address] Odilon SantosWBC6.6 103/ulNormal4.0-11.0The [facility] on above: Performed By: #### CBC #### [facility] [address] [place] [address] Dr. Odilon SantosGLYCOHEMOGLOBIN A1Con 59-06-1375BCB RECOMMENDATIONSEE BELOWParkview Health Bryan HospitalComthree rivers health hospital on above:Result Comment: ADA RECOMMENDED LIMIT 4.0 - 6.0 ADA THERAPEUTIC TARGET < 7.0 ACTION SUGGESTED > 7.0Performed By: #### A1C #### [facility] [address] [place] [address] Dr. Odilon SantosGlucose [Mass/Vol]123 mg/dLNoMorrow County Hospital on above:Performed By: #### A1C #### [facility] [address] [place] [address] Dr. Odilon SantosHbA1c (Bld) [Mass fraction]5.9 %Normal4.5-6.2[facility] on above:Performed By: #### A1C #### [facility] [address] [place] [address] Dr. Odilon SantosLIPID PROFILEon 22-00-5924COQQ-HDL RATIO NORMSEE [facility] on above:Result Comment: 3.3 - 4.4 LOW RISK 4.4 - 7.1 AVERAGE RISK 7.1 - 11.0 MODERATE RISK >11.0 HIGH RISKPerformed By: #### URIC, LIPID, CMP #### [facility] [address] [place] [address] Dr. Odilon SantosCholesterol [Mass/Vol]119 mg/dLNormal<=200[facility] Comment on above:Performed By: #### URIC, LIPID, CMP #### [facility] [address] [address] [address] Odilon Grantesterol in HDL [Mass/Vol]58 mg/oFCzgfjp70-24Fdc [facility] HospitalComment on above:Performed By: #### URIC, LIPID, CMP #### [facility] [address] [address] [address] Odilon Grantesterol in LDL [Mass/Vol]51.8 mg/dLNoMansfield HospitalComment on above:Performed By: #### URIC, LIPID, CMP #### [facility] [address] [place] [address] Dr. Odilon Harris.total/Cholesterol in HDL [Mass ratio]2.1 {ratio} NormalThe [facility] HospitalComment on above:Performed By: #### URIC, LIPID, CMP #### [facility] [address] [address] [address] Odilon Gan NORMAL> or = 60 mg/dl - LOW CARDIOVASCULAR RISK <40 mg/dl - HIGH CARDIOVASCULAR RISKPike Community HospitalComment on above:Performed By: #### URIC, LIPID, CMP #### [facility] [address] [place] [address] Dr. Odilon Zee CALC NORMALSEE BELOWPike Community HospitalComment on above:Result Comment: <100 mg/dl OPTIMAL 100 - 129 mg/dl NEAR OR ABOVE OPTIMAL 130 - 159 mg/dl BORDERLINE HIGH 160 - 189 mg/dl HIGH >190 mg/dl VERY HIGH Performed By: #### URIC, LIPID, CMP #### [facility] [address] [address] [address] Odilon SantosTriglyceride [Mass/Vol]46 mg/dLNormal<=150[facility] Comment on above:Performed By: #### URIC, LIPID, CMP #### [facility] [address] [place] [address] Dr. Odilon CastelanLDL CALC9.2 mg/dLNormalThe [facility] HospitalComment on above: Performed By: #### URIC, LIPID, CMP #### [facility] [address] [address] [address] Odilon Ayala 14(COMP METB)on 25-68-1568Wedtxkg [Mass/Vol]3.8 g/dLNormal 3.4-5.0[facility] Hospitalment on above:Performed By: #### URIC, LIPID, CMP #### [facility] [address] [address] [address] Odilon SantosAlbumin/Globulin [Mass ratio]1.1 {ratio}NormalThe [facility] Hospitalment on above:Performed By: #### URIC, LIPID, CMP #### [facility] [address] [address] [address] Odilon Lizarraga [Catalytic activity/Vol]82 U/FOquycq01-558Ztf [facility] on above:Performed By: #### URIC, LIPID, CMP #### [facility] [address] [address] [address] Odilon Rosenberg [Catalytic activity/Vol]75 U/LCritically qwou17-76Anh [facility] on above:Performed By: #### URIC, LIPID, CMP #### [facility] [address] [place] [address] Dr. Odilon Yuan gap [Moles/Vol]12.4 mmol/LNormalThe [facility] Comment on above:Performed By: #### URIC, LIPID, CMP #### [facility] [address] [place] [address] Dr. Odilon Sawyer [Catalytic activity/Vol]25 U/HOguhoc65-16Mkh [facility] on above:Performed By: #### URIC, LIPID, CMP #### [facility] [address] [place] [address] Dr. Odilon Irelandirubin [Mass/Vol]0.4 mg/dLNormal0.2-1.0[facility] Comment on above:Performed By: #### URIC, LIPID, CMP #### [facility] [address] [address] [address] Odilon SantosCalcium [Mass/Vol]9.1 mg/dLNormal8.5-10.1[facility] Comment on above:Performed By: #### URIC, LIPID, CMP #### [facility] [address] [place] [address] Dr. Odilon SantosChloride [Moles/Vol]105 mmol/ASfgaed46-779Jlx [facility] Comment on above:Performed By: #### URIC, LIPID, CMP #### [facility] [address] [place] [address] Dr. Odilon SantosCO2 [Moles/Vol]26.4 mmol/SBptqun22.0-32.0[facility] Comment on above:Performed By: #### URIC, LIPID, CMP #### [facility] [address] [place] [address] Dr. Odilon SantosCreatinine [Mass/Vol]1.07 mg/dLNormal0.70-1.30The [facility] HospitalComment on above:Performed By: #### URIC, LIPID, CMP #### [facility] [address] [place] [address] Dr. Odilon TorresGFR-AF CYMRAES>60Normal>=60The [facility] HospitalComment on above:Performed By: #### URIC, LIPID, CMP #### [facility] [address] [place] [address] Dr. Odilon TorresGFR-NON AF CYMRAES>60Normal>=60The [facility] HospitalComment on above:Performed By: #### URIC, LIPID, CMP #### [facility] [address] [place] [address] Dr. Odilon SantosGlobulin (S) [Mass/Vol]3.4 g/dLNormalThe [facility] HospitalComment on above:Performed By: #### URIC, LIPID, CMP #### [facility] [address] [place] [address] Dr. Odilon SantosGlucose [Mass/Vol]108 mg/dLCritically cdne24-742Bwu [facility] HospitalComment on above:Performed By: #### URIC, LIPID, CMP #### [facility] [address] [address] [address] Odilon SantosPotassium [Moles/Vol]3.8 mmol/LNormal3.5-5.1[facility] Comment on above:Performed By: #### URIC, LIPID, CMP #### [facility] [address] [place] [address] Dr. dOilon SantosProtein [Mass/Vol]7.2 g/dLNormal6.4-8.2[facility] Comment on above:Performed By: #### URIC, LIPID, CMP #### [facility] [address] [place] [address] Dr. Odilon SantosSodium [Moles/Vol]140 mmol/NCopzgt030-485Sdt [facility] Comment on above:Performed By: #### URIC, LIPID, CMP #### [facility] [address] [place] [address] Dr. Odilon SantosUrea nitrogen [Mass/Vol]21.0 mg/dLCritically high7.0-18.0[facility] HospitalComment on above:Performed By: #### URIC, LIPID, CMP #### [facility] [address] [place] [address] Dr. Odilon White nitrogen/Creatinine [Mass ratio]19.6 mg/mgNormalThe [facility] HospitalComment on above:Performed By: #### URIC, LIPID, CMP #### [facility] [address] [place] [address] Dr. Odilon SantosURIC ACID SERUMon 45-38-7629Bwacf [Mass/Vol]6.0 mg/dLNormal 3.5-7.2[facility] HospitalComment on above:Performed By: #### URIC, LIPID, CMP #### [facility] [address] [place] [address] Dr. Odilon Santos Vital Signs Date TimeVital SignValuePerforming SrqzcjmiqDsqovhsm30-00-0568 15:54-0400Blood Pressure LocationMichaeAdventHealth for Women General Surgery Drlvgreh09-11-0926 15:54-0400Diastolic blood kchavtrl96 mm[Hg]Sea NILL General Surgery Ngiyuxey20-95-2859 15:54-0400Heart rate 76 /minMichael NILL General Surgery Ryxwrrrj64-36-7659 15:54-0400 Respiratory rate16 /minMichael NILL General Surgery Cytljwvm04-07-5189 15:54-0400Systolic blood ccinqvlw454 mm[Hg]Sea NILL [facility] [place] Encounters Encounter DateEncounter TypeCare ProviderFacilityStart: 02-12-2025 End: 53-17-7774mxtzpnolstAMPDOHQ [facility]: 31-72-6011Eaxywfqirn and management of inpatientALLISON [facility]tart: 01-28-2025 End: 06-52-8585vvufnygiupYIQXTBellevue Hospital Start: 01-28-2025 End: 70-29-7038Yrbpdwhlmh and management of inpatientJASON [facility]: 01-22-2025 End: 57-04-1450qalarigwygXCVDALWQTIXMcCullough-Hyde Memorial Hospital Start: 01-22-2025 End: 89-56-5579Jyfoipege for preprocedural cardiovascular examinationCHRISTOPHER [facility] Southtart: 01-15-2025 End: 02-76-9659uiwpcwdxguBIYRKBellevue Hospital Start: 27-18-4324patnkqamocRLURBBellevue Hospital Start: 11-21-2024 End: 15-73-0559gussmhihoeQORKR MUSTAPHAUniCentervilletart: 09-27-2024 End: 49-09-3653Geeyzrnuf for other specified special examinationsDOUGLAS [facility]OMemorial Health Systemtart: 09-27-2024 End: 40-04-2393jwfabaogjsOGPHXPB [facility] Townshiptart: 22-17-3562Jttdkqkixm and management of inpatientDILAN CHANEYKing's Daughters Medical Center Ohiotart: 59-37-3923Myrknkqigu and management of inpatient SHERRY Da Silva [facility]: 08-24-2024 End: 18-98-3163Unccgsxlhw and management of inpatientRADHA [facility] Centertart: 75-88-4992sygzkdahmsRUNCCSK [facility] Townshiptart: 09-20-2023 End: 10-84-5077nxbehynvpmTtvlvzz R NILLFacility:CD:[id number]: 08-02-2023 End: 66-44-4689dzfcbyshyvDnokjng HoyFacility:GS [facility] Hospitaltart: 08-02-2023 End: 58-08-7379Nzxkzcz encounter procedureMichael R NILL General Surgery Nill/Said Dona Start: 02-01-2022 End: 54-18-4168fdjypoulgbNY LANDEN HOYFacility:N3Juukh: 96-72-3291rnqrzqwcwhVY LANDEN HOYFacility:P6Dxxlo: 01-05-2022 End: 16-09-7032bnierweiswYD LANDEN HOYFacility:U3Odkwh: 12-30-2021 End: 42-66-2855pkwbnbpkdfJR LANDEN HOYFacility:L0Szsly: 28-48-2408Tedgieldy for general adult medical examination without abnormal findingsDR LANDEN Wynne [facility]: 10-13-2021 End: 95-79-8415marulzidxyKT LANDEN HOYFacility:W3Yvqil: 10-13-2021 End: 25-43-5955Oqolsafhg for general adult medical examination without abnormal findingsDR LANDEN HOYFacility:H1 Procedures DateProcedureProcedure DetailPerforming ClinicianStart: 25-49-3920OKK screening DR LANDEN Higgins on above:Performed By: #### PSASC #### [facility] [address] [place] [address] Dr. Odilon Elmore: 98-30-2711KuadvaikbsrChujzto NILL Arthropathy of right shoulder (disorder)Sea NILL ColonoscopyMichael NILL Left upper arm structure (body structure)Sea NILL Comment on above:reconstruction of left forearm due to injuryPectoral muscle structure (body structure)Sea NILL TonsillectomyMichael NILL Immunizations Immunization DateImmunizationNotesCare KzmsdsdmMosidyta95-04-0827munbrmiez virus vaccine, unspecified formulationMichael NILL [phone]-VxggaThe [facility] 31-56-9235HTON-CoV-2 (COVID-19) mRNA BNT-162b2 vaxMichael NILL [phone]-VmqanThe [facility] Comment on above:Result Comment: 2023-06-29: [id number]-UfH-3 (COVID- 19) mRNA BNT-162b2 vaxMichael NILL [phone]-SvwggThe [facility] Comment on above:Result Comment: 2023-06-29: [id number] Payers DatePayer CategoryPayerPolicy [id number] [id number] [id number] [id number] 2..0.1.786542.3.57[id number] 2..840.1.273360.3.57[id number] 2..840.1.928692.3.57[id number] 2..0.1.544616.3.579.2.35974-51-2071Msjl-jxb87-84-2810Kgom-[id number] [id number] [id number] Social History DateTypeDetailFacilityStart: 94-54-2129Oqredyd smoking statusNever smoked tobacco (finding)General Surgery BellevueTobacco smoking statusNeverGeneral Surgery BellevueSex [facility] Functional Status EhrmVvarnfffmiBmmyjjGfcsfiyc55-32-3970Rsksocthcw StatusN/AGeneral Surgery [place] Clinical Notes 08-02-2023 to 02-12-2025 Note Date & KspuEnmhXaywafcx00-79-9631 NoteNEUROSURGERY NOTE SUBJECTIVE: Chief complaint: Postoperative visit for anterior cervical discectomy and fusion C6-C7 on 01/28/[address] Herrera. History of present illness: States he has not noticed much change since surgery. Still with some neck stiffness and bilateral shoulder pain, left side greater than right. Also endorses ongoing numbness of his 1st through 3rd fingers primarily as well as chronic numbness of his left forearm due to previous injury. Denies falls, imbalance, bowel bladder changes. Denies issues with the incision. He did initially have some dysphagia postoperatively, which has since resolved. Of note, he does state that his chronic left toe pain has resolved since his neck surgery. Review of systems: As in HPI. Medical History[1] Surgical History[2] Social History[3] Family History[4] OBJECTIVE: Medications: acetaminophen fexofenadine multivitamin pantoprazole Repatha SureClick pen injector sennosides-docusate sodium tiZANidine Current Medications[5] Allergies: Allergies[6] Exam: Exam performed and reviewed, changes as below. Vitals reviewed: Heart Rate: [92] 92 BP: (152)/(80) 152/80 No intake/output data recorded. No intake/output data recorded. Exam reviewed and updated. Accompanied by family today. Constitutional: In no apparent distress. Chest: Chest expansion symmetrical. Respirations regular and nonlabored. Extremities without edema. Skin warm and dry without pallor. Anterior neck dressing discontinued. Incision well-approximated without edema, erythema, drainage. Neuro: GCS 15/15. Attention and memory intact. No dysarthria or aphasia. Sensation: Intact to light touch C5-T1 and L2-S1 dermatomes bilaterally with exception of diminished sensation left medial forearm, which is chronic for him. Musculoskeletal: Right handed. Deltoid 5/5 bilaterally. Triceps 5/5 bilaterally. Biceps 5/5 bilaterally. Finger flexors 5/5 bilaterally. Finger abductors 5/5 bilaterally. Hip flexors 5/5 bilaterally. Knee flexors and extensors 5/5 bilaterally. Ankle dorsal flexors 5/5 bilaterally. Ankle plantar flexors 5/5 bilaterally. Muscle tone without hyper or hypotonicity. Muscle bulk appropriate for age. Independently ambulatory with steady gait. Nazlini J collar discontinued. Decreased range of motion with bilateral cervical rotation. Labs: Admission on 01/28/2025, Discharged on 01/29/2025 Component Date Value Ref Range Status Glucose POC 01/28/2025 106 (H) 70 - 105 mg/dL Final Hospital Outpatient Visit on 01/15/2025 Component Date Value Ref Range Status Ventricular Rate 01/15/2025 82 BPM Final Atrial Rate 01/15/2025 82 BPM Final TX Interval 01/15/2025 142 ms Final QRS DURATION 01/15/2025 100 ms Final QT Interval 01/15/2025 370 ms Final QTC CALCULATION(BAZETT) 01/15/2025 432 ms Final P Garland 01/15/2025 56 degrees Final R-Garland 01/15/2025 31 degrees Final T Wave Garland 01/15/2025 57 degrees Final Lab on 01/15/2025 Component Date Value Ref Range Status ABO Grouping 01/15/2025 A Final Rh Type 01/15/2025 POS Final Ab Scrn 01/15/2025 NEG Final MSSA DNA 01/15/2025 Negative Negative Final MRSA DNA 01/15/2025 Negative Negative Final Sodium 01/15/2025 140 136 - 145 mmol/L Final Potassium 01/15/2025 4.0 3.5 - 5.1 mmol/L Final Chloride 01/15/2025 104 98 - 107 mmol/L Final CO2 01/15/2025 30 21 - 31 mmol/L Final BUN 01/15/2025 11 7 - 25 mg/dL Final Creatinine 01/15/2025 1.03 0.70 - 1.30 mg/dL Final Glucose 01/15/2025 94 70 - 100 mg/dL Final Calcium 01/15/2025 9.5 8.6 - 10.3 mg/dL Final Anion Gap 01/15/2025 10 7 - 20 mmol/L Final eGFR 01/15/2025 82.1 >60.0 mL/min/1.73m*2 Final BUN/Creatinine Ratio 01/15/2025 10.7 Final Auto WBC 01/15/2025 7.61 4.00 - 10.60 10*3/uL Final RBC 01/15/2025 5.45 4.20 - 5.70 10*6/uL Final Hemoglobin 01/15/2025 14.9 13.0 - 17.0 g/dL Final Hematocrit 01/15/2025 45.0 39.0 - 50.0 % Final MCV 01/15/2025 82.6 82.0 - 98.0 fL Final MCH 01/15/2025 27.3 27.0 - 33.0 pg Final MCHC 01/15/2025 33.1 32.0 - 35.0 g/dL Final RDW 01/15/2025 16.7 (H) 11.5 - 15.0 % Final Neutrophils % 01/15/2025 65.6 40.0 - 72.0 % Final Lymphocytes % 01/15/2025 20.9 20.0 - 45.0 % Final Monocytes % 01/15/2025 9.7 5.0 - 12.0 % Final Eosinophils % 01/15/2025 3.0 0.0 - 6.0 % Final Basophils % 01/15/2025 0.5 0.0 - 1.0 % Final Neutrophils Absolute 01/15/2025 4.99 1.60 - 7.60 10*3/uL Final Lymphocytes Absolute 01/15/2025 1.59 1.20 - 4.00 10*3/uL Final Monocytes Absolute 01/15/2025 0.74 0.10 - 1.00 10*3/uL Final Eosinophils Absolute 01/15/2025 0.23 0.00 - 0.50 10*3/uL Final Basophils Absolute 01/15/2025 0.04 0.00 - 0.20 10*3/uL Final Platelets 01/15/2025 285 150 - 400 10*3/uL Final nRBC % 01/15/2025 0.0 0 % Final Immature Granulocytes % 01/15/2025 0.3 0.0 - 1.0 % Final Immature Granulocytes Absolute 01/15/2025 0.02 0.00 - 0.20 10*3/uL Final Imaging: No results found for this or any previous visit from the past (more content not included)...[facility]10-01-2025 NoteNeurosurgery Progress Note Post-Op Day #1 Subjective Patient is here post-op after C6-C7 anterior cervical fusion. Patient noted no acute overnight events. He stated he is able to eat and drink with a little pain while swallowing. Patient stated he has been able to urinate and walk around several times yesterday and this morning. Additionally, he notes that he is having some watery eyes due to his allergies and requested Herlinda. Objective Patient Vitals for the past 24 hrs: BP Temp Temp src Pulse Resp SpO2 Height Weight 01/29/25 0345 -- -- -- -- -- -- -- 97.2 kg (214 lb 4.6 oz) 01/28/25 1828 142/83 36.7 ???C (98.1 ???F) Oral 105 16 94 % -- -- 01/28/25 1505 136/72 36.4 ???C (97.5 ???F) Axillary 93 16 96 % -- -- 01/28/25 1152 133/74 36.5 ???C (97.7 ???F) Oral 92 16 97 % -- -- 01/28/25 1152 133/74 36.5 ???C (97.7 ???F) Oral 92 16 97 % 1.778 m (5' 10 ) 97.6 kg (215 lb 2.7 oz) 01/28/25 1120 132/79 36 ???C (96.8 ???F) Temporal 92 13 91 % -- -- 01/28/25 1105 136/74 -- -- 83 13 93 % -- -- 01/28/25 1050 134/76 -- -- 86 13 (!) 89 % -- -- 01/28/25 1035 134/67 -- -- 77 15 91 % -- -- 01/28/25 1020 125/61 -- -- 85 10 93 % -- -- 01/28/25 1005 118/71 -- -- 78 10 92 % -- -- 01/28/25 0950 115/73 36.1 ???C (97 ???F) Temporal 81 20 95 % -- -- Physical Exam Constitutional: Appearance: Normal appearance. HENT: Head: Normocephalic and atraumatic. Eyes: Extraocular Movements: Extraocular movements intact. Pupils: Pupils are equal, round, and reactive to light. Cardiovascular: Rate and Rhythm: Normal rate and regular rhythm. Pulmonary: Breath sounds: Normal breath sounds. Abdominal: Palpations: Abdomen is soft. Skin: General: Skin is warm and dry. Psychiatric: Mood and Affect: Mood normal. Neurological Exam: CN II-XII are intact Bilateral Strength: 5 Sensation normal Normal Nose-Finger Test Lab Results Component Value Date NA 140 01/15/2025 K 4.0 01/15/2025 CL 104 01/15/2025 ANIONGAP 10 01/15/2025 BUN 11 01/15/2025 CREATININE 1.03 01/15/2025 CALCIUM 9.5 01/15/2025 No results found for: BILITOT , BILIDIR , ALKPHOS , AST , ALT , PROT , ALBUMIN Lab Results Component Value Date WBC 7.61 01/15/2025 RBC 5.45 01/15/2025 HGB 14.9 01/15/2025 HCT 45.0 01/15/2025 MCV 82.6 01/15/2025 MCH 27.3 01/15/2025 MCHC 33.1 01/15/2025 RDW 16.7 (H) 01/15/2025 NEUTOPHILPCT 65.6 01/15/2025 LYMPHOPCT 20.9 01/15/2025 MONOPCT 9.7 01/15/2025 EOSPCT 3.0 01/15/2025 BASOPCT 0.5 01/15/2025 NEUTROABS 4.99 01/15/2025 LYMPHSABS 1.59 01/15/2025 MONOSABS 0.74 01/15/2025 EOSABS 0.23 01/15/2025 BASOSABS 0.04 01/15/2025 PLT 285 01/15/2025 NRBC 0.0 01/15/2025 No X-ray results found for the past 24 hoursNo MRI results found for the past [address] results found for the past 24 hours Encounter Date: 01/15/25 ECG 12 lead Result Value Ventricular Rate 82 Atrial Rate 82 TX Interval 142 QRS DURATION 100 QT Interval 370 QTC CALCULATION(BAZETT) 432 P Garland 56 R-Garland 31 T Wave Garland 57 Impression Normal sinus rhythm Normal ECG When compared with ECG of 23-SEP-2011 08:05, No significant change was found Confirmed by Olive Andres ([id number]) on 01/15/2025 11:30:16 PM Assessment & Plan Assessment Vern Ravi is a 64 year old post-op day #1 of a C6-C7 Anterior Cervical Fusion secondary to cervical spondylosis and cervical radiculopathy at C7. Plan -Patient can be discharged today due to adequate urination and walking pending any complications that may arise -Herlinda may be given if needed -Follow-Up visit within 2 weeks Arias Lilly, M3 aTtedning addendum; POD # 1 s/p acf Overall doing well Working on paperwork for discharge home Pain control Mobilizing well Coleman Herrera MDUnUniversity Hospitals [facility]age [facility] Center09-30-2025 NotePt fully awake, alert and oriented. Pt ready for discharge to floor. VS stable. Anesthesia cleared for discharge to floor. Belongings given to pt at bedside. Report given to receiving nurse. Transport arranged. at bedsideUnUniversity Hospitals Portage Medical Center09-30-2025 NotePatient: Vern Ravi Procedure Summary Date: 01/28/25 Room / Location: [facility] OPERATING ROOM 03 / [facility] Operating Room Anesthesia Start: 744 Anesthesia Stop: 949 Procedure: C6-C7 ACF Diagnosis: Cervical spondylosis Cervical radiculopathy at C7 (cervical spondylosis/HNP and radiuclopathy at c6-7) Surgeons: Coleman Herrera MD Responsible Provider: James Merecr MD Anesthesia Type: general ASA Status: 2 Anesthesia Type: general Vitals Value Taken Time BP 139/76 01/28/25 11:33 Temp 36 ???C (96.8 ???F) 01/28/25 11:20 Pulse 79 01/28/25 11:34 Resp 8 01/28/25 11:34 SpO2 91 % 01/28/25 11:34 Vitals shown include unfiled device data. Anesthesia Post Evaluation Patient location during evaluation: PACU Patient participation: complete - patient participated Level of consciousness: awake and alert Pain management: satisfactory to patient Airway patency: patent Cardiovascular status: acceptable and stable Respiratory status: acceptable, unassisted and spontaneous ventilation Hydration status: stable Patient is hemodynamically stable and is able to be discharged from PACU per anesthesia protocol. No notable events documented.[facility]09-30-2025 Note Airway Date/Time: 01/28/2025 8:07 AM Reason: elective Airway not difficult General Information and Staff Patient location during procedure: OR Anesthesiologist: James Mercer MD Resident/WINDOW GLAZIER/CAA: Roberta Lucas MD Performed: resident/WINDOW GLAZIER/CAA Patient Condition Indications for airway management: anesthesia [...] approach: 1 Number of other approaches attempted: 0UnUniversity Hospitals Portage Medical [facility] 01-28-2025 NotePatient: Vern Ravi Procedure Information Date/Time: 01/28/25 0730 Procedure: C6-C7 ACF (Bilateral) - C-ARM, SUPINE ON STANDARD BED, Medtronic [place] Elite plate and Medtronic PEEK interbody cage (cervical), REP NOTIFIED 01/15 J Location: [facility] OPERATING ROOM 03 / [facility] Operating Room Surgeons: Coleman Herrera MD Relevant Problems Cardio (+) Benign essential HTN GI (+) GERD (gastroesophageal reflux disease) Pulmonary (+) Asthma (Never requires albuterol) Nervous (+) Cervical radiculopathy (+) Chronic pain syndrome (Prescribed [place], rarely requires) Musculoskeletal (+) Cervical spondylosis without myelopathy Endocrine/Metabolic (+) Diabetes (CMS/HCC) (Denies) CBC 01/15/25: BMP 01/15/25; Encounter Date: 01/15/25 ECG 12 lead Result Value Ventricular Rate 82 Atrial Rate 82 TX Interval 142 QRS DURATION 100 QT Interval 370 QTC CALCULATION(BAZETT) 432 P Garland 56 R-Garland 31 T Wave Garland 57 Impression Normal sinus rhythm Normal ECG When compared with ECG of 23-SEP-2011 08:05, No significant change was found Confirmed by Olive Andres ([id number]) on 01/15/2025 11:30:16 PM Clinical information reviewed: Tobacco Allergies Meds Med Hx Surg Hx Fam Hx Soc Hx Physical Exam Airway Mallampati: III TM distance: >3 FB Neck ROM: full Cardiovascular Rhythm: regular Rate: normal Dental - normal exam Pulmonary Breath sounds clear to auscultation Neurological Abdominal - normal exam Anesthesia Plan ASA 2 general The patient is not a current smoker. Patient was previously instructed to abstain from smoking on day of procedure. Patient did not smoke on day of procedure. Education provided regarding risk of obstructive sleep apnea. intravenous induction Postoperative pain plan includes opioids. Trial extubation is planned. Anesthetic plan and risks discussed with patient. Use of blood products discussed with patient who consented to blood products. Plan discussed with attending. Additional Equipment RequestsPrem[facility] Health [facility]09-24-2025 Note Subjective Patient ID: Vern Ravi is a 64 y.o. male who presents for Hyperlipidemia, Hypertension, and Follow-up (1 year follow up. With recent labs, Chest X-ray,EKG done last week for pre surgery testing. Patient is having neck surgery at [place] on MondayJan 28). Having neck surgery due to nerve problems. Able to split firewood with a splitter, lifts up to 50 lb logs Able to life heavy tools into truck. Does 12-15 stairs at home and in shop, can go to [place] of [place] no chest pain or shortness of breath with that. Hyperlipidemia Pertinent negatives include no chest pain or shortness of breath. Hypertension Pertinent negatives include no chest pain or shortness of breath. Review of Systems Respiratory: Negative for chest tightness and shortness of breath. Cardiovascular: Negative for chest pain and leg swelling. Neurological: Negative for dizziness, seizures, syncope and light-headedness. Objective Visit Vitals BP 139/87 (BP Location: Left arm, Patient Position: Sitting) Pulse 85 Physical Exam Constitutional: Appearance: Normal appearance. He is normal weight. HENT: Head: Normocephalic and atraumatic. Cardiovascular: Rate and Rhythm: Normal rate and regular rhythm. No extrasystoles are present. Pulses: Carotid pulses are 2+ on the right side and 2+ on the left side. Radial pulses are 2+ on the right side and 2+ on the left side. Heart sounds: Heart sounds not distant. No murmur heard. No friction rub. No gallop. Pulmonary: Effort: Pulmonary effort is normal. Breath sounds: Normal breath sounds. Abdominal: Palpations: Abdomen is soft. Skin: General: Skin is warm and dry. Neurological: Mental Status: He is alert and oriented to person, place, and time. Psychiatric: Mood and Affect: Mood normal. Behavior: Behavior normal. I personally reviewed EKG strips of 01/15/25 EKG: normal Assessment/Plan Mr. Ravi is planning cervical spine surgery. He has good functional status and no symptoms of cardiovascular issues. His resting EKG is normal. I believe that he is acceptable risk for neck surgery. If there are issues or concerns in the perioperative period please call and I will assist. Diagnosis Plan 1. Mixed hyperlipidemia evolocumab (Repatha SureClick) 140 mg/mL pen injector 2. Pre-operative cardiovascular examination No orders of the defined types were placed in this encounter. No results found for this or any previous visit (from the past 36 hours). No follow-ups on file.[facility]09-17-2025 Note NEUROSURGERY NOTE SUBJECTIVE: Chief complaint: Preoperative visit for anterior cervical discectomy and fusion C6-C7 scheduled for 01/28/[address] Herrera. History of present illness: He has been having neck pain as well as shoulder and upper arm pain bilaterally for many years that has been progressively worsening, particularly over the past 1 year. He also endorses numbness of his 1st through 3rd fingers mainly, though most of the other fingers are involved to a lesser extent. Denies falls or imbalance, bowel or bladder changes. Has previously tried physical therapy, injections, medications without lasting or substantial relief. Review of systems: As in HPI. Denies coughing, shortness of breath, chest pain. Denies rashes, wounds, open sores. Medical History[1] Surgical History[2] Social History[3] Family History[4] OBJECTIVE: Medications: acetaminophen fexofenadine HYDROcodone-acetaminophen multivitamin pantoprazole Repatha SureClick pen injector sennosides-docusate sodium Current Medications[5] Allergies: Allergies[6] Exam: Exam performed and reviewed, changes as below. Vitals reviewed: No intake/output data recorded. No intake/output data recorded. Accompanied by today. Constitutional: In no apparent distress. Cardiovascular: Heart sounds regular rate and rhythm without appreciable murmur. Chest: Lung sounds clear to auscultation bilaterally. Respirations regular and nonlabored. Extremities without edema. Skin warm and dry without pallor. Neuro: GCS 15/15. Attention and memory intact. No dysarthria or aphasia. Sensation: Intact to light touch C5-T1 and L2-S1 dermatomes bilaterally with exception of diminished sensation left medial forearm, which is chronic for him. Musculoskeletal: Right handed. Deltoid 5/5 bilaterally. Triceps 5/5 bilaterally. Biceps 5/5 bilaterally. Finger flexors 5/5 bilaterally. Finger abductors 5/5 bilaterally. Hip flexors 5/5 bilaterally. Knee flexors and extensors 5/5 bilaterally. Ankle dorsal flexors 5/5 bilaterally. Ankle plantar flexors 5/5 bilaterally. Muscle tone without hyper or hypotonicity. Muscle bulk appropriate for age. Independently ambulatory. Labs: Hospital Outpatient Visit on 01/15/2025 Component Date Value Ref Range Status Ventricular Rate 01/15/2025 82 BPM Final Atrial Rate 01/15/2025 82 BPM Final TX Interval 01/15/2025 142 ms Final QRS DURATION 01/15/2025 100 ms Final QT Interval 01/15/2025 370 ms Final QTC CALCULATION(BAZETT) 01/15/2025 432 ms Final P Garland 01/15/2025 56 degrees Final R-Garland 01/15/2025 31 degrees Final T Wave Garland 01/15/2025 57 degrees Final Lab on 01/15/2025 Component Date Value Ref Range Status ABO Grouping 01/15/2025 A Final Rh Type 01/15/2025 POS Final Ab Scrn 01/15/2025 NEG Final MSSA DNA 01/15/2025 Negative Negative Final MRSA DNA 01/15/2025 Negative Negative Final Sodium 01/15/2025 140 136 - 145 mmol/L Final Potassium 01/15/2025 4.0 3.5 - 5.1 mmol/L Final Chloride 01/15/2025 104 98 - 107 mmol/L Final CO2 01/15/2025 30 21 - 31 mmol/L Final BUN 01/15/2025 11 7 - 25 mg/dL Final Creatinine 01/15/2025 1.03 0.70 - 1.30 mg/dL Final Glucose 01/15/2025 94 70 - 100 mg/dL Final Calcium 01/15/2025 9.5 8.6 - 10.3 mg/dL Final Anion Gap 01/15/2025 10 7 - 20 mmol/L Final eGFR 01/15/2025 82.1 >60.0 mL/min/1.73m*2 Final BUN/Creatinine Ratio 01/15/2025 10.7 Final Auto WBC 01/15/2025 7.61 4.00 - 10.60 10*3/uL Final RBC 01/15/2025 5.45 4.20 - 5.70 10*6/uL Final Hemoglobin 01/15/2025 14.9 13.0 - 17.0 g/dL Final Hematocrit 01/15/2025 45.0 39.0 - 50.0 % Final MCV 01/15/2025 82.6 82.0 - 98.0 fL Final MCH 01/15/2025 27.3 27.0 - 33.0 pg Final MCHC 01/15/2025 33.1 32.0 - 35.0 g/dL Final RDW 01/15/2025 16.7 (H) 11.5 - 15.0 % Final Neutrophils % 01/15/2025 65.6 40.0 - 72.0 % Final Lymphocytes % 01/15/2025 20.9 20.0 - 45.0 % Final Monocytes % 01/15/2025 9.7 5.0 - 12.0 % Final Eosinophils % 01/15/2025 3.0 0.0 - 6.0 % Final Basophils % 01/15/2025 0.5 0.0 - 1.0 % Final Neutrophils Absolute 01/15/2025 4.99 1.60 - 7.60 10*3/uL Final Lymphocytes Absolute 01/15/2025 1.59 1.20 - 4.00 10*3/uL Final Monocytes Absolute 01/15/2025 0.74 0.10 - 1.00 10*3/uL Final Eosinophils Absolute 01/15/2025 0.23 0.00 - 0.50 10*3/uL Final Basophils Absolute 01/15/2025 0.04 0.00 - 0.20 10*3/uL Final Platelets 01/15/2025 285 150 - 400 10*3/uL Final nRBC % 01/15/2025 0.0 0 % Final Immature Granulocytes % 01/15/2025 0.3 0.0 - 1.0 % Final Immature Granulocytes Absolute 01/15/2025 0.02 0.00 - 0.20 10*3/uL Final Imaging: No results found for this or any previous visit from the past 360 days. Impression: Degenerative cervical spinal stenosis. Cervical spondylosis. Plan: Per Dr. Herrera, plan for anterior cervical discectomy and fusion C5-C6. 2. Independently reviewed and interpreted MRI cervical spine completed 09/06/2023. Multilevel disc degeneration and disc bulging o (more content not included)...[facility]08-20-2025 NoteIn person visit Chief complaint: Chronic neck pain [place]: Vern Ravi is a 64 yr old [...] Attending addendum; I personally saw and evaluate [facility] patient in clinic with the medical student [...] mg by mouth in the morning. HYDROcodone-acetaminophen ([place]) 5-325 mg tablet Take 1 tablet by [...] Gabapentin Other Simvastatin Swelling BLE edema, generalized malaisePremier Health Atrium Medical Center08-20-2025 Note In person visit Chief complaint: Chronic neck pain [place]: Vern Ravi is a 64 yr old [...] mg by mouth in the morning. HYDROcodone-acetaminophen ([place]) 5-325 mg tablet Take 1 tablet by [...] saw and evaluated the patient with Rashmi ARDON in clinic today. The patient has been [...] donor bone, cage and plate. Coleman Herrera MDPremier Health Atrium Medical Center07-24-2025 NoteOrthopaedic Surgery Subjective Pain of the Left Shoulder [...] Negative Chloe's, negative labrum apprehension test, negative Clintwood's. Spurling's: Negative Right Shoulder: Inspection- no ecchymosis, [...] Gabapentin Other Simvastatin Swelling BLE edema, generalized malaisePremier Health Atrium Medical Center04-30-2025 Note Patient: Vern Ravi Procedure Summary Date: 08/28/24 Room / Location: [facility] Invasive Surgery [place] Anesthesia Start: 834 Anesthesia Stop: 920 Procedure: DIAGNOSTIC COLONOSCOPY Diagnosis: GI bleeding Scheduled Providers: Dilan Chaney MD; FOREST Chacon; Juarez Cummings MD Responsible Provider: Dilan Chaney MD Anesthesia Type: MAC ASA Status: 2 [...] PACU per anesthesia protocol. No notable events documented.[facility]04-30-2025 Note Hospital Medicine Discharge Summary Final Discharge Diagnosis: GI bleeding Colonic polyps Acute blood loss anemia GERD (gastroesophageal reflux disease) Mixed hyperlipidemia Anxiety Admission Diagnosis: GI bleeding [K92.2] Hospital course: 64-year-old male with the above history who was admitted to [facility] from [facility] on 08/24 due to GI bleeding. Patient presented with melena and also bright red blood per rectum. Hemoglobin was 13 and the patient was hemodynamically stable. Initially was sent home after being told to take Protonix twice daily however he continued to have GI bleed. Upon presentation once again hemoglobin was 11.5 and he was transferred to [facility] for GI workup. He admits to taking [...] Colonoscopy Consultations During Admission: Gastroenterology Dear MD Roxi, Vern is advised to follow up with you within 1-2 weeks. Items to follow up in ambulatory setting: Follow-up serial CBCs Follow-up with: Gastroenterology Scheduled appointments: Future Appointments Date Time Provider Department Center 09/27/2024 1:[address] [facility] FLUORO RM 4 [facility] XRAY Radiology 09/27/2024 2:[address] [facility] MR1 [facility] MRI Radiology Your medication list START taking [...] HYDROcodone-acetaminophen 5-325 mg tablet Commonly known as: [place] pantoprazole 40 mg EC tablet Commonly known [...] last 7 days Lab Units 08/28/24 0730 08/27/248 08/25/24200108/25/24 0456 08/24/24 1357 08/24/24 0742 WBC [...] and documentation was 30 minutes. Signed Ken Bell MD Hospital Medicine 08/28/2024 3:24 PM CC: MD RoxiUnUniversity Hospitals [facility]04-30-2025 NoteThis report has been cancelled.[facility]04-29-2025 Note-Will decrease PPI back to home dose of qdUnUniversity Hospitals Portage Medical Center04-29-2025 Note- Hemoglobin continues to be stable. Status post EGD showing no active bleeding - patient with history of aspirin and NSAID use -Spoke with GI, did have CLN one year ago but due to recurrent GIB will proceed with colonoscopy tomorrowUnUniversity Hospitals [facility]04-29-2025 Note- as needed XanaxUnUniversity Hospitals Portage Medical Center04-29-2025 Note- As above [facility]04-29-2025 Note- Holding home meds.[facility]04-29-2025 NoteHospital Medicine Daily Progress Note - 08/27/2024 8:41 AM; Room: [address] [place], [place] [id number] Admission: 08/24/2024 6:44 AM; Length of stay: 3 days THE HOSPITALIST TEAM PREFERS TO USE [employer] CHAT FOR NON-URGENT COMMUNICATION 7AM-7PM. IF I DO NOT RESPOND WITHIN 20 MINUTES OR URGENT MATTERS, PLEASE CALL THROUGH THE RETORT OR CONDENSER PRESS OPERATOR. FROM 7PM-7AM, PLEASE PAGE [phone](COVR). Code Status: Full Code Barriers to Discharge: [...] , FREET4 , CORTISOL , FEV1 , SSD9TBY , DLCO , RVSP , HDL , LDL No results found for: [id number] , IRON , TIBC , C3 , [...] on 08/26/24 Attending Physician: Juarez Cummings MD Health Professor: none Procedure Details: Informed consent was obtained [...] colonoscopy Clear liquid di (more content not included)...[facility]04-29-2025 [facility] Teaching GI Service Consult Gastroenterology/Hepatology Progress Note IDENTIFYING DATA PATIENT: [...] for melena. Initially, he went to the [facility] 08/23/2024 after experiencing melena for [...] g/dL, and he was subsequently transferred to [facility] for GI evaluation. He reports that he [...] physician For Questions please contact us at: [place] [facility] 6 am to 4 pm weekdays in house Phone extension: [phone] 4 pm to 6 am or weekends please contact the die cutting machine operator to page the fellow correctional therapy teacher [facility]04-28-2025 Note- as needed XanaxUnUniversity Hospitals Portage Medical Center04-28-2025 Note- As aboveUnUniversity Hospitals [facility] Center04-28-2025 Note- Previously on 40 mg Protonix daily.[facility]04-28-2025 Note- Holding home meds.[facility]04-28-2025 Note- Hemoglobin continues to be stable. Status post EGD showing no active bleeding. Continue to clear liquid diet as per GI recommendations. Discussed with RN to obtain records from [facility] regarding his colonoscopy in August 2023 - patient with history of aspirin and NSAID use. -Further recommendations as per GIUnUniversity Hospitals Portage Medical Center04-28-2025 NoteHospital Medicine Daily Progress Note - 08/26/2024 5:58 PM; Room: 5186/5186-01 Admission: 08/24/2024 6:44 AM; Length of stay: 2 days THE HOSPITALIST TEAM PREFERS TO USE [employer] FOR NON-URGENT COMMUNICATION 7AM-7PM. IF I DO NOT RESPOND WITHIN 20 MINUTES OR URGENT MATTERS, PLEASE CALL THROUGH THE RETORT OR CONDENSER PRESS OPERATOR. FROM 7PM-7AM, PLEASE PAGE [phone](COVR). Code Status: Full Code Barriers to Discharge: [...] Discussed with RN to obtain records from [facility] regarding his colonoscopy in August 2023 [...] , FREET4 , CORTISOL , FEV1 , [id number] , DLCO , RVSP , HDL , LDL No results found for: [id number] , IRON , TIBC , C3 , [...] on 08/26/24 Attending Physician: Juarez Cummings MD Health Professor: none Procedure Details: Informed consent was obtained [...] of bleeding identified Speci (more content not included)...[facility] 08-26-2024 NotePatient: Vern Ravi Procedure Summary Date: 08/26/24 Room / Location: [facility] Anesthesia Start: 1521 Anesthesia Stop: [...] PACU per anesthesia protocol. No notable events documented.[facility]04-28-2025 Note Patient: Vern Ravi Procedure Summary Date: 08/26/24 Room / Location: [facility] Anesthesia Start: 1521 Anesthesia Stop: 1538 Procedure: EGD Diagnosis: GI bleeding Gastroesophageal reflux disease, unspecified whether esophagitis present Scheduled Providers: Sherry Preist MD; Gerson Deluca CRNA; Juarez Cummings MD Responsible Provider: Sherry Priest MD Anesthesia Type: MAC ASA Status: 2 Anesthesia Post Transport [facility] Oxygen Flow (L/min): 8 Patient Monitor: direct observation Transport: uneventful Patient condition is: stableUnUniversity Hospitals Portage Medical Center04-28-2025 Note Patient: Vern Ravi Procedure Information Date/Time: 08/26/24 1730 Scheduled providers: Sherry Priest MD; Gerson Deluca CRNA; Juarez Cummings MD Procedure: EGD Location: [facility] Invasive Surgery [place] Relevant Problems Anesthesia (within normal limits) Cardio [...] patient. Plan discussed with CAA. Additional Equipment RequestsUnUniversity Hospitals Portage Medical Center04-27-2025 Note- Continue with IV Protonix. Continue monitoring hemoglobin. Continue monitoring on telemetry. - Hemoglobin trending down, currently at 10.4. Transfuse if hemoglobin drops below 7. - Pending EGD in AM. - patient with history of aspirin and NSAID use.[facility]04-27-2025 Note- Previously on 40 mg Protonix daily.[facility]04-27-2025 Note- as needed XanaxUnUniversity Hospitals [facility] Medical Center04-27-2025 Note- Holding home meds.[facility] 08-25-2024 Note- As aboveUnUniversity Hospitals [facility] Center04-27-2025 Note Hospital Medicine Daily Progress Note - 08/25/2024 1:28 PM; Room: [address] [place] [address] Admission: 08/24/2024 6:44 AM; Length of stay: 1 days THE HOSPITALIST TEAM PREFERS TO USE [employer] CHAT FOR NON-URGENT COMMUNICATION 7AM-7PM. IF I DO NOT RESPOND WITHIN 20 MINUTES OR URGENT MATTERS, PLEASE CALL THROUGH THE RETORT OR CONDENSER PRESS OPERATOR. FROM 7PM-7AM, PLEASE PAGE [phone](COVR). Code Status: Full Code Barriers to Discharge: [...] , FREET4 , CORTISOL , FEV1 , [id number] , DLCO , RVSP , HDL , LDL No results found for: [id number] , IRON , TIBC , C3 , C4 , MEHUL , CANCA , ASO , PSA , CEA , CA125 , CA199 , AFP , CA153 Imaging MR transfer of outside films This order has been auto-finalized and does not contain a result. Discharge Planning Signed Les Pozo MD [facility] 08/25/2024 1:28 PMPremier Health Atrium Medical Center04-27-2025 NoteDR[facility] Consult Gastroenterology/Hepatology Progress Note IDENTIFYING DATA PATIENT: [...] for melena. Initially, he went to the [facility] 08/23/2024 after experiencing melena for [...] g/dL, and he was subsequently transferred to [facility] for GI evaluation. He reports that he [...] physician For Questions please contact us at: [place] [facility] 6 am to 4 pm weekdays in house Phone extension: [phone] 4 pm to 6 am or weekends please contact the die cutting machine operator to page the fellow correctional therapy teacher [facility]04-26-2025 NoteCase was discussed with the TENA on 08/24/2024. I physically saw [...] his family at the bedside. Les Pozo MDUnUniversity Hospitals [facility]04-26-20[address] NoteDR[facility] Service Initial Gastroenterology/Hepatology Consultation Note IDENTIFYING DATA PATIENT: Vern Ravi ADMIT DATE: 08/24/2024 TIME OF EVALUATION: 08/24/2024 1:16 PM Reason for Consult: UGI bleeding HISTORY OF PRESENT ILLNESS Vern Ravi is a 64 y.o. 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 Initially, he went to the [facility] 08/23/2024 after experiencing melena for [...] g/dL, and he was subsequently transferred to [facility] for GI evaluation. He reports that he [...] 14 DAYS 05/20/24 Cata Mccoy CNP HYDROcodone-acetaminophen ([place]) 5-325 mg tablet TAKE 1 TABLET BY [...] 08/24/2024 BUN 16 08/25/19 (more content not included)...[facility]04-26-2025 [facility] Teaching GI Service Initial Gastroenterology/Hepatology Consultation Note IDENTIFYING DATA PATIENT: Vern Ravi ADMIT DATE: 08/24/2024 TIME OF EVALUATION: 08/24/2024 1:16 PM Reason for Consult: UGI bleeding HISTORY OF PRESENT ILLNESS Vern Ravi is a 64 y.o. 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 Initially, he went to the [facility] 08/23/2024 after experiencing melena for [...] g/dL, and he was subsequently transferred to [facility] for GI evaluation. He reports that he [...] 14 DAYS 05/20/24 Cata Mccoy CNP HYDROcodone-acetaminophen ([place]) 5-325 mg tablet TAKE 1 TABLET BY [...] 08/24/2024 BUN 16 08/25/19 (more content not included)...[facility]04-26-2025 Note- Previously on 40 mg Protonix daily.[facility]04-26-2025 Note-Type and screen -IV Protonix 40 mg twice daily -Place 2 large-bore Ivs -Trend hemoglobin every 8 hours -Hold aspirin and meloxicam. -GI consult for EGD -N.p.o. for now -IV lactated Ringer's at 75 cc an hourUnUniversity Hospitals Portage Medical Center 08-24-2024 NoteHospital Medicine History and Physical 08/24/2024 7:40 AM THE HOSPITALIST TEAM PREFERS TO USE [employer] CHAT FOR NON-URGENT COMMUNICATION 7AM-7PM. IF I DO NOT RESPOND WITHIN 20 MINUTES OR URGENT MATTERS, PLEASE CALL THROUGH THE RETORT OR CONDENSER PRESS OPERATOR. FROM 7PM-7AM, PLEASE PAGE [phone](COVR). Chief Complaint No chief complaint on file. History of Present Illness Vern Ravi is an 64 y.o. male w a PMH of chronic pain 2/2 previous crushing injury, GERD, and HLD who came from [facility] with acute GI bleeding. Patient presented to [facility] ED yesterday after having melena with some [...] this hospital stay by a member of [facility]. Past Medical History Past Medical History: Diagnosis Date Asthma Hyperlipidemia Past Surgical History Past Surgical History: Procedure Laterality Date ARM DEBRIDEMENT Left regloved left arm-multiple surgeries FOREARM SURGERY LIPOMA RESECTION LIPOMA REMOVAL PECTORALIS MAJOR REPAIR PECTORALIS MAJOR REPAIR Left SHOULDER ARTHROSCOPY Right RT SHOULDER SCOPE TONSILLECTOMY TONSILLECTOMY Social History Social History Socioeconomic H (more content not included)...[facility]04-03-2024 NoteChief Complaint consultation for colonoscopy [facility] Staff 63 year old male presents on consultation from Dr. Diane for screening colonoscopy. Denies abdominal or rectal [...] swallowing difficulties, no hearing loss, no ear infection(s),no nose bleeds. Cardiovascular: normal blood pressure, no [...] Tobacco Use:., 08/02/2023 Family (more content not included)...[facility] [place] West[place]:Result Comment: Electronically Signed By: Sea VALDERRAMA MD\Date and Time Signed: 08/02/23 16:15 EDTEvaluation + Plan note No data available for this section General [facility] Discharge instructions No data available for this section General [facility] Progress note No data available for this section [facility] Summary Purpose Family History No Family History [...] section and content) DATE CREATED AUTHOR 02/02/2022 [facility] DATE CREATED AUTHOR AUTHOR'S ORGANIZ ATION 12/05/2023 [facility] [place] [facility] DATE CREATED AUTHOR AUTHOR'S ORGANIZ ATION 02/14/2025 [facility] Patient Care team informatio n (unrecognized section and content) Personnel Name: Landen Diane MD Address: Address: [address] [place] [address] FOR RECORDS PERTAINING TO PATIENTS WHO ARE [...] BE BASED ON THE PRIMARY CLINICAL RECORDS. [facility] [employer] [facility]. provides no warranty or guarantee of the accuracy or completeness of information in this document.
--- NOTE | 2025-03-03 09:05 | ED.UPPEXIN1 ---
HPI HPI - Extremity Injury (Upper) General Chief Complaint: Extremity Injury, Upper Stated Complaint: UPPER EXTREMITY INJURY - 03/02/25 Time Seen by Provider: 03/03/25 08:40 Source: patient Mode of arrival: walk-in Limitations: no limitations History of Present Illness HPI narrative: The patient presents to us with a right wrist pain that started yesterday after he tripped over some firewood, the patient mentioned that yesterday he did not have any significant pain he did take some Percocet he had from previous evaluation and he presented today for evaluation because he is having some right wrist pain Related Data Home Medications ?Medication ?Instructions ?Recorded ?Confirmed multivitamin (Daily Multi-Vitamin 1 tab PO DAILY 09/07/23 03/03/25 tablet) pantoprazole 40 mg tablet,delayed 40 mg PO DAILY 09/07/23 03/03/25 release evolocumab 140 mg/mL subcutaneous 140 mg subcut QWEEK 03/03/25 03/03/25 pen injector (J Luis Alas) ketoconazole 2 % topical cream 1 applic topical BID PRN skin 03/03/25 03/03/25 irritation tizanidine 2 mg tablet 2 mg PO Q8H PRN muscle spasticity 03/03/25 03/03/25 Allergies Allergy/AdvReac Type Severity Reaction Status Date / Time NSAIDS (Non-Steroidal Allergy Severe bleeding Verified 03/03/25 08:35 Anti-Inflamma gabapentin Allergy Unknown feeling Verified 03/03/25 08:35 ill simvastatin Allergy Unknown Muscle Pain Verified 03/03/25 08:35 Opioid HPI Opioid Management Most Recent Pain and Opioid Data: Last Pain Scale 4 Today, 08:43 Review of Systems ROS Status of ROS 10 or more systems reviewed and unremarkable except as noted in history and below [facility] Medical History (Updated 03/03/25 @ 09:29 by Yancy Alfaro MD) History of lipoma ?Z86.018 - Personal history of other benign neoplasm (ICD-10) Arthropathy of right shoulder ?M19.011 - Primary osteoarthritis, right shoulder (ICD-10) Sigmoid polyp ?K63.5 - Polyp of colon (ICD-10) Seasonal allergic rhinitis ?J30.2 - Other seasonal allergic rhinitis (ICD-10) Pain syndrome, chronic ?G89.4 - Chronic pain syndrome (ICD-10) Obesity ?E66.9 - Obesity, unspecified (ICD-10) Lumbar disc disease ?M51.9 - Unspecified thoracic, thoracolumbar and lumbosacral intervertebral disc disorder (ICD-10) Internal hemorrhoid ?K64.8 - Other hemorrhoids (ICD-10) Hyperlipidemia ?E78.5 - Hyperlipidemia, unspecified (ICD-10) Diverticulitis ?K57.92 - Diverticulitis of intestine, part unspecified, without perforation or abscess without bleeding (ICD-10) GERD (gastroesophageal reflux disease) ?K21.9 - Gastro-esophageal reflux disease without esophagitis (ICD-10) Diverticulosis ?K57.90 - Diverticulosis of intestine, part unspecified, without perforation or abscess without bleeding (ICD-10) Cervical radiculopathy ?M54.12 - Radiculopathy, cervical region (ICD-10) Asthma ?J45.909 - Unspecified asthma, uncomplicated (ICD-10) Surgical History (Updated 09/08/23 @ 11:20 by sEther Alan) History of esophagogastroduodenoscopy ?Z98.890 - Other specified postprocedural states (ICD-10) History of surgery on arm ?Z98.890 - Other specified postprocedural states (ICD-10) History of arthroscopy of right shoulder ?Z98.890 - Other specified postprocedural states (ICD-10) Hx of tonsillectomy ?Z90.89 - Acquired absence of other organs (ICD-10) H/O colonoscopy ?Z98.890 - Other specified postprocedural states (ICD-10) Family History (Updated 09/07/23 @ 14:26 by Danielle Mcmillan) Mother Heart disease Family history of hypertension Family history of cancer Father Heart disease Social History (Updated 09/08/23 @ 11:15 by Esther Alan) Within the past year, how often did you have a drink containing alcohol: never Score interpretation: A score less than 4 is consistent with normal alcohol consumption. 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 General: Well-appearing and in no apparent distress. Skin: Warm, dry, no pallor noted. No rash. Head: Normocephalic, atraumatic. Right upper extremity: There is a mild edema at the lateral aspect of the wrist on the right side there is no scaphoid tenderness and there is no limitation of movement of the wrist. No ecchymosis no open wound and the patient have no tenderness at any other point and that he have no vascular injury with a good radial pulse and normal capillary refill Neurological: A&O x4. No cranial nerve dysfunction observed. No truncal ataxia. Moves all extremities. Sensation intact. Psychiatric: Cooperative and interactive. Normal mood and affect. Constitutional Vital Signs, click to edit/add: Last Vital Signs Temp 98.2 F 03/03/25 08:35 Pulse 87 03/03/25 08:35 Resp 16 03/03/25 08:35 BP 137/85 03/03/25 08:35 Pulse Ox 99 03/03/25 08:35 Course Vital Signs Vital signs: Vital Signs Temperature 98.2 F 03/03/25 08:35 Pulse Rate 87 03/03/25 08:35 Respiratory Rate 16 03/03/25 08:35 Blood Pressure 137/85 03/03/25 08:35 Pulse Oximetry 99 03/03/25 08:35 Temperature 98.2 F 03/03/25 08:35 Pulse Rate 87 03/03/25 08:35 Respiratory Rate 16 03/03/25 08:35 Blood Pressure 137/85 03/03/25 08:35 Pulse Oximetry 99 03/03/25 08:35 MDM - Extremity Injury (Upper) MDM Narrative Medical decision making narrative: X-ray of the patient's right wrist showed no acute pathology The patient right now presenting with contusion to the right wrist he is not tender at all at the scaphoid area but I did explain to him that he have to follow-up with his primary care within a week in case of continuous pain he is to have the x-ray repeated Patient had a Velcro splint applied Tylenol for pain control at home The patient to follow-up with the primary care within 2 to 3 days and to come back to the ER in case of any worsening of the current symptoms or any new symptoms or concerns Discharge Plan Discharge Chief Complaint: Extremity Injury, Upper Clinical Impression: Contusion of right wrist Patient Disposition: Home, Self-Care Time of Disposition Decision: 09:29 Condition: Good Mode of Transportation: Private Vehicle Prescriptions / Home Meds: No Action multivitamin [Daily Multi-Vitamin] Tablet 1 tab PO DAILY pantoprazole 40 mg tablet,delayed release (DR/EC) 40 mg PO DAILY tizanidine 2 mg tablet 2 mg PO Q8H PRN (Reason: muscle spasticity) ketoconazole 2 % cream 1 applic TOPICAL BID PRN (Reason: skin irritation) Repatha SureClick 140 mg/mL pen injector 140 mg SUBCUT QWEEK Print Language: Estonian Instructions: Wrist Injury (ED), Contusion in Adults (ED) Referrals: Landen Zabala MD [Primary Care Provider, Family Practice] - 1 week Discharge Date/Time: 03/03/25 09:37
== END 2025-03-03 09:37 | disposition home or self-care (01) ==
PROVIDERS: Emergency Provider Emergency Medicine; PCP Family Medicine
DX: S60.211A Contusion of right wrist, initial encounter (principal); W01.0XXA Fall on same level from slipping, tripping and stumbling without subsequent striking against object, initial encounter
CPT/HCPCS: 73110; 99283

== ENCOUNTER 2025-03-14 15:24 | Outpatient (OUT) | payer OTHER, SELFPAY ==
--- OUTSIDE RECORDS SUMMARY | 2025-03-14 15:28 | XMS_ITS | CCD ---
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 Name Role Phone DR LANDEN DIANE Primary [...] Attending Unavailable Landen Diane Primary Care Physician [phone] Landen Diane Referring Unavailable Sea VALDERRAMA Attending [...] of OnsetReaction(s) Facility (4 sources)gabapentin; Translations: [gabapentin]Drug Ndywyds50-54-9504Ysh [facility] Repository (1 source)gabapentin; Translations: [gabapentin]Drug AllergyUndifferentiated illness: Vague ill health (finding)General Surgery Harvey (3 sources)Simvastatin; Translations: [simvastatin]Drug Jqlzshs46-87-5100Hfyxfu pain (finding)General Surgery Harvey (1 source)NSAIDs; Translations: [NSAIDS (NON-STEROIDAL ANTI-INFLAMMATORY DRUG)] Propensity to adverse reactions to drug (disorder)51-26-1722EvpvspqpxfUniversity Hospitals Lake West Medical Center Repository Medications Current Medications MedicationDrug Class(es)DatesSig (Normalized)Sig (Original)acetaminophen 325 mg / HYDROcodone bitartrate 5 mg oral tablet (1 source)Opioid AgonistStart: 42-95-4183pyaz 1 tablet by mouth every six hours as needed for painacetaminophen-hydrocodone 325 mg-5 mg oral tablet 1 tab(s), Oral, q6hr as needed for pain, Refill(s) 0 Start Date: 06/29/23 Status: Ordered aspirin 325 mg delayed release oral tablet (1 source)Platelet Aggregation Inhibitor, Nonsteroidal Anti-inflammatory Drug Start: 74-52-0255uhqd 1 tablet by mouth once dailyaspirin 325 mg Oral EC Tab 325 mg = 1 tab(s), Oral, Daily, Refills(s) 0 Start Date: 01/24/20 Status:Ordered1 ml evolocumab 140 mg/ml prefilled syringe (1 source)PCSK9 InhibitorStart: 36-18-1643jtzdae 140 mg by subcutaneous injection every other weekRepatha 140 mg/mL subcutaneous solution 140 mg, SubCutaneous, q2wk, Refills(s) 0 Start Date: 08/02/23Status: Orderedibuprofen 800 mg oral tablet (1 source)Nonsteroidal Anti-inflammatory DrugStart: 35-83-5234xkts 1 tablet by mouth once dailyibuprofen 800 mg Tab 800 mg = 1 tab(s), Oral, Daily, Refills(s) 0 Start Date: 08/02/23 Status: OrderedMulti Vitamins oral tablet (1 source)Start: 46-94-5899ctsf 1 tablet by mouth once dailyMulti Vitamins oral tablet 1 tab(s), Oral, Daily, Refill(s) 0 Start Date: 06/29/23 Status: Ordered pantoprazole 40 mg delayed release oral tablet (1 source)Proton Pump InhibitorStart: 52-20-7769wxfc 1 tablet by mouth once dailyPantoprazole [address] Tab 40 mg = 1 tab(s), Oral, Daily, Refills(s) 0 Start Date: 01/22/20 Status: Ordered Completed/Discontinued Medications MedicationDrug Class(es)DatesSig (Normalized)Sig (Original)docusate sodium 50 mg / sennosides, fpc 8.6 mg oral tablet (1 source)Start: 05-61-5445rjuk 1 tablet by mouth once daily at bedtimedocusate- senna 50 mg-8.6 mg Tab 1-2 tabs, Oral, Once a day (at bedtime), Refill(s) 0 Start Date: 06/29/23 Status: Ordered Problems Active Problems Problem ClassificationProblemDateDocumented DateEpisodic/ChronicAsthma (1 source)Hiegbc70-79-9855RvztepeVtyvyahm mellitus without complication (2 sources)Diabetes spjxzelm60-35-0205VkjcvkdEtplxlwmc of lipid metabolism (4 sources)Familial hypercholesterolemia; Translations: [Hyperlipidemia]Onset: 014840-14-2420AonolwkZkbpqcbgqcntwp and diverticulitis (1 source)Diverticular zxuyosj22-69-7551OiaulkmUzcbhttlpw disorders (3 sources)Gastroesophageal reflux disease; Translations: [Gastro-esophageal reflux disease without esophagitis]Onset: 880602-75-2150CbflggrJdwwuuevh hypertension (1 source)Benign essential xixonwomldfs39-78-8250KimstagIaiygaabbrh (1 source)Internal motbnfmvklw48-79-2722DgnwlidaVszppqwnlxy of prostate (1 source)Benign prostatic -34-6977XlfwtxnXmrlr and unspecified benign neoplasm (1 source)Polyp of sigmoid -81-9284LrxwwkzgCuaiv connective tissue disease (2 sources)Other muscle spasm; Translations: [Other muscle spasm]Onset: 24-35-2557LinhxeklNlcvu gastrointestinal disorders (1 source)History of bmystcqdyupzfh90-16-7410YulfemmmMlkns gastrointestinal disorders (2 sources)Drug induced constipation; Translations: [Drug induced constipation] Onset: 45-44-9320VfnrxbxfYvrfh hereditary and degenerative nervous system conditions (1 source)Hereditary essential pmaqqd23-94-2611BsitclqSihqg nervous system disorders (1 source)Chronic pain ktnyzxkd27-51-3309LzpdoesGcrkh nervous system disorders (2 sources)Other acute postprocedural pain; Translations: [Other acute postprocedural pain]Onset: 76-18-5250WfgmhjynRktmh nutritional; endocrine; and metabolic disorders (1 source)Body mass index 30+ - pasfcyf61-36-1195FklitueKsrod nutritional; endocrine; and metabolic disorders (1 source)Pfruusa74-71-8320LletwunKxnor screening for suspected conditions (not mental disorders or infectious disease) (2 sources)Encounter for screening for malignant neoplasm of prostate; Translations: [Screening for malignant neoplasm of colon done]Onset: 10-14-2021 EpisodicOther upper respiratory disease (1 source)Seasonal allergic -39-8392EzxvvlmKlprlcsh codes; unclassified (1 source)Family history of cancer of fywhh23-75-0722FwzyaqleQogvkxfy codes; unclassified (2 sources)Pain, unspecified; Translations: [Pain, unspecified]Onset: 01-28-2025 EpisodicResidual codes; unclassified (2 sources)Pain; Translations: [Pain]Onset: 64-63-3512MpaiibtiJcvmwosswxk; intervertebral disc disorders; other back problems (3 sources)Disorder of lumbar disc; Translations: [Spondylosis without myelopathy or radiculopathy, cervical region]Onset: 387502-29-2881Udzgigp Spondylosis; intervertebral disc disorders; other back problems (10 sources)Radiculopathy, cervical region; Translations: [Radiculopathy, lumbar region]Onset: 31-28-8762GqqbtkpcWiflucmwolfe (2 sources)CONTACT W/AND (SUSP) EXPOS COVID-19; Translations: [CONTACT W/AND (SUSP) EXPOS COVID-19]Onset: 29-65-2214Vndlnnurflos (1 source)Patient encounter wnuttj67-29-3389Cobkzuviwxlq (2 sources)Pre-op Exam; Translations: [Pre-op Exam]Onset: 10-64-9845Rvhvu infection (1 source)COVID-19; Translations: [COVID-19]Onset: 01-09-2022 Past or Other Problems Problem ClassificationProblemDateDocumented DateEpisodic/ChronicGastrointestinal hemorrhage (4 sources)Gastrointestinal hemorrhage, unspecified; Translations: [Melena] Onset: 28-28-5580QnjrxkqvWgpiu non-traumatic joint disorders (2 sources)Pain in left shoulder; Translations: [Pain in left shoulder]Onset: 84-03-3247ChyopsxpYrgkrwsirvuy (1 source)CONTACT W/AND (SUSP) EXPOS COVID-19; Translations: [CONTACT W/AND (SUSP) EXPOS COVID-19]Onset: 01-05-2022 Results Test NameValueInterpretationReference RangeFacilityOffice Visiton 02-12-2025 Follow-up [id number] SevilleVern valenzuela Silvina 1960 M Date Provider Department Center 02/12/2025 NIDA MORENO [facility] Second Fl Family History Problem Relation Age of Onset Coronary artery disease Mother Asthma Mother Liver cancer Mother Heart attack Father Colon cancer Father Bone cancer Brother Family Status - Relation Status Age at Mother Father Brother Level of Service:91753 [place] POSTOP FOLLOW UP VISIT RELATED TO ORIGINAL PX Reason for Visit and Comments: Post-op [483] - s/p 01/28/25 C6-C7 ACFNormalUniversity [facility], AvonDS on 17-11-0326NTFxryrqvvz Admitted 01/28/2025 for Cervical spondylosis with radiculopathy. [...] HYDROcodone-acetaminophen 5-325 mg tablet Commonly known as: [place] Where to Get Your Medications These medications were sent to [facility]/pharmacy #[id number] AT [place] [address] oxyCODONE 5 mg immediate release tablet sennosides-docusate [...] pallor. Anterior neck dressing clean, dry, intact. [place] J collar intact. Neuro: GCS 15/15. Attention [...] is performed under the ED CLIA certificate #[id number]. Nutrition Screen Issues Requiring Follow-Up OARRS reviewed. Needs more than the recommended number of morphine milliequivalents per day due to pain from recent major spinal surgery. Outpatient Follow-Up Future Appointments Date Time Provider Department Center 02/12/2025 11:15 AM Nida Ma CNP [facility] Second Fl Test Results Pending At DischargeNormalUniMagruder Memorial Hospital 65-98-8638EFV&P reviewed. The patient was examined and there are no changes to the H&P. Plan for anterior cervical discectomy and fusion with cage, donor bone and plate. Consent already completed. Questions answered. Coleman Herrera MDNomarinaalUniOhioHealth Arthur G.H. Bing, MD, Cancer CenterNZIBullhead Community Hospital 04-22-7840IJKTPRJUHt arrived to pre-op bay _3____. Pt instructed to remove all clothing and place any personal belongings in the designated patient belongings bag. Pt displays understanding of instructions at this time. Pt informed they will speak with their anesthesiologist and procedural physician prior to their scheduled procedure time. All questions answered at this time.NormalUnUniversity Hospitals Lake West Medical CenterOPNOTBullhead Community Hospital 50-28-5729JREXWTXmut: 01/28/2025 Location: [facility] OR Name: Vern Cool Trav, : 1960, Diagnosis Pre-op Diagnosis * Cervical spondylosis [M47.812] * Cervical radiculopathy at C7 [M54.12] Post-op Diagnosis * Cervical spondylosis [M47.812] * Cervical radiculopathy at C7 [M54.12] Procedures C6-C7 ACF 85060 - VT ARTHRD ANT INTERBODY MIN DSC CRV BELOW C2 VT ANTERIOR INSTRUMENTATION 2-3 VERTEBRAL SEGMENTS [61612] VT INSJ BIOMCHN DEV INTERVERTEBRAL DSC SPC W/ARTHRD [] VT ALLOGRAFT FOR SPINE SURGERY ONLY MORSELIZED [] [...] bone putty) Anterior cervical plating with a [employer] Charter Oak Elite plate - 23 mm in length [...] Name Action Serial No. Pin PIN,DISTRACTION,ST,14MM - [id number] Used, Not Implanted Device SPACER 7MM X 16MM X 14MM Implanted Bone PUTTY,DBM HO,1CC - [id number] - [id number] Implanted [id number] Screw SCREW,SELF,DRILL,FIX4.0X16 - [id number] Implanted Plate 23 MM PLATE Implanted Staff: Willow Worker: David Granger RN Cement Mason Helper: RT Barrett Relief Willow Worker: Shama Blankenship RN Relief Scrub: Rocio Valadez CSA Scrub Person: Camilo Luis CST Lidding Machine Operator: Alyssa Rivera RN Indications: Vern Ravi is [...] the entire procedure. Coleman Herrera Coleman Herrera MDNormalUniOhioHealth Arthur G.H. Bing, MD, Cancer CenterOPNOTEC6-C7 ACF Operative Note Date: 01/28/2025 Location: [facility] OR Name: Vern Ravi, : 1960, Diagnosis Pre-op Diagnosis * Cervical spondylosis [M47.812] * Cervical radiculopathy at C7 [M54.12] Post-op Diagnosis * Cervical spondylosis [M47.812] * Cervical radiculopathy at C7 [M54.12] Procedures C6-C7 ACF - VT ARTHRD ANT INTERBODY MIN DSC CRV BELOW C2 VT ANTERIOR INSTRUMENTATION 2-3 VERTEBRAL SEGMENTS [] VT INSJ BIOMCHN DEV INTERVERTEBRAL DSC SPC W/ARTHRD [] VT ALLOGRAFT FOR SPINE SURGERY ONLY MORSELIZED [] [...] putty) Anterior cervical plating with a Medtronic Charter Oak Elite plate - 23 mm in length [...] Name Action Serial No. Pin PIN,DISTRACTION,ST,14MM - [id number] Used, Not Implanted Device SPACER 7MM X 16MM X 14MM Implanted Bone PUTTY,DBM HO,1CC - [id number] - [id number] Implanted [id number] Screw SCREW,SELF,DRILL,FIX4.0X16 - [id number] Implanted Plate 23 MM PLATE Implanted Staff: Willow Worker: David Granger RN Cement Mason Helper: Balta Easley RT Relief Willow Worker: Shama Blankenship RN Relief Scrub: Rocio Valadez CSA Scrub Person: Camilo Luis CST Lidding Machine Operator: Alyssa Rivera RN Indications: Vern Ravi is [...] putty) Anterior cervical plating with a [employer]tronic Charter Oak Elite plate - 23 mm in length [...] was instil (more content not included)...NormalUnUniversity Hospitals Lake West Medical Center POCT GLUCOSE METER UNSOLICITED RESULTSon 20-30-6891Wujvbfc [Mass/Vol]106 mg/dL Jfkk80-388SxuofbjajtUniversity Hospitals Lake West Medical CenterComment on above:Order Comment: Waived Testing in the ED is performed under the ED CLIA certificate #[id number]. Result Comment: miwardPerformed By: #### [id number] #### [facility] ([facility]) [address] [place], [place] [address]Sgookm Visiton 51-25-1643Mlfqij-up [id number] TravGaryVern A 1960 M Date Provider Department Center 01/22/2025 Amanda-PEPPER US SOBEIDA Carcamo [facility] Family History Problem Relation Age of Onset Coronary artery disease Mother Asthma Mother Liver cancer Mother Heart attack Father Colon cancer Father Bone cancer Brother Family Status - Relation Status Age at Mother Father Brother Level of Service:63362 [place] OFFICE/OUTPATIENT NEW MODERATE MDM 45 MINUTES Reason for Visit and Comments: Hyperlipidemia [182] Hypertension [117986] Follow-up [807165] - 1 year follow up. With recent labs, Chest X-ray,EKG done last week for pre surgery testing. Patient is having neck surgery at [facility] on MondayJan 28NormalUniversJ.W. Ruby Memorial HospitalPrep for Procedureon 16-78-3306Lfwx for [id number] Vern Ravi Silvina 1960 M Date Provider Department Center 01/17/2025 148-NIDA [facility]O SURG None Family History Problem Relation Age of Onset Coronary artery disease Mother Asthma Mother Liver cancer Mother Heart attack Father Colon cancer Father Bone cancer Brother Family Status - Relation Status Age at Mother Father BrotherNormalUniversJ.W. Ruby Memorial HospitalBASIC METABOLIC PANELon 99-77-1514Fqsig gap [Moles/Vol]10 mmol/LNormal7-20UnUniversity Hospitals Lake West Medical CenterComment on above:Performed By: #### [id number] #### [facility] ([facility]) [address] [place] [address]Ffvmsub [Mass/Vol]9.5 mg/dLNormal8.6-10.3UnUniversity Hospitals Lake West Medical CenterComment on above:Performed By: #### [id number] #### [facility] ([facility]) [address] [place], [place] [address]Rbtkfmsv [Moles/Vol]104 mmol/LCkyjzt39-524WfoanmlrwhUniversity Hospitals Lake West Medical CenterComment on above:Performed By: #### [id number] #### [facility] ([facility]) [address] [place], [place] [address]PN8 [Moles/Vol]30 mmol/OXksexy31-48HxlpbackfuUniversity Hospitals Lake West Medical CenterComment on above:Performed By: #### [id number] #### [facility] ([facility]) [address] [place], [place] [address]Bgbcdonjsg [Mass/Vol]1.03 mg/dLNormal0.70-1.30UnUniversity Hospitals Lake West Medical CenterComment on above:Performed By: #### [id number] #### [facility] ([facility]) [address] [place], [place] [address]BVHPYMFKXH FILTRATION RATE ML/MIN/1.73 SQ M.MVVXRGUYG93.1 mL/min/1.73m*2Normal>60.0UnUniversity Hospitals Lake West Medical CenterComment on above: Result Comment: [facility]???s estimated glomerular filtration rate (eGFR) [...] affect anyone group of individuals.Performed By: #### [id number] #### [facility] ([facility]) [address] [place], [place] [address]Wikquze [Mass/Vol]94 mg/pHVpxeaq76-496MhaxcdbrmwUniversity Hospitals Lake West Medical CenterComment on above:Performed By: #### [id number] #### [facility] ([facility]) [address] [place], [place] [address]Okzynklyj [Moles/Vol]4.0 mmol/LNormal3.5-5.1UnUniversity Hospitals Lake West Medical CenterComment on above:Performed By: #### [id number] #### [facility] ([facility]) [address] [place], [place] [address]Grdxng [Moles/Vol]140 mmol/IAijjma568-888LnhwjopdhsUniversity Hospitals Lake West Medical CenterComment on above:Performed By: #### [id number] #### [facility] ([facility]) [address] [place], [place] [address]Kgbn nitrogen [Mass/Vol]11 mg/dLNormal7-25UnUniversity Hospitals Lake West Medical CenterComment on above:Performed By: #### [id number] #### [facility] ([facility]) [address] [place], [place] [address]SIYL NITROGEN/CREATININE (MASS RATIO) IN SER/PLAS10.7Normal [facility] Behavior[facility] Medical CenterComment on above:Performed By: #### [id number] #### [facility] ([facility]) [address] [place], [place] [address]NQF WITH AUTO DIFFERENTIALon 28-22-6353Qytcellwl (Bld) [#/Vol] 0.04 10*3/uLNormal0.00-0.20UnUniversity Hospitals Lake West Medical CenterComment on above: Performed By: #### [id number] ####[facility] ([facility])[address] [place], [place] [address]Umscvqtcd/100 WBC (Bld)0.5 %Normal0.0-1.0UnUniversity Hospitals Lake West Medical CenterComment on above:Performed By: #### [id number] ####[facility] ([facility] [place], [place] [address]Prfuftrgzlg (Bld) [#/Vol]0.23 10*3/uL Normal0.00-0.50UnUniversity Hospitals Lake West Medical CenterComment on above:Performed By: #### [id number] ####[facility] ([facility])[address] [place] [address] Eosinophils/100 WBC (Bld)3.0 %Normal0.0-6.0UnUniversity Hospitals Lake West Medical Center Comment on above:Performed By: #### [id number] ####[facility] ([facility])[address] [place], [place] [address]Dfkrnpanols distribution width (RBC) [Ratio]16.7 % High11.5-15.0UnUniversity Hospitals Lake West Medical CenterComment on above:Performed By: #### [id number] ####[facility] ([facility])[address] [place] [address] ERYTHROCYTE MEAN CORPUSCULAR HEMOGLOBIN CONCENTRATION (G/DL) BY QEZMHXJYX88.1 g/uKSjxibz42.0-35.0UnUniversity Hospitals Lake West Medical CenterComment on above:Performed By: #### [id number] ####[facility] ([facility])[address] [place], [place] [address]Vecpfewvbp (Bld) [Volume fraction]45.0 %Plxyqi88.0-50.0UnUniversity Hospitals Lake West Medical CenterComment on above:Performed By: #### [id number] ####[facility] ([facility])[address] [place], [place] [address]Qkyyiwrivg (Bld) [Mass/Vol]14.9 g/dL Dioeic72.0-17.0UnUniversity Hospitals Lake West Medical CenterComment on above:Performed By: #### [id number] ####[facility] ([facility] [place] [address] Immature granulocytes (Bld) [#/Vol]0.02 10*3/uLNormal0.00-0.20UnUniversity Hospitals Lake West Medical CenterComment on above:Performed By: #### [id number] ####[facility] ([facility])[address] [place] [address]Akqvkcde granulocytes/100 WBC (Bld)0.3 %Normal0.0-1.0UnUniversity Hospitals Lake West Medical CenterComment on above: Performed By: #### [id number] ####[facility] ([facility])[address] [place], [place] [address]Iubznfclnou (Bld) [#/Vol]1.59 10*3/uLNormal1.20-4.00 [facility] Medical CenterComment on above:Performed By: #### [id number] ####[facility] ([facility])[address] [place], [place] [address]Lqxqxqyatqh/100 WBC (Bld)20.9 %Zbouab74.0-45.0UnUniversity Hospitals Lake West Medical CenterComment on above:Performed By: #### [id number] ####[facility] ([facility])[address] [place], [place] [address]VTI (RBC) [Entitic mass]27.3 xyBpmiok66.0-33.0UnUniversity Hospitals Lake West Medical CenterComment on above:Performed By: #### [id number] ####[facility] ([facility])[address] [place], [place] [address]OAN (RBC) [Entitic vol] 82.6 cUEvlbwc85.0-98.0UnUniversity Hospitals Lake West Medical CenterComment on above: Performed By: #### [id number] ####[facility] ([facility])[address] [place], [place] [address]Wcheakhnv (Bld) [#/Vol]0.74 10*3/uLNormal0.10-1.00UnUniversity Hospitals Lake West Medical CenterComment on above:Performed By: #### [id number] ####[facility] ([facility])[address] [place] [address]Wlhqdhvvg/100 WBC (Bld) 9.7 %Normal5.0-12.0[facility] Medical CenterComment on above:Performed By: #### [id number] ####[facility] ([facility])[address] [place] [address]Tdsphmhplzg (Bld) [#/Vol]4.99 10*3/uLNormal1.60-7.60UnUniversity Hospitals Lake West Medical CenterComment on above:Performed By: #### [id number] ####[facility] ([facility])[address] [place] [address]Mysguppypmq/100 WBC (Bld)65.6 %Normal 40.0-72.0K[facility] Behavioral Medical CenterComment on above:Performed By: #### [id number] ####[facility] ([facility])[address] [place] [address]JGJU (PER 100 WBCS) BY AUTOMATED COUNT0.0 %Jyuldr7OjxtsqysopUniversity Hospitals Lake West Medical Center Comment on above:Performed By: #### [id number] ####[facility] ([facility])[address] [place] [address]AXTUHZOXY (10*3/UL) IN BLOOD AUTOMATED ZDPJO689 10*3/tUKkmgcb375-025OplerqpzwmUniversity Hospitals Lake West Medical CenterComment on above: Performed By: #### [id number] ####[facility] ([facility])[address] [place] [address]AJG (Bld) [#/Vol]5.45 10*6/uLNormal4.20-5.70UnUniversity Hospitals Lake West Medical CenterComment on above:Performed By: #### [id number] ####[facility] ([facility])[address] [place] [address]CCT (Bld) [#/Vol]7.61 10*3/uLNormal4.00-10.60UnUniversity Hospitals Lake West Medical CenterComment on above: Performed By: #### [id number] ####[facility] ([facility])[address] [place], [place] [address]Oxpksamka [id number] Vern Ravi 1960 M Date Provider Department Center 01/15/2025 NIDA MORENO [facility] Second Fl Family History Problem Relation Age of Onset Coronary artery disease Mother Asthma Mother Liver cancer Mother Heart attack Father Colon cancer Father Bone cancer Brother Family Status - Relation Status Age at Mother Father Brother Level of Service:78404 [place] OFFICE/OUTPATIENT ESTABLISHED MOD MDM 30 MIN Reason for Visit and Comments: Pre-op Exam [103634] - Patient is here today for a pre op examNormalUniversity of Faith Community Hospitalon 39-83-3448PDKEXTDDPOJGHT NOTE SUBJECTIVE: Chief complaint: Preoperative visit for [...] Final Atrial Rate 01/15/2025 82 BPM Final VT Interval 01/15/2025 142 ms Final QRS DURATION 01/15/2025 100 ms Final QT Interval 01/15/2025 370 ms Final QTC CALCULATION(BAZETT) 01/15/2025 432 ms Final P [place] 01/15/2025 56 degrees Final R-[place] 01/15/2025 31 degrees Final T Wave [place] 01/15/2025 57 degrees Final Lab on 01/15/2025 [...] bulging o (more content not included)...NormalUnUniversity Hospitals Lake West Medical CenterLabon [id number] Vern Ravi 1960 M Date Provider Department Center 01/15/2025 2245-[facility] OPD LAB RESOURCE [facility] OPD [facility] Family History Problem Relation Age of Onset Coronary artery disease Mother Asthma Mother Liver cancer Mother Heart attack Father Colon cancer Father Bone cancer Brother Family Status - Relation Status Age at Mother Father BrotherNormalUniOhioHealth Arthur G.H. Bing, MD, Cancer CenterMRSA/MSSA DNA NASALon 01-15-2025 MRSA DNANegativeNormalNegativeUnUniversity Hospitals Lake West Medical CenterComment on above:Order Comment: Testing methodology [...] does not preclude nasal colonization.Performed By: #### [id number] ####[facility] ([facility])[address] [place], [place] [address]WDJY DNANegativeNormalNegativeKettering Health Behavioral Medical CenterComment on above:Order Comment: Testing methodology [...] does not preclude nasal colonization.Performed By: #### [id number] ####[facility] ([facility])[address] [place], [place] [address]QPHS AND SCREENon 66-25-0028WS SCREENNegativeNormalUniversJ.W. Ruby Memorial HospitalComment on above:Performed By: #### [id number] #### [facility] ([facility]) [address] [place] [address]BTE group Nom (Bld)ANormalUniversJ.W. Ruby Memorial Hospital Comment on above:Performed By: #### [id number] #### [facility] ([facility]) [address] [place] [place] [address]IO TYPE IN BLOODPositiveNormalUniversJ.W. Ruby Memorial HospitalComment on above:Performed By: #### [id number] #### [facility] ([facility]) [address] [place] [address]Zsqmim-Xfyr 12-09-9381Okounb-[id number] Vern Ravi 1960 M Date Provider Department Center 12/18/2024 COLEMAN GRIMALDO DCC ONC DCC Family History Problem Relation Age of Onset Coronary artery disease Mother Asthma Mother Liver cancer Mother Heart attack Father Colon cancer Father Bone cancer Brother Family Status - Relation Status Age at Mother Father Brother Level of Service:46412 [place] OFFICE/OUTPATIENT ESTABLISHED MOD MDM 30 [facility] HospitalPrep for Procedureon 07-80-8485Trey for [id number] Vern Ravi 1960 M Date Provider Department Center 12/18/2024 COLEMAN GRIMALDO NEURO SURG None Family History Problem Relation Age of Onset Coronary artery disease Mother Asthma Mother Liver cancer Mother Heart attack Father Colon cancer Father Bone cancer Brother Family Status - Relation Status Age at Mother Father BrotherNormalUniversJ.W. Ruby Memorial HospitalOrders Onlyon 53-43-5023Mhnnuv [id number] Vern Ravi 1960 M Date Provider Department Center 12/17/2024 MELISA PETIT Family History Problem Relation Age of Onset Coronary artery disease Mother Asthma Mother Liver cancer Mother Heart attack Father Colon cancer Father Bone cancer Brother Family Status - Relation Status Age at Mother Father BrotherNormalUniversJ.W. Ruby Memorial HospitalOffice Visiton 31-15-9266Jykcuh- up [id number] Vern Ravi 1960 M Date Provider Department Center 11/21/2024 NINO BOWMAN ORTHO MPORTHO Family History Problem Relation Age of Onset Coronary artery disease Mother Asthma Mother Liver cancer Mother Heart attack Father Colon cancer Father Bone cancer Brother Family Status - Relation Status Age at Mother Father Brother Level of Service:79005 [place] OFFICE/OUTPATIENT NEW [facility] 30 MINUTES Reason for Visit and Comments: Pain [136]NormalUnUniversity Hospitals Lake West Medical CenterLetter (Out)on 08-30-2024 Letter (Out)[id number] Vern Ravi 1960 M Date Provider Department Center 08/30/2024 JUAREZ QUIÑONEZ [facility] Family History Problem Relation Age of Onset Coronary artery disease Mother Asthma Mother Liver cancer Mother Heart attack Father Colon cancer Father Bone cancer Brother Family Status - Relation Status Age at Mother Father BrotherNormalUniversJ.W. Ruby Memorial HospitalHEMOGLOBINon 08-28-2024 Hemoglobin (Bld) [Mass/Vol]11.4 g/dLLow13.0-17.0UnUniversity Hospitals Lake West Medical CenterComment on above:Performed By: #### [id number] ####[facility] (BEAKER)[address] [place], [place] [address]OYUDGUQDA - TISSUE EXAMon 08-28-2024 LAB AP CASE REPORTNormalUniOhioHealth Arthur G.H. Bing, MD, Cancer CenterComment on above: Result Comment: Surgical Pathology Case: [id number] Authorizing Provider: Juarez Cummings MD Collected: 08/28/2024 0855 Ordering Location: [facility] Main Operating Room Received: 08/28/2024 1147 Pathologist: Bobbi Nava MD Specimen: Large Intestine, Right/Ascending Colon, ASCENDING POLYP R/O ADENOMA Performed By: #### [id number] ####[facility] (BEAKER)[address] [place], [place] [address]LAK AP CLINICAL INFORMATIONOrder DiagnosesNormalUniOhioHealth Arthur G.H. Bing, MD, Cancer CenterComment on above:Result Comment: K92.2 - GI bleeding [ICD-10-CM] K92.1 - Gastrointestinal hemorrhage with melena [ICD-10-CM] K21.9 - Gastroesophageal reflux disease, unspecified whether esophagitis present [ICD-10-CM]Performed By: #### [id number] ####[facility] ([facility])[address] [place], [place] [address]PFS AP GROSS DESCRIPTIONNormalUniversJ.W. Ruby Memorial HospitalComascension genesys hospital on above:Result Comment: A. Large Intestine, Right/Ascending Colon. The specimen is received in formalin labeled Vern Trav and ascending polyp r/o adenoma. It consists of 7 bits and strips of wylie-pink, focally erythematous mucosal tissue ranging from 0.3 cm to0.7 cm in greatest dimension. The specimen is submitted in toto in 1 cassette. Samanta Mckeon, Pathologists' Rug Weaver student Jeimy Martin, Pathologists' AssistantPerformed By: #### [id number] ####[facility] ([facility])[address] [facility], [place] [address]JRD AP MICROSCOPIC DESCRIPTIONMicroscopic examination performed.NormalKettering Health Behavioral Medical CenterComment on above:Performed By: #### [id number] ####[facility] ([facility])[address] [facility], [place] [address]SYS AP REPORT FINAL DIAGNOSIS NARRATIVENormalUniOhioHealth Arthur G.H. Bing, MD, Cancer CenterComascension genesys hospital on above:Result Comment: A. Colon, ascending colon polyp, polypectomy: - Fragments of tubular adenoma(s). - No high grade dysplasia. Performed By: #### [id number] ####[facility] ([facility])[address] [place], [place] [address]YVoh 69-47-3355FAY&P reviewed. The patient was examined and there are no changes to the H&P. EGD normal, passing more stool which is more consistent with hematochezia. Colonoscopy todayNormalUniversJ.W. Ruby Memorial HospitalPOCT GLUCOSE METER UNSOLICITED RESULTSon 32-21-3384Pcfexsn [Mass/Vol]100 mg/lIXngkvv43-151 [facility] Behavioral Medical CenterComment on above:Order Comment: Waived Testing in the ED is performed under the ED CLIA certificate #[id number].Result Comment: ltollesPerformed By: #### [id number] #### [facility] NIK [address]) [place] [address]WNFMzh 01-89-0461ACEP Attestation signed by Dilan Chaney MD at 08/28/2024 5:47 PM I reviewed and agree with the above note. I spoke to and evaluated the patient myself and they are willing to proceed as planned. Dilan Chaney MD Patient: Vern Ravi Procedure Information Date/Time: 08/28/24 1330 Scheduled providers: Dilan Chaney MD; Camila Blake CRNA; Juarez Cummings MD Procedure: DIAGNOSTIC COLONOSCOPY Location: [facility] Invasive Surgery [place]ra Relevant Problems Anesthesia (within normal limits) Cardio [...] who consented to blood products. Additional Equipment RequestsNormalUniversJ.W. Ruby Memorial HospitalCONSULTon 52-67-3765SFAMBDLAmyss Case Management Update Multidisciplinary rounds have been [...] PT Recommendations: OT Recommendations: New Consults:NormalUnUniversity Hospitals Lake West Medical CenterHEMOGLOBINon 08-27-2024 Hemoglobin (Bld) [Mass/Vol]11.5 g/dLLow13.0-17.0UnUniversity Hospitals Lake West Medical CenterComment on above:Performed By: #### [id number] ####[facility] (BEAKER)[address] [place], [place] [address]Qlhcqvsejj (Bld) [Mass/Vol]11.4 g/dL Low13.0-17.0UnUniversity Hospitals Lake West Medical CenterComment on above:Performed By: #### [id number] #### [facility] ([facility]) [address] [place], [place] [address]xq 04-26-233750Akgqv Case Management Update Multidisciplinary rounds have been completed. Barriers to Discharge: Pending clinical course and improvement in clinical condition. Transfer from [facility] w/ GI bleed. GI consult: Pt states [...] appropriate for patient?: Yes New Consults:NormalUnUniversity Hospitals Lake West Medical Center30The patient is Moderately Stable - Low risk of patient condition declining or worsening The patient's goals for the shift include comfort The clinical goals for the shift include comfort,vss Over the shift, the patient did not make progress toward the following goals. Barriers to progression include assess falls and pain. Recommendations to address these barriers include assess falls and pain statusNormalUniversJ.W. Ruby Memorial HospitalHEMOGLOBINon 92-90-6317Gnprdcxzcj (Bld) [Mass/Vol]11.7 g/dL Low13.0-17.0UnUniversity Hospitals Lake West Medical CenterComment on above:Performed By: #### [id number] ####[facility] ([facility])[address] [place] [address] Hemoglobin (Bld) [Mass/Vol]11.1 g/dLLow13.0-17.0UnUniversity Hospitals Lake West Medical CenterComment on above:Performed By: #### [id number] #### [facility] ([facility]) [address] [place], [place] [address]AWxa 42-75-9355PJR&P reviewed. The patient was examined and there are no changes to the H&P.NormalUnUniversity Hospitals Lake West Medical Center NURSNOTEon 84-27-4707TNYAVADHBbpldt off to Eva keller RNNoCleveland Clinic Children's Hospital for RehabilitationNURSNOTEPt sits up a side of bed, family cont. At bedside Request for colonoscopy, from [facility], given to Charge Nurse, Yuli SANDOVAL, she will be faxing the request soon, pt. Did sign the request. IV INT d, intact, no redness noted Telemetry cont. On pt Pt. Has no c/o of a SOB or pain at this time Call light within reachNormalUniversity of Methodist Specialty And Transplant HospitalNPRESBYTERIAN HOSPITALNOTEPt able to swallow water, without any difficulty, and eat pop sicles, Pt. Up walking in hallway with family , no c/o of pain, or SOB at this timeNoCleveland Clinic Children's Hospital for RehabilitationNPRESBYTERIAN HOSPITALNOTEPt returns from OR, Pt. Is alert and O x4 No c/o of pain or SOB at this time Pt's family visits at bedside Telemetry cont., room air pulse ox is --97%NormalUnUniversity Hospitals Lake West Medical CenterNPRESBYTERIAN HOSPITALNOTEPt has no complaints at this time, HOB up @ 40 degrees Telemetry cont. On pt Pt. Cont. To be NPO at this time, for EGD later todayNormalUniversity of Methodist Specialty And Transplant HospitalPOCT GLUCOSE METER UNSOLICITED RESULTSon 68-69-5763Crpvdhd [Mass/Vol]91 mg/vDJgwtty15-405VjatrjdqekUniversity Hospitals Lake West Medical CenterComment on above:Order Comment: Waived Testing in the ED is performed under the ED CLIA certificate #[id number].Result Comment: gsvgtob5Vgwypnomy By: #### [id number] #### [facility] (BEAKER) [address] [place], [place] [address]rr 89-93-322023Ben patient is Moderately Stable - Low risk of patient condition declining or worsening The patient's goals for the shift include comfort The clinical goals for the shift include comfort, safety Over the shift, the patient did not make progress toward the following goals. Barriers to progression include assess falls and pain. Recommendations to address these barriers include assess falls and pain statusNormalUniversJ.W. Ruby Memorial HospitalBASIC METABOLIC PANELon 81-91-1078Jhbsv gap [Moles/Vol]10 mmol/LNormal7-20UnUniversity Hospitals Lake West Medical CenterComment on above:Performed By: #### [id number] ####[facility] ([facility])[address] [place] [address] Calcium [Mass/Vol]8.2 mg/dLLow8.6-10.3UnUniversity Hospitals Lake West Medical CenterComment on above:Performed By: #### [id number] ####[facility] ([facility])[address] [place], [place] [address]Eobtnnlw [Moles/Vol]108 mmol/QRuxe06-946WbowrkozgaUniversity Hospitals Lake West Medical CenterComment on above:Performed By: #### [id number] ####[facility] ([facility])[address] [place], [place] [address]OD8 [Moles/Vol]26 mmol/ZEbeitl11-39 [facility] Behavioral Medical CenterComment on above:Performed By: #### [id number] ####[facility] ([facility])[address] [place], [place] [address]Lfgmmbneia [Mass/Vol]0.91 mg/dLNormal0.70-1.30UnUniversity Hospitals Lake West Medical CenterComment on above:Performed By: #### [id number] ####[facility] ([facility])[address] [place] [facility] [address]ACQSQRLCXH FILTRATION RATE ML/MIN/1.73 SQ M.BNLXUXHQW14.3 mL/min/1.73m*2Normal>60.0UnUniversity Hospitals Lake West Medical CenterComment on above: Result Comment: The [facility]???s estimated glomerular filtration rate (eGFR) [...] anyone group of individuals.Performed By: #### LAB15 ####[facility] ([facility])[address] [place], [place] [address]Cbydtsp [Mass/Vol]100 mg/nAIbgong35-530LelktjxwqdUniversity Hospitals Lake West Medical CenterComment on above:Performed By: #### LAB15 ####[facility] ([facility])[address], [place] [address]Mwswfzhgp [Moles/Vol]3.8 mmol/LNormal3.5-5.1UnUniversity Hospitals Lake West Medical CenterComment on above:Performed By: #### [id number] ####[facility] ([facility])[address] [place] [address] Sodium [Moles/Vol]140 mmol/BGqbakt330-649KhbfwnpdfsUniversity Hospitals Lake West Medical Center Comment on above:Performed By: #### LAB15 ####[facility] ([facility])[address] [place], [place] [address]Syov nitrogen [Mass/Vol]15 mg/dLNormal7-25 [facility] Behavioral Medical CenterComment on above:Performed By: #### LAB15 ####[facility] ([facility])[address] [place], [place] [address]IYWV NITROGEN/CREATININE (MASS RATIO) IN SER/PLAS16.5NormalUniversJ.W. Ruby Memorial HospitalComment on above:Performed By: #### [id number] ####[facility] ([facility])[address] [place] [address]KBUes 80-45-6414Edstgdygkho distribution width (RBC) [Ratio]13.8 %Szbemk89.5-15.0Kettering Health Behavioral Medical CenterComment on above:Performed By: #### [id number] #### [facility] ([facility]) [address] [place] [place], [place] [address]ZRVBNCQJVLV MEAN CORPUSCULAR HEMOGLOBIN CONCENTRATION (G/DL) BY ZVJXYREHL81.4 g/eVDpipka00.0-35.0UnUniversity Hospitals Lake West Medical CenterComment on above:Performed By: #### [id number] #### [facility] ([facility]) [address] [place] [address]Sogqfsnivr (Bld) [Volume fraction]33.3 %Low39.0-50.0UnUniversity Hospitals Lake West Medical CenterComment on above:Performed By: #### [id number] #### [facility] ([facility]) [address] [place] [address]Fujalpkzey (Bld) [Mass/Vol]10.8 g/dLLow13.0-17.0UnUniversity Hospitals Lake West Medical CenterComment on above:Performed By: #### [id number] #### [facility] ([facility]) [address] [place] [address]OQH (RBC) [Entitic mass]29.0 beWnvniv58.0-33.0UnUniversity Hospitals Lake West Medical CenterComment on above:Performed By: #### [id number] #### [facility] ([facility]) [address] [place] [address]JSI (RBC) [Entitic vol]89.3 bQWvynah18.0-98.0UnUniversity Hospitals Lake West Medical CenterComment on above:Performed By: #### [id number] #### [facility] ([facility]) [address] [place] [address]AKGNCFXOD (10*3/UL) IN BLOOD AUTOMATED MQYEH733 10*3/uLNormal 150-400UnUniversity Hospitals Lake West Medical CenterComment on above:Performed By: #### [id number] #### [facility] ([facility]) [address] [place] [address]HWM (Bld) [#/Vol]3.73 10*6/uLLow4.20-5.70UnUniversity Hospitals Lake West Medical CenterComment on above:Performed By: #### [id number] #### [facility] ([facility]) [address] [place] [address]QTL (Bld) [#/Vol]6.82 10*3/uLNormal4.00-10.60UnUniversity Hospitals Lake West Medical CenterComment on above:Performed By: #### [id number] #### [facility] ([facility]) [address] [place] [address]WVZYZZFWZKxg 09-38-1672Rsuhufalvv (Bld) [Mass/Vol]10.7 g/dLLow 13.0-17.0UnUniversity Hospitals Lake West Medical CenterComment on above:Performed By: #### [id number] #### [facility] ([facility]) [address] [address]FPLRXLEBra 39-84-8806KTQAIMWYMxibac sheet given to Charge nurseEula RN Call light within [facility] HospitalrmalUniversJ.W. Ruby Memorial HospitalNURSNOTEFamily visits at bedside, no c/o of pain, or SOB at this time IV INT d, no redness noted Telemetry cont. On pt Room air pulse ox--98% Call light within reachNormalUniOhioHealth Arthur G.H. Bing, MD, Cancer CenterNURSNOTEPt sits up at side of bed, resp. Easy @ 18/min No c/o of pain, or SOB at this timermalUniOhioHealth Arthur G.H. Bing, MD, Cancer Center BASIC METABOLIC PANELon 07-39-0998Tmfng gap [Moles/Vol]10 mmol/LNormal7-20 [facility] Medical CenterComment on above:Performed By: #### LAB15 #### [facility] ([facility]) [address] [address]Eftnkrw [Mass/Vol]8.5 mg/dLLow8.6-10.3UnUniversity Hospitals Lake West Medical CenterComment on above:Performed By: #### LAB15 #### [facility] ([facility]) [address] [address]Fxwdbdfz [Moles/Vol]107 mmol/HXthgog53-443WpbnjiipeaUniversity Hospitals Lake West Medical CenterComment on above:Performed By: #### LAB15 #### [facility] ([facility]) [address] [place] [address]SE4 [Moles/Vol]23 mmol/VMlzutx96-60LadhlvvyxrUniversity Hospitals Lake West Medical CenterComment on above:Performed By: #### LAB15 #### [facility] ([facility]) [address] [place] [address]Vcvlmbogip [Mass/Vol]0.86 mg/dLNormal0.70-1.30UnUniversity Hospitals Lake West Medical CenterComment on above:Performed By: #### LAB15 #### [facility] ([facility]) [address] [place] [address]WCWWASVCNK FILTRATION RATE ML/MIN/1.73 SQ M.WVNEFUUTZ45.9 mL/min/1.73m*2Normal>60.0UnUniversity Hospitals Lake West Medical CenterComment on above: Result Comment: The [facility]???s estimated glomerular filtration rate (eGFR) [...] group of individuals.Performed By: #### LAB15 #### [facility] ([facility]) [address] [place] [address]Wtsvvnb [Mass/Vol]118 mg/dSCneo18-812EeiswddnrzUniversity Hospitals Lake West Medical CenterComment on above:Performed By: #### LAB15 #### [facility] ([facility]) [address] [place] [address]Agolezctc [Moles/Vol]4.0 mmol/LNormal3.5-5.1UnUniversity Hospitals Lake West Medical CenterComment on above:Performed By: #### LAB15 #### [facility] ([facility]) [address] [place] [address]Ogbbxm [Moles/Vol]136 mmol/QRscsgn578-159ZrzacmxhdyUniversity Hospitals Lake West Medical CenterComment on above:Performed By: #### LAB15 #### [facility] ([facility]) [address] [place], [place] [address]Qqwp nitrogen [Mass/Vol]16 mg/dLNormal7-25UnUniversity Hospitals Lake West Medical CenterComment on above:Performed By: #### LAB15 #### [facility] ([facility]) [address] [place] [place], [place] [address]VOJG NITROGEN/CREATININE (MASS RATIO) IN SER/PLAS18.6Normal [facility] Medical CenterComment on above:Performed By: #### LAB15 #### [facility] ([facility]) [address] [place], [place] [address]EDHed 89-92-1187Issdxzoeext distribution width (RBC) [Ratio]13.6 %Hmvkwy88.5-15.0UnUniversity Hospitals Lake West Medical CenterComment on above:Performed By: #### [id number] #### [facility] ([facility]) [address] [place], [place] [address]HWNBZCMERKG MEAN CORPUSCULAR HEMOGLOBIN CONCENTRATION (G/DL) BY IDLLUGQNW50.8 g/tVBqaacd97.0-35.0UnUniversity Hospitals Lake West Medical CenterComment on above:Performed By: #### [id number] #### [facility] ([facility]) [address] [place], [place] [address]Qvaoqqwyyj (Bld) [Volume fraction]35.1 %Low39.0-50.0UnUniversity Hospitals Lake West Medical CenterComment on above:Performed By: #### [id number] #### [facility] ([facility]) [address] [place], [place] [address]Qzwehymzgx (Bld) [Mass/Vol]11.5 g/dLLow13.0-17.0UnUniversity Hospitals Lake West Medical CenterComment on above:Performed By: #### [id number] #### [facility] ([facility]) [address] [facility] [place], [place] [address]MTR (RBC) [Entitic mass]29.0 dxGjouiq52.0-33.0UnUniversity Hospitals Lake West Medical CenterComment on above:Performed By: #### [id number] #### [facility] ([facility]) [address] [place] [address]QJR (RBC) [Entitic vol]88.6 bDMaqlfx06.0-98.0UnUniversity Hospitals Lake West Medical CenterComment on above:Performed By: #### [id number] #### [facility] ([facility]) [address] [place] [address]JUPZOEMDH (10*3/UL) IN BLOOD AUTOMATED PFKWR302 10*3/uLNormal 150-400UnUniversity Hospitals Lake West Medical CenterComment on above:Performed By: #### [id number] #### [facility] ([facility]) [address] [place] [address]EHG (Bld) [#/Vol]3.96 10*6/uLLow4.20-5.70UnUniversity Hospitals Lake West Medical CenterComment on above:Performed By: #### [id number] #### [facility] ([facility]) [address] [place] [address]VMY (Bld) [#/Vol]9.30 10*3/uLNormal4.00-10.60UnUniversity Hospitals Lake West Medical CenterComment on above:Performed By: #### [id number] #### [facility] ([facility]) [address] [place] [address]HFRQQQVMSYoa 79-81-4768Vgwrbxtheo (Bld) [Mass/Vol]10.4 g/dLLow 13.0-17.0UnUniversity Hospitals Lake West Medical CenterComment on above:Performed By: #### [id number] #### [facility] ([facility]) [address] [place] [address]Swecxcesgc (Bld) [Mass/Vol]11.3 g/dLLow13.0-17.0UnUniversity Hospitals Lake West Medical CenterComment on above:Performed By: #### [id number] #### [facility] ([facility]) [address] [place] [place] [address]ZACL AND SCREENon 97-08-0538NA SCREENNegativeNoSt. Rita's HospitalComment on above:Performed By: #### [id number] #### [facility] (BEAKER) [address] [place] [address]NOE group Nom (Bld)ANoSt. Rita's Hospital Comment on above:Performed By: #### [id number] #### [facility] (BEAKER) [address] [place] [address]WN TYPE IN BLOODPositiveNormalUTrinity Health SystemComment on above:Performed By: #### [id number] #### [facility] (BEAKER) [address] [place] [address]YP ARTHROGRAM INJECTIONon 15-83-3695OO ARTHROGRAM INJECTION INDICATION: Left shoulder pain COMPARISON: [...] left shoulder pre-MRI arthrogram. Electronically signed: SEA NEWMAN.[facility] Comment on above:Order Comment: Order in epicMR SHOULDER ARTHROGRAM LEFTon 16-35-7231HX SHOULDER ARTHROGRAM LEFTHistory: Pain. MRI Left Shoulder [...] orthopedics is advised. Electronically signed: Kemi De Guzman.[facility] Comment on above:Order Comment: Order in EPICAbstracton 02-07-4803Ygrvnzeg [id number] Vern Ravi 1960 Date Provider Department [facility] 08/07/2024 9418-[facility] Medical C Family History Problem Relation Age of Onset Coronary artery disease Mother Asthma Mother Liver cancer Mother Heart attack Father Colon cancer Father Bone cancer Brother Family Status - Relation Status Age at Mother Father BrotherNormalUniOhioHealth Arthur G.H. Bing, MD, Cancer CenterOutside Colonoscopyon 09-29-2023 Outside [id number]#1.00TIFFNoSt. Charles Hospital 96-36-1891Cbabvppde From: Shavon Aguilar LPN To: GSN - Clinical; Sent: 09/21/2023 11:27:17 EDT Show up: 08/20/2033 07:00:00 EDT Subject: colonoscopy recall Due Date/Time: 09/19/2033 07:00:00 EDT Reminder/Recall Patient due for screening colonoscopy 09/19/2033.[facility] CenterInsurance Correspondenceon 56-37-3548Zwafobulw Correspondence [id number]#1.00[facility] HospitalConsent for Procedure/Surgeryon 02-76-0635Hdwfftz for Procedure/Surgery [id number]#1.00TIFChildren's Hospital of ColumbusFacesheeton 73-77-5492Pgupebbvh [id number]#1.00[facility] HospitalAmbulatory Visit Summaryon 28-47-5135Yakyakgdhf Visit Summary VERN RAVI :1960 Visit Date:08/02/2023 [...] you for choosing us for your care. [facility] CenterPhysician Referralon 06-22-2023 Physician [id number]#1.00TIFFNormRegency Hospital Cleveland EastDAT - LIPID PROFILEon 27-32-3614TXRM-HDL RATIO NORMSEE BELOW NormalThe [facility] Community HospitalComment on above:Result Comment: 3.3 - 4.4 LOW RISK 4.4 - 7.1 AVERAGE RISK 7.1 - 11.0 MODERATE RISK >11.0 HIGH RISKPerformed By: #### DATLIPI #### [facility] [address] [address] [address] Odilon SantosCholesterol [Mass/Vol]170 mg/dLNormal<=200The [facility] Comment on above:Performed By: #### DATLIPI #### [facility] [address] [place], [place] [address] Dr. Odilon SantosCholesterol in HDL [Mass/Vol]60 mg/wIXwmdgt03-68GubAdena Pike Medical CenterComment on above:Performed By: #### DATLIPI #### [facility] [address] [place] [address] Dr. Odilon Grantesterol in LDL [Mass/Vol]89.2 mg/dLGalion HospitalComment on above:Performed By: #### DATLIPI #### [facility] [address] [place] [address] Dr. Odilon Harris.total/Cholesterol in HDL [Mass ratio]2.8 {ratio} NormalAdena Pike Medical CenterComment on above:Performed By: #### DATLIPI #### [facility] [address] [place] [address] Dr. Odilon Gan NORMAL> or = 60 mg/dl - LOW CARDIOVASCULAR RISK <40 mg/dl - HIGH CARDIOVASCULAR RISKGalion HospitalComment on above:Performed By: #### DATLIPI #### [facility] [address] [place] [address] Dr. Odilon SantosLDL CALC NORMALSEE BELOWGalion HospitalComment on above:Result Comment: <100 mg/dl OPTIMAL 100 - 129 mg/dl NEAR OR ABOVE OPTIMAL 130 - 159 mg/dl BORDERLINE HIGH 160 - 189 mg/dl HIGH >190 mg/dl VERY HIGH Performed By: #### DATLIPI #### [facility] [address] [place] [address] Dr. Odilon SantosTriglyceride [Mass/Vol]104 mg/dLNormal<=150The [facility] Comment on above:Performed By: #### DATLIPI #### [facility] [address] [place] [address] Dr. Odilon CastelanLDL CALC20.8 mg/dLGalion HospitalComment on above: Performed By: #### DATLIPI #### [facility] [address] [place] [address] Dr. Odilon SantosCovid-19 PCR (CVDTBH)on 59-29-5474SVMX-CoV-2 (COVID-19) RNA DEON+probe Ql (Unsp spec)DetectedCritically abnormalNOT DETECTEDThe [facility] HospitalComment on above:Result Comment: This test is not yet approved or cleared by the [place] FDA. When there are no FDA-approved or cleared tests available, and other criteria are met, FDA can make tests available under an emergency access mechanism called an Emergency Use Authorization (EUA). The EUA for this test is supported by the [employer] of Health and Human Service's (HHS's) declaration [...] be used). Performed By: #### CVDTBH #### [facility] [address] [place] [address] Dr. Odilon SantosXR CSPINE OBL FLEX_EXTon 53-01-5158SW CSPINE OBL FLEX_EXT EXAMINATION: XR CSPINE OBL [...] Electronically authenticated by: BENNIE PAYNE Date: 2021-12-30 09:27Galion HospitalXR LSPINE W_OBLS AND FLEX_EXTon 33-27-6939SR LSPINE W_OBLS AND FLEX_EXTEXAMINATION: XR LSPINE W_OBLS [...] Electronically authenticated by: BENNIE PAYNE Date: 2021-12-30 09:32Galion HospitalINSULINon 74-45-5913Iyftdix54.3 uIU/mLNormal2.6-24.9The [facility] HospitalComment on above:Performed By: #### INSULIN ####[facility] [address] [address]. Odilon Dubois AUTO DIFFon 67-69-1367OSXL #0.0 103/ulNormal0.0-0.1The [facility] HospitalComment on above:Performed By: #### CBC #### [facility] [address] [address] [address] Odilon SantosBasophils/100 WBC (Bld)0.6 %Normal0.2-2.0[facility] Comment on above:Performed By: #### CBC #### [facility] [address] [address] [address] Odilon Lovelace #0.3 103/ulNormal0.0-0.7The [facility] HospitalComment on above: Performed By: #### CBC #### [facility] [address] [address] [address] Odilon Torresosinophils/100 WBC (Bld)4.1 %Normal0.9-7.0The [facility] Comment on above:Performed By: #### CBC #### [facility] [address] [address] [address] Odilon Torresrythrocyte distribution width (RBC) [Ratio]14.1 %Faygcc67.0-15.0 The [facility] HospitalComment on above:Performed By: #### CBC #### [facility] [address] [address] [address] Odilon Garzaatocrit (Bld) [Volume fraction]44.4 %Wklsjn08.0-54.0The [facility] HospitalComascension genesys hospital on above:Performed By: #### CBC #### [facility] [address] [place] [address] Dr. Odilon SantosHemoglobin (Bld) [Mass/Vol]14.5 g/pJRjjaso50.0-18.0The [facility] HospitalComasc[facility]ys hospital on above:Performed By: #### CBC #### [facility] [address] [place] [address] Dr. Odilon Marshall #0.03 10e3/ulNormal0.00-0.03The [facility] on above:Performed By: #### CBC #### [facility] [address] [place] [address] Dr. Odilon Marshall %0.5 %Normal0.0-0.5The [facility] HospitalComasc[facility] genesys hospital on above: Performed By: #### CBC #### [facility] [address] [place] [address] Dr. Odilon Mckeon #1.5 103/ulNormal1.2-3.8The [facility] on above:Performed By: #### CBC #### [facility] [address] [place] [address] Dr. Odilon Trianamphocytes/100 WBC (Bld)23.5 %Bkiobl69.5-60.0The [facility] HospitalComasc[facility] hospital on above:Performed By: #### CBC #### [facility] [address] [place] [address] Dr. Odilon TinocoUAL DIFF REQNONormalThe [facility] HospitalComasc[facility] hospital on above: Performed By: #### CBC #### [facility] [address] [place] [address] Dr. Odilon Guajardo (RBC) [Entitic mass]29.1 gkGcmelv31.9-34.0The Harvey HospitalComment on above:Performed By: #### CBC #### [facility] [address] [address] [address] Odilon FigueroaHC (RBC) [Mass/Vol]32.7 g/aGAyenln33.9-35.2The [facility] HospitalComment on above:Performed By: #### CBC #### [facility] [address] [place] [address] Dr. Odilon FigueroaV (RBC) [Entitic vol]89.0 wJPxtfqb29.0-94.0The [facility] HospitalComment on above:Performed By: #### CBC #### [facility] [address] [place] [address] Dr. Odilon Fam #0.6 103/ulNormal0.3-0.8The [facility] HospitalComment on above:Performed By: #### CBC #### [facility] [address] [place] [address] Dr. Odilon Thompsonocytes/100 WBC (Bld)9.1 %Normal1.7-12.0The [facility] Comment on above:Performed By: #### CBC #### [facility] [address] [place] [address] Dr. Odilon Yuen #4.1 103/ulNormal1.4-6.5The [facility] HospitalComment on above:Performed By: #### CBC #### [facility] [address] [place] [address] Dr. Odilon Avendanoutrophils/100 WBC (Bld)62.2 %Gvfqrb88.0-75.0The [facility] HospitalComment on above:Performed By: #### CBC #### [facility] [address] [place] [address] Dr. Odilon Stewartlet mean volume (Bld) [Entitic vol]9.8 fLNormal9.5-13.5The [facility] HospitalComment on above:Performed By: #### CBC #### [facility] [address] [place] [address] Dr. Odilon SantosPLT288 103/epOwvtdg513-877AjxProMedica Defiance Regional Hospital on above: Performed By: #### CBC #### [facility] [address] [address] [address] Odilon SantosRBC4.99 106/ulNormal4.70-6.10The [facility] HospitalComasc[facility] hospital on above:Performed By: #### CBC #### [facility] [address] [address] [address] Odilon SantosWBC6.6 103/ulNormal4.0-11.0The [facility] on above: Performed By: #### CBC #### [facility] [address] [place] [address] Dr. Odilon SantosGLYCOHEMOGLOBIN A1Con 58-81-7067BXJ RECOMMENDATIONSEE BELOWSelect Medical Cleveland Clinic Rehabilitation Hospital, Edwin ShawComascension genesys hospital on above:Result Comment: ADA RECOMMENDED LIMIT 4.0 - 6.0 ADA THERAPEUTIC TARGET < 7.0 ACTION SUGGESTED > 7.0Performed By: #### A1C #### [facility] [address] [place] [address] Dr. Odilon SantosGlucose [Mass/Vol]123 mg/dLNoHocking Valley Community Hospital on above:Performed By: #### A1C #### [facility] [address] [place] [address] Dr. Odilon SantosHbA1c (Bld) [Mass fraction]5.9 %Normal4.5-6.2[facility] on above:Performed By: #### A1C #### [facility] [address] [place] [address] Dr. Odilon SantosLIPID PROFILEon 18-52-6582YDLT-HDL RATIO NORMSEE [facility] on above:Result Comment: 3.3 - 4.4 LOW RISK 4.4 - 7.1 AVERAGE RISK 7.1 - 11.0 MODERATE RISK >11.0 HIGH RISKPerformed By: #### URIC, LIPID, CMP #### [facility] [address] [place] [address] Dr. Odilon SantosCholesterol [Mass/Vol]119 mg/dLNormal<=200[facility] Comment on above:Performed By: #### URIC, LIPID, CMP #### [facility] [address] [address] [address] Odilon Grantesterol in HDL [Mass/Vol]58 mg/kRTrwwig64-24Zli [facility] HospitalComment on above:Performed By: #### URIC, LIPID, CMP #### [facility] [address] [address] [address] Odilon Grantesterol in LDL [Mass/Vol]51.8 mg/dLNoPremier Health Miami Valley Hospital SouthComment on above:Performed By: #### URIC, LIPID, CMP #### [facility] [address] [place] [address] Dr. Odilon Harris.total/Cholesterol in HDL [Mass ratio]2.1 {ratio} NormalThe [facility] HospitalComment on above:Performed By: #### URIC, LIPID, CMP #### [facility] [address] [address] [address] Odilon Gan NORMAL> or = 60 mg/dl - LOW CARDIOVASCULAR RISK <40 mg/dl - HIGH CARDIOVASCULAR RISKGalion HospitalComment on above:Performed By: #### URIC, LIPID, CMP #### [facility] [address] [place] [address] Dr. Odilon Zee CALC NORMALSEE BELOWGalion HospitalComment on above:Result Comment: <100 mg/dl OPTIMAL 100 - 129 mg/dl NEAR OR ABOVE OPTIMAL 130 - 159 mg/dl BORDERLINE HIGH 160 - 189 mg/dl HIGH >190 mg/dl VERY HIGH Performed By: #### URIC, LIPID, CMP #### [facility] [address] [address] [address] Odilon SantosTriglyceride [Mass/Vol]46 mg/dLNormal<=150The [facility] Comment on above:Performed By: #### URIC, LIPID, CMP #### [facility] [address] [place] [address] Dr. Odilon CastelanLDL CALC9.2 mg/dLNormalThe Dona HospitalComment on above: Performed By: #### URIC, LIPID, CMP #### [facility] [address] [address] [address] Odilon Ayala 14(COMP METB)on 74-09-6918Oonojcz [Mass/Vol]3.8 g/dLNormal 3.4-5.0[facility] Hospitalment on above:Performed By: #### URIC, LIPID, CMP #### [facility] [address] [address] [address] Odilon SantosAlbumin/Globulin [Mass ratio]1.1 {ratio}NormalThe [facility]ding County Hospitalment on above:Performed By: #### URIC, LIPID, CMP #### [facility] [address] [address] [address] Odilon Lizarraga [Catalytic activity/Vol]82 U/FGwgnwe62-879Brj [facility] on above:Performed By: #### URIC, LIPID, CMP #### [facility] [address] [address] [address] Odilon Rosenberg [Catalytic activity/Vol]75 U/LCritically alct29-41Nnp [facility] on above:Performed By: #### URIC, LIPID, CMP #### [facility] [address] [place] [address] Dr. Odilon Yuan gap [Moles/Vol]12.4 mmol/LNormalThe [facility] Comment on above:Performed By: #### URIC, LIPID, CMP #### [facility] [address] [place] [address] Dr. Odilon Sawyer [Catalytic activity/Vol]25 U/UOxrydu10-15Kyp [facility] on above:Performed By: #### URIC, LIPID, CMP #### [facility] [address] [place] [address] Dr. Odilon Irelandirubin [Mass/Vol]0.4 mg/dLNormal0.2-1.0The [facility] Comment on above:Performed By: #### URIC, LIPID, CMP #### [facility] [address] [address] [address] Odilon SantosCalcium [Mass/Vol]9.1 mg/dLNormal8.5-10.1The [facility] Comment on above:Performed By: #### URIC, LIPID, CMP #### [facility] [address] [place] [address] Dr. Odilon SantosChloride [Moles/Vol]105 mmol/ZZiquyq70-495Jkd [facility] Comment on above:Performed By: #### URIC, LIPID, CMP #### [facility] [address] [place] [address] Dr. Odilon SantosCO2 [Moles/Vol]26.4 mmol/ODhpifp59.0-32.0The [facility] Comment on above:Performed By: #### URIC, LIPID, CMP #### [facility] [address] [place] [address] Dr. Odilon SantosCreatinine [Mass/Vol]1.07 mg/dLNormal0.70-1.30The [facility] HospitalComment on above:Performed By: #### URIC, LIPID, CMP #### [facility] [address] [place] [address] Dr. Odilon TorresGFR-AF EAST TIMORESE>60Normal>=60The [facility] HospitalComment on above:Performed By: #### URIC, LIPID, CMP #### [facility] [address] [place] [address] Dr. Odilon TorresGFR-NON AF EAST TIMORESE>60Normal>=60The [facility] HospitalComment on above:Performed By: #### URIC, LIPID, CMP #### [facility] [address] [place] [address] Dr. Odilon SantosGlobulin (S) [Mass/Vol]3.4 g/dLNormalThe [facility] HospitalComment on above:Performed By: #### URIC, LIPID, CMP #### [facility] [address] [place] [address] Dr. Odilon SantosGlucose [Mass/Vol]108 mg/dLCritically qlch03-379Wku [facility] HospitalComment on above:Performed By: #### URIC, LIPID, CMP #### [facility] [address] [address] [address] Odilon SantosPotassium [Moles/Vol]3.8 mmol/LNormal3.5-5.1The [facility] Comment on above:Performed By: #### URIC, LIPID, CMP #### [facility] [address] [place] [address] Dr. Odilon SantosProtein [Mass/Vol]7.2 g/dLNormal6.4-8.2The [facility] Comment on above:Performed By: #### URIC, LIPID, CMP #### [facility] [address] [place] [address] Dr. Odilon SantosSodium [Moles/Vol]140 mmol/YJaxppx495-200Odq [facility] Comment on above:Performed By: #### URIC, LIPID, CMP #### [facility] [address] [place] [address] Dr. Odilon SantosUrea nitrogen [Mass/Vol]21.0 mg/dLCritically high7.0-18.0[facility] Medical CenterComment on above:Performed By: #### URIC, LIPID, CMP #### [facility] [address] [place] [address] Dr. Odilon White nitrogen/Creatinine [Mass ratio]19.6 mg/mgNormalThe [facility] HospitalComment on above:Performed By: #### URIC, LIPID, CMP #### [facility] [address] [place] [address] Dr. Odilon SantosURIC ACID SERUMon 65-13-2839Pisuv [Mass/Vol]6.0 mg/dLNormal 3.5-7.2[facility] Medical CenterComment on above:Performed By: #### URIC, LIPID, CMP #### [facility] [address] [place] [address] Dr. Odilon Santos Vital Signs Date TimeVital SignValuePerforming WpqwlykqcUipofntn83-53-3832 15:54-0400Blood Pressure LocationMichaeTri-County Hospital [facility] Kpxbtnga47-47-8369 15:54-0400Diastolic blood dfvxgxaq88 mm[Hg]Sea NILL General Surgery Gjammqfp75-40-2654 15:54-0400Heart rate 76 /minMichael NILL General Surgery Xyjousyn61-11-5148 15:54-0400 Respiratory rate16 /minMichael NILL General Surgery Ylfjfeio29-73-5710 15:54-0400Systolic blood mm[Hg]Sea NILL General Surgery Dona Encounters Encounter DateEncounter TypeCare ProviderFacilityStart: 02-12-2025 End: 18-70-2027wypbtmragoXUNKGEI [facility]: 68-76-6450Ccdmkvsgmo and management of inpatientALLISON [facility]: 01-28-2025 End: 62-12-6006ibpdjnkcxzHCXOIMary [facility] Start: 01-28-2025 End: 21-84-3260Bntjpesqkk and management of inpatientJASON [facility]: 01-22-2025 End: 81-73-9723mcbvgjtkfsRRQHZWVQPKUProtestant Hospital Start: 01-22-2025 End: 82-92-4075Jngsqozuv for preprocedural cardiovascular examinationCHRISTOPHER [facility]art: 01-15-2025 End: 71-71-4540bdadflnaocUNVGLMary [facility]an Hospital Start: 87-88-0755wiivaladjxAMFPBMary [facility] Start: 11-21-2024 End: 48-07-1782gjmwqlpplwYFMXS MUSTAPHAUniPremier Healthtart: 09-27-2024 End: 42-02-6169Jbjkgjgep for other specified special examinationsDOUGLAS YOSt. [facility] Campustart: 09-27-2024 End: 23-08-4974gjozuzzfzhVGKNXHQ [facility]tart: 00-21-0588Aoenewqdck and management of inpatientDILAN CHANEYMiami Valley Hospitaltart: 57-02-6560Vzadwjepvl and management of inpatient SHERRY [facility]: 08-24-2024 End: 59-93-0207Gtiifctgqd and management of inpatientRADHA [facility]: 58-98-8309zuvrjtcoriNOOJISS [facility] Westtart: 09-20-2023 End: 34-75-3337ocnaeonxggAqiappb R NILLFacility:CD:[id number]: 08-02-2023 End: 57-84-1972aevpmsgpvzFxbetut HoyFacility:GS [facility] Hospitaltart: 08-02-2023 End: 34-19-8582Dvvzjih encounter procedureMichael R NILL General Surgery Nill/Said [facility] Start: 02-01-2022 End: 41-84-7346xisweqphigVX LANDEN HOYFacility:P3Opydb: 04-28-4889xklkvxfrmxKG LANDEN HOYFacility:P9Scpfj: 01-05-2022 End: 66-77-4864jvopoldwmdUW LANDEN HOYFacility:Z7Mjmcd: 12-30-2021 End: 38-20-5315aecfdovqgzON LANDEN HOYFacility:O0Otaij: 42-86-8250Ealxbvqol for general adult medical examination without abnormal findingsDR LANDEN [facility]tart: 10-13-2021 End: 60-53-5953lineintlrrPX LANDEN HOYFacility:E4Yyhtg: 10-13-2021 End: 20-45-8592Piugubpuc for general adult medical examination without abnormal findingsDR LANDEN HOYFacility:H1 Procedures DateProcedureProcedure DetailPerforming ClinicianStart: 34-15-8645RXD screening DR LANDEN Higgins on above:Performed By: #### PSASC #### [facility] [address] [place] [address] Dr. Odilon Elmore: 91-19-0859JcllxqwpcokTflhvjc NILL Arthropathy of right shoulder (disorder)Sea NILL ColonoscopyMichael NILL Left upper arm structure (body structure)Sea NILL Comment on above:reconstruction of left forearm due to injuryPectoral muscle structure (body structure)Sea NILL TonsillectomyMichael NILL Immunizations Immunization DateImmunizationNotesCare TvnhdiufVfcboban90-75-2711nadpggwge virus vaccine, unspecified formulationMichael NILL [phone]-ZvtgfUniversity Hospitals Ahuja [facility] Center 24-14-3466HWKL-CoV-2 (COVID-19) mRNA BNT-162b2 vaxMichael NILL [phone]-GrnemUniversity Hospitals Ahuja Medical Center Comment on above:Result Comment: 2023-06-29: [id number]-KkV-9 (COVID- 19) mRNA BNT-162b2 vaxMichael NILL [phone]-GynzuUniversity Hospitals Ahuja Medical Center Comment on above:Result Comment: 2023-06-29: [id number] Payers DatePayer CategoryPayerPolicy [id number] [id number] [id number] [id number] [id number] 2..0.1.92398[id number] 2..840.1.871583.3.57[id number] 2..840.1.383278.3.57[id number] 2..0.1.766390.3.579.2.20704-87-9205Rcjs-cdd76-90-1402Ekra-[id number] 2.[id number] Social History DateTypeDetailFacilityStart: 64-04-1244Inayine smoking statusNever smoked tobacco (finding)General Surgery BellevueTobacco smoking statusNeverGeneral Surgery BellevueSex [facility] Functional Status NsovGwgzyvbzbiSrnionOayskqhq11-92-0622Exmlfevaey StatusN/AGeneral Surgery [facility] Clinical Notes 08-02-2023 to 02-12-2025 Note Date & MwdiTwngAgoujcji30-30-8521 NoteNEUROSURGERY NOTE SUBJECTIVE: Chief complaint: Postoperative visit [...] for age. Independently ambulatory with steady gait. [place] J collar discontinued. Decreased range of motion with bilateral cervical rotation. Labs: Admission on 01/28/2025, Discharged on 01/29/2025 Component Date Value Ref Range Status Glucose POC 01/28/2025 106 (H) 70 - 105 mg/dL Final Hospital Outpatient Visit on 01/15/2025 Component Date Value Ref Range Status Ventricular Rate 01/15/2025 82 BPM Final Atrial Rate 01/15/2025 82 BPM Final VT Interval 01/15/2025 142 ms Final QRS DURATION 01/15/2025 100 ms Final QT Interval 01/15/2025 370 ms Final QTC CALCULATION(BAZETT) 01/15/2025 432 ms Final P [place] 01/15/2025 56 degrees Final R-[place] 01/15/2025 31 degrees Final T Wave [place] 01/15/2025 57 degrees Final Lab on 01/15/2025 [...] visit from the past (more content not included)...[facility]10-01-2025 NoteNeurosurgery Progress Note Post-Op Day [...] Value Ventricular Rate 82 Atrial Rate 82 VT Interval 142 QRS DURATION 100 QT Interval 370 QTC CALCULATION(BAZETT) 432 P [place] 56 R-[place] 31 T Wave [place] 57 Impression Normal sinus rhythm Normal ECG [...] control Mobilizing well Coleman Herrera MDUnUniversity Hospitals Lake [facility] Center09-30-2025 NotePt fully awake, alert and oriented. Pt ready for discharge to floor. VS stable. Anesthesia cleared for discharge to floor. Belongings given to pt at bedside. Report given to receiving nurse. Transport arranged. at bedsideUnUniversity Hospitals Lake West Medical Center09-30-2025 NotePatient: Vern Ravi Procedure Summary Date: 01/28/25 Room / Location: [facility] OPERATING ROOM 03 / [facility] Operating Room Anesthesia Start: 744 Anesthesia Stop: 949 Procedure: C6-C7 ACF Diagnosis: Cervical spondylosis Cervical radiculopathy at C7 (cervical spondylosis/HNP and radiuclopathy at c6-7) Surgeons: Coleman Herrera MD Responsible Provider: James Mercer MD Anesthesia Type: general ASA Status: 2 [...] PACU per anesthesia protocol. No notable events documented.[facility]09-30-2025 Note Airway Date/Time: 01/28/2025 8:07 AM Reason: elective Airway not difficult General Information and Staff Patient location during procedure: OR Anesthesiologist: James Mercer MD Resident/PROJECT MANAGEMENT MANAGER/CAA: Roberta Lucas MD Performed: resident/PROJECT MANAGEMENT MANAGER/CAA Patient Condition Indications for airway management: [...] Number of other approaches attempted: 0UnUniversity Hospitals Lake West Medical Center 01-28-2025 NotePatient: Vern Ravi Procedure Information Date/Time: 01/28/25 0730 Procedure: C6-C7 ACF (Bilateral) - C-ARM, SUPINE ON STANDARD BED, [employer] [place] Elite plate and Medtronic PEEK interbody cage (cervical), REP NOTIFIED 01/15 J Location: [facility] OPERATING ROOM 03 / [facility] Operating Room Surgeons: Coleman Herrera MD Relevant Problems Cardio (+) Benign essential HTN GI (+) GERD (gastroesophageal reflux disease) Pulmonary (+) Asthma (Never requires albuterol) Nervous (+) Cervical radiculopathy (+) Chronic pain syndrome (Prescribed Andrews, rarely requires) Musculoskeletal (+) Cervical spondylosis without myelopathy Endocrine/Metabolic (+) Diabetes (CMS/HCC) (Denies) CBC 01/15/25: BMP 01/15/25; Encounter Date: 01/15/25 ECG 12 lead Result Value Ventricular Rate 82 Atrial Rate 82 VT Interval 142 QRS DURATION 100 QT Interval 370 QTC CALCULATION(BAZETT) 432 P [place] 56 R-[place] 31 T Wave [place] 57 Impression Normal sinus rhythm Normal ECG [...] products. Plan discussed with attending. Additional Equipment RequestsKettering Health [facility] Center09-24-2025 Note Subjective Patient ID: Vern Ravi is a 64 y.o. male who presents for Hyperlipidemia, Hypertension, and Follow-up (1 year follow up. With recent labs, Chest X-ray,EKG done last week for pre surgery testing. Patient is having neck surgery at [facility] on MondayJan 28). Having neck surgery due [...] the past 36 hours). No follow-ups on file.[facility]09-17-2025 Note NEUROSURGERY NOTE SUBJECTIVE: Chief [...] Final Atrial Rate 01/15/2025 82 BPM Final VT Interval 01/15/2025 142 ms Final QRS DURATION 01/15/2025 100 ms Final QT Interval 01/15/2025 370 ms Final QTC CALCULATION(BAZETT) 01/15/2025 432 ms Final P [place] 01/15/2025 56 degrees Final R-[place] 01/15/2025 31 degrees Final T Wave [place] 01/15/2025 57 degrees Final Lab on 01/15/2025 [...] and disc bulging o (more content not included)...[facility]08-20-2025 NoteIn person visit Chief complaint: Chronic neck pain [place]: Vern Ravi is a 64 yr old [...] Attending addendum; I personally saw and evaluate [facility] in clinic with the medical student [...] mg by mouth in the morning. HYDROcodone-acetaminophen (Andrews) 5-325 mg tablet Take 1 tablet by [...] Gabapentin Other Simvastatin Swelling BLE edema, generalized malaiseKettering Health Behavioral Medical Center08-20-2025 Note In person visit Chief complaint: Chronic neck pain [place]: Vern Ravi is a 64 yr old [...] mg by mouth in the morning. HYDROcodone-acetaminophen (Andrews) 5-325 mg tablet Take 1 tablet by [...] donor bone, cage and plate. Coleman Herrera MDKettering Health Behavioral Medical Center07-24-2025 NoteOrthopaedic Surgery Subjective Pain of [...] Negative Chloe's, negative labrum apprehension test, negative Brandon's. Spurling's: Negative Right Shoulder: Inspection- no ecchymosis, [...] Gabapentin Other Simvastatin Swelling BLE edema, generalized malaiseKettering Health Behavioral Medical Center04-30-2025 Note Patient: Vern Ravi Procedure Summary Date: 08/28/24 Room / Location: [facility] In[facility] [place] Anesthesia Start: 834 Anesthesia Stop: 920 Procedure: DIAGNOSTIC COLONOSCOPY Diagnosis: GI bleeding Scheduled Providers: Dilan Chnaey MD; FOREST Chacon; Juarez Cummings MD Responsible [...] PACU per anesthesia protocol. No notable events documented.[facility]04-30-2025 Note Hospital Medicine Discharge Summary Final Discharge Diagnosis: GI bleeding Colonic polyps Acute blood loss anemia GERD (gastroesophageal reflux disease) Mixed hyperlipidemia Anxiety Admission Diagnosis: GI bleeding [K92.2] Hospital course: 64-year-old male with the above history who was admitted to [facility] from [facility] on 08/24 due to GI bleeding. Patient presented with melena and also bright red blood per rectum. Hemoglobin was 13 and the patient was hemodynamically stable. Initially was sent home after being told to take Protonix twice daily however he continued to have GI bleed. Upon presentation once again hemoglobin was 11.5 and he was transferred to [facility] for GI workup. He admits to [...] Time Provider Department Center 09/27/2024 1:00 PM [facility] FLUORO RM 4 [facility] XRAY Radiology 09/27/2024 2:00 PM [facility] MR1 [facility] MRI Radiology Your medication list START [...] HYDROcodone-acetaminophen 5-325 mg tablet Commonly known as: Andrews pantoprazole 40 mg EC tablet Commonly known [...] 08/28/2024 3:24 PM CC: MD RoxiUnUniversity [facility]als [facility]04-30-2025 NoteThis report has been cancelled.[facility]04-29-2025 Note-Will decrease PPI back to home dose of qdUnUniversity Hospitals Lake West Medical Center04-29-2025 Note- Hemoglobin continues to be stable. Status post EGD showing no active bleeding - patient with history of aspirin and NSAID use -Spoke with GI, did have CLN one year ago but due to recurrent GIB will proceed with colonoscopy tomorrowUnUniversity Hospitals [facility]04-29-2025 Note- as needed XanaxUnUniversity Hospitals Lake [facility] Center04-29-2025 Note- As above [facility]04-29-2025 Note- Holding home meds.[facility]04-29-2025 NoteHospital Medicine Daily Progress Note - 08/27/2024 8:41 AM; Room: [address] [place], [place] [id number] Admission: 08/24/2024 6:44 AM; Length of stay: 3 days THE HOSPITALIST TEAM PREFERS TO USE [employer] FOR NON-URGENT COMMUNICATION 7AM-7PM. IF I DO NOT RESPOND WITHIN 20 MINUTES OR URGENT MATTERS, PLEASE CALL THROUGH THE ASSET ADMINISTRATOR. FROM 7PM-7AM, PLEASE PAGE [phone](COVR). Code Status: Full Code Barriers to Discharge: [...] , FREET4 , CORTISOL , FEV1 , CZK5UFU , DLCO , RVSP , HDL , LDL No results found for: RZZLEQEP16 , IRON , TIBC , C3 , [...] on 08/26/24 Attending Physician: Juarez Cummings MD Rug Weaver: none Procedure Details: Informed consent was obtained [...] colonoscopy Clear liquid di (more content not included)...[facility]04-29-2025 [facility] Teaching GI Service Consult Gastroenterology/Hepatology Progress Note [...] for melena. Initially, he went to [facility] 08/23/2024 after experiencing melena for [...] g/dL, and he was subsequently transferred to [facility] for GI evaluation. He reports that [...] physician For Questions please contact us at: [facility] GI Service 6 am to 4 pm weekdays in house Phone extension: [phone] 4 pm to 6 am or weekends please contact the bullard machine operator to page the fellow infusion pharmacist [facility]04-28-2025 Note- as needed XanaxUnUniversity Hospitals Lake West Medical Center04-28-2025 Note- As aboveUnUniversity Hospitals Lake [facility] Center04-28-2025 Note- Previously on 40 mg Protonix daily.[facility]04-28-2025 Note- Holding home meds.[facility]04-28-2025 Note- Hemoglobin continues to be stable. Status post EGD showing no active bleeding. Continue to clear liquid diet as per GI recommendations. Discussed with RN to obtain records from [facility] regarding his colonoscopy in August 2023 - patient with history of aspirin and NSAID use. -Further recommendations as per GIUnUniversity Hospitals Lake [facility] Medical Center04-28-2025 NoteHospital Medicine Daily Progress Note - 08/26/2024 5:58 PM; Room: 5186/5186-01 Admission: 08/24/2024 6:44 AM; Length of stay: 2 days THE HOSPITALIST TEAM PREFERS TO USE [facility] FOR NON-URGENT COMMUNICATION 7AM-7PM. IF I DO NOT RESPOND WITHIN 20 MINUTES OR URGENT MATTERS, PLEASE CALL THROUGH THE ASSET ADMINISTRATOR. FROM 7PM-7AM, PLEASE PAGE [phone](COVR). Code Status: Full Code Barriers to Discharge: [...] Discussed with RN to obtain records from [facility] regarding his colonoscopy in August 2023 [...] , FREET4 , CORTISOL , FEV1 , LRM5QET , DLCO , RVSP , HDL , LDL No results found for: ERPUBCCT87 , IRON , TIBC , C3 , [...] on 08/26/24 Attending Physician: Juarez Cummings MD Rug Weaver: none Procedure Details: Informed consent was obtained [...] of bleeding identified Speci (more content not included)...[facility] 08-26-2024 NotePatient: Vern Ravi Procedure [...] PACU per anesthesia protocol. No notable events documented.[facility]04-28-2025 Note Patient: Vern Ravi Procedure Summary Date: 08/26/24 Room / Location: [facility] Anesthesia Start: 1521 Anesthesia Stop: 1538 Procedure: EGD Diagnosis: GI bleeding Gastroesophageal reflux disease, unspecified whether esophagitis present Scheduled Providers: Sherry Priest MD; Gerson Deluca CRNA; Juarez Cummings MD Responsible Provider: Sherry Priest MD Anesthesia Type: MAC ASA Status: 2 Anesthesia Post Transport Note [facility]: face mask Oxygen Flow (L/min): 8 Patient Monitor: direct observation Transport: uneventful Patient condition is: stableUnUniversity Hospitals Lake West Medical Center04-28-2025 Note Patient: Vern Ravi Procedure Information Date/Time: 08/26/24 1730 Scheduled providers: Sherry Priest MD; Gerson Deluca CRNA; Juarez Cummings MD Procedure: EGD Location: [facility] [place] Relevant Problems Anesthesia (within normal limits) Cardio [...] discussed with CAA. Additional Equipment RequestsUnUniversity Hospitals Lake West Medical Center04-27-2025 Note- Continue with IV Protonix. Continue monitoring hemoglobin. Continue monitoring on telemetry. - Hemoglobin trending down, currently at 10.4. Transfuse if hemoglobin drops below 7. - Pending EGD in AM. - patient with history of aspirin and NSAID use.[facility]04-27-2025 Note- Previously on 40 mg Protonix daily.[facility]04-27-2025 Note- as needed XanaxUnUniversity Hospitals Lake [facility]04-27-2025 Note- Holding home meds.[facility] 08-25-2024 Note- As aboveUnUniversity Hospitals Lake [facility] Center04-27-2025 Note Hospital Medicine Daily Progress Note - 08/25/2024 1:28 PM; Room: [address] [place] [address] Admission: 08/24/2024 6:44 AM; Length of stay: 1 days THE HOSPITALIST TEAM PREFERS TO USE [employer] FOR NON-URGENT COMMUNICATION 7AM-7PM. IF I DO NOT RESPOND WITHIN 20 MINUTES OR URGENT MATTERS, PLEASE CALL THROUGH THE ASSET ADMINISTRATOR. FROM 7PM-7AM, PLEASE PAGE [phone](COVR). Code Status: Full Code Barriers to Discharge: [...] , FREET4 , CORTISOL , FEV1 , OHJ4JZD , DLCO , RVSP , HDL , LDL No results found for: [id number] , IRON , TIBC , C3 , C4 , MEHUL , CANCA , ASO , PSA , CEA , CA125 , CA199 , AFP , CA153 Imaging MR transfer of outside films This order has been auto-finalized and does not contain a result. Discharge Planning Signed Les Pozo MD [facility] Medicine 08/25/2024 1:28 PMKettering Health Behavioral Medical Center04-27-2025 NotePRES[facility] Consult Gastroenterology/Hepatology Progress [...] for melena. Initially, he went to the [facility] 08/23/2024 after experiencing melena for [...] g/dL, and he was subsequently transferred to [facility] for GI evaluation. He reports that [...] physician For Questions please contact us at: [facility] Service 6 am to 4 pm weekdays in house Phone extension: [phone] 4 pm to 6 am or weekends please contact the bullard machine operator to page the fellow infusion pharmacist [facility]04-26-2025 NoteCase was discussed with the [...] at the bedside. Les Pozo MDUnUniversity Hospitals Lake [facility] Center04-26-2025 NotePRES[facility] Initial Gastroenterology/Hepatology Consultation Note IDENTIFYING DATA PATIENT: Vern Ravi ADMIT DATE: 08/24/2024 TIME OF EVALUATION: 08/24/2024 1:16 PM Reason for Consult: UGI bleeding HISTORY OF PRESENT ILLNESS Vern Ravi is a 64 y.o. 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 Initially, he went to the [facility] 08/23/2024 after experiencing melena for [...] g/dL, and he was subsequently transferred to [facility] for GI evaluation. He reports that [...] 14 DAYS 05/20/24 Cata Mccoy CNP HYDROcodone-acetaminophen (Andrews) 5-325 mg tablet TAKE 1 TABLET BY [...] 08/24/2024 BUN 16 08/25/19 (more content not included)...[facility]04-26-2025 [facility] Teaching GI Service Initial Gastroenterology/Hepatology Consultation Note IDENTIFYING DATA PATIENT: Vern Ravi ADMIT DATE: 08/24/2024 TIME OF EVALUATION: 08/24/2024 1:16 PM Reason for Consult: UGI bleeding HISTORY OF PRESENT ILLNESS Vern Ravi is a 64 y.o. 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 Initially, he went to the [facility] 08/23/2024 after experiencing melena for [...] g/dL, and he was subsequently transferred to [facility] for GI evaluation. He reports that [...] 14 DAYS 05/20/24 Cata Mccoy CNP HYDROcodone-acetaminophen (Andrews) 5-325 mg tablet TAKE 1 TABLET BY [...] 08/24/2024 BUN 16 08/25/19 (more content not included)...[facility]04-26-2025 Note- Previously on 40 mg Protonix daily.[facility]04-26-2025 Note-Type and screen -IV Protonix 40 mg twice daily -Place 2 large-bore Ivs -Trend hemoglobin every 8 hours -Hold aspirin and meloxicam. -GI consult for EGD -N.p.o. for now -IV lactated Ringer's at 75 cc an hourUnUniversity Hospitals Lake [facility] Center 08-24-2024 NoteHospital Medicine History and Physical 08/24/2024 7:40 AM THE HOSPITALIST TEAM PREFERS TO USE [employer] FOR NON-URGENT COMMUNICATION 7AM-7PM. IF I DO NOT RESPOND WITHIN 20 MINUTES OR URGENT MATTERS, PLEASE CALL THROUGH THE ASSET ADMINISTRATOR. FROM 7PM-7AM, PLEASE PAGE [phone](COVR). Chief Complaint No chief complaint on file. History of Present Illness Vern Ravi is an 64 y.o. male w a PMH of chronic pain 2/2 previous crushing injury, GERD, and HLD who came from [facility] with acute GI bleeding. Patient presented to [facility] yesterday after having melena with some [...] this hospital stay by a member of [facility] Medicine. Past Medical History Past Medical History: Diagnosis Date Asthma Hyperlipidemia Past Surgical History Past Surgical History: Procedure Laterality Date ARM DEBRIDEMENT Left regloved left arm-multiple surgeries FOREARM SURGERY LIPOMA RESECTION LIPOMA REMOVAL PECTORALIS MAJOR REPAIR PECTORALIS MAJOR REPAIR Left SHOULDER ARTHROSCOPY Right RT SHOULDER SCOPE TONSILLECTOMY TONSILLECTOMY Social History Social History Socioeconomic H (more content not included)...[facility]04-03-2024 NoteChief Complaint consultation for colonoscopy [facility] Staff 63 year old male presents on [...] Tobacco Use:., 08/02/2023 Family (more content not included)...[facility] HospitalComment on above:Result Comment: Electronically Signed By: Sea VALDERRAMA MD\Date and Time Signed: 08/02/23 16:15 EDTEvaluation + Plan note No data available for this section General Surgery [facility] Discharge instructions No data available for this section [facility] Progress note No data available for this section [facility] Surgery [facility] Summary Purpose Family History No Family History [...] section and content) DATE CREATED AUTHOR 02/02/2022 [facility] DATE CREATED AUTHOR AUTHOR'S ORGANIZ ATION 12/05/2023 [facility] DATE CREATED AUTHOR AUTHOR'S ORGANIZ ATION 02/14/2025 [facility] Patient Care team informatio n (unrecognized section and content) Personnel Name: Landen Diane MD Address: Address: [address] [place] [address] FOR RECORDS PERTAINING TO PATIENTS WHO ARE [...] BE BASED ON THE PRIMARY CLINICAL RECORDS. [facility]. provides no warranty or guarantee of the accuracy or completeness of information in this document.
--- NOTE | 2025-03-14 15:29 | CT_ITS ---
The [address] [address] Patient Name: LUZMARIA MCCLELLAND MRN: [id number] date: 1960 Sex: M Assigned Patient Location: CT Current Patient Location: CT Accession/Order Number: [id number] Exam Date: 03/14/2025 15:35 Report Date: 03/14/2025 16:42 At the request of: FAVIAN DIANE MD Procedure: CT wrist RT wo con CT right wrist without contrast TECHNIQUE: The CT exam was performed using one or more the following dose reduction techniques: Automated exposure control, adjustment of the MA and/or Kv according to patient size, or use of the iterative reconstruction technique. COMPARISON: Plain film imaging of 03/03/2025 HISTORY: Follow-up assessment with right wrist after fall. Continued pain for couple weeks. Negative prior plain film imaging. Adequate bony alignment without acute displaced fracture. Scaphoid intact. Carpal bones intact. No joint space gaping to suggest ligamentous disruption. The distal radius and ulna are intact. Distal radial ulnar joint intact. No focal soft tissue abnormality seen. No evidence of healing. No obvious tendinopathy with CT exam. CT/CT wrist RT wo con IMPRESSION: No acute displaced fracture. Impression dictated by: Dragan Crowder M.D. 03/14/2025 4:42 PM Dictation Location: [facility] MedicalSHRIN[facility] H[facility] FOR CHILDRENDeep Glint Electronically authenticated by: [id number] Y Date: 03/14/2025 16:42
== END 2025-03-14 15:25 | disposition home or self-care (01) ==
LOC: CT 15:24
PROVIDERS: PCP Family Medicine; Visit Provider Family Medicine
DX: S69.91XA Unspecified injury of right wrist, hand and finger(s), initial encounter (principal)
CPT/HCPCS: 73200; 76376